=== PATIENT | male | born 1950 | race Caucasian/White ===

== ENCOUNTER 2017-07-19 17:28 | Emergency (ER) | payer MEDICARE, OTHER ==
[~2017-07-19] VITALS: Ht 198.1 cm; Wt 90.7 kg
[2017-07-19] MEDS ORDERED: SIMVASTIN (18:43)
[2017-07-19] MEDS ORDERED: NEXIUM (18:43)
[2017-07-19] MEDS ORDERED: QUETIAPINE (18:44)
[2017-07-19] MEDS ORDERED: ZOLPIDEM (18:44)
--- NOTE | 2017-07-19 18:52 | ED GI ---
General Chief Complaint: Abdominal/GI Problems Stated Complaint: WEAKNESS, ACID REFLEX Source of Information: Patient, Family (granddaughter and grandson) Exam Limitations: No Limitations History of Present Illness Date Seen by Provider: Jul 19, 2017 Time Seen by Provider: 18:39 Initial Comments Patient presents to the ER by private conveyance with a chief complaint that for the past 7 days she's not had a bowel movement and he's had lots of nausea vomiting unable to keep any fluids or food down. His family reveals is not a whole agrees to drink about 12 beers a day on average but he is down to about 4- 6 a day since he moved in with his grandson for help. He has not drank in the last 3-4 days. They've tried Pepcid, his regular Nexium as well as his Pepto- Bismol without any relief of his reflux of acid and vomiting. His granddaughter who routinely was taking care of him just got back and stayed from a 2 days ago and they decided that since he was not getting better they better bring him to the doctor's office but apparently he was fired from his doctor at [facility] for not following up so they brought him to the ER instead. He has a history of using Seroquel, Ambien, Nexium for his acid reflux and simvastatin. He has not been taking any of his medications for the last 7 days. He is having some midepigastric and umbilical modest pain. He has not taken anything for the pain because he can't keep anything down. He has a history of falling off a trailer many years ago and shattering his pelvis which resulted in a colostomy and then a colostomy takedown in his right lower quadrant. No other abdominal surgeries. He's had no fevers chills cough or shortness of breath. No known heart disease. He does smoke about a pack per day of cigarettes and does not use recreational drugs. Patient says she's been a little bit shaky on his feet last couple days and had a fall yesterday and another fall this morning at about 2:00 in the morning. He does not think he struck his head or lose consciousness. He also has a history of COPD but does not use any breathing treatments for it. He says he's had colonoscopy and EGD but it was many many years ago and he doesn 't remember when and what was done and [facility] system but he does not think they found anything. He says he had a right inguinal hernia repair when he was a child according to his mother. Allergies and Home Medications Allergies Coded Allergies: No Known Drug Allergies (Unverified , 07/19/17) Patient Home Medication List Home Medication List Reviewed: Yes Review of Systems Constitutional: No chills, No diaphoresis, No fever; malaise, weakness EENTM: No Blurred Vision, No Double Vision Respiratory: Denies Cough, Denies Shortness of Air Cardiovascular: Denies Chest Pain, Denies Edema Gastrointestinal: Denies Abdomen Distended; Abdominal Pain, Constipated; Denies Diarrhea; Nausea, Poor Appetite, Poor Fluid Intake, Vomiting Genitourinary: Denies Burning, Denies Discharge, Denies Drainage Musculoskeletal: No back pain, No joint pain Skin: No pruritus, No rash Psychiatric/Neurological: Denies Headache, Denies Numbness Past Ibdohap-Uqmrqj-Eaebzl Hx Patient Social History Alcohol Use: Regular Use Alcohol Beverage of Choice: Beer (6 pack/day) Recreational Drug Use: No Smoking Status: Current Everyday Smoker Type Used: Cigarettes (one pack per day) Recent Foreign Travel: No Contact w/Someone Who Travel: No Physical Exam Vital Signs Vital Signs - First Documented 07/19/17 18:25 Temp 98.1 Pulse 71 Resp 18 B/P (MAP) 132/82 (99) Pulse Ox 95 O2 Delivery Room Air Capillary Refill : General Appearance: mild distress, other (disheveled) HEENT: PERRL/EOMI, normal ENT inspection, TMs normal; No pharynx normal ( oropharynx is dry) Neck: non-tender, supple, normal inspection Respiratory: chest non-tender, lungs clear, normal breath sounds, no respiratory distress, no accessory muscle use Cardiovascular: normal peripheral pulses, regular rate, rhythm, no edema Peripheral Pulses: 2+ Dorsalis Pedis (R), 2+ Left Dors-Pedis (L), 2+ Radial Pulses (R), 2+ Radial Pulses (L) Gastrointestinal: normal bowel sounds (active especially around the umbilicus) , soft, tenderness (and periumbilical); No hernia, No mass Progress/Results/Core Measures Results/Orders Lab Results Laboratory Tests Test 07/19/17 19:15 07/19/17 21:15 Range/Units White Blood Count 9.7 4.3-11.0 10^3/uL Red Blood Count 4.99 4.35-5.85 10^6/uL Hemoglobin 15.4 13.3-17.7 G/DL Hematocrit 44 40-54 % Mean Corpuscular Volume 87 80-99 FL Mean Corpuscular Hemoglobin 31 25-34 PG Mean Corpuscular Hemoglobin Concent 35 32-36 G/DL Red Cell Distribution Width 13.7 10.0-14.5 % Platelet Count 353 130-400 10^3/uL Mean Platelet Volume 9.1 7.4-10.4 FL Neutrophils (%) (Auto) 74 42-75 % Lymphocytes (%) (Auto) 13 12-44 % Monocytes (%) (Auto) 12 0-12 % Eosinophils (%) (Auto) 1 0-10 % Basophils (%) (Auto) 0 0-10 % Neutrophils # (Auto) 7.2 1.8-7.8 X 10^3 Lymphocytes # (Auto) 1.3 1.0-4.0 X 10^3 Monocytes # (Auto) 1.1 H 0.0-1.0 X 10^3 Eosinophils # (Auto) 0.1 0.0-0.3 10^3/uL Basophils # (Auto) 0.0 0.0-0.1 10^3/uL Prothrombin Time 13.6 12.2-14.7 SEC INR Comment 1.0 0.8-1.4 Activated Partial Thromboplast Time 24 24-35 SEC Sodium Level 135 135-145 MMOL/L Potassium Level 3.7 3.6-5.0 MMOL/L Chloride Level 98 98-107 MMOL/L Carbon Dioxide Level 25 21-32 MMOL/L Anion Gap 12 5-14 MMOL/L Blood Urea Nitrogen 43 H 7-18 MG/DL Creatinine 1.44 H 0.60-1.30 MG/DL Estimat Glomerular Filtration Rate 49 BUN/Creatinine Ratio 30 Glucose Level 108 H 70-105 MG/DL Calcium Level 9.3 8.5-10.1 MG/DL Magnesium Level 2.1 1.8-2.4 MG/DL Total Bilirubin 0.7 0.1-1.0 MG/DL Aspartate Amino Transf (AST/SGOT) 20 5-34 U/L Alanine Aminotransferase (ALT/SGPT) 20 0-55 U/L Alkaline Phosphatase 72 40-136 U/L Total Protein 7.0 6.4-8.2 GM/DL Albumin 3.8 3.2-4.5 GM/DL Lipase 47 8-78 U/L Serum Alcohol < 10 <10 MG/DL Urine Color NATHEN H Urine Clarity CLEAR Urine pH 6.5 5-9 Urine Specific [place] 1.015 L 1.016-1.022 Urine Protein 2+ H NEGATIVE Urine Glucose (UA) 3+ H NEGATIVE Urine Ketones 1+ H NEGATIVE Urine Nitrite NEGATIVE NEGATIVE Urine Bilirubin 1+ H NEGATIVE Urine Urobilinogen 4 H NORMAL MG/DL Urine Leukocyte Esterase 1+ H NEGATIVE Urine RBC (Auto) NEGATIVE NEGATIVE Urine RBC NONE /HPF Urine WBC 2-5 /HPF Urine Squamous Epithelial Cells 0-2 /HPF Urine Crystals NONE /LPF Urine Bacteria NEGATIVE /HPF Urine Casts PRESENT /LPF Urine Hyaline Casts 5-10 H /LPF Urine Mucus SMALL H /LPF Urine Culture Indicated NO My Orders Orders - TAMMIE LEWIS Ct Abdomen/Pelvis W (07/19/17 18:53) Alcohol (07/19/17 18:53) Cbc With Automated Diff (07/19/17 18:53) Comprehensive Metabolic Panel (07/19/17 18:53) Lipase (07/19/17 18:53) Magnesium (07/19/17 18:53) Ua Culture If Indicated (07/19/17 18:53) Saline Lock/Iv-Start (07/19/17 18:53) Ns Iv 1000 Ml (Sodium Chloride 0.9%) (07/19/17 18:53) Diatrizoate Meglum/Sodium 37% (Gastrogra (07/19/17 19:00) Ondansetron Injection (Zofran Injectio (07/19/17 19:00) Fentanyl Injection (Sublimaze Injection (07/19/17 19:00) Thiamine Injection (Vitamin B-1 Injectio (07/19/17 19:00) Protime With Inr (07/19/17 19:05) Partial Thromboplastin Time (07/19/17 19:05) Iohexol Injection (Omnipaque 350 Mg/Ml 1 (07/19/17 21:00) Ns (Ivpb) (Sodium Chloride 0.9% Ivpb Bag (07/19/17 21:00) Medications Given in ED Current Medications Medications Dose Ordered Sig/Perla Route Start Time Stop Time Status Last Admin Dose Admin Diatrizoate Meglum/ Diatrizoate Sod 120 ml ONCE ONCE PO 07/19/17 19:00 07/19/17 19:01 DC 07/19/17 20:59 120 ML Fentanyl Citrate 50 mcg ONCE ONCE IVP 07/19/17 19:00 07/19/17 19:01 DC 07/19/17 19:18 50 MCG Iohexol 100 ml ONCE ONCE IV 07/19/17 21:00 07/19/17 21:16 DC 07/19/17 21:00 100 ML Ondansetron HCl 4 mg ONCE ONCE IVP 07/19/17 19:00 07/19/17 19:01 DC 07/19/17 19:18 4 MG Sodium Chloride 100 ml ONCE ONCE IV 07/19/17 21:00 07/19/17 21:16 DC 07/19/17 21:00 100 ML Vital Signs/I&O 07/19/17 18:25 Temp 98.1 Pulse 71 Resp 18 B/P (MAP) 132/82 (99) Pulse Ox 95 O2 Delivery Room Air Progress Progress Note #1: Time: 19:01 Progress Note The patient had a fall with no obvious evidence of external head trauma, hemotympanum, shaikh sign or raccoon eyes on examination. It's been over 12 hours since the fall and so we discussed and offered him the option of a CT scan of his head but he has declined at this time after discussing the risks, benefits and alternatives. He is past the 12 hour observation window. Concern for obstruction secondary to possible malignancy, adhesions, etc. We'll get a CT scan of his abdomen and pelvis with IV and oral contrast. Fentanyl and Zofran for nausea and pain. We'll check labs and give him a 20 mL/kg bolus with one of those liters being a banana bag. He is not demonstrating any evidence of delirium tremens at this time but we'll put him on alcohol withdrawal precautions. Progress Note #2: Time: 21:59 Progress Note No evidence of obstruction on IV and oral contrast CT study of the abdomen pelvis. This could just be ileus. We are awaiting significant air-fluid levels. However he is definitely with nausea vomiting and obstipation. His probably not had a bowel movement because not really putting anything in by oral for the past week. After discussing the case the patient's feeling much better got up walked around even ate a putting pack and drink some water that he had on his person. He tolerated a so far and we has not needed any further nausea medicine since the initial nausea medicine. We talked about going home and following up for scope outpatient with Dr. Alvarez and he says he would be all for that. Diagnostic Imaging Diagonstic Imaging: Xray Plain Films/CT/US/NM/MRI: abdomen, pelvis Comments VIA [facility]. [place], [place] NAME: HARJINDER LAWLER [facility] REC#: [id number] PT STATUS: REG ER : 1950 PHYSICIAN: TAMMIE LEWIS MD ADMIT DATE: 07/19/17/ER Draft Date of Exam:07/19/17 CT ABDOMEN/PELVIS W PROCEDURE: CT abdomen and pelvis with contrast. TECHNIQUE: Multiple contiguous axial images were obtained through the abdomen and pelvis after administration of intravenous contrast. INDICATION: Nausea and vomiting for 4 days. FINDINGS: The lung bases are clear. The liver appears normal. The gallbladder and bile ducts are normal. Pancreas is atrophic. Spleen is normal. The adrenal glands are normal. Kidneys show no evidence of obstruction or calculi. There are benign cortical cysts present bilaterally. The largest is off the left kidney measuring 4 cm. There is good opacification of the aorta and abdominal vessels following IV contrast. Aorta is atherosclerotic without evidence of aneurysm. Abdominal vessels show normal enhancement. There is oral contrast present in the stomach and small bowel without evidence of obstruction. No evidence of bowel wall thickening. Colon shows normal stool and gas pattern. The appendix appears to be absent. No evidence of edema around the cecum. There is a moderate amount of stool in the rectum. There is no free air or free fluid. No intraabdominal adenopathy of pathologic size. Marked degenerative changes noted of the lumbar spine. IMPRESSION: 1. No acute intraabdominal findings demonstrated. 2. Atherosclerotic changes of the aorta. 3. Bilateral benign renal cystic changes. Dictated on workstation # [id number] Dict: 07/19/[id number] Trans: 07/19/172146 [facility] [id number] Interpreted by: MENG CARBAJAL MD Electronically signed by: Reviewed: Reviewed by Me Consults : Consulting Physician: EMILIANO ALVAREZ DO Consults Notes Discussed case and he would be willing to see the patient in the clinic. Departure Impression Primary Impression: Nausea and vomiting Qualified Codes: R11.2 - Nausea with vomiting, unspecified Additional Impressions: Dehydration EtOH dependence Qualified Codes: F10.20 - Alcohol dependence, uncomplicated Tobacco dependency Disposition: 01 HOME, SELF-CARE Condition: Improved Departure-Patient Inst. Decision time for Depature: 22:20 Referrals: EMILIANO ALVAREZ DO Patient Instructions: Intestinal Pseudo-obstruction (DC) Add. Discharge Instructions: Call Dr. Alvarez, General Surgeon's office in the morning and request an appointment. Drink plenty of fluids especially half-strength sports drinks. Eat a liquid diet and as your symptoms are improving you're not needing the nausea medicines you can increase that to more regular diet. If you have nausea you can take one tablet of the Zofran place under your tongue allowed to dissolve absorbed your mouth every 6 hours as needed. Continue to take your Nexium. converter supervisor the Carafate and take one tablet 30 minutes prior to all meals as well as before going to bed for the next 2 weeks to help coat the lining of your stomach. All discharge instructions reviewed with patient and/or family. Voiced understanding. Scripts Hydrocodone/Acetaminophen (Hydrocodone-Acetamin 5-325 mg) 1 Each Tablet 1 EACH PO Q6H PRN for BREAKTHROUGH PAIN for 7 Days, #8 TAB 0 Refills Prov: TAMMIE LEWIS 07/19/17 Sucralfate (Carafate) 1 Gm Tablet 1 GM PO QIDACHS for 14 Days, #56 TAB 0 Refills Prov: TAMMIE LEWIS 07/19/17 Esomeprazole Magnesium (Nexium) 20 Mg Capsule.dr 20 MG PO BID for 30 Days, #60 CAP 0 Refills Prov: TAMMIE LEWIS 07/19/17 Ondansetron (Ondansetron Odt) 4 Mg Tab.rapdis 4 MG PO Q6H PRN for NAUSEA/VOMITING, #8 TAB 0 Refills Prov: TAMMIE LEWIS 07/19/17 Copy Copies To 1: EMILIANO ALVAREZ TITUS J Jul 19, 2017 18:52
[2017-07-19] MEDS ORDERED: NS IV 1000 ML 1,000 ML IV SCH (18:53)
[2017-07-19] MEDS ORDERED: DIATRIZOATE MEGLUM/SODIUM 37% 120 ML (GASTROGRAFIN) PO ONE (19:00)
[2017-07-19] MEDS ORDERED: ONDANSETRON 4 MG/2 ML (SDV) Z0FRAN IVP ONE (19:00)
[2017-07-19] MEDS ORDERED: fentaNYL INJECTION 100 MCG/2 ML AMP IVP ONE (19:00)
[2017-07-19] MEDS ORDERED: THIAMINE INJECTION 100 MG, FOLIC ACID INJECTION 1 MG, VITAMIN MULTI INJECTION 10 ML, MA... IV SCH ×5 (19:00)
[2017-07-19 19:30] LABS: BASOPHILS % (AUTO) 0 % (0-10); EOSINOPHILS # (AUTO) 0.1 10^3/uL (0.0-0.3); EOSINOPHILS % (AUTO) 1 % (0-10); HEMATOCRIT 44 % (40-54); HEMOGLOBIN 15.4 G/DL (13.3-17.7); LYMPHOCYTES # (AUTO) 1.3 X 10^3 (1.0-4.0); LYMPHOCYTES % (AUTO) 13 % (12-44); MEAN CORPUSCULAR HEMOGLOBIN 31 PG (25-34); MEAN CORPUSCULAR HGB CONC 35 G/DL (32-36); MEAN CORPUSCULAR VOLUME 87 FL (80-99); MEAN PLATELET VOLUME 9.1 FL (7.4-10.4); MONOCYTES # (AUTO) 1.1 X 10^3 (0.0-1.0); MONOCYTES % (AUTO) 12 % (0-12); NEUTROPHILS # (AUTO) 7.2 X 10^3 (1.8-7.8); NEUTROPHILS % (AUTO) 74 % (42-75); PLATELET COUNT 353 10^3/uL (130-400); RED BLOOD COUNT 4.99 10^6/uL (4.35-5.85); RED CELL DISTRIBUTION WIDTH 13.7 % (10.0-14.5); WHITE BLOOD COUNT 9.7 10^3/uL (4.3-11.0)
[2017-07-19 19:49] LABS: PROTHROMBIN TIME PATIENT 13.6 SEC (12.2-14.7)
[2017-07-19 19:56] LABS: ALANINE AMINOTRANSFERASE 20 U/L (0-55); ALBUMIN 3.8 GM/DL (3.2-4.5); ALKALINE PHOSPHATASE 72 U/L (40-136); BILIRUBIN,TOTAL 0.7 MG/DL (0.1-1.0); BUN/CREATININE RATIO 30; CALCIUM 9.3 MG/DL (8.5-10.1); CARBON DIOXIDE 25 MMOL/L (21-32); CHLORIDE 98 MMOL/L (98-107); CREATININE SERUM 1.44 MG/DL (0.60-1.30); GFR ESTIMATED 49; GLUCOSE 108 MG/DL (70-105); LIPASE 47 U/L (8-78); MAGNESIUM 2.1 MG/DL (1.8-2.4); POTASSIUM 3.7 MMOL/L (3.6-5.0); SODIUM 135 MMOL/L (135-145)
[2017-07-19] MEDS ORDERED: NS 100 ML (IVPB) BAG IV ONE (21:00)
[2017-07-19] MEDS ORDERED: IOHEXOL 350 MG/ML 100 ML (OMNIPAQUE 350) VIAL IV ONE (21:00)
[2017-07-19 21:28] LABS: CLARITY,URINE CLEAR; COLOR,URINE AMBER; GLUCOSE, URINE (UA) 3+ (NEGATIVE); KETONES,URINE 1+ (NEGATIVE); LEUKOCYTE ESTERASE ,URINE 1+ (NEGATIVE); NITRITE,URINE NEGATIVE (NEGATIVE); PH,URINE 6.5 (5-9); PROTEIN,URINE 2+ (NEGATIVE); UROBILINOGEN,URINE 4 MG/DL (NORMAL)
[2017-07-19 21:36] LABS: BILIRUBIN,URINE 1+ (NEGATIVE)
[2017-07-19 21:38] LABS: BACTERIA,URINE NEGATIVE /HPF; SQUAMOUS EPITHELIAL CELL,UR 0-2 /HPF
--- NOTE | 2017-07-19 21:48 | Diagnostic Imaging Report ---
PROCEDURE: CT abdomen and pelvis with contrast. TECHNIQUE: Multiple contiguous axial images were obtained through the abdomen and pelvis after administration of intravenous contrast. INDICATION: Nausea and vomiting for 4 days. FINDINGS: The lung bases are clear. The liver appears normal. The gallbladder and bile ducts are normal. Pancreas is atrophic. Spleen is normal. The adrenal glands are normal. Kidneys show no evidence of obstruction or calculi. There are benign cortical cysts present bilaterally. The largest is off the left kidney measuring 4 cm. There is good opacification of the aorta and abdominal vessels following IV contrast. Aorta is atherosclerotic without evidence of aneurysm. Abdominal vessels show normal enhancement. There is oral contrast present in the stomach and small bowel without evidence of obstruction. No evidence of bowel wall thickening. Colon shows normal stool and gas pattern. The appendix appears to be absent. No evidence of edema around the cecum. There is a moderate amount of stool in the rectum. There is no free air or free fluid. No intraabdominal adenopathy of pathologic size. Marked degenerative changes noted of the lumbar spine. IMPRESSION: 1. No acute intraabdominal findings demonstrated. 2. Atherosclerotic changes of the aorta. 3. Bilateral benign renal cystic changes. Dictated by: Dictated on workstation # [id number]
[2017-07-19] MEDS ORDERED: ONDA4TAB11 PO (22:24)
[2017-07-19] MEDS ORDERED: SUCR1TAB36 PO (22:24)
[2017-07-19] MEDS ORDERED: HYDR-3812 PO (22:24)
[2017-07-19] MEDS ORDERED: ESOM20CA PO (22:24)
[2017-07-19] MEDS ORDERED: FAMOTIDINE 20 MG (PEPCID) TABLET PO ONE (22:30)
[2017-07-19] MEDS ORDERED: RX-FAMOTIDINE 20 MG (PEPCID) TAB PPK#2 ONE (22:47)
[2017-07-19 22:59] VITALS: BP 141/77
== END 2017-07-19 22:59 | disposition home or self-care (01) ==
LOC: ER 17:32
DX: R11.2 Nausea with vomiting, unspecified (principal); E86.0 Dehydration; J44.9 Chronic obstructive pulmonary disease, unspecified; K21.9 Gastro-esophageal reflux disease without esophagitis; F10.20 Alcohol dependence, uncomplicated; F17.210 Nicotine dependence, cigarettes, uncomplicated
CPT/HCPCS: 36415; 74177; 80053; 80320; 81000; 83690; 83735; 85025; 85610; 85730; 96361; 96365; 96366; 96375

== ENCOUNTER 2017-08-15 10:15 | Outpatient (CLI) | payer MEDICARE ==
[~2017-08-15] VITALS: Ht 198.1 cm; Wt 90.7 kg
[~2017-08-15 10:15] MED LIST: ESOM20CA PO; HYDR-3812 PO; NEXIUM; ONDA4TAB11 PO; QUETIAPINE; SIMVASTIN; SUCR1TAB36 PO; ZOLPIDEM
[2017-08-15] MEDS ORDERED: NF-ESOM40C PO (10:17)
== END 2017-08-15 10:25 ==
LOC: PREOP 10:15
PROVIDERS: ATTEND Surgery
DX: Z01.818 Encounter for other preprocedural examination (principal)

== ENCOUNTER 2017-08-16 09:15 | Day surgery (SDC) | payer MEDICARE ==
[~2017-08-16] VITALS: Ht 198.1 cm; Wt 90.7 kg
[~2017-08-16 09:15] MED LIST changes: +NF-ESOM40C PO
[2017-08-16] MEDS ORDERED: LACTATED RINGERS 1,000 ML IV STA (09:26)
[2017-08-16] MEDS ORDERED: LACTATED RINGERS 1,000 ML IV ONE (09:27)
[2017-08-16] MEDS ORDERED: HURRICAINE EXT TUBE (BENZOCAINE) XX PRN (09:30)
[2017-08-16 09:40] VITALS: BP 153/80
[2017-08-16] MEDS ORDERED: PROPOFOL INJECTION 50 ML IV ONE (10:43)
[2017-08-16] MEDS ORDERED: MIDAZOLAM 2 MG/2 ML (VERSED) VIAL ONE (10:43)
[2017-08-16] MEDS ORDERED: proPOfol 200 MG/20 ML (DIPRIVAN) VIAL IV ONE (11:28)
[2017-08-16] MEDS ORDERED: LABETALOL HCL 20 MG/4 ML VIAL ONE (11:38)
[2017-08-16] MEDS ORDERED: HURRICAINE EXT TUBE (BENZOCAINE) ONE (12:28)
[2017-08-16 12:30] VITALS: BP 166/90
--- NOTE | 2017-08-16 12:35 | Progress Note-Pre Operative ---
Pre-Operative Progress Note H&P Reviewed The H&P was reviewed, patient examined and no changes noted. Date Seen by Provider: Aug 16, 2017 Time Seen by Provider: 10:50 Date H&P Reviewed: Aug 16, 2017 Time H&P Reviewed: 10:50 Pre-Operative Diagnosis: gerd, nausea vomiting, constipation EMILIANO ALVAREZ DO Aug 16, 2017 12:35
--- NOTE | 2017-08-16 12:37 | Discharge Inst-Simple/Standard ---
Discharge Inst-Standard Patient Instructions/Follow Up Plan of Care/Instructions/FU: 2 weeks Florencia Activity as Tolerated: Yes Discharge Diet: Regular Diet EMILIANO ALVAREZ DO Aug 16, 2017 12:37
--- NOTE | 2017-08-16 12:38 | Progress Note-Post Operative ---
Post-Operative Progess Note Surgeon (s)/Rn Burn (s) Surgeon EMILIANO ALVAREZ DO Rn Burn: na Pre-Operative Diagnosis gerd, nausea vomiting, constipation Post-Operative Diagnosis hiatal hernia, colon polyps Procedure & Operative Findings Date of Procedure 08/16/17 Procedure Performed/Findings egd c biopsies, colonoscopy with hot bx polypectomy x 5 Anesthesia Type per produce wrapper Estimated Blood Loss Estimated blood loss (mL): none Specimens/Packing Specimens Removed antrum, colon polyps EMILIANO ALVAREZ DO Aug 16, 2017 12:38
[2017-08-16 12:55] VITALS: BP 165/89
[2017-08-16 13:00] VITALS: BP 165/89
--- NOTE | 2017-08-16 17:08 | OPERATIVE REPORT ---
DATE OF SERVICE: 08/16/2017 PREOPERATIVE DIAGNOSES: GERD, nausea, vomiting, constipation. POSTOPERATIVE DIAGNOSES: Hiatal hernia, colon polyps and minimal diverticulosis. PROCEDURES: EGD with biopsy and colonoscopy with hot biopsy polypectomy x5. SURGEON: Lloyd Don DO ANESTHESIA: Per REMOTE SENSING PROGRAM MANAGER. ESTIMATED BLOOD LOSS: None. COMPLICATIONS: None. INDICATIONS: The patient is a 67-year-old male, who has been having some nausea, vomiting, gastroesophageal reflux disease and constipation. Discussed risks and benefits of EGD and colonoscopy. He understands risks and benefits and wishes to proceed. Consent was signed and on the chart. DESCRIPTION OF PROCEDURE: The patient was taken to the endoscopy suite, placed in left lateral recumbent position. Timeout was performed. Scope was inserted in the mouth, down the esophagus, stomach and into the duodenum without difficulty. There are some slight erythematous changes in the first portion of the duodenum. No polyps, masses or ulcerations. Scope was retracted back into the stomach where it was further insufflated. Some slight erythematous changes present. Biopsy of the antrum was obtained. Scope was retroflexed noting a small to moderate hiatal hernia, no other pathology noted. Scope was returned to its normal position. A biopsy of the antrum had been obtained and the scope was then slowly retracted back into the distal esophagus, which had no polyps, masses, ulcerations or erythematous changes. Scope was retracted until completely removed, noting no other pathology. Digital rectal exam was performed. There were no palpable polyps, masses or ulcerations. The scope was inserted into the rectum and advanced all the way to the cecum with minimal difficulty. Prep was okay with irrigation and suction, still some particulate stool present, but fairly good visualization of all the mucosa was observed. Scope was then slowly retracted back. There were no polyps, masses or ulcerations within the cecum, ascending and transverse colon. No polyps, masses or ulceration within the descending colon. In the proximal sigmoid colon, a small polyp was present, of which hot biopsy polypectomy was performed. Scope was continuously retracted back into the distal sigmoid colon where there were three polyps present, of which hot biopsy polypectomies were performed. There was a minimal amount of diverticulosis present at the sigmoid colon. Once in the rectum, another polyp was present, of which hot biopsy polypectomy was performed. Scope was attempted to be retroflexed, but due to being narrow rectum, unable to retroflex, so multiple insertions and retractions were made noting no other pathology. RECOMMENDATIONS: The patient will follow up in the office in two to three weeks to discuss pathology results. Due to the number of polyps, would recommend repeat endoscopy in 3 years. Job ID: [id number] DocumentID: [id number] Dictated Date: 08/16/2017 12:42:29 Ciaio Counter Molder Date: 08/16/2017 17:08:04 Dictated By: DO MERCY QUIROGA
== END 2017-08-16 13:00 | disposition home or self-care (01) ==
LOC: ENDO 09:15
PROVIDERS: ATTEND Surgery
DX: D12.5 Benign neoplasm of sigmoid colon (principal); K63.5 Polyp of colon; K62.1 Rectal polyp; K57.30 Diverticulosis of large intestine without perforation or abscess without bleeding; K59.00 Constipation, unspecified; K21.9 Gastro-esophageal reflux disease without esophagitis; K44.9 Diaphragmatic hernia without obstruction or gangrene; J43.9 Emphysema, unspecified; F17.210 Nicotine dependence, cigarettes, uncomplicated
CPT/HCPCS: 88305

== ENCOUNTER → 2018-02-10 | Outpatient (CLI) | payer MEDICARE, OTHER ==
--- NOTE | 2018-02-10 20:52 | Diagnostic Imaging Report ---
INDICATION: 70-sqky-yxes smoking history for low-dose screening CT. COMPARISON: No previous. Comparison limited to overlapped cuts obtained during an abdominal CT from July 2017. FINDINGS: Curvilinear areas of partly calcified biapical pleural-parenchymal scarring are noted. There is heterogeneous air trapping with features of centrilobular emphysema with scattered peripheral subpleural air cysts. No suspicious lung mass. No evidence for adenopathy. Nonaneurysmal aortic atherosclerotic vascular calcifications as well as coronary atherosclerotic calcifications noted. Atherosclerotic ectasia of the upper abdomenal aorta unchanged where visualized on today's and prior exam. IMPRESSION: Changes of centrilobular emphysema with biapical partly calcified pleural-parenchymal scarring. No suspicious chest lesion. A 12-month annual low-dose CT follow-up recommended. Lung rads category 2 - Benign appearance or behavior. Solid nodule(s): <6mm OR new <4mm. Continue annual screening with LDCT in 12 months. Dictated by: Dictated on workstation # [id number]
== END ==
LOC: RAD 14:58
PROVIDERS: ATTEND Family Medicine
DX: Z12.2 Encounter for screening for malignant neoplasm of respiratory organs (principal); F17.210 Nicotine dependence, cigarettes, uncomplicated; J43.2 Centrilobular emphysema

== ENCOUNTER 2018-04-26 23:01 | Emergency (ER) | payer MEDICARE, OTHER ==
[~2018-04-26] VITALS: Ht 198.1 cm; Wt 90.7 kg
--- NOTE | 2018-04-26 23:50 | ED Syncope ---
General Chief Complaint: General Problems/Pain Stated Complaint: FALL,NO ENERGY Nursing Triage Note: PT AMB TO ROOM #3 UTILIZING PERSONAL WALKER. PT REPORTS OVER PAST X2 MONTHS, HE HAS FALLEN APPROX X5. PT REPORTS ONCE HE FALLS, HE IS UNABLE TO GET BACK UNTIL HE GETS HELP FROM HIS GRANDCHILDREN, WHOM HE LIVES WITH. PT DENIES SEEKING MEDICAL CARE AFTER ANY OF THE REPORTED FALLS. PT REPORTS HIS MOST RECENT FALL OCCURED YESTERDAY. PT REPORTS HE HIT HIS HEAD AND LOST CONCIOUSNESS. PT DENIES PAIN, DISCOMFORT, NAUSEA, VOMITING, OR DIARRHEA. PT STATES, "IM TIRED OF HAVING NO ENERGY AND I WANT TO KNOW WHY." Source of Information: Patient Exam Limitations: No Limitations History of Present Illness Date Seen by Provider: Apr 26, 2018 Time Seen by Provider: 23:37 Initial Comments The patient presents to ER by private conveyance walking and using his walker and a chief complaint of falls and syncopal episodes. He says this has been going on for 2 months going more frequently last 2 weeks. His last fall was about 2 days ago on Tuesday he felt twice and hit his head. He says is getting weaker at target back up. He smokes about a pack cigarettes per day and drinks about a 12 pack of beer a day. He has not brought this up to his primary care doctor. There wasn't any specific reason he decided to come in tonight other than he wanted to know what was causing his falls. He's not having any head or neck pain. He does have some nausea. He's been having a runny nose for the past couple months and using 2-4 Benadryl a day. He says he vomits every few days dry heaves mostly. He has a lot of coughing sometimes productive of phlegm. He denies any fevers chills dysuria diarrhea or constipation. No abdominal pain. No significant medical history, but he does have acid reflux and takes esomeprazole. He has an albuterol inhaler and uses it occasionally but doesn't feel that makes much difference. Allergies and Home Medications Allergies Coded Allergies: No Known Drug Allergies (Verified , 08/16/17) Home Medications Cephalexin 500 Mg Tablet, 500 MG PO BID Prescribed by: TAMMIE LEWIS on 04/27/18 0205 Esomeprazole Magnesium 40 Mg Cap, 40 MG PO DAILY, (Reported) Patient Home Medication List Home Medication List Reviewed: Yes Review of Systems Constitutional: No chills, No fever, No malaise EENTM: No ear discharge, No ear pain Respiratory: cough, phlegm; No short of breath, No wheezing Cardiovascular: No chest pain, No Hx of Intervention, No palpitations Gastrointestinal: No abdominal pain, No constipation, No diarrhea; nausea; No vomiting Genitourinary: No discharge, No dysuria Musculoskeletal: No back pain, No joint pain Skin: No pruritus, No rash Psychiatric/Neurological: Denies Headache, Denies Numbness, Denies Paresthesia Past Hfvczsj-Uhbrww-Wawlmd Hx Patient Social History Alcohol Use: Regular Use Number of Drinks Today: 12 Alcohol Beverage of Choice: Beer Recreational Drug Use: No Smoking Status: Current Everyday Smoker Type Used: Cigarettes 2nd Hand Smoke Exposure: Yes Recent Foreign Travel: No Contact w/Someone Who Travel: No Recent Infectious Disease Expo: No Recent Hopitalizations: No Seasonal Allergies Seasonal Allergies: Yes Past Medical History Surgeries: Yes (L THR) Abdominal, Coronary Stent, Orthopedic Respiratory: Yes COPD Cardiac: No High Cholesterol Neurological: No Reproductive Disorders: No Sexually Transmitted Disease: Yes HIV/AIDS: No Genitourinary: No Gastrointestinal: Yes Gastroesophageal Reflux Musculoskeletal: No Endocrine: No Loss of Vision: Denies Hearing Impairment: Hard of Hearing Cancer: No Psychosocial: Yes Sleep Difficulties Integumentary: No Blood Disorders: No Adverse Reaction/Blood Tranf: No (N/A) Physical Exam Vital Signs Vital Signs - First Documented 04/26/18 23:19 Temp 97.8 Pulse 72 Resp 20 B/P (MAP) 128/76 (93) Pulse Ox 95 O2 Delivery Room Air Capillary Refill : Less Than 3 Seconds Height, Weight, BMI Height: 6'6.00" Weight: 200lbs. 0.0oz. 90.723340ky; 23.1 BMI Method:Stated General Appearance: No Apparent Distress, WD/WN HEENT: PERRL/EOMI, Pharynx Normal, Moist Mucous Membranes Neck: Full Range of Motion, Normal Inspection, Non Tender, Supple Cardiovascular: Regular Rate, Rhythm, No Edema, Normal Peripheral Pulses Respiratory: Lungs Clear, Normal Breath Sounds, No Accessory Muscle Use, No Respiratory Distress, Decreased Breath Sounds (mildly) Gastrointestinal: Normal Bowel Sounds, Non Tender, Soft Back: Normal Inspection, No Vertebral Tenderness Extremities: Normal Capillary Refill, Normal Inspection, No Pedal Edema Neurologic/Psychiatric: Alert, Oriented x3, No Motor/Sensory Deficits, Normal 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, 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 Norm as Tested Cranial Nerves: Normal Hearing, Normal Speech, PERRL Coordination/Gait: Normal Finger to Nose, Normal Gait (uses a walker assistive device) Skin: Other (dried skin on his bilateral ankles) Progress/Results/Core Measures Results/Orders Lab Results Laboratory Tests Test 04/27/18 00:20 04/27/18 01:32 Range/Units White Blood Count 4.8 4.3-11.0 10^3/uL Red Blood Count 4.24 L 4.35-5.85 10^6/uL Hemoglobin 13.0 L 13.3-17.7 G/DL Hematocrit 37 L 40-54 % Mean Corpuscular Volume 87 80-99 FL Mean Corpuscular Hemoglobin 31 25-34 PG Mean Corpuscular Hemoglobin Concent 35 32-36 G/DL Red Cell Distribution Width 14.2 10.0-14.5 % Platelet Count 301 130-400 10^3/uL Mean Platelet Volume 8.7 7.4-10.4 FL Neutrophils (%) (Auto) 67 42-75 % Lymphocytes (%) (Auto) 17 12-44 % Monocytes (%) (Auto) 13 H 0-12 % Eosinophils (%) (Auto) 3 0-10 % Basophils (%) (Auto) 1 0-10 % Neutrophils # (Auto) 3.2 1.8-7.8 X 10^3 Lymphocytes # (Auto) 0.8 L 1.0-4.0 X 10^3 Monocytes # (Auto) 0.6 0.0-1.0 X 10^3 Eosinophils # (Auto) 0.1 0.0-0.3 10^3/uL Basophils # (Auto) 0.0 0.0-0.1 10^3/uL Sodium Level 131 L 135-145 MMOL/L Potassium Level 3.6 3.6-5.0 MMOL/L Chloride Level 96 L 98-107 MMOL/L Carbon Dioxide Level 24 21-32 MMOL/L Anion Gap 11 5-14 MMOL/L Blood Urea Nitrogen 10 7-18 MG/DL Creatinine 1.06 0.60-1.30 MG/DL Estimat Glomerular Filtration Rate > 60 BUN/Creatinine Ratio 9 Glucose Level 97 70-105 MG/DL Calcium Level 8.8 8.5-10.1 MG/DL Corrected Calcium 9.3 8.5-10.1 MG/DL Magnesium Level 1.3 L 1.8-2.4 MG/DL Total Bilirubin 0.7 0.1-1.0 MG/DL Aspartate Amino Transf (AST/SGOT) 38 H 5-34 U/L Alanine Aminotransferase (ALT/SGPT) 19 0-55 U/L Alkaline Phosphatase 72 40-136 U/L Ammonia 19 11-32 UMOL/L Troponin I < 0.028 <0.028 NG/ML Total Protein 6.8 6.4-8.2 GM/DL Albumin 3.4 3.2-4.5 GM/DL Thyroid Stimulating Hormone (TSH) 2.41 0.35-4.94 UIU/ML Serum Alcohol < 10 <10 MG/DL Urine Color YELLOW Urine Clarity SL CLOUDY Urine pH 6.5 5-9 Urine Specific [place] 1.005 L 1.016-1.022 Urine Protein 1+ H NEGATIVE Urine Glucose (UA) NEGATIVE NEGATIVE Urine Ketones NEGATIVE NEGATIVE Urine Nitrite NEGATIVE NEGATIVE Urine Bilirubin NEGATIVE NEGATIVE Urine Urobilinogen 1 NORMAL MG/DL Urine Leukocyte Esterase 3+ H NEGATIVE Urine RBC (Auto) 1+ H NEGATIVE Urine RBC NONE /HPF Urine WBC >100 H /HPF Urine Crystals NONE /LPF Urine Bacteria TRACE /HPF Urine Casts NONE /LPF Urine Mucus NEGATIVE /LPF Urine Culture Indicated YES My Orders Orders - TAMMIE LEWIS Alcohol (04/26/18 23:43) Ammonia (04/26/18 23:43) Cbc With Automated Diff (04/26/18 23:43) Comprehensive Metabolic Panel (04/26/18 23:43) Magnesium (04/26/18 23:43) Thyroid Stimulating Hormone (04/26/18 23:43) Troponin I (04/26/18 23:43) Ua Culture If Indicated (04/26/18 23:43) Chest Pa/Lat (2 View) (04/26/18 23:43) Ekg Tracing (04/26/18 23:43) Continuous Ekg Monitoring (04/26/18 23:43) Orthostatic Vital Signs (Adult (04/26/18 23:43) Ondansetron Oral Dissolve Tab (Zofran (04/27/18 00:00) Saline Lock/Iv-Start (04/27/18 00:31) Ns Iv 1000 Ml (Sodium Chloride 0.9%) (04/27/18 00:31) Ns Iv 1000 Ml (Sodium Chloride 0.9%) (04/27/18 00:30) Magnesium Oxide Tablet (Mag Ox Tablet) (04/27/18 01:45) Saline Lock/Iv-Start (04/27/18 01:36) Ns Iv 1000 Ml (Sodium Chloride 0.9%) (04/27/18 01:36) Urine Culture (04/27/18 01:32) Ceftriaxone For Iv Use (Rocephin For I (04/27/18 02:15) Medications Given in ED Current Medications Medications Dose Ordered Sig/Perla Route Start Time Stop Time Status Last Admin Dose Admin Ceftriaxone Sodium 1000 mg/ Sterile Water 10 ml @ 200 mls/hr ONCE ONCE IV 04/27/18 02:15 04/27/18 02:17 DC 04/27/18 02:20 200 MLS/HR Magnesium Oxide 400 mg ONCE ONCE PO 04/27/18 01:45 04/27/18 01:46 DC 04/27/18 01:45 400 MG Ondansetron HCl 4 mg ONCE ONCE PO 04/27/18 00:00 04/27/18 00:01 DC 04/27/18 00:10 4 MG Vital Signs/I&O 04/26/18 04/27/18 23:19 01:25 Temp 97.8 Pulse 72 73 76 79 Resp 20 B/P (MAP) 128/76 (93) 161/96 (117) 143/89 (107) 109/59 (76) Pulse Ox 95 O2 Delivery Room Air Blood Pressure Mean: 93 Progress Progress Note #1: Time: 23:55 Progress Note Plan to start a syncopal workup. EKG, chest x-ray, labs looking for anemia, kidney dysfunction, urinalysis, orthostatic vital signs etc. Certainly have encouraged him not to use Benadryl as this will contribute to falls. Progress Note #2: Time: 02:01 Progress Note We've given a liter of normal saline and repeated his orthostatics and they're still positive but less so. Repeat another liter of saline. We'll give him a gram or Rocephin. Given him 400 mg magnesium. We'll recommend outpatient follow- up with a chest CT of the abnormal finding on left chest. He has some mild hyponatremia which can be worked up outpatient. Vital signs are otherwise aseptic. He is not truly hypotensive. Blood pressure would drop from 160 systolic lying to 110 standing. Initial ECG Impression Date: Apr 26, 2018 Initial ECG Impression Time: 00:24 Initial ECG Rate: 69 Initial ECG Rhythm: Normal Sinus Initial ECG Intervals: QT (497) Initial ECG Impression: Normal, Nonspecific Changes Initial ECG Comparisson: Unchanged Comment No significant ST elevation or depression. Diagnostic Imaging Diagonstic Imaging: Xray Plain Films/CT/US/NM/MRI: chest (2v) Comments COPD. Round nodule left lower lobe that would be advisable for follow-up outpatient. CT reviewed from 2018 demonstrates bleb disease, COPD, no mass. Reviewed: Reviewed by Me Departure Impression Primary Impression: Syncope Qualified Codes: R55 - Syncope and collapse Additional Impressions: Falls frequently UTI (urinary tract infection) Qualified Codes: N30.00 - Acute cystitis without hematuria Chest x-ray abnormality Disposition: HOME, SELF-CARE Condition: Stable Departure-Patient Inst. Decision time for Depature: 02:30 Referrals: JENNIFER BECK DO (PCP/Family) Primary Care Physician Patient Instructions: Preventing Falls in the Older Adult, Standing Balance Exercises, Beginner, Urinary Tract Infection, Adult (DC) Add. Discharge Instructions: Follow-up with your primary care doctor in the next week to reassess her symptoms after antibiotics for your urinary tract infection. Drink plenty of fluids. Discuss with your primary doctor further workup of the finding on chest x-ray. Use your walker or other assistive devices to help prevent falls. When you stand up after being in a seated or lying position for a long time you should wait 10 seconds before you start walking to reduce your risk of passing out. Discontinue use of the Benadryl as this will also contribute to falls. All discharge instructions reviewed with patient and/or family. Voiced understanding. Scripts Cephalexin (Cephalexin) 500 Mg Tablet 500 MG PO BID for 7 Days, #14 TAB 0 Refills Prov: TAMMIE LEWIS 04/27/18 Copy Copies To 1: JENNIFER BECK TITUS J Apr 26, 2018 23:50
[2018-04-27] MEDS ORDERED: ONDANSETRON 4 MG (ZOFRAN) ORAL DISSOLVE TAB PO ONE
--- OUTSIDE RECORDS SUMMARY | 2018-04-27 00:10 | XMS REPORT ---
Author Author ZANE MATTHEWS Organization [facility] Address [address] [place] [address] Care Team Providers Care Surgical Orderly Name Role Phone ZANE MATTHEWS Unavailable PROBLEMS Type Condition ICD9-CM Code QNF41-CL Code Onset Dates Condition Status SNOMED Code Problem Primary insomnia F51.01 Active 7313350 Problem Vertigo R42 Active 690522755 Problem Bilateral hearing loss, unspecified hearing loss type H91.93 Active 56462731 Problem Gastroesophageal reflux disease, esophagitis presence not specified K21.9 Active 630098984 Problem Cigarette nicotine dependence without complication F17.210 Active 98566857 ALLERGIES No Known Allergies ENCOUNTERS Encounter Location Date Diagnosis [facility] [id number] [place] [phone] Aug, [facility] [id number] [place] [phone] Aug, Bilateral hearing loss, unspecified hearing loss type H91.93 ; Perforation of left tympanic membrane H72.92 ; Gastroesophageal reflux disease, esophagitis presence not specified K21.9 ; Primary insomnia F51.01 ; Vertigo R42 and Cigarette nicotine dependence without complication F17.210 IMMUNIZATIONS No Known Immunizations SOCIAL HISTORY Never Assessed REASON FOR VISIT Establish care- Hearing screen -[place] PLAN OF CARE Activity Details Follow Up 3 Months Reason: VITAL SIGNS Height 78 in 2017-08-15 Weight 193 lbs 2017-08-15 Temperature 97.4 degrees Fahrenheit 2017-08-15 Heart Rate 76 bpm 2017-08-15 Respiratory Rate 18 2017-08-15 Oximetry on room air:91 % 2017-08-15 BMI 22.30 kg/m2 2017-08-15 Blood pressure systolic 140 mmHg 2017-08-15 Blood pressure diastolic 68 mmHg 2017-08-15 MEDICATIONS Medication Instructions Dosage Frequency Start Date End Date Duration Status Nexium 40 MG Orally Once a day 1 capsule 24h Active Ambien 10 mg Orally Once a day 1 tablet at bedtime as needed 24h Aug, Active RESULTS No Results PROCEDURES Procedure Date Ordered Result Body Site [facility] VISIT NEW PATIENT August 15, 2017 INSTRUCTIONS MEDICATIONS ADMINISTERED No Known Medications MEDICAL (GENERAL) HISTORY Type Description Date Surgical History Left hip replacement 1989 Hospitalization History surgeries
--- OUTSIDE RECORDS SUMMARY | 2018-04-27 00:10 | XMS REPORT ---
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 Inspector Name Role Phone ZANE MATTHEWS Unavailable PROBLEMS Type Condition ICD9-CM Code OFC49-MA Code Onset Dates Condition Status SNOMED Code Problem Primary insomnia F51.01 Active 5589388 Problem Vertigo R42 Active 786655642 Problem Bilateral hearing loss, unspecified hearing loss type H91.93 Active 87513607 Problem Gastroesophageal reflux disease, esophagitis presence not specified K21.9 Active 418743929 Problem Cigarette nicotine dependence without complication F17.210 Active 24769808 ALLERGIES No Information ENCOUNTERS Encounter Location Date Diagnosis [facility] [address] [address] Aug, [facility] [id number] [place] [phone] Aug, Bilateral hearing loss, unspecified hearing loss type H91.93 ; Perforation of left tympanic membrane H72.92 ; Gastroesophageal reflux disease, esophagitis presence not specified K21.9 ; Primary insomnia F51.01 ; Vertigo R42 and Cigarette nicotine dependence without complication F17.210 IMMUNIZATIONS No Known Immunizations SOCIAL HISTORY Never Assessed REASON FOR VISIT Medication refill request PLAN OF CARE VITAL SIGNS MEDICATIONS Medication Instructions Dosage Frequency Start Date End Date Duration Status Nexium 40 mg Orally Once a day 1 capsule 24h Active RESULTS No Results PROCEDURES No Known procedures INSTRUCTIONS MEDICATIONS ADMINISTERED No Known Medications MEDICAL (GENERAL) HISTORY Type Description Date Surgical History Left hip replacement 1989 Hospitalization History surgeries
[2018-04-27 00:29] LABS: BASOPHILS % (AUTO) 1 % (0-10); EOSINOPHILS # (AUTO) 0.1 10^3/uL (0.0-0.3); EOSINOPHILS % (AUTO) 3 % (0-10); HEMATOCRIT 37 % (40-54); LYMPHOCYTES # (AUTO) 0.8 X 10^3 (1.0-4.0); LYMPHOCYTES % (AUTO) 17 % (12-44); MEAN CORPUSCULAR HEMOGLOBIN 31 PG (25-34); MEAN CORPUSCULAR HGB CONC 35 G/DL (32-36); MEAN CORPUSCULAR VOLUME 87 FL (80-99); MEAN PLATELET VOLUME 8.7 FL (7.4-10.4); MONOCYTES # (AUTO) 0.6 X 10^3 (0.0-1.0); MONOCYTES % (AUTO) 13 % (0-12); NEUTROPHILS # (AUTO) 3.2 X 10^3 (1.8-7.8); NEUTROPHILS % (AUTO) 67 % (42-75); PLATELET COUNT 301 10^3/uL (130-400); RED CELL DISTRIBUTION WIDTH 14.2 % (10.0-14.5); WHITE BLOOD COUNT 4.8 10^3/uL (4.3-11.0)
[2018-04-27] MEDS ORDERED: NS IV 1000 ML 1,000 ML ONE (00:30)
[2018-04-27] MEDS ORDERED: NS IV 1000 ML 1,000 ML IV SCH ×2 (00:31→01:36)
[2018-04-27 00:48] LABS: ALANINE AMINOTRANSFERASE 19 U/L (0-55); ALBUMIN 3.4 GM/DL (3.2-4.5); ALKALINE PHOSPHATASE 72 U/L (40-136); AMMONIA 19 UMOL/L (11-32); BILIRUBIN,TOTAL 0.7 MG/DL (0.1-1.0); BUN/CREATININE RATIO 9; CALCIUM 8.8 MG/DL (8.5-10.1); CARBON DIOXIDE 24 MMOL/L (21-32); CHLORIDE 96 MMOL/L (98-107); CREATININE SERUM 1.06 MG/DL (0.60-1.30); GFR ESTIMATED > 60; GLUCOSE 97 MG/DL (70-105); MAGNESIUM 1.3 MG/DL (1.8-2.4); POTASSIUM 3.6 MMOL/L (3.6-5.0); SODIUM 131 MMOL/L (135-145); TOTAL PROTEIN 6.8 GM/DL (6.4-8.2)
[2018-04-27 01:25] VITALS: BP_SYST 109; BP_SYST 143; BP_SYST 161; BP_DIAS 59; BP_DIAS 89; BP_DIAS 96
[2018-04-27 01:42] LABS: BILIRUBIN,URINE NEGATIVE (NEGATIVE); COLOR,URINE YELLOW; GLUCOSE, URINE (UA) NEGATIVE (NEGATIVE); KETONES,URINE NEGATIVE (NEGATIVE); LEUKOCYTE ESTERASE ,URINE 3+ (NEGATIVE); NITRITE,URINE NEGATIVE (NEGATIVE); PH,URINE 6.5 (5-9); PROTEIN,URINE 1+ (NEGATIVE); UROBILINOGEN,URINE 1 MG/DL (NORMAL)
[2018-04-27] MEDS ORDERED: MAGNESIUM OXIDE (MAG-OX)400 MG TAB PO ONE (01:45)
[2018-04-27 01:48] LABS: BACTERIA,URINE TRACE /HPF; CLARITY,URINE SL CLOUDY; WBC,URINE >100 /HPF
[2018-04-27] MEDS ORDERED: CEPH500T PO (02:05)
[2018-04-27] MEDS ORDERED: cefTRIAXone FOR IV USE 1,000 MG in WATER (STERILE) FOR INJECTION 10 ML IV ONE (02:15)
[2018-04-27 02:45] VITALS: BP 121/95
--- NOTE | 2018-04-27 08:20 | Diagnostic Imaging Report ---
INDICATION: Shortness of air. Time of exam: 11:58 PM No prior studies are available for comparison. The heart size is normal. Lungs are hyperinflated consistent with COPD. There is some biapical pleural thickening. There is some density in the left base suggestive of some infiltrate. Linear scarring or atelectasis at the left costophrenic angle is noted. There is no effusion or pneumothorax. IMPRESSION: COPD. There does appear to be some patchy infiltrate in the left base. Dictated by: Dictated on workstation # [id number]
== END 2018-04-27 02:45 | disposition home or self-care (01) ==
LOC: EDUNIT# 23:01 → ER 23:02
DX: R55 Syncope and collapse (principal); N39.0 Urinary tract infection, site not specified; R91.8 Other nonspecific abnormal finding of lung field; R29.6 Repeated falls; J44.9 Chronic obstructive pulmonary disease, unspecified; E78.00 Pure hypercholesterolemia, unspecified; K21.9 Gastro-esophageal reflux disease without esophagitis; F17.210 Nicotine dependence, cigarettes, uncomplicated; Z95.5 Presence of coronary angioplasty implant and graft; Z98.890 Other specified postprocedural states
CPT/HCPCS: 36415; 71046; 80053; 80320; 81000; 82140; 83735; 84443; 84484; 85025; 87088; 93005

== ENCOUNTER → 2018-05-08 | Outpatient (CLI) | payer MEDICARE, OTHER ==
[~2018-05-08] MED LIST changes: +CEPH500T PO
[2018-05-08 15:59] LABS: BUN/CREATININE RATIO 7; CALCIUM 8.8 MG/DL (8.5-10.1); CARBON DIOXIDE 22 MMOL/L (21-32); CHLORIDE 96 MMOL/L (98-107); CREATININE SERUM 1.12 MG/DL (0.60-1.30); GFR ESTIMATED > 60; GLUCOSE 76 MG/DL (70-105); MAGNESIUM 1.1 MG/DL (1.8-2.4); POTASSIUM 4.6 MMOL/L (3.6-5.0); SODIUM 128 MMOL/L (135-145)
== END ==
LOC: LAB 15:27
PROVIDERS: ATTEND Family Medicine
DX: E87.1 Hypo-osmolality and hyponatremia (principal); E83.42 Hypomagnesemia; R29.6 Repeated falls
CPT/HCPCS: 36415; 80048; 83735

== ENCOUNTER 2018-06-02 22:33 | Inpatient (IN) | payer MEDICARE, OTHER ==
[~2018-06-02] VITALS: Ht 198.1 cm; Wt 78.2 kg
[2018-06-02] MEDS ORDERED: THIAMINE INJECTION 100 MG, FOLIC ACID INJECTION 1 MG, VITAMIN MULTI INJECTION 10 ML, MA... IV STA ×5 (22:58)
[2018-06-02] MEDS ORDERED: 1/2 NS W/KCL 20 MEQ/L 0 ML IV ONE (23:06)
[2018-06-02 23:07] LABS: BASOPHILS % (AUTO) 1 % (0-10); EOSINOPHILS # (AUTO) 0.2 10^3/uL (0.0-0.3); EOSINOPHILS % (AUTO) 2 % (0-10); HEMATOCRIT 36 % (40-54); HEMOGLOBIN 13.1 G/DL (13.3-17.7); LYMPHOCYTES # (AUTO) 1.8 X 10^3 (1.0-4.0); LYMPHOCYTES % (AUTO) 24 % (12-44); MEAN CORPUSCULAR HEMOGLOBIN 30 PG (25-34); MEAN CORPUSCULAR HGB CONC 36 G/DL (32-36); MEAN CORPUSCULAR VOLUME 84 FL (80-99); MONOCYTES # (AUTO) 0.7 X 10^3 (0.0-1.0); MONOCYTES % (AUTO) 9 % (0-12); NEUTROPHILS # (AUTO) 4.8 X 10^3 (1.8-7.8); NEUTROPHILS % (AUTO) 64 % (42-75); PLATELET COUNT 226 10^3/uL (130-400); RED CELL DISTRIBUTION WIDTH 14.9 % (10.0-14.5); WHITE BLOOD COUNT 7.5 10^3/uL (4.3-11.0)
[2018-06-02 23:21] LABS: ALANINE AMINOTRANSFERASE 24 U/L (0-55); ALBUMIN 3.6 GM/DL (3.2-4.5); ALKALINE PHOSPHATASE 64 U/L (40-136); BILIRUBIN,TOTAL 0.8 MG/DL (0.1-1.0); BUN/CREATININE RATIO 9; CARBON DIOXIDE 20 MMOL/L (21-32); CHLORIDE 90 MMOL/L (98-107); CREATININE SERUM 0.96 MG/DL (0.60-1.30); GFR ESTIMATED > 60; GLUCOSE 86 MG/DL (70-105); POTASSIUM 3.9 MMOL/L (3.6-5.0); TOTAL PROTEIN 6.7 GM/DL (6.4-8.2)
[2018-06-02 23:24] LABS: SODIUM 122 MMOL/L (135-145)
[2018-06-02] MEDS ORDERED: LACTATED RINGERS 1,000 ML IV ONE (23:33)
--- NOTE | 2018-06-02 23:33 | ED GU-Male ---
General Chief Complaint: General Problems/Pain Stated Complaint: LEG NUMBNESS/ETOH Nursing Triage Note: PT TO ROOM #7 [facility]IA [facility] CART FROM HOME WITH C/O BILAT LEG NUMBNESS/TINGLING AND TREMORS. PT REPORTS HE HAS BEEN EXPERIENCING SYMPTOMS FOR 1-2 MONTHS AND FEELS NO NEW SYMPTOMS ON THIS DAY. PT REPORTS HE HAS NOT BEEN ABLE TO URINATE FOR 1.5 DAYS. EMS [facility] FAMILY BECAME CONCERNED OF POSSIBLE STROKE D/T LEG NUMBNESS. 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 EMS [facility] PT HAS CONSUMED APPROX X15 "TALL BOYS" THROUGHOUT THIS EVENING. PT NOTED TO BE A&OX4. INITIAL NIH 0 Source: patient Exam Limitations: no limitations History of Present Illness Date Seen by Provider: Jun 02, 2018 Time Seen by Provider: 22:44 Initial Comments Patient presents to ER by EMS from home with chief complaint per EMS that family called because he was complaining that his feet were numb. They thought maybe this medicine was having a stroke. Denied any facial droop, slurring of speech or other symptoms. EMS remarks that he was negative for any neurologic gums. The patient says that his numbness in his feet is chronic. He does not have diabetes but he does drink alcohol consistently. Family reports he takes about 18 to all boys of beer a day. Patient says that he's been having problems with falls lately he's not had any today but is not sure when his last fall was. He denies losing consciousness. He says he had an appointment to go see his doctor about his falls but he hasn't made that appointment yet. He's not having any fevers chills cough he does smoke cigarettes. He also is complaining that he's not been able to urinate in the last 36 hours. Denies any burning or discharge. Patient is a particularly difficult historian. Allergies and Home Medications Allergies Coded Allergies: No Known Drug Allergies (Verified , 08/16/17) Home Medications Cephalexin 500 Mg Tablet, 500 MG PO BID Prescribed by: TAMMIE LEWIS on 04/27/18 0205 Esomeprazole Magnesium 40 Mg Cap, 40 MG PO DAILY, (Reported) Patient Home Medication List Home Medication List Reviewed: Yes Review of Systems Review of Systems Constitutional: No chills, No diaphoresis EENTM: No ear discharge, No ear pain Respiratory: No cough, No short of breath Cardiovascular: No chest pain, No edema Gastrointestinal: No abdominal pain, No constipation, No diarrhea, No nausea Genitourinary: denies burning, denies dysuria Musculoskeletal: No back pain, No joint pain Past Gdbtntb-Uiyvls-Jtlcad Hx Patient Social History Alcohol Use: Rarely Uses Number of Drinks Today: 15 Alcohol Beverage of Choice: Beer Recreational Drug Use: No Smoking Status: Current Everyday Smoker Type Used: Cigarettes 2nd Hand Smoke Exposure: Yes Recent Foreign Travel: No Contact w/Someone Who Travel: No Recent Infectious Disease Expo: No Recent Hopitalizations: No Seasonal Allergies Seasonal Allergies: Yes Past Medical History Surgeries: Yes (L THR) Abdominal, Coronary Stent, Orthopedic Respiratory: Yes COPD Cardiac: No High Cholesterol Neurological: No Reproductive Disorders: No Sexually Transmitted Disease: Yes HIV/AIDS: No Genitourinary: No Gastrointestinal: Yes Gastroesophageal Reflux Musculoskeletal: No Endocrine: No Loss of Vision: Denies Hearing Impairment: Hard of Hearing Cancer: No Psychosocial: Yes Sleep Difficulties Integumentary: No Blood Disorders: No Adverse Reaction/Blood Tranf: No (N/A) Physical Exam Vital Signs Vital Signs - First Documented 06/02/18 22:34 Temp 98.1 Pulse 66 Resp 16 B/P (MAP) 134/88 (103) Pulse Ox 98 O2 Delivery Room Air Capillary Refill : Less Than 3 Seconds Height, Weight, BMI Height: 6'6.00" Weight: 200lbs. 0.0oz. 90.178169gj; 23.1 BMI Method:Stated General Appearance: no apparent distress, other (Disheveled) HEENT: PERRL/EOMI, normal ENT inspection; No pharynx normal (mildly dry oropharynx.) Neck: non-tender, full range of motion, normal inspection Cardiovascular: normal peripheral pulses, regular rate, rhythm Respiratory: normal breath sounds, no respiratory distress, no accessory muscle use Gastrointestinal: normal bowel sounds, non tender, soft Neurologic/Psychiatric: alert, normal mood/affect, oriented x 3 Skin: normal color, warm/dry Progress/Results/Core Measures Suspected Sepsis Recent Fever Within 48 Hours: No Infection Criteria Present: None New/Unexplained Altered Menta: No Sepsis Screen: No Definite Risk SIRS Temperature:98.1 Pulse: 66 Respiratory Rate: 16 Laboratory Tests 06/02/18 22:34: White Blood Count 7.5 Blood Pressure 134 /88 Mean: 103 Laboratory Tests 06/02/18 22:34: Creatinine 0.96, Platelet Count 226, Total Bilirubin 0.8 Results/Orders Lab Results Laboratory Tests Test 06/02/18 22:34 06/03/18 00:15 Range/Units White Blood Count 7.5 4.3-11.0 10^3/uL Red Blood Count 4.31 L 4.35-5.85 10^6/uL Hemoglobin 13.1 L 13.3-17.7 G/DL Hematocrit 36 L 40-54 % Mean Corpuscular Volume 84 80-99 FL Mean Corpuscular Hemoglobin 30 25-34 PG Mean Corpuscular Hemoglobin Concent 36 32-36 G/DL Red Cell Distribution Width 14.9 H 10.0-14.5 % Platelet Count 226 130-400 10^3/uL Mean Platelet Volume 9.0 7.4-10.4 FL Neutrophils (%) (Auto) 64 42-75 % Lymphocytes (%) (Auto) 24 12-44 % Monocytes (%) (Auto) 9 0-12 % Eosinophils (%) (Auto) 2 0-10 % Basophils (%) (Auto) 1 0-10 % Neutrophils # (Auto) 4.8 1.8-7.8 X 10^3 Lymphocytes # (Auto) 1.8 1.0-4.0 X 10^3 Monocytes # (Auto) 0.7 0.0-1.0 X 10^3 Eosinophils # (Auto) 0.2 0.0-0.3 10^3/uL Basophils # (Auto) 0.0 0.0-0.1 10^3/uL Sodium Level 122 *L 135-145 MMOL/L Potassium Level 3.9 3.6-5.0 MMOL/L Chloride Level 90 L 98-107 MMOL/L Carbon Dioxide Level 20 L 21-32 MMOL/L Anion Gap 12 5-14 MMOL/L Blood Urea Nitrogen 9 7-18 MG/DL Creatinine 0.96 0.60-1.30 MG/DL Estimat Glomerular Filtration Rate > 60 BUN/Creatinine Ratio 9 Glucose Level 86 70-105 MG/DL Calcium Level 9.0 8.5-10.1 MG/DL Corrected Calcium 9.3 8.5-10.1 MG/DL Total Bilirubin 0.8 0.1-1.0 MG/DL Aspartate Amino Transf (AST/SGOT) 46 H 5-34 U/L Alanine Aminotransferase (ALT/SGPT) 24 0-55 U/L Alkaline Phosphatase 64 40-136 U/L Total Protein 6.7 6.4-8.2 GM/DL Albumin 3.6 3.2-4.5 GM/DL Serum Alcohol 176 H <10 MG/DL Urine Color YELLOW Urine Clarity CLEAR Urine pH 6 5-9 Urine Specific [place] 1.005 L 1.016-1.022 Urine Protein NEGATIVE NEGATIVE Urine Glucose (UA) NEGATIVE NEGATIVE Urine Ketones NEGATIVE NEGATIVE Urine Nitrite NEGATIVE NEGATIVE Urine Bilirubin NEGATIVE NEGATIVE Urine Urobilinogen NORMAL NORMAL MG/DL Urine Leukocyte Esterase NEGATIVE NEGATIVE Urine RBC (Auto) NEGATIVE NEGATIVE Urine RBC NONE /HPF Urine WBC NONE /HPF Urine Squamous Epithelial Cells RARE /HPF Urine Crystals NONE /LPF Urine Bacteria NEGATIVE /HPF Urine Casts NONE /LPF Urine Mucus NEGATIVE /LPF Urine Culture Indicated NO My Orders Orders - TAMMIE LEWIS Alcohol (06/02/18 22:58) Cbc With Automated Diff (06/02/18 22:58) Comprehensive Metabolic Panel (06/02/18 22:58) Bladder Scan (06/02/18 22:58) Ct Head/Cervical Spine Wo (06/02/18 22:58) Thiamine Injection (Vitamin B-1 Injectio (06/02/18 22:58) 1/2 Ns W/Kcl 20 Meq/L (0.45% Sodium Chlo (06/02/18 23:06) Ekg Tracing (06/02/18 23:33) Continuous Ekg Monitoring (06/02/18 23:33) Ed Iv/Invasive Line Start (06/02/18 23:33) Lactated Ringers (Lr 1000 Ml Iv Solution (06/02/18 23:33) Folic Acid Injection (Folic Acid Injecti (06/02/18 23:45) Thiamine Injection (Vitamin B-1 Injectio (06/02/18 23:45) Ua Culture If Indicated (06/02/18 23:40) Lorazepam Injection (Ativan Injection) (06/03/18 01:00) Folic Acid Tablet (Folic Acid Tablet) (06/03/18 09:00) Folic Acid Tablet (Folic Acid Tablet) (06/03/18 01:01) Medications Given in ED Current Medications Medications Dose Ordered Sig/Perla Route Start Time Stop Time Status Last Admin Dose Admin Folic Acid 1 mg STK-MED ONCE .ROUTE 06/03/18 01:01 06/03/18 01:05 DC 06/03/18 01:06 1 MG Lactated Ringer's 1,000 ml @ 0 mls/hr Q0M ONCE IV 06/02/18 23:33 06/02/18 23:35 DC 06/03/18 00:09 0 MLS/HR Lorazepam 1 mg ONCE ONCE IVP 06/03/18 01:00 06/03/18 01:01 DC 06/03/18 01:06 1 MG Thiamine HCl 100 mg ONCE ONCE IV 06/02/18 23:45 06/02/18 23:46 DC 06/03/18 00:09 100 MG Vital Signs/I&O 06/02/18 22:34 Temp 98.1 Pulse 66 Resp 16 B/P (MAP) 134/88 (103) Pulse Ox 98 O2 Delivery Room Air Capillary Refill : Less Than 3 Seconds Blood Pressure Mean: 103 Progress Note #1: Time: 00:25 Progress Note His alcohol level is only 170. NIH is 0. Sensation in all 4 extremities. Moves them all and dependently. He has not had a fall recently that we're going to obtain a CT of his head and neck to rule out occult injury. He has no acute trauma on his head or neck. He has a history of low sodium although this is the low since been for a while. Probably related to his alcohol use. We'll give him a banana bag. He was unable to produce any urine so a bladder scan was obtained which showed an average of 700 cc. We put a Jara catheter in and have already gotten over half a liter out. Progress Note #2: Time: 01:35 Progress Note Patient has moderate hyponatremia which she was progressed from his baseline and is moderately symptomatic with his forgetfulness and gait instability. His probably brought on by his urinary retention secondary to his BPH. Plan to put him on Flomax. Alcohol withdrawal protocol. Urology is out of town right now but he can follow up outpatient. Jaar catheter drain over 1500 cc. ECG Initial ECG Impression Date: Jun 02, 2018 Initial ECG Impression Time: 23:41 Initial ECG Rate: 68 Initial ECG Rhythm: Normal Sinus Initial ECG Intervals: Normal Initial ECG Impression: Normal, Nonspecific Changes Comment No ST elevation or depression. Diagnostic Imaging Diagonstic Imaging: CT (noncontrast) Plain Films/CT/US/NM/MRI: c-spine, head Comments No acute intracranial hemorrhage, mass effect, tumor, calvarial fracture or C- spine fracture or some rotation. Patt cervical spondylosis significant at C4 through C6. Chronic. Reviewed: Reviewed by Me Departure Communication (Admissions) Time/Spoke to Admitting Phy: 01:10 Discussed the case with Dr. Schofield and she agrees to admit the patient. She was alcohol withdrawal protocol. She wants a fluid restriction of 800 cc per day and normal saline at 60 cc per hour. Impression Primary Impression: Urinary retention due to benign prostatic hyperplasia Additional Impressions: Acute hyponatremia Chronic hyponatremia History of falling, presenting hazards to health AA (alcohol abuse) Disposition: ADMITTED INPATIENT Condition: Stable Admissions Decision to Admit Reason: Admit from ER (General) Decision to Admit/Date: Jun 03, 2018 Time/Decision to Admit Time: 01:21 Departure-Patient Inst. Referrals: JENNIFER BECK DO (PCP/Family) Primary Care Physician Copy Copies To 1: JENNIFER BECK TITUS J Jun 02, 2018 23:33
[2018-06-02] MEDS ORDERED: THIAMINE 100 MG/ML 2 ML (VITAMIN B-1) VIAL IV ONE (23:45)
[2018-06-02] MEDS ORDERED: FOLIC ACID 5MG/ML 10 ML IV ONE (23:45)
[2018-06-03] VITALS (32 sets, daily range): BP systolic 145–217; BP diastolic 76–119
[2018-06-03 00:40] LABS: BILIRUBIN,URINE NEGATIVE (NEGATIVE); CLARITY,URINE CLEAR; COLOR,URINE YELLOW; GLUCOSE, URINE (UA) NEGATIVE (NEGATIVE); KETONES,URINE NEGATIVE (NEGATIVE); LEUKOCYTE ESTERASE ,URINE NEGATIVE (NEGATIVE); NITRITE,URINE NEGATIVE (NEGATIVE); PH,URINE 6 (5-9); PROTEIN,URINE NEGATIVE (NEGATIVE); UROBILINOGEN,URINE NORMAL (NORMAL)
[2018-06-03 00:46] LABS: BACTERIA,URINE NEGATIVE /HPF; SQUAMOUS EPITHELIAL CELL,UR RARE /HPF
[2018-06-03] MEDS ORDERED: LORazepam INJ 2 MG/ML (ATIVAN) VIAL IVP ONE ×2 (01:00→05:30)
[2018-06-03] MEDS ORDERED: FOLIC ACID 1 MG TAB ONE (01:01)
--- NOTE | 2018-06-03 02:21 | NUR ---
@ TIME OF D/C FROM ED, 2000ML DARK YELLOW URINE OUTPUT.
--- NOTE | 2018-06-03 02:25 | NUR ---
HARJINDER LAWLER admitted to room 414, with an admitting diagnosis of BPH urine retention and hyponatremia, on 06/03/18 from ED via WC, accompanied by ED Staff Member.HARJINDER LAWLER introduced to surroundings, call light, bed controls, phone, TV, temperature control, lights, meal times, smoking policy, visitor policy, side rail policy, bathrooms and showers. Patient Rights given to patient in the handbook. HARJINDER LAWLER verbalizes understanding that [facility] is not responsible for the loss or damage to any personal effects or valuables that are kept in the patients posession during their hospitalization. Patient and/or family were informed about the Rapid Response Team and its purpose. Pt informed of plan of care with no concerns at this time.
[2018-06-03] MEDS ORDERED: TAMSULOSIN 0.4 MG (FLOMAX) CAP PO ONE (02:35)
[2018-06-03] MEDS ORDERED: NS IV 1000 ML 1,000 ML ONE (02:35)
[2018-06-03] MEDS ORDERED: LORazepam INJ 2 MG/ML (ATIVAN) VIAL ONE (03:06)
[2018-06-03] MEDS ORDERED: 1/2 NS IV SOLUTION 1,000 ML IV PRN (03:11)
[2018-06-03] MEDS ORDERED: IBUPROFEN 800 MG (MOTRIN) TAB PO PRN (03:15)
[2018-06-03] MEDS ORDERED: LORazepam INJ 2 MG/ML (ATIVAN) VIAL IM/IV PRN (03:15)
[2018-06-03] MEDS ORDERED: ONDANSETRON 4 MG (ZOFRAN) ORAL DISSOLVE TAB SL PRN (03:15)
[2018-06-03] MEDS ORDERED: SENNA W/DOCUSATE (SENOKOT S) TABLET PO PRN (03:15)
[2018-06-03] MEDS ORDERED: D5 1/2 NS 1000 ML IV SOLUTION 1,000 ML IV PRN (03:15)
[2018-06-03] MEDS ORDERED: LORazepam INJ 2 MG/ML (ATIVAN) VIAL IV PRN (03:15)
[2018-06-03] MEDS ORDERED: ACETAMINOPHEN 500 MG TAB (TYLENOL) PO PRN (03:15)
[2018-06-03] MEDS ORDERED: LORazepam 1 MG (ATIVAN) TAB PO PRN (03:15)
[2018-06-03] MEDS ORDERED: ANTACID SUSP 30 ML UDC (MYLANTA) PO PRN (03:15)
[2018-06-03] MEDS ORDERED: ONDANSETRON 4 MG/2 ML (SDV) Z0FRAN IV PRN ×2 (03:15)
[2018-06-03] MEDS: NS IV 1000 ML 1,000 ML IV SCH (03:16)
[2018-06-03] MEDS: LORazepam INJ 2 MG/ML (ATIVAN) VIAL IV PRN ×3 (04:19→09:37)
--- NOTE | 2018-06-03 05:00 | NUR ---
Dr. Schofield informed by this RN of pt condition. Pt scoring 18-20 on CIWA scale x2 times and received ativan IV 2mg for each score. Dr. Schofield informed that patient will likely score a 20 again, if not higher, on CIWA scale. This RN given telephone order to transfer pt to ICU and consult Dr. Mejias. home management supervisor informed so a bed may be obtained.
--- NOTE | 2018-06-03 05:10 | NUR ---
Patient transported upstairs to ICU bed 10 by this RN and Mee Burks RN. Report given by this nurse to VERÓNICA Souza.
[2018-06-03] MEDS ORDERED: diphenhydrAMINE 50 MG/ML INJ (BENADRYL) ONE (05:16)
[2018-06-03] MEDS ORDERED: LACTATED RINGERS 1,000 ML IV ONE ×2 (05:16→05:30)
[2018-06-03] MEDS ORDERED: methylPREDNISolone 125 MG (Solu-MEDROL) VIAL ONE (05:16)
[2018-06-03] MEDS ORDERED: FAMOTIDINE 20MG/2ML IV (PEPCID) ONE (05:17)
[2018-06-03] MEDS ORDERED: NS (IVPB) 50 ML ONE ×2 (05:18→07:51)
[2018-06-03] MEDS ORDERED: EPINEPHrine INJECTION 1 MG/ML AMP ONE (05:20)
[2018-06-03] MEDS ORDERED: DEXMEDETOMIDINE INJECTION 200 MCG in NS (IVPB) 50 ML IV SCH (05:30)
[2018-06-03] MEDS ORDERED: EPINEPHrine INJECTION 1 MG/ML AMP IM ONE (05:30)
[2018-06-03] MEDS ORDERED: FAMOTIDINE 20MG/2ML IV (PEPCID) IVP ONE (05:30)
[2018-06-03] MEDS ORDERED: methylPREDNISolone 125 MG (Solu-MEDROL) VIAL IV ONE (05:30)
[2018-06-03] MEDS ORDERED: diphenhydrAMINE 50 MG/ML INJ (BENADRYL) IVP ONE (05:30)
--- NOTE | 2018-06-03 05:33 | Pulmonary Consultation ---
History of Present Illness History of Present Illness Date of Consultation 06/03/18 05:28 Time Seen by Provider: 05:28 Date of Admission History of Present Illness 68yo with hx of alcohol and tobacco use presented to ED via EMS secondary to dysuria x 2 days and bilateral leg numbness, tingling, and tremors. Symptoms started 1-2months ago. Denied any facial droop, slurring of speech. All information obtained from chart. I am not currently able to obtain ROS. Pt was admitted to 4th floor then transferred to ICU secondary to increased MS changes , confusion, and aggression. I am consulted for ICU management. Allergies and Home Medications Allergies Coded Allergies: No Known Drug Allergies (Verified , 08/16/17) Home Medications Albuterol Sulfate 18 Gm Hfa.aer.ad, 2 PUFF INH TID PRN for SHORTNESS OF BREATH, (Reported) Esomeprazole Magnesium 40 Mg Capsule.dr, 40 MG PO DAILY, (Reported) Trazodone HCl 100 Mg Tablet, 100 MG PO HS, (Reported) Past Wthdque-Lhrbse-Ypccsl Hx Patient Social History Alcohol Use: Rarely Uses Number of Drinks Today: 15 Alcohol Beverage of Choice: Beer Recreational Drug Use: No Smoking Status: Current Everyday Smoker Type Used: Cigarettes 2nd Hand Smoke Exposure: Yes Recent Foreign Travel: No Contact w/Someone Who Travel: No Recent Infectious Disease Expo: No Recent Hopitalizations: No Seasonal Allergies Seasonal Allergies: Yes Past Medical History Surgeries: Yes (L THR) Abdominal, Coronary Stent, Orthopedic Respiratory: Yes COPD Cardiac: No High Cholesterol Neurological: No Reproductive Disorders: No Sexually Transmitted Disease: Yes HIV/AIDS: No Genitourinary: No Gastrointestinal: Yes Gastroesophageal Reflux Musculoskeletal: No Endocrine: No Loss of Vision: Denies Hearing Impairment: Hard of Hearing Cancer: No Psychosocial: Yes Sleep Difficulties Integumentary: No Blood Disorders: No Adverse Reaction/Blood Tranf: No (N/A) Review of Systems Time Seen by Provider: 05:56 Sepsis Event Evaluation Height, Weight, BMI Height: 6'6.00" Weight: 176lbs. 12.8oz. 80.003088mr; 20.4 BMI Method:Stated Exam Exam Vital Signs Date Time Temp Pulse Resp B/P (MAP) Pulse Ox O2 Delivery O2 Flow Rate FiO2 06/03/18 04:46 98.8 76 24 165/93 (117) 92 Room Air 06/03/18 03:30 93 Room Air 06/03/18 02:41 97.0 77 24 164/95 98 Room Air 06/03/18 02:37 97.0 77 24 164/95 (118) 98 Room Air 06/03/18 02:25 Room Air 06/03/18 02:21 98.1 82 19 119/103 (108) 98 Room Air 06/02/18 22:34 98.1 66 16 134/88 (103) 98 Room Air I & O 06/03/18 07:00 Intake Total 1000 ml Output Total 1300 ml Balance -300 ml Height & Weight Height: 6'6.00" Weight: 176lbs. 12.8oz. 80.410400yl; 20.4 BMI Method:Stated General Appearance: Anxious, Chronically ill, Severe Distress, Thin HEENT: PERRL/EOMI, Normal ENT Inspection, Pharynx Normal Neck: Full Range of Motion, Normal Inspection, Non Tender, Supple Respiratory: Chest Non Tender, Accessory Muscle Use, Decreased Breath Sounds Cardiovascular: No Edema, No Gallop, Tachycardia Capillary Refill: Less Than 3 Seconds Gastrointestinal: normal bowel sounds, non tender, soft Extremity: Normal Capillary Refill, Normal Inspection Neurologic/Psychiatric: Disoriented, Other (agitated ) Skin: Normal Color, Warm/Dry Lymphatic: No Adenopathy Results Lab Laboratory Tests 06/02/18 22:34 Assessment/Plan Assessment/Plan Acute MS changes/confusion/psychosis probably secondary to Alcohol -JASS protocol -Check ABG -Fall risk precautions -Start Precedex -Check UDS - from urine obtained at admission Acute hypoglycemia -1 amp of D50 -Accu check is 63 -Change IVF to D5NS at 100 -Will do Q2 and PRN accu checks until BS stable Acute on chronic hyponatremia -Repeat labs -Monitor -Continue NS for now Hypoxia -Oxygen -Monitor erythematous rash - ? Hives -Will give epi, solumedrol, and Benadryl -It appears pt was on Cephalexin at home -Monitor - for now Metabolic acidosis -Monitor -IVF Anemia -Monitor -Add protonix HTN -Monitor BPH -flomax Tobacco use -Education PAVITHRA CARLIN DO Jun 03, 2018 05:33
[2018-06-03] MEDS ORDERED: DEXTROSE 50% 50 ML (IMS) SYR ONE (05:57)
[2018-06-03] MEDS ORDERED: D5 NS 1000 ML IV SOLUTION 1,000 ML IV ONE (05:57)
[2018-06-03 05:59] LABS: AMPHETAMINE SCREEN, URINE NEGATIVE (NEGATIVE); BARBITURATE SCREEN URINE NEGATIVE (NEGATIVE); BENZODIAZEPINES SCREEN URINE NEGATIVE (NEGATIVE); CANNABINOID SCREEN, URINE NEGATIVE (NEGATIVE); COCAINE SCREEN URINE NEGATIVE (NEGATIVE); METHADONE STAT NEGATIVE (NEGATIVE); METHAMPHETAMINE SCREEN URINE S NEGATIVE (NEGATIVE); OPIATE SCREEN URINE NEGATIVE (NEGATIVE); OXYCODONE STAT NEGATIVE (NEGATIVE); PROPOXYPHENE STAT NEGATIVE (NEGATIVE); TRICYCLIC ANTIDEPRESSANTS SCRE NEGATIVE (NEGATIVE)
[2018-06-03] MEDS ORDERED: DEXTROSE 50% 50 ML (IMS) SYR IV ONE (06:00)
[2018-06-03] MEDS ORDERED: morphine INJ 4 MG/ML 1 ML (VIAL/SYRINGE) IVP PRN (06:00)
[2018-06-03] MEDS: D5 NS 1000 ML IV SOLUTION 1,000 ML IV SCH ×2 (06:14→18:19)
[2018-06-03 06:15] LABS: BASOPHILS % (AUTO) 1 % (0-10); EOSINOPHILS # (AUTO) 0.2 10^3/uL (0.0-0.3); EOSINOPHILS % (AUTO) 2 % (0-10); HEMATOCRIT 35 % (40-54); HEMOGLOBIN 12.6 G/DL (13.3-17.7); LYMPHOCYTES % (AUTO) 28 % (12-44); MEAN CORPUSCULAR HEMOGLOBIN 30 PG (25-34); MEAN CORPUSCULAR HGB CONC 36 G/DL (32-36); MEAN CORPUSCULAR VOLUME 84 FL (80-99); MEAN PLATELET VOLUME 8.7 FL (7.4-10.4); MONOCYTES # (AUTO) 0.9 X 10^3 (0.0-1.0); MONOCYTES % (AUTO) 12 % (0-12); NEUTROPHILS # (AUTO) 4.1 X 10^3 (1.8-7.8); NEUTROPHILS % (AUTO) 57 % (42-75); PLATELET COUNT 194 10^3/uL (130-400); WHITE BLOOD COUNT 7.2 10^3/uL (4.3-11.0)
[2018-06-03] MEDS: morphine INJ 4 MG/ML 1 ML (VIAL/SYRINGE) IVP PRN (06:16)
[2018-06-03] MEDS ORDERED: PROPOFOL DRIP (ICU) 100 ML IV ONE ×2 (06:25→08:58)
[2018-06-03 06:33] LABS: INR 1.1 (0.8-1.4); PROTHROMBIN TIME PATIENT 14.2 SEC (12.2-14.7)
[2018-06-03 06:44] LABS: ALANINE AMINOTRANSFERASE 24 U/L (0-55); ALBUMIN 3.1 GM/DL (3.2-4.5); ALKALINE PHOSPHATASE 57 U/L (40-136); BILIRUBIN,TOTAL 0.8 MG/DL (0.1-1.0); BUN/CREATININE RATIO 10; CALCIUM 8.5 MG/DL (8.5-10.1); CARBON DIOXIDE 18 MMOL/L (21-32); CHLORIDE 97 MMOL/L (98-107); CREATININE SERUM 0.84 MG/DL (0.60-1.30); GFR ESTIMATED > 60; GLUCOSE 69 MG/DL (70-105); MAGNESIUM 1.1 MG/DL (1.8-2.4); PHOSPHORUS 2.8 MG/DL (2.3-4.7); POTASSIUM 3.7 MMOL/L (3.6-5.0); SODIUM 128 MMOL/L (135-145); TOTAL PROTEIN 5.7 GM/DL (6.4-8.2)
--- NOTE | 2018-06-03 06:48 | Pulmonary Progress Note ---
Subjective Time Seen by a Provider: 06:45 Subjective/Events-last exam Called back into room secondary to pt having paradoxical respirations and requiring increased oxygen. Pt is obstructing airway however still very agitated attempting to crawl out of bed. Sepsis Event Evaluation Height, Weight, BMI Height: 6'6.00" Weight: 176lbs. 12.8oz. 80.854224sh; 20.4 BMI Method:Stated Exam Exam Vital Signs Date Time Temp Pulse Resp B/P (MAP) Pulse Ox O2 Delivery O2 Flow Rate FiO2 06/03/18 06:00 113 34 181/78 (112) 100 Nasal Cannula 5.00 06/03/18 05:45 114 39 201/109 (139) 97 Nasal Cannula 5.00 06/03/18 05:30 84 39 168/98 (121) 100 Nasal Cannula 5.00 06/03/18 05:24 84 06/03/18 04:46 98.8 76 24 165/93 (117) 92 Room Air 06/03/18 03:30 93 Room Air 06/03/18 02:41 97.0 77 24 164/95 98 Room Air 06/03/18 02:37 97.0 77 24 164/95 (118) 98 Room Air 06/03/18 02:25 Room Air 06/03/18 02:21 98.1 82 19 119/103 (108) 98 Room Air 06/02/18 22:34 98.1 66 16 134/88 (103) 98 Room Air I & O 06/03/18 07:00 Intake Total 1000 ml Output Total 1300 ml Balance -300 ml Height & Weight Height: 6'6.00" Weight: 176lbs. 12.8oz. 80.252160sa; 20.4 BMI Method:Stated General Appearance: Anxious, Chronically ill, Severe Distress, Thin HEENT: PERRL/EOMI, Normal ENT Inspection, Pharynx Normal Neck: Full Range of Motion, Normal Inspection, Non Tender, Supple Respiratory: Chest Non Tender, Accessory Muscle Use, Decreased Breath Sounds Cardiovascular: No Edema, No Gallop, Tachycardia Capillary Refill: Less Than 3 Seconds Gastrointestinal: normal bowel sounds, non tender, soft Neurologic/Psychiatric: Disoriented, Other (agitated ) Skin: Normal Color, Warm/Dry Lymphatic: No Adenopathy Results Lab Laboratory Tests 06/02/18 22:34 06/03/18 06:00 Assessment/Plan Assessment/Plan Acute respiratory distress - unable to maintain airway -Will proceed with intubation -Consent obtained -Will also place central line. -Consent obtained Acute MS changes/confusion/psychosis probably secondary to Alcohol -JASS protocol -Check ABG -Fall risk precautions -Start Precedex -Check UDS - from urine obtained at admission Acute hypoglycemia -1 amp of D50 -Accu check is 63 -Change IVF to D5NS at 100 -Will do Q2 and PRN accu checks until BS stable Acute on chronic hyponatremia -Repeat labs -Monitor -Continue NS for now Hypoxia -Oxygen -Monitor erythematous rash - ? Hives -Will give epi, solumedrol, and Benadryl -It appears pt was on Cephalexin at home -Monitor - for now Metabolic acidosis -Monitor -IVF Anemia -Monitor -Add protonix HTN -Monitor BPH -flomax Tobacco use -Education Time spent with pt not including initial consult or procedures is 30min. Critical Care: Critically Ill Patient Time spent with patient (mins): 30 PAVITHRA CARLIN DO Jun 03, 2018 06:48
--- NOTE | 2018-06-03 06:48 | Diagnostic Imaging Report ---
PROCEDURE: CT head and CT cervical spine without contrast. TECHNIQUE: Multiple contiguous axial images were obtained through the brain and cervical spine without the use of intravenous contrast. Sagittal and coronal reformations through the cervical spine were then performed. Auto Exposure Controls were utilized during the CT exam to meet ALARA standards for radiation dose reduction. INDICATION: Bilateral leg numbness and tingling and tremors. Symptoms for 1 to 2 months. COMPARISON: None FINDINGS: CT head: There is significant motion artifact in the exam. The ventricles and cortical sulci are mildly prominent, consistent with generalized parenchymal volume loss. No acute intracranial hemorrhage is identified. There is no significant mass effect or midline shift seen. No CT evidence of acute territorial ischemia seen. The calvarium appears intact. Fixation plates are noted at the anterior maxillary sinus velazco. No fluid level is seen. CT cervical spine: Again, there is significant motion artifact throughout the exam. No acute fracture is identified. There is reversal of the cervical lordosis centered at C4. There is severe degenerative change at C3-4, C4-5, C5-6 and C6-7. There is spinal canal stenosis and foraminal stenosis at multiple levels, most pronounced at C4-5 and C5-6. No bony fragments or hyperdense fluid collections are seen in the spinal canal. The soft tissues about the cervical spine appear normal. There is biapical pleural scarring. IMPRESSION: 1. Marked motion artifact throughout the examination. 2. No acute intracranial hemorrhage or CT evidence of acute territorial ischemia is identified. 3. Severe degenerative changes in the cervical spine with no acute fracture identified. Dictated by: Dictated on workstation # [id number]
--- NOTE | 2018-06-03 06:49 | Pulmonary Procedures ---
Pulmonary Procedures Date of Procedure Date of Service: Jun 03, 2018 Time of Intubation: 06:48 Intubation Method: orotracheal Tube Size: 8 Medications: Propofol, Succinylcholine, Versed Positive End Tide CO2: Yes Breath Sounds after Intubation: bilateral-equal Intubation Complications: no complications Post Intubation Xray: Yes PAVITHRA CARLIN DO Jun 03, 2018 06:49
--- NOTE | 2018-06-03 07:48 | NUR ---
Received pt from 4th floor at 0515, report from Pema SANCHES. Dr. Mejias decided to intubate pt this morning. this RN called the pt emergency contact on file at 0628 with no answer. I left a voice message with her to call back and gave the ICU number. Pt prepped for intubation at that time 0635- 4 mg of versed administered 0639- 5 ml of prop and 80 mg of succs administered 0643- 5 ml of prop administered, pt intubated by dr mejias at this time size 8 et 24 at lip- settings see RT note 0646- prop drip started at 25 and og tube placed all medications administered per verbal orders from dr paresh Robles RT, Natalia RT, Maria Guadalupe RN, Arlette RN, and Alexa RN all present during intubation
[2018-06-03] MEDS: MAGNESIUM OXIDE (MAG-OX)400 MG TAB PO SCH ×2 (08:14→21:51)
[2018-06-03] MEDS: PANTOPRAZOLE 40 MG (PROTONIX) VIAL IV SCH (08:14)
[2018-06-03] MEDS: THIAMINE 100 MG (VITAMIN B-1) TAB PO SCH (08:14)
[2018-06-03] MEDS: FOLIC ACID 1 MG TAB PO SCH (08:14)
[2018-06-03] MEDS: MULTIVIT W/MINERALS TAB (THERAGRAN M) PO SCH (08:14)
[2018-06-03] MEDS ORDERED: FOLIC ACID 1 MG TAB PO SCH (09:00)
[2018-06-03 09:15] LABS: ABG BASE EXCESS -3.9 MMOL/L (-2.5-2.5); ABG OXYGEN SATURATION 100 % (94-100); ABG PCO2 40 MMHG (35-45); ABG PO2 288 MMHG (79-93); ABG TCO2 22.3 MMOL/L (21.0-31.0)
[2018-06-03 09:18] LABS: ABG PH 7.34 (7.37-7.43); ALLENS TEST YES-POS; INSPIRED O2 100%; PATIENT TEMP 97.6; VENTILATOR YES
--- NOTE | 2018-06-03 09:30 | Diagnostic Imaging Report ---
INDICATION: Status post intubation. COMPARISON: 04/26/2018 FINDINGS: Single frontal radiographic view of the chest was obtained and demonstrates indwelling endotracheal tube with tip at the clavicular heads. Indwelling gastric tube is also seen with tip in the stomach. Side port is not well visualized. Lungs are clear. There is no focal consolidation, large effusion, nor pneumothorax. Cardiac silhouette and pulmonary vasculature within normal limits. Note is made of calcified aortic atherosclerosis. Bony structures are unremarkable. IMPRESSION: 1. Lines and tubes as above. Otherwise, no acute cardiopulmonary process. Dictated by: Dictated on workstation # [id number]
[2018-06-03] MEDS ORDERED: fentaNYL INJECTION 100 MCG/2 ML AMP ONE (09:42)
[2018-06-03] MEDS: fentaNYL INJECTION 1,250 MCG in NS (IVPB) 250 ML IV SCH (10:19)
[2018-06-03] MEDS: DEXMEDETOMIDINE INJECTION 1,000 MCG in NS (IVPB) 250 ML IV SCH (10:32)
[2018-06-03] MEDS ORDERED: SUCCINYLCHOLINE INJ 100 MG/5 ML SYR INJ ONE (10:53)
[2018-06-03] MEDS ORDERED: MIDAZOLAM 5 MG/5 ML (VERSED) VIAL IJ ONE (10:53)
--- NOTE | 2018-06-03 11:37 | History & Physical-Hospitalist ---
History of Present Illness HPI/Chief Complaint CC: VDRF HPI: This is a 68yoWM clinic patient of Dr Phipps and as a h/o alcoholism who presented to the ER with inability to urinate. Romo cath was placed and removed 1500cc or urine. Patient was found to have sodium level of 122. Alcohol withdrawal protocol was followed but a few hours after admit he was found to have become combative and so aggressive with presumed alcohol withdrawal he was intubated under Dr Mejias's direction. Patient has a very poor prognosis overall given his past h/o of severe alcoholism. Source: RN/MD Exam Limitations: clinical condition Date Seen 06/03/18 Time Seen by a Provider: 12:00 Attending Physician Lamar Erickson DO PCP Bradford Phipps DO Referring Physician Date of Admission Jun 03, 2018 at 05:13 Home Medications & Allergies Home Medications Reviewed patient Home Medication Reconciliation performed by pharmacy medication reconciliations electronic lab technician and/or nursing. Patients Allergies have been reviewed. Allergies Allergies Coded Allergies No Known Drug Allergies (Verified08/16/17) Past Gijuyds-Jgtsxp-Fpcvdw Hx Past Med/Social Hx: Reviewed Nursing Past Med/Soc Hx, Reviewed and Corrections made Patient Social History Alcohol Use: Regular Use Number of Drinks Today: 15 Alcohol Beverage of Choice: Beer Recreational Drug Use: No Smoking Status: Current Everyday Smoker Type Used: Cigarettes 2nd Hand Smoke Exposure: Yes Recent Foreign Travel: No Contact w/other who traveled: No Recent Hopitalizations: No Recent Infectious Disease Expo: No Seasonal Allergies Seasonal Allergies: Yes Past Medical History Surgeries: Abdominal, Coronary Stent, Orthopedic Cardiac: High Cholesterol Reproductive: No Sexually Transmitted Disease: Yes HIV/AIDS: No Gastrointestinal: Gastroesophageal Reflux Loss of Vision: Denies Hearing Impairment: Hard of Hearing Psychosocial: Sleep Difficulties History of Blood Disorders: No Adverse Reaction to Blood Barnes: No (N/A) Review of Systems ROS-Unable to Obtain: unable to ascertain Constitutional: see HPI Physical Exam Physical Exam Vital Signs Vital Signs - First Documented 06/02/18 06/03/18 22:34 06:43 Temp 98.1 Pulse 66 Resp 16 B/P (MAP) 134/88 (103) Pulse Ox 98 O2 Delivery Room Air FiO2 100 Capillary Refill : Less Than 3 Seconds Height, Weight, BMI Height: 6'6.00" Weight: 176lbs. 12.8oz. 80.442351xv; 20.4 BMI Method:Stated General Appearance: No Apparent Distress, Chronically ill, Cachetic, Other ( intubated) Respiratory: Chest Non Tender, Lungs Clear, Normal Breath Sounds, No Accessory Muscle Use, No Respiratory Distress Cardiovascular: Regular Rate, Rhythm, No Edema, No Gallop, No JVD, No Murmur, Normal Peripheral Pulses Neurologic/Psychiatric: Other (sedated) Results Results/Procedures Labs Laboratory Tests 06/02/18 22:34 06/03/18 06:00 Patient resulted labs reviewed. Assessment/Plan Admission Diagnosis Assessment: VDRF Day # 1 Alcohol withdrawal Severe alcoholism HLP CAD previous stents per old records Smoker Hyponatremia Acute urinary retention requiring romo cath placement Plan: Monitor closely Vent management is appreciated Romo cath BP management ETOH withdrawal tx with benzos Admission Status: Inpatient Order (span 2 midnights) Reason for Inpatient Admission: Critically ill Diagnosis/Problems Diagnosis/Problems (1) Ventilator dependence Status: Acute (2) Respiratory failure Status: Acute Qualifiers: Chronicity: acute Respiratory failure complication: unspecified whether with hypoxia or hypercapnia Qualified Codes: J96.00 - Acute respiratory failure, unspecified whether with hypoxia or hypercapnia (3) CAD (coronary artery disease) Status: Chronic Qualifiers: Coronary Disease-Associated Artery/Lesion type: [place] artery [place] vs. transplanted heart: [place] heart Associated angina: without angina Qualified Codes: I25.10 - Atherosclerotic heart disease of [place] coronary artery without angina pectoris (4) Hypertension Status: Chronic Qualifiers: Hypertension type: essential hypertension Qualified Codes: I10 - Essential (primary) hypertension (5) Hyperlipidemia Status: Chronic Qualifiers: Hyperlipidemia type: mixed hyperlipidemia Qualified Codes: E78.2 - Mixed hyperlipidemia (6) Urinary retention due to benign prostatic hyperplasia Status: Acute (7) Acute hyponatremia Status: Acute (8) AA (alcohol abuse) Status: Chronic (9) Chronic hyponatremia Status: Chronic (10) Tobacco dependency Status: Chronic Clinical Quality Measures DVT/VTE Risk/Contraindication: Risk Factor Score Per Nursin RFS Level Per Nursing on Admit: 3=High LAMAR ERICKSON DO Jun 03, 2018 11:37
[2018-06-03] MEDS: hydrALAZINE (APESOLINE) 20 MG/ML VIAL IV PRN (11:50)
[2018-06-03] MEDS: inSUlin ASPART (NovoLOG) 1 UNIT/0.01 ML (CHARGE PER UNIT) SC SCH ×3 (12:35→23:35)
--- NOTE | 2018-06-03 15:10 | NUR ---
09 DR CARLIN NOTIFIED OF ABG RESULTS, NO NEW ORDERS RECEIVED. 919 DR CARLIN NOTIFIED OF PT'S SYSTOLIC BP RUNNING IN THE 200'S WITH HEART RATE IN THE UPPER 50'S NEW ORDERS RECEIVED TO START PT ON FENTANYL DRIP. 1130 DR CARLIN NOTIFIED THAT PT'S SYSTOLIC BP IS STILL ELEVATED NOTED AT 180/200'S NEW ORDERS RECEIVED VIA TELEPHONE FOR HYDRALAZINE 10 MG IV EVERY 6 HRS PRN SYSTOLIC BP> 160.
--- NOTE | 2018-06-03 15:13 | NUR ---
1132 ALL SEDATION MEDICATIONS STOPPED AT THIS TIME.
--- NOTE | 2018-06-03 15:39 | NUR ---
1530 DR CARLIN NOTIFIED OF PT'S BLOOD PRESSURE AT 199/96 WITH HEART RATE OF 54 NEW ORDERS RECEIVED TO TURN ON PROPOFOL AT 20MCQ/KG/MIN AND FENTANYL DRIP AT 75ML HR. MEDICATIONS RESTARTED WITH SETTING CHANGED.
[2018-06-03] MEDS: TAMSULOSIN 0.4 MG (FLOMAX) CAP PO SCH (18:25)
--- NOTE | 2018-06-03 20:15 | NUR ---
Pt's temperature tympanically is 92.5 F at this time, rectal thermometer and magi hugger placed at this time.
[2018-06-03] MEDS: PROPOFOL DRIP (ICU) 100 ML IV SCH (21:54)
[2018-06-04] VITALS (33 sets, daily range): BP systolic 25–182; BP diastolic 62–94
--- NOTE | 2018-06-04 00:48 | NUR ---
With pt's upward trending temperature, pulse has increased slightly and blood pressure has decreased. E-ICU notified, orders received.
[2018-06-04 01:12] LABS: ABG BASE EXCESS -2.5 MMOL/L (-2.5-2.5); ABG OXYGEN SATURATION 97 % (94-100); ABG PCO2 36 MMHG (35-45); ABG PH 7.39 (7.37-7.43); ABG PO2 79 MMHG (79-93); ABG TCO2 22.9 MMOL/L (21.0-31.0)
[2018-06-04 01:13] LABS: ALLENS TEST YES-POS; INSPIRED O2 30%; PATIENT TEMP 97.6; VENTILATOR YES
[2018-06-04 01:22] LABS: BASOPHILS % (AUTO) 0 % (0-10); EOSINOPHILS % (AUTO) 0 % (0-10); HEMATOCRIT 35 % (40-54); HEMOGLOBIN 12.4 G/DL (13.3-17.7); LYMPHOCYTES # (AUTO) 0.6 X 10^3 (1.0-4.0); LYMPHOCYTES % (AUTO) 7 % (12-44); MEAN CORPUSCULAR HEMOGLOBIN 31 PG (25-34); MEAN CORPUSCULAR HGB CONC 36 G/DL (32-36); MEAN CORPUSCULAR VOLUME 85 FL (80-99); MEAN PLATELET VOLUME 9.5 FL (7.4-10.4); MONOCYTES # (AUTO) 0.4 X 10^3 (0.0-1.0); MONOCYTES % (AUTO) 5 % (0-12); NEUTROPHILS # (AUTO) 7.3 X 10^3 (1.8-7.8); NEUTROPHILS % (AUTO) 88 % (42-75); PLATELET COUNT 179 10^3/uL (130-400); RED CELL DISTRIBUTION WIDTH 14.9 % (10.0-14.5); WHITE BLOOD COUNT 8.2 10^3/uL (4.3-11.0)
[2018-06-04 01:40] LABS: BUN/CREATININE RATIO 12; CALCIUM 7.7 MG/DL (8.5-10.1); CARBON DIOXIDE 19 MMOL/L (21-32); CHLORIDE 105 MMOL/L (98-107); CREATININE SERUM 0.82 MG/DL (0.60-1.30); GFR ESTIMATED > 60; GLUCOSE 119 MG/DL (70-105); MAGNESIUM 1.3 MG/DL (1.8-2.4); PHOSPHORUS 3.5 MG/DL (2.3-4.7); POTASSIUM 3.7 MMOL/L (3.6-5.0); SODIUM 133 MMOL/L (135-145)
[2018-06-04 01:42] LABS: CREATINE KINASE 50 U/L (30-200)
[2018-06-04] MEDS ORDERED: ALBUMIN 5% 12.5 GM/250 ML 500 ML IV ONE (01:43)
[2018-06-04] MEDS: ALBUMIN 5% 12.5 GM/250 ML 250 ML IV SCH ×2 (01:45→03:12)
[2018-06-04] MEDS: D5 NS 1000 ML IV SOLUTION 1,000 ML IV SCH ×3 (02:52→15:45)
[2018-06-04] MEDS: MAGNESIUM 1 GM/100 ML IVPB 100 ML IV SCH ×5 (03:59→08:40)
[2018-06-04] MEDS: POTASSIUM CL 10MEQ/50ML IVPB 50 ML IV SCH (04:00)
[2018-06-04] MEDS: KCL 20 MEQ TAB (K-DUR) PO SCH (04:00)
--- NOTE | 2018-06-04 04:10 | NUR ---
Pt awake and fighting ventilator at this time, moving all extremities equally, not following commands, sedation medication titrated, see IV Spreadsheet.
[2018-06-04] MEDS ORDERED: LORazepam INJ 2 MG/ML (ATIVAN) VIAL IV PRN (05:00)
[2018-06-04] MEDS ORDERED: LACTATED RINGERS 1,000 ML IV SCH (05:00)
--- NOTE | 2018-06-04 05:03 | Pulmonary Progress Note ---
Subjective Time Seen by a Provider: 06:30 Subjective/Events-last exam Pt sedated on vent. Sepsis Event Evaluation Height, Weight, BMI Height: 6'6.00" Weight: 176lbs. 12.8oz. 80.657605gb; 20.4 BMI Method:Stated Focused Exam Lactate Level 06/03/18 07:00: Lactic Acid Level 2.97*H 06/03/18 08:55: Lactic Acid Level 0.80 06/04/18 01:15: Lactic Acid Level 0.93 Lactic Acid Level Laboratory Tests Test 06/04/18 01:15 Lactic Acid Level 0.93 MMOL/L (0.50-2.00) Exam Exam Vital Signs Date Time Temp Pulse Resp B/P (MAP) Pulse Ox O2 Delivery O2 Flow Rate FiO2 06/04/18 04:12 75 25 92 30 06/04/18 04:00 99.0 70 14 161/79 (106) 92 Mechanical Ventilator 30.00 06/04/18 03:00 98.8 65 24 142/74 (96) 93 Mechanical Ventilator 30.00 06/04/18 02:00 98.2 60 22 130/76 (94) 96 Mechanical Ventilator 30.00 06/04/18 01:58 59 18 96 30 06/04/18 01:00 97.8 50 17 118/67 (84) 95 Mechanical Ventilator 30.00 06/04/18 01:00 51 06/04/18 00:21 48 18 97 30 06/04/18 00:00 97.6 53 17 150/81 (104) 95 Mechanical Ventilator 30.00 06/04/18 00:00 Mechanical Ventilator 30 06/03/18 23:30 96.2 06/03/18 23:00 95.6 53 17 150/81 (104) 95 Mechanical Ventilator 40.00 06/03/18 22:30 94.8 06/03/18 22:19 52 18 95 40 06/03/18 22:00 93.6 49 23 174/88 (116) 95 Mechanical Ventilator 40.00 06/03/18 21:54 Mechanical Ventilator 06/03/18 21:30 92.8 06/03/18 21:15 92.7 06/03/18 21:00 92.5 44 17 161/84 (109) 95 Mechanical Ventilator 40.00 06/03/18 20:45 92.3 06/03/18 20:30 92.1 06/03/18 20:15 92.1 06/03/18 20:10 92.5 06/03/18 20:00 Mechanical Ventilator 40 06/03/18 20:00 41 23 178/87 (117) 96 Mechanical Ventilator 40.00 06/03/18 19:57 41 18 96 40 06/03/18 19:00 42 18 181/86 (117) 95 Mechanical Ventilator 40.00 06/03/18 19:00 45 06/03/18 18:49 42 18 95 40 06/03/18 18:00 43 17 170/85 (113) 94 Mechanical Ventilator 40.00 06/03/18 17:00 46 17 163/82 (109) 93 Mechanical Ventilator 40.00 06/03/18 16:01 53 27 96 40 06/03/18 16:00 Mechanical Ventilator 60 06/03/18 16:00 49 17 169/85 (113) 96 Mechanical Ventilator 40.00 06/03/18 15:00 57 20 190/93 (125) 97 Mechanical Ventilator 40.00 06/03/18 14:00 57 17 187/101 (129) 100 Mechanical Ventilator 40.00 06/03/18 13:51 52 25 99 40 06/03/18 13:00 43 06/03/18 13:00 43 15 160/81 (107) 95 Mechanical Ventilator 40.00 06/03/18 12:11 44 18 94 40 06/03/18 12:00 46 18 187/101 (129) 94 Mechanical Ventilator 40.00 06/03/18 12:00 Mechanical Ventilator 60 06/03/18 11:19 48 18 97 60 06/03/18 11:00 49 18 204/106 (138) 97 Mechanical Ventilator 06/03/18 10:00 54 18 213/110 (144) 97 Mechanical Ventilator 06/03/18 09:00 58 25 217/109 (145) 98 Mechanical Ventilator 06/03/18 08:50 57 20 97 100 06/03/18 08:15 Mechanical Ventilator 100 06/03/18 08:00 59 20 163/84 (110) 97 Mechanical Ventilator 06/03/18 08:00 97.6 06/03/18 07:00 85 36 151/85 (107) 98 Mechanical Ventilator 06/03/18 07:00 70 06/03/18 06:43 81 21 98 100 06/03/18 06:00 113 34 181/78 (112) 100 Nasal Cannula 5.00 06/03/18 05:45 114 39 201/109 (139) 97 Nasal Cannula 5.00 06/03/18 05:30 84 39 168/98 (121) 100 Nasal Cannula 5.00 06/03/18 05:30 Nasal Cannula 5.00 06/03/18 05:30 98.6 06/03/18 05:24 84 I & O 06/04/18 07:00 Intake Total 2852 ml Output Total 3850 ml Balance -998 ml Height & Weight Height: 6'6.00" Weight: 176lbs. 12.8oz. 80.072971nl; 20.4 BMI Method:Stated General Appearance: No Apparent Distress, Chronically ill, Cachetic, Other ( intubated) HEENT: PERRL/EOMI, Normal ENT Inspection, Pharynx Normal Neck: Full Range of Motion, Normal Inspection, Non Tender, Supple Respiratory: Chest Non Tender, Lungs Clear, Normal Breath Sounds, No Accessory Muscle Use, No Respiratory Distress Cardiovascular: Regular Rate, Rhythm, No Edema, No Gallop, No JVD, No Murmur, Normal Peripheral Pulses Capillary Refill: Less Than 3 Seconds Gastrointestinal: normal bowel sounds, non tender, soft Neurologic/Psychiatric: Other (sedated) Skin: Normal Color, Warm/Dry Lymphatic: No Adenopathy Results Lab Laboratory Tests 06/02/18 22:34 06/03/18 06:00 06/04/18 01:15 Assessment/Plan Assessment/Plan Acute respiratory distress - unable to maintain airway -Continue Ventilator care - not ready to wean yet - Versed Gtt -Continue TF PNA - probable aspiration PNA vs pulmonary edema -CXR apppears worse -No leukocytosis or fever -Sputum from when pt was intubated is growing Strep A. -Start Zosyn -Check BNP Acute MS changes/confusion/psychosis probably secondary to Alcohol -JASS protocol, Banana Bag -Ativan pushes, and versed gtt. Acute hypoglycemia -1 amp of D50 -Change IVF to D5NS Acute on chronic hyponatremia -Monitor -Continue NS for now Hypoxia -Oxygen -Monitor Metabolic acidosis -Monitor -IVF Anemia -Monitor -Add protonix HTN -Monitor BPH -flomax Tobacco use -Education PAVITHRA CARLIN DO Jun 04, 2018 05:03
[2018-06-04] MEDS: MULTIVIT W/MINERALS TAB (THERAGRAN M) PO SCH (05:24)
[2018-06-04] MEDS: inSUlin ASPART (NovoLOG) 1 UNIT/0.01 ML (CHARGE PER UNIT) SC SCH ×3 (05:24→17:56)
[2018-06-04] MEDS: THIAMINE 100 MG (VITAMIN B-1) TAB PO SCH (05:24)
[2018-06-04] MEDS: PROPOFOL DRIP (ICU) 100 ML IV SCH ×4 (06:39→22:45)
[2018-06-04] MEDS: LORazepam INJ 2 MG/ML (ATIVAN) VIAL IV PRN (08:40)
[2018-06-04] MEDS: MIDAZOLAM INJECTION FOR DRIPS 50 MG in NS (IVPB) 90 ML IV SCH (08:45)
--- NOTE | 2018-06-04 08:53 | Diagnostic Imaging Report ---
INDICATION: Hyponatremia. Comparison made with prior examination 06/03/2018. FINDINGS: There is cardiomegaly. There is some venous congestion. There are patchy bibasilar infiltrates. There is left pleural effusion. There is no pneumothorax. Lines and tubes are in satisfactory position. IMPRESSION: Patchy bibasilar infiltrates and left pleural effusion. Mild central pulmonary venous congestion. Dictated by: Dictated on workstation # [id number]
[2018-06-04] MEDS: PANTOPRAZOLE 40 MG (PROTONIX) VIAL IV SCH (09:49)
[2018-06-04] MEDS: ARTIFICIAL TEARS OINT (LACRI-LUBE) 3.5 GM TUBE OU SCH ×2 (09:49→21:00)
[2018-06-04] MEDS: THIAMINE INJECTION 100 MG, FOLIC ACID INJECTION 1 MG, MAGNESIUM SULFATE 2 GM, VITAMIN M... IV SCH ×10 (09:49→12:20)
[2018-06-04] MEDS: FOLIC ACID 1 MG TAB PO SCH (09:50)
[2018-06-04] MEDS: MAGNESIUM OXIDE (MAG-OX)400 MG TAB PO SCH (09:50)
[2018-06-04] MEDS: fentaNYL INJECTION 1,250 MCG in NS (IVPB) 250 ML IV SCH (09:50)
--- NOTE | 2018-06-04 11:22 | Progress Note-Hospitalist ---
Subjective HPI/CC On Admission Date Seen by Provider: Jun 04, 2018 Time Seen by Provider: 09:00 CC: [facility] HPI: This is a 68yoWM clinic patient of Dr Phipsp and as a h/o alcoholism who presented to the ER with inability to urinate. Room cath was placed and removed 1500cc or urine. Patient was found to have sodium level of 122. Alcohol withdrawal protocol was followed but a few hours after admit he was found to have become combative and so aggressive with presumed alcohol withdrawal he was intubated under Dr Mejias's direction. Patient has a very poor prognosis overall given his past h/o of severe alcoholism. Subjective/Events-last exam Patient remains intubated Sodium level 133 this morning ABG reviewed Chest x-ray reviewed Maintain on withdrawal protocol Likely will require intubation for the next 48 hours to assure withdrawal it has discontinued Focused Exam Lactate Level 06/03/18 07:00: Lactic Acid Level 2.97*H 06/03/18 08:55: Lactic Acid Level 0.80 06/04/18 01:15: Lactic Acid Level 0.93 Objective Exam Vital Signs Vital Signs Date Time Temp Pulse Resp B/P (MAP) Pulse Ox O2 Delivery O2 Flow Rate FiO2 06/04/18 15:00 97.0 59 18 143/72 (95) 92 Mechanical Ventilator 30.00 06/04/18 14:12 30 Capillary Refill : Less Than 3 Seconds General Appearance: No Apparent Distress, Chronically ill, Cachetic, Other ( intubated) HEENT: PERRL/EOMI, Normal ENT Inspection, Pharynx Normal Neck: Full Range of Motion, Normal Inspection, Non Tender, Supple Respiratory: Chest Non Tender, Lungs Clear, Normal Breath Sounds, No Accessory Muscle Use, No Respiratory Distress Cardiovascular: Regular Rate, Rhythm, No Edema, No Gallop, No JVD, No Murmur, Normal Peripheral Pulses Neurologic/Psychiatric: Other (sedated) Skin: Normal Color, Warm/Dry Lymphatic: No Adenopathy Results/Procedures Lab Laboratory Tests 06/04/18 01:15 Patient resulted labs reviewed. Assessment/Plan Assessment and Plan Assess & Plan/Chief Complaint Assessment: [facility] Day # 2 Alcohol withdrawal Severe alcoholism HLP CAD previous stents per old records Smoker Hyponatremia-improved Acute urinary retention requiring romo cath placement Plan: Monitor closely Vent management is appreciated Romo cath BP management ETOH withdrawal tx with benzos Critical Care Critically Ill Patient Diagnosis/Problems Diagnosis/Problems (1) Ventilator dependence Status: Acute (2) Respiratory failure Status: Acute Qualifiers: Chronicity: acute Respiratory failure complication: unspecified whether with hypoxia or hypercapnia Qualified Codes: J96.00 - Acute respiratory failure, unspecified whether with hypoxia or hypercapnia (3) CAD (coronary artery disease) Status: Chronic Qualifiers: Coronary Disease-Associated Artery/Lesion type: [place] artery [place] vs. transplanted heart: [place] heart Associated angina: without angina Qualified Codes: I25.10 - Atherosclerotic heart disease of [place] coronary artery without angina pectoris (4) Hypertension Status: Chronic Qualifiers: Hypertension type: essential hypertension Qualified Codes: I10 - Essential (primary) hypertension (5) Hyperlipidemia Status: Chronic Qualifiers: Hyperlipidemia type: mixed hyperlipidemia Qualified Codes: E78.2 - Mixed hyperlipidemia (6) Urinary retention due to benign prostatic hyperplasia Status: Acute (7) Acute hyponatremia Status: Acute (8) AA (alcohol abuse) Status: Chronic (9) Chronic hyponatremia Status: Chronic (10) Tobacco dependency Status: Chronic Clinical Quality Measures DVT/VTE Risk/Contraindication: Risk Factor Score Per Nursin RFS Level Per Nursing on Admit: 3=High AI ERICKSON DO Jun 04, 2018 11:22
[2018-06-04] MEDS: NS IV 1000 ML 1,000 ML IV SCH (13:44)
[2018-06-04] MEDS ORDERED: NS IV 1000 ML 1,000 ML IV ONE (15:00)
[2018-06-04] MEDS: TAMSULOSIN 0.4 MG (FLOMAX) CAP PO SCH (17:51)
[2018-06-05] VITALS (27 sets, daily range): BP systolic 99–175; BP diastolic 52–85
[2018-06-05] MEDS ORDERED: NS (IVPB) 100 ML ONE (01:47)
[2018-06-05] MEDS ORDERED: MIDAZOLAM FOR DRIPS 10 MG/2 ML VIAL ONE (01:47)
[2018-06-05] MEDS: D5 NS 1000 ML IV SOLUTION 1,000 ML IV SCH ×2 (01:55→17:36)
[2018-06-05] MEDS: MIDAZOLAM INJECTION FOR DRIPS 50 MG in NS (IVPB) 90 ML IV SCH ×2 (01:56→17:53)
[2018-06-05] MEDS: PROPOFOL DRIP (ICU) 100 ML IV SCH ×5 (02:56→20:25)
[2018-06-05 03:26] LABS: ABG BASE EXCESS -5.3 MMOL/L (-2.5-2.5); ABG OXYGEN SATURATION 95 % (94-100); ABG PCO2 32 MMHG (35-45); ABG PH 7.39 (7.37-7.43); ABG PO2 74 MMHG (79-93); ABG TCO2 19.7 MMOL/L (21.0-31.0); ALLENS TEST YES-POS; INSPIRED O2 40%; VENTILATOR YES
[2018-06-05 03:49] LABS: BASOPHILS % (AUTO) 0 % (0-10); EOSINOPHILS % (AUTO) 1 % (0-10); HEMATOCRIT 33 % (40-54); HEMOGLOBIN 11.4 G/DL (13.3-17.7); LYMPHOCYTES # (AUTO) 0.7 X 10^3 (1.0-4.0); LYMPHOCYTES % (AUTO) 16 % (12-44); MEAN CORPUSCULAR HEMOGLOBIN 30 PG (25-34); MEAN CORPUSCULAR HGB CONC 34 G/DL (32-36); MEAN CORPUSCULAR VOLUME 88 FL (80-99); MEAN PLATELET VOLUME 9.4 FL (7.4-10.4); MONOCYTES # (AUTO) 0.3 X 10^3 (0.0-1.0); MONOCYTES % (AUTO) 6 % (0-12); NEUTROPHILS # (AUTO) 3.5 X 10^3 (1.8-7.8); NEUTROPHILS % (AUTO) 77 % (42-75); PLATELET COUNT 142 10^3/uL (130-400); RED CELL DISTRIBUTION WIDTH 15.9 % (10.0-14.5); WHITE BLOOD COUNT 4.5 10^3/uL (4.3-11.0)
[2018-06-05] MEDS: hydrALAZINE (APESOLINE) 20 MG/ML VIAL IV PRN ×2 (03:59→13:10)
[2018-06-05 04:06] LABS: BUN/CREATININE RATIO 9; CALCIUM 7.4 MG/DL (8.5-10.1); CARBON DIOXIDE 19 MMOL/L (21-32); CHLORIDE 109 MMOL/L (98-107); CREATININE SERUM 0.78 MG/DL (0.60-1.30); GFR ESTIMATED > 60; GLUCOSE 121 MG/DL (70-105); MAGNESIUM 2.2 MG/DL (1.8-2.4); PHOSPHORUS 1.7 MG/DL (2.3-4.7); POTASSIUM 3.2 MMOL/L (3.6-5.0); SODIUM 137 MMOL/L (135-145)
[2018-06-05] MEDS: inSUlin ASPART (NovoLOG) 1 UNIT/0.01 ML (CHARGE PER UNIT) SC SCH ×4 (05:01→17:36)
[2018-06-05] MEDS: KCL 20 MEQ TAB (K-DUR) PO SCH (05:01)
[2018-06-05] MEDS: MAGNESIUM 1 GM/100 ML IVPB 100 ML IV SCH (05:01)
[2018-06-05] MEDS: POTASSIUM CL 10MEQ/50ML IVPB 50 ML IV SCH ×4 (05:01→07:14)
[2018-06-05] MEDS: NS IV 1000 ML 1,000 ML IV SCH ×2 (05:40→22:25)
[2018-06-05] MEDS: THIAMINE 100 MG (VITAMIN B-1) TAB PO SCH (05:41)
[2018-06-05] MEDS ORDERED: POTASSIUM PHOSPHATE INJ 30 MM in NS (IVPB) 250 ML IV ONE (06:45)
--- NOTE | 2018-06-05 06:49 | Diagnostic Imaging Report ---
INDICATION: ET tube positioning COMPARISON: 06/05/2018 at 5:07 AM FINDINGS: Single view of the chest demonstrates ET tube now in the midtrachea. There is no pneumothorax. Aeration is unchanged. IMPRESSION: ET tube midtrachea. Dictated by: Dictated on workstation # [id number]
--- NOTE | 2018-06-05 06:50 | Diagnostic Imaging Report ---
INDICATION: ET tube placement positioning. COMPARISON: 06/05/2018 at 3:30 a.m. FINDINGS: Single view of the chest demonstrates ET tube now in the mid upper trachea. There is no pneumothorax. Aeration is unchanged. IMPRESSION: ET tube mid to upper trachea. Dictated by: Dictated on workstation # [id number]
--- NOTE | 2018-06-05 07:02 | Diagnostic Imaging Report ---
INDICATION: Intubated COMPARISON: 06/04/2018 FINDINGS: Single view of the chest demonstrates cardiac enlargement with stable central vascular congestion. The support lines are in stable position. There is no pneumothorax. There is trace bilateral pleural effusions with dependent atelectasis. IMPRESSION: 1. Stable support lines without pneumothorax 2. Unchanged aeration. Dictated by: Dictated on workstation # [id number]
--- NOTE | 2018-06-05 07:44 | Progress Note (SOAP) ---
Subjective Time Seen by a Provider: 07:41 Subjective/Events-last exam Patient ventilator Patient sleeping. Patient had urinary retention. Patient had acute mental status change. Patient has alcohol abuse. Hyponatremia. She appears stable Focused Exam Lactate Level 06/03/18 07:00: Lactic Acid Level 2.97*H 06/03/18 08:55: Lactic Acid Level 0.80 06/04/18 01:15: Lactic Acid Level 0.93 Objective Exam Vital Signs Date Time Temp Pulse Resp B/P (MAP) Pulse Ox O2 Delivery O2 Flow Rate FiO2 06/05/18 07:13 90 06/05/18 06:32 80 34 92 40 06/05/18 06:00 99.4 87 34 153/67 (95) 92 Mechanical Ventilator 40.00 06/05/18 05:00 99.0 81 28 142/76 (98) 91 Mechanical Ventilator 40.00 06/05/18 04:00 Mechanical Ventilator 40 06/05/18 04:00 99.0 71 26 166/75 (105) 94 Mechanical Ventilator 40.00 06/05/18 03:00 99.0 66 17 175/85 (115) 96 Mechanical Ventilator 40.00 06/05/18 02:56 70 06/05/18 02:00 99.4 66 16 156/79 (104) 95 Mechanical Ventilator 40.00 06/05/18 01:56 68 156/78 06/05/18 01:00 99.6 71 40 163/80 (107) 94 Mechanical Ventilator 40.00 06/05/18 01:00 71 06/05/18 00:42 74 36 94 40 06/05/18 00:00 100.0 72 21 155/76 (102) 94 Mechanical Ventilator 40.00 06/05/18 00:00 Mechanical Ventilator 40 06/04/18 23:00 100.4 69 20 163/78 (106) 93 Mechanical Ventilator 40.00 06/04/18 22:45 167/75 06/04/18 22:00 100.8 75 22 162/81 (108) 94 Mechanical Ventilator 40.00 06/04/18 21:35 75 23 94 40 06/04/18 21:00 101.0 75 22 154/72 (99) 93 Mechanical Ventilator 40.00 06/04/18 20:00 100.2 85 24 182/94 (123) 93 Mechanical Ventilator 40.00 06/04/18 20:00 Mechanical Ventilator 40 06/04/18 19:59 85 06/04/18 19:00 99.0 78 24 164/82 (109) 95 Mechanical Ventilator 40.00 06/04/18 18:43 161/83 06/04/18 18:05 71 26 93 30 06/04/18 18:00 98.6 80 30 155/82 (106) 94 Mechanical Ventilator 30.00 06/04/18 17:00 97.7 80 30 158/87 (110) 88 Mechanical Ventilator 30.00 06/04/18 16:00 97.2 70 25 161/83 (109) 92 Mechanical Ventilator 30.00 06/04/18 16:00 Mechanical Ventilator 30 06/04/18 16:00 68 27 92 30 06/04/18 15:00 97.0 59 18 143/72 (95) 92 Mechanical Ventilator 30.00 06/04/18 14:12 64 25 92 30 06/04/18 14:00 96.6 60 15 150/74 (99) 92 Mechanical Ventilator 30.00 06/04/18 13:00 96.0 60 16 158/77 (104) 91 Mechanical Ventilator 30.00 06/04/18 13:00 52 06/04/18 12:28 59 19 93 30 06/04/18 12:21 154/81 06/04/18 12:00 96.0 52 21 147/72 (97) 96 Mechanical Ventilator 40.00 06/04/18 12:00 Mechanical Ventilator 40 06/04/18 11:00 96.4 56 29 125/64 (84) 95 Mechanical Ventilator 40.00 06/04/18 10:00 96.8 57 16 117/67 (84) 93 Mechanical Ventilator 40.00 06/04/18 09:57 57 19 93 40 06/04/18 09:00 96.4 78 26 162/83 (109) 91 Mechanical Ventilator 40.00 06/04/18 08:45 96.0 56 18 154/72 93 Mechanical Ventilator 30.00 06/04/18 08:00 96.0 56 18 154/72 (99) 93 Mechanical Ventilator 30.00 06/04/18 08:00 Mechanical Ventilator 30 I & O 06/05/18 07:00 Intake Total 5016.2 ml Output Total 780 ml Balance 4236.2 ml Capillary Refill : Less Than 3 Seconds General Appearance: No Apparent Distress, WD/WN Neck: Normal Inspection Respiratory: No Accessory Muscle Use, No Respiratory Distress, Other ( Ventilator) Cardiovascular: Regular Rate, Rhythm, No Murmur Gastrointestinal: non tender, soft Results Lab Laboratory Tests 06/05/18 03:10 Laboratory Tests 06/04/18 12:29: Glucometer 171H 06/04/18 17:53: Glucometer 118H 06/04/18 23:36: Glucometer 123H 06/05/18 03:10: White Blood Count 4.5, Red Blood Count 3.81L, Hemoglobin 11.4L, Hematocrit 33L, Mean Corpuscular Volume 88, Mean Corpuscular Hemoglobin 30, Mean Corpuscular Hemoglobin Concent 34, Red Cell Distribution Width 15.9H, Platelet Count 142, Mean Platelet Volume 9.4, Neutrophils (%) (Auto) 77H, Lymphocytes (%) (Auto) 16 , Monocytes (%) (Auto) 6, Eosinophils (%) (Auto) 1, Basophils (%) (Auto) 0, Neutrophils # (Auto) 3.5, Lymphocytes # (Auto) 0.7L, Monocytes # (Auto) 0.3, Eosinophils # (Auto) 0.0, Basophils # (Auto) 0.0, Sodium Level 137, Potassium Level 3.2L, Chloride Level 109H, Carbon Dioxide Level 19L, Anion Gap 9, Blood Urea Nitrogen 7, Creatinine 0.78, Estimat Glomerular Filtration Rate > 60, BUN/ Creatinine Ratio 9, Glucose Level 121H, Calcium Level 7.4L, Phosphorus Level 1.7L, Magnesium Level 2.2 06/05/18 03:15: Blood Gas Puncture Site RIGHT RADIAL, Blood Gas Patient Temperature 99.0, Arterial Blood pH 7.39, Arterial Blood Partial Pressure CO2 32L, Arterial Blood Partial Pressure O2 74L, Arterial Blood HCO3 19L, Arterial Blood Total CO2 19.7L , Arterial Blood Oxygen Saturation 95, Arterial Blood Base Excess -5.3L, [place] Test YES-POS, Blood Gas Ventilator Setting YES, Blood Gas Inspired Oxygen 40% Microbiology 06/03/18 Gram Stain - Final, Resulted 06/03/18 Sputum Culture - Preliminary, Resulted Strep Species, Beta Hemolytic See Comments Assessment/Plan Assessment/Plan Assess & Plan/Chief Complaint Acute mental status change. Hyponatremia. Urinary retention. Benign prostatic hypertrophy. History of falling. Alcoholism. Anemia. Acute respiratory distress. Hypertension history. Patient on vent and sedated Clinical Quality Measures DVT/VTE Risk/Contraindication: Risk Factor Score Per Nursin RFS Level Per Nursing on Admit: 3=High JENNIFER BECK DO Jun 05, 2018 07:44
[2018-06-05] MEDS: ENOXAPARIN 40 MG/0.4 ML (LOVENOX) SYR SC SCH (07:48)
[2018-06-05] MEDS: PANTOPRAZOLE 40 MG (PROTONIX) VIAL IV SCH (07:48)
[2018-06-05] MEDS: THIAMINE INJECTION 100 MG, FOLIC ACID INJECTION 1 MG, MAGNESIUM SULFATE 2 GM, VITAMIN M... IV SCH ×5 (07:51)
[2018-06-05] MEDS: ARTIFICIAL TEARS OINT (LACRI-LUBE) 3.5 GM TUBE OU SCH ×2 (07:51→23:51)
--- NOTE | 2018-06-05 11:20 | NUR ---
Pastoral care visit, pt on vent no family in room.
[2018-06-05] MEDS: morphine INJ 4 MG/ML 1 ML (VIAL/SYRINGE) IVP PRN ×3 (14:10→23:51)
[2018-06-05] MEDS ORDERED: TRAZ-190 PO (16:00)
[2018-06-05] MEDS ORDERED: ALBU18HF2 INH (16:00)
[2018-06-05] MEDS ORDERED: ESOM40CA52 PO (16:00)
--- NOTE | 2018-06-05 16:02 | NUR ---
UNABLE TO SPEAK WITH THE PATIENT AND NO FAMILY PRESENT AT THIS TIME. UPDATED MED REC WITH WHAT HAS BEEN FILLED RECENTLY AT [facility] ACCORDING TO THE EXT MED HX.
[2018-06-05] MEDS: TAMSULOSIN 0.4 MG (FLOMAX) CAP PO SCH (17:36)
[2018-06-06] VITALS (29 sets, daily range): BP systolic 85–127; BP diastolic 44–64
[2018-06-06] MEDS: PROPOFOL DRIP (ICU) 100 ML IV SCH ×5 (00:52→23:44)
[2018-06-06] MEDS: morphine INJ 4 MG/ML 1 ML (VIAL/SYRINGE) IVP PRN (03:31)
[2018-06-06 03:33] LABS: BASOPHILS % (AUTO) 1 % (0-10); EOSINOPHILS # (AUTO) 0.2 10^3/uL (0.0-0.3); EOSINOPHILS % (AUTO) 3 % (0-10); HEMATOCRIT 33 % (40-54); HEMOGLOBIN 10.9 G/DL (13.3-17.7); LYMPHOCYTES # (AUTO) 0.7 X 10^3 (1.0-4.0); LYMPHOCYTES % (AUTO) 15 % (12-44); MEAN CORPUSCULAR HEMOGLOBIN 30 PG (25-34); MEAN CORPUSCULAR HGB CONC 33 G/DL (32-36); MEAN CORPUSCULAR VOLUME 91 FL (80-99); MEAN PLATELET VOLUME 9.5 FL (7.4-10.4); MONOCYTES # (AUTO) 0.3 X 10^3 (0.0-1.0); MONOCYTES % (AUTO) 7 % (0-12); NEUTROPHILS # (AUTO) 3.3 X 10^3 (1.8-7.8); NEUTROPHILS % (AUTO) 74 % (42-75); PLATELET COUNT 102 10^3/uL (130-400); RED CELL DISTRIBUTION WIDTH 16.1 % (10.0-14.5); WHITE BLOOD COUNT 4.4 10^3/uL (4.3-11.0)
[2018-06-06 03:54] LABS: BUN/CREATININE RATIO 12; CALCIUM 7.1 MG/DL (8.5-10.1); CARBON DIOXIDE 18 MMOL/L (21-32); CHLORIDE 112 MMOL/L (98-107); CREATININE SERUM 0.76 MG/DL (0.60-1.30); GFR ESTIMATED > 60; GLUCOSE 124 MG/DL (70-105); MAGNESIUM 1.9 MG/DL (1.8-2.4); PHOSPHORUS 2.5 MG/DL (2.3-4.7); POTASSIUM 3.2 MMOL/L (3.6-5.0); SODIUM 137 MMOL/L (135-145)
[2018-06-06] MEDS: D5 NS 1000 ML IV SOLUTION 1,000 ML IV SCH (04:00)
[2018-06-06 06:07] LABS: ABG BASE EXCESS -6.9 MMOL/L (-2.5-2.5); ABG OXYGEN SATURATION 95 % (94-100); ABG PCO2 33 MMHG (35-45); ABG PH 7.35 (7.37-7.43); ABG PO2 83 MMHG (79-93); ABG TCO2 18.9 MMOL/L (21.0-31.0)
[2018-06-06 06:10] LABS: ALLENS TEST YES-POS; INSPIRED O2 40%; PATIENT TEMP 97.3; VENTILATOR YES
[2018-06-06] MEDS: POTASSIUM CL 10MEQ/50ML IVPB 50 ML IV SCH ×9 (06:20→13:02)
[2018-06-06] MEDS: KCL 20 MEQ TAB (K-DUR) PO SCH (06:21)
[2018-06-06] MEDS: ENOXAPARIN 40 MG/0.4 ML (LOVENOX) SYR SC SCH (06:21)
[2018-06-06] MEDS: MAGNESIUM 1 GM/100 ML IVPB 100 ML IV SCH (06:21)
[2018-06-06] MEDS: inSUlin ASPART (NovoLOG) 1 UNIT/0.01 ML (CHARGE PER UNIT) SC SCH ×5 (06:21→23:38)
[2018-06-06] MEDS ORDERED: MIDAZOLAM FOR DRIPS 10 MG/2 ML VIAL ONE (06:26)
[2018-06-06] MEDS ORDERED: NS (IVPB) 100 ML ONE (06:27)
[2018-06-06] MEDS: MIDAZOLAM INJECTION FOR DRIPS 50 MG in NS (IVPB) 90 ML IV SCH ×2 (06:34→20:20)
[2018-06-06] MEDS ORDERED: PIPERACILLIN/TAZO 4.5 GM/NS 100 ML IV NR ×2 (07:15)
[2018-06-06] MEDS ORDERED: FUROSEMIDE 40 MG/4 ML INJ (LASIX) IVP NR (07:15)
--- NOTE | 2018-06-06 07:16 | Pulmonary Progress Note ---
Subjective Time Seen by a Provider: 07:15 Subjective/Events-last exam PT is sedated on Vent Sepsis Event Evaluation Height, Weight, BMI Height: 6'6.00" Weight: 212lbs. 8.0oz. 96.491223mh; 20.4 BMI Method:Stated Focused Exam Lactate Level 06/03/18 08:55: Lactic Acid Level 0.80 06/04/18 01:15: Lactic Acid Level 0.93 Exam Exam Vital Signs Date Time Temp Pulse Resp B/P (MAP) Pulse Ox O2 Delivery O2 Flow Rate FiO2 06/06/18 06:34 114/58 06/06/18 06:20 116/56 06/06/18 06:00 96.8 64 14 111/55 (73) 99 Mechanical Ventilator 40.00 06/06/18 05:55 65 23 99 40 06/06/18 04:00 96.6 60 14 101/52 (68) 97 Mechanical Ventilator 40.00 06/06/18 04:00 Mechanical Ventilator 40 06/06/18 03:00 96.4 61 16 101/51 (68) 97 Mechanical Ventilator 40.00 06/06/18 02:36 61 24 97 40 06/06/18 02:00 96.2 62 16 101/52 (68) 97 Mechanical Ventilator 40.00 06/06/18 01:00 63 06/06/18 01:00 96.0 63 13 110/54 (72) 97 Mechanical Ventilator 40.00 06/06/18 00:52 108/56 06/06/18 00:00 Mechanical Ventilator 40 06/06/18 00:00 95.9 62 14 104/52 (69) 96 Mechanical Ventilator 40.00 06/05/18 23:00 96.0 62 14 107/56 (73) 97 Mechanical Ventilator 40.00 06/05/18 22:21 64 26 97 40 06/05/18 22:00 96.2 62 14 104/52 (69) 96 Mechanical Ventilator 40.00 06/05/18 21:00 96.8 64 15 106/57 (73) 96 Mechanical Ventilator 40.00 06/05/18 20:25 107/53 06/05/18 20:00 Mechanical Ventilator 40 06/05/18 20:00 97.4 66 14 107/54 (71) 96 Mechanical Ventilator 40.00 06/05/18 19:38 66 23 97 40 06/05/18 19:00 98.2 68 14 112/55 (74) 98 Mechanical Ventilator 40.00 06/05/18 19:00 68 06/05/18 18:00 99.6 70 13 104/55 (71) 98 Mechanical Ventilator 40.00 06/05/18 17:53 96 06/05/18 17:00 101.0 80 14 99/53 (68) 98 Mechanical Ventilator 40.00 06/05/18 16:14 101.0 06/05/18 16:14 101.0 06/05/18 16:08 101.0 06/05/18 16:00 Mechanical Ventilator 40 06/05/18 16:00 99.4 79 33 174/79 (110) 100 Mechanical Ventilator 40.00 06/05/18 14:00 101.4 109 37 152/75 (100) 99 Mechanical Ventilator 40.00 06/05/18 13:59 106 38 99 40 06/05/18 13:03 92 06/05/18 13:00 100.4 92 36 159/79 (105) 99 Mechanical Ventilator 40.00 06/05/18 12:00 99.4 79 33 174/79 (110) 100 Mechanical Ventilator 40.00 06/05/18 12:00 Mechanical Ventilator 40 06/05/18 11:30 98.0 06/05/18 11:11 73 25 100 40 06/05/18 11:00 99.0 75 26 169/78 (108) 99 Mechanical Ventilator 40.00 06/05/18 10:00 99.4 143/69 (93) Mechanical Ventilator 40.00 06/05/18 09:00 99.6 75 23 95 Mechanical Ventilator 40.00 06/05/18 08:00 Mechanical Ventilator 40 06/05/18 08:00 99.6 81 25 159/79 (105) 93 Mechanical Ventilator 40.00 I & O 06/06/18 07:00 Intake Total 1680 ml Output Total 1000 ml Balance 680 ml Height & Weight Height: 6'6.00" Weight: 212lbs. 8.0oz. 96.204021nd; 20.4 BMI Method:Stated General Appearance: No Apparent Distress, Chronically ill, Cachetic, Other ( intubated) HEENT: PERRL/EOMI, Normal ENT Inspection, Pharynx Normal Neck: Full Range of Motion, Normal Inspection, Non Tender, Supple Respiratory: Chest Non Tender, Lungs Clear, Normal Breath Sounds, No Accessory Muscle Use, No Respiratory Distress Cardiovascular: Regular Rate, Rhythm, No Edema, No Gallop, No JVD, No Murmur, Normal Peripheral Pulses Capillary Refill: Less Than 3 Seconds Gastrointestinal: normal bowel sounds, non tender, soft Neurologic/Psychiatric: Other (sedated) Skin: Normal Color, Warm/Dry Lymphatic: No Adenopathy Results Lab Laboratory Tests 06/05/18 03:10 06/06/18 03:20 Assessment/Plan Assessment/Plan Acute respiratory distress - unable to maintain airway -Continue Ventilator care - not ready to wean yet - Versed Gtt -Continue TF PNA - probable aspiration PNA vs pulmonary edema -CXR apppears worse -No leukocytosis or fever -Sputum from when pt was intubated is growing Strep A. -Start Zosyn -Check BNP Acute MS changes/confusion/psychosis probably secondary to Alcohol -JASS protocol, Banana Bag -Ativan pushes, and versed gtt. Acute hypoglycemia -1 amp of D50 -Change IVF to D5NS Acute on chronic hyponatremia -Monitor -Continue NS for now Hypoxia -Oxygen -Monitor Metabolic acidosis -Monitor -IVF Anemia -Monitor -Add protonix HTN -Monitor BPH -flomax Tobacco use -Education PAVITHRA CARLIN DO Jun 06, 2018 07:16
--- NOTE | 2018-06-06 07:25 | Diagnostic Imaging Report ---
EXAM: CHEST 1 VIEW, AP/PA ONLY INDICATION: Respiratory failure. COMPARISON: Chest radiograph 06/05/2018. FINDINGS: Normal heart size and central pulmonary vascularity. Diffuse interstitial and airspace opacities are greatest in the left midlung and have progressed since prior exam. Small bilateral pleural effusions. Calcified aorta. ETT tip approximately 3 cm from the endy. NG tube tip and side port below the [id number]. IMPRESSION: 1. Increasing interstitial and airspace opacities in both lungs, greatest in the left midlung. 2. Small bilateral pleural effusions. 3. Support lines in stable position. Dictated by: Dictated on workstation # [id number]
[2018-06-06] MEDS: D5 NS W/KCL 20 MEQ/L 1,000 ML IV SCH (07:57)
[2018-06-06] MEDS: PANTOPRAZOLE 40 MG (PROTONIX) VIAL IV SCH (07:58)
[2018-06-06] MEDS: ARTIFICIAL TEARS OINT (LACRI-LUBE) 3.5 GM TUBE OU SCH ×2 (07:58→20:19)
[2018-06-06] MEDS: THIAMINE INJECTION 100 MG, FOLIC ACID INJECTION 1 MG, MAGNESIUM SULFATE 2 GM, VITAMIN M... IV SCH ×5 (07:58)
--- NOTE | 2018-06-06 08:02 | Progress Note (SOAP) ---
Subjective Time Seen by a Provider: 07:59 Subjective/Events-last exam Patient on vent sedated. Chest x-ray today looks worse. BNP 785 elevated. Focused Exam Lactate Level 06/03/18 08:55: Lactic Acid Level 0.80 06/04/18 01:15: Lactic Acid Level 0.93 Objective Exam Vital Signs Date Time Temp Pulse Resp B/P (MAP) Pulse Ox O2 Delivery O2 Flow Rate FiO2 06/06/18 06:34 114/58 06/06/18 06:20 116/56 06/06/18 06:00 96.8 64 14 111/55 (73) 99 Mechanical Ventilator 40.00 06/06/18 05:55 65 23 99 40 06/06/18 04:00 96.6 60 14 101/52 (68) 97 Mechanical Ventilator 40.00 06/06/18 04:00 Mechanical Ventilator 40 06/06/18 03:00 96.4 61 16 101/51 (68) 97 Mechanical Ventilator 40.00 06/06/18 02:36 61 24 97 40 06/06/18 02:00 96.2 62 16 101/52 (68) 97 Mechanical Ventilator 40.00 06/06/18 01:00 63 06/06/18 01:00 96.0 63 13 110/54 (72) 97 Mechanical Ventilator 40.00 06/06/18 00:52 108/56 06/06/18 00:00 Mechanical Ventilator 40 06/06/18 00:00 95.9 62 14 104/52 (69) 96 Mechanical Ventilator 40.00 06/05/18 23:00 96.0 62 14 107/56 (73) 97 Mechanical Ventilator 40.00 06/05/18 22:21 64 26 97 40 06/05/18 22:00 96.2 62 14 104/52 (69) 96 Mechanical Ventilator 40.00 06/05/18 21:00 96.8 64 15 106/57 (73) 96 Mechanical Ventilator 40.00 06/05/18 20:25 107/53 06/05/18 20:00 Mechanical Ventilator 40 06/05/18 20:00 97.4 66 14 107/54 (71) 96 Mechanical Ventilator 40.00 06/05/18 19:38 66 23 97 40 06/05/18 19:00 98.2 68 14 112/55 (74) 98 Mechanical Ventilator 40.00 06/05/18 19:00 68 06/05/18 18:00 99.6 70 13 104/55 (71) 98 Mechanical Ventilator 40.00 06/05/18 17:53 96 06/05/18 17:00 101.0 80 14 99/53 (68) 98 Mechanical Ventilator 40.00 06/05/18 16:14 101.0 06/05/18 16:14 101.0 06/05/18 16:08 101.0 06/05/18 16:00 Mechanical Ventilator 40 06/05/18 16:00 99.4 79 33 174/79 (110) 100 Mechanical Ventilator 40.00 06/05/18 14:00 101.4 109 37 152/75 (100) 99 Mechanical Ventilator 40.00 06/05/18 13:59 106 38 99 40 06/05/18 13:03 92 06/05/18 13:00 100.4 92 36 159/79 (105) 99 Mechanical Ventilator 40.00 06/05/18 12:00 99.4 79 33 174/79 (110) 100 Mechanical Ventilator 40.00 06/05/18 12:00 Mechanical Ventilator 40 06/05/18 11:30 98.0 06/05/18 11:11 73 25 100 40 06/05/18 11:00 99.0 75 26 169/78 (108) 99 Mechanical Ventilator 40.00 06/05/18 10:00 99.4 143/69 (93) Mechanical Ventilator 40.00 06/05/18 09:00 99.6 75 23 95 Mechanical Ventilator 40.00 06/05/18 08:00 Mechanical Ventilator 40 06/05/18 08:00 99.6 81 25 159/79 (105) 93 Mechanical Ventilator 40.00 I & O 06/06/18 07:00 Intake Total 1680 ml Output Total 1000 ml Balance 680 ml Capillary Refill : Less Than 3 Seconds General Appearance: No Apparent Distress, WD/WN, Other (Patient sedated on ventilator) HEENT: Normal ENT Inspection Neck: Normal Inspection Respiratory: No Accessory Muscle Use, No Respiratory Distress, Decreased Breath Sounds Cardiovascular: Regular Rate, Rhythm, No Murmur Gastrointestinal: non tender, soft Results Lab Laboratory Tests 06/06/18 03:20 Laboratory Tests 06/05/18 09:25: Triglycerides Level 52 06/05/18 11:46: Glucometer 114H 06/05/18 17:30: Glucometer 129H 06/06/18 02:13: Glucometer 153H 06/06/18 03:20: White Blood Count 4.4, Red Blood Count 3.61L, Hemoglobin 10.9L, Hematocrit 33L, Mean Corpuscular Volume 91, Mean Corpuscular Hemoglobin 30, Mean Corpuscular Hemoglobin Concent 33, Red Cell Distribution Width 16.1H, Platelet Count 102L, Mean Platelet Volume 9.5, Neutrophils (%) (Auto) 74, Lymphocytes (%) (Auto) 15, Monocytes (%) (Auto) 7, Eosinophils (%) (Auto) 3, Basophils (%) (Auto) 1, Neutrophils # (Auto) 3.3, Lymphocytes # (Auto) 0.7L, Monocytes # (Auto) 0.3, Eosinophils # (Auto) 0.2, Basophils # (Auto) 0.0, Sodium Level 137, Potassium Level 3.2L, Chloride Level 112H, Carbon Dioxide Level 18L, Anion Gap 7, Blood Urea Nitrogen 9, Creatinine 0.76, Estimat Glomerular Filtration Rate > 60, BUN/ Creatinine Ratio 12, Glucose Level 124H, Calcium Level 7.1L, Phosphorus Level 2.5, Magnesium Level 1.9, B-Type Natriuretic Peptide 780.2H 06/06/18 06:00: Blood Gas Puncture Site RIGHT RADIAL, Blood Gas Patient Temperature 97.3, Arterial Blood pH 7.35L, Arterial Blood Partial Pressure CO2 33L, Arterial Blood Partial Pressure O2 83, Arterial Blood HCO3 18L, Arterial Blood Total CO2 18.9L, Arterial Blood Oxygen Saturation 95, Arterial Blood Base Excess -6.9L, Lamont Test YES-POS, Blood Gas Ventilator Setting YES, Blood Gas Inspired Oxygen 40% Microbiology 06/03/18 Gram Stain - Final, Resulted 06/03/18 Sputum Culture - Preliminary, Resulted Usual upper respiratory juana Strep agalactiae Group B See Comments Radiology Laboratory Tests 06/06/18 03:20 Assessment/Plan Assessment/Plan Assess & Plan/Chief Complaint Acute mental status change. Hyponatremia. Urinary retention. Benign prostatic hypertrophy. History of falling. Alcoholism. Anemia. Acute respiratory distress. Hypertension history. Patient on vent and sedated. . . Pneumonia. CHF. Acute mental status change. Hyponatremia. Benign prostatic hypertrophy. Urinary retention. Alcoholism. Anemia. Acute respiratory distress. Hypertension history hypoxia Clinical Quality Measures DVT/VTE Risk/Contraindication: Risk Factor Score Per Nursin RFS Level Per Nursing on Admit: 3=High JENNIFER BECK DO Jun 06, 2018 08:02
--- NOTE | 2018-06-06 10:30 | Pulmonary Progress Note ---
Subjective Date Seen by a Provider: Jun 05, 2018 (Late note for 06/05. Today is 06/06 ) Time Seen by a Provider: 10:29 Subjective/Events-last exam PT sedated on vent Sepsis Event Evaluation Height, Weight, BMI Height: 6'6.00" Weight: 212lbs. 8.0oz. 96.430829ns; 20.4 BMI Method:Stated Focused Exam Lactate Level 06/04/18 01:15: Lactic Acid Level 0.93 Exam Exam Vital Signs Date Time Temp Pulse Resp B/P (MAP) Pulse Ox O2 Delivery O2 Flow Rate FiO2 06/06/18 09:00 97.2 67 14 108/53 (71) 97 Mechanical Ventilator 40.00 06/06/18 08:00 97.2 67 16 111/52 (71) 97 Mechanical Ventilator 40.00 06/06/18 07:05 69 06/06/18 07:00 97.0 69 20 114/56 (75) 97 Mechanical Ventilator 40.00 06/06/18 06:34 114/58 06/06/18 06:20 116/56 06/06/18 06:00 96.8 64 14 111/55 (73) 99 Mechanical Ventilator 40.00 06/06/18 05:55 65 23 99 40 06/06/18 04:00 96.6 60 14 101/52 (68) 97 Mechanical Ventilator 40.00 06/06/18 04:00 Mechanical Ventilator 40 06/06/18 03:00 96.4 61 16 101/51 (68) 97 Mechanical Ventilator 40.00 06/06/18 02:36 61 24 97 40 06/06/18 02:00 96.2 62 16 101/52 (68) 97 Mechanical Ventilator 40.00 06/06/18 01:00 63 06/06/18 01:00 96.0 63 13 110/54 (72) 97 Mechanical Ventilator 40.00 06/06/18 00:52 108/56 06/06/18 00:00 Mechanical Ventilator 40 06/06/18 00:00 95.9 62 14 104/52 (69) 96 Mechanical Ventilator 40.00 06/05/18 23:00 96.0 62 14 107/56 (73) 97 Mechanical Ventilator 40.00 06/05/18 22:21 64 26 97 40 06/05/18 22:00 96.2 62 14 104/52 (69) 96 Mechanical Ventilator 40.00 06/05/18 21:00 96.8 64 15 106/57 (73) 96 Mechanical Ventilator 40.00 06/05/18 20:25 107/53 06/05/18 20:00 Mechanical Ventilator 40 06/05/18 20:00 97.4 66 14 107/54 (71) 96 Mechanical Ventilator 40.00 06/05/18 19:38 66 23 97 40 06/05/18 19:00 98.2 68 14 112/55 (74) 98 Mechanical Ventilator 40.00 06/05/18 19:00 68 06/05/18 18:00 99.6 70 13 104/55 (71) 98 Mechanical Ventilator 40.00 06/05/18 17:53 96 06/05/18 17:00 101.0 80 14 99/53 (68) 98 Mechanical Ventilator 40.00 06/05/18 16:14 101.0 06/05/18 16:14 101.0 06/05/18 16:08 101.0 06/05/18 16:00 Mechanical Ventilator 40 06/05/18 16:00 99.4 79 33 174/79 (110) 100 Mechanical Ventilator 40.00 06/05/18 14:00 101.4 109 37 152/75 (100) 99 Mechanical Ventilator 40.00 06/05/18 13:59 106 38 99 40 06/05/18 13:03 92 06/05/18 13:00 100.4 92 36 159/79 (105) 99 Mechanical Ventilator 40.00 06/05/18 12:00 99.4 79 33 174/79 (110) 100 Mechanical Ventilator 40.00 06/05/18 12:00 Mechanical Ventilator 40 06/05/18 11:30 98.0 06/05/18 11:11 73 25 100 40 06/05/18 11:00 99.0 75 26 169/78 (108) 99 Mechanical Ventilator 40.00 I & O 06/06/18 07:00 Intake Total 1680 ml Output Total 1000 ml Balance 680 ml Height & Weight Height: 6'6.00" Weight: 212lbs. 8.0oz. 96.119043uq; 20.4 BMI Method:Stated General Appearance: No Apparent Distress, WD/WN, Other (Patient sedated on ventilator) HEENT: Normal ENT Inspection Neck: Normal Inspection Respiratory: No Accessory Muscle Use, No Respiratory Distress, Decreased Breath Sounds Cardiovascular: Regular Rate, Rhythm, No Murmur Capillary Refill: Less Than 3 Seconds Gastrointestinal: non tender, soft Extremity: Normal Capillary Refill, Normal Inspection Neurologic/Psychiatric: Disoriented, Other Skin: Normal Color, Warm/Dry Lymphatic: No Adenopathy Results Lab Laboratory Tests 06/05/18 03:10 06/06/18 03:20 Assessment/Plan Assessment/Plan Acute respiratory distress - unable to maintain airway -Continue Ventilator care - not ready to wean yet - Versed Gtt -Continue TF PNA - probable aspiration PNA vs pulmonary edema -CXR apppears worse -No leukocytosis or fever -Sputum from when pt was intubated is growing Strep A. -Start Zosyn -Check BNP Acute MS changes/confusion/psychosis probably secondary to Alcohol -JASS protocol, Banana Bag -Ativan pushes, and versed gtt. Acute hypoglycemia -1 amp of D50 -Bicarb gtt Acute on chronic hyponatremia -Monitor -Continue NS for now Hypoxia -Oxygen -Monitor Metabolic acidosis -Monitor -IVF Anemia -Monitor -Add protonix HTN -Monitor BPH -flomax Tobacco use -Education PAVITHRA CARLIN DO Jun 06, 2018 10:30
[2018-06-06] MEDS: PIPERACILLIN/TAZOBACTAM (BULK) 4.5 GM in NS (IVPB) 100 ML IV SCH ×2 (13:03→20:19)
[2018-06-06] MEDS: NS IV 1000 ML 1,000 ML IV SCH (16:50)
[2018-06-06] MEDS: TAMSULOSIN 0.4 MG (FLOMAX) CAP PO SCH (17:41)
--- NOTE | 2018-06-06 19:44 | Diagnostic Imaging Report ---
INDICATION: ET tube advancement. TIME OF EXAM: 7:16 PM COMPARISON: Correlation made with prior study earlier same day. FINDINGS: ET tube has tip in good position above the endy. NG tube passes below the diaphragm. Bilateral infiltrates persist. No pneumothorax is seen. IMPRESSION: Satisfactory endotracheal tube positioning. Bilateral infiltrates persist. Dictated by: Dictated on workstation # [id number]
[2018-06-07] VITALS (34 sets, daily range): BP systolic 81–147; BP diastolic 43–74
--- NOTE | 2018-06-07 01:15 | NUR ---
Call to E ICU at this time. Patient BP 86/44, decreased UOP 45cc x 2 hrs.
[2018-06-07] MEDS ORDERED: NS IV 1000 ML 500 ML IV SCH (01:45)
[2018-06-07] MEDS: D5 NS W/KCL 20 MEQ/L 1,000 ML IV SCH ×2 (02:12→20:32)
[2018-06-07 03:46] LABS: ABG BASE EXCESS -7.9 MMOL/L (-2.5-2.5); ABG OXYGEN SATURATION 87 % (94-100); ABG PCO2 37 MMHG (35-45); ABG PO2 65 MMHG (79-93); ABG TCO2 18.6 MMOL/L (21.0-31.0)
[2018-06-07 03:50] LABS: ABG PH 7.29 (7.37-7.43)
[2018-06-07 03:51] LABS: ALLENS TEST YES-POS; INSPIRED O2 45%; PATIENT TEMP 98.2; VENTILATOR YES
[2018-06-07 04:14] LABS: BASOPHILS % (AUTO) 0 % (0-10); EOSINOPHILS % (AUTO) 1 % (0-10); HEMATOCRIT 32 % (40-54); HEMOGLOBIN 10.6 G/DL (13.3-17.7); LYMPHOCYTES # (AUTO) 0.3 X 10^3 (1.0-4.0); LYMPHOCYTES % (AUTO) 8 % (12-44); MEAN CORPUSCULAR HEMOGLOBIN 30 PG (25-34); MEAN CORPUSCULAR HGB CONC 33 G/DL (32-36); MEAN CORPUSCULAR VOLUME 89 FL (80-99); MEAN PLATELET VOLUME 9.9 FL (7.4-10.4); MONOCYTES # (AUTO) 0.3 X 10^3 (0.0-1.0); MONOCYTES % (AUTO) 10 % (0-12); NEUTROPHILS # (AUTO) 2.7 X 10^3 (1.8-7.8); NEUTROPHILS % (AUTO) 81 % (42-75); PLATELET COUNT 117 10^3/uL (130-400); RED CELL DISTRIBUTION WIDTH 16.3 % (10.0-14.5); WHITE BLOOD COUNT 3.4 10^3/uL (4.3-11.0)
[2018-06-07 04:31] LABS: BUN/CREATININE RATIO 14; CALCIUM 7.2 MG/DL (8.5-10.1); CARBON DIOXIDE 16 MMOL/L (21-32); CHLORIDE 112 MMOL/L (98-107); CREATININE SERUM 1.01 MG/DL (0.60-1.30); GFR ESTIMATED > 60; GLUCOSE 111 MG/DL (70-105); MAGNESIUM 1.5 MG/DL (1.8-2.4); POTASSIUM 3.8 MMOL/L (3.6-5.0); SODIUM 136 MMOL/L (135-145); TRIGLYCERIDES 51 MG/DL (<150)
[2018-06-07] MEDS ORDERED: SODIUM BICARB 8.4% 50 MEQ/50 ML (ABBOTT) SYR ONE (04:41)
[2018-06-07] MEDS ORDERED: SODIUM BICARB 8.4% 50 MEQ/50 ML (ABBOTT) SYR IV ONE (04:45)
[2018-06-07] MEDS: PIPERACILLIN/TAZOBACTAM (BULK) 4.5 GM in NS (IVPB) 100 ML IV SCH ×3 (04:55→20:22)
--- NOTE | 2018-06-07 05:44 | Pulmonary Progress Note ---
Subjective Time Seen by a Provider: 08:10 Subjective/Events-last exam Sedated on ventilator. Sepsis Event Evaluation Height, Weight, BMI Height: 6'6.00" Weight: 212lbs. 8.0oz. 96.767320oj; 20.4 BMI Method:Stated Exam Exam Vital Signs Date Time Temp Pulse Resp B/P (MAP) Pulse Ox O2 Delivery O2 Flow Rate FiO2 06/07/18 05:00 90 28 118/59 (78) 93 Mechanical Ventilator 50.00 06/07/18 04:47 93 28 111/59 (76) 95 Mechanical Ventilator 50.00 06/07/18 04:42 50 06/07/18 04:00 91 30 111/55 (73) 92 Mechanical Ventilator 45.00 06/07/18 03:05 91 Mechanical Ventilator 45 06/07/18 03:05 98.9 Mechanical Ventilator 45.00 06/07/18 03:00 83 29 90/47 (61) 91 Mechanical Ventilator 45.00 06/07/18 02:00 88 30 97/49 (65) 92 Mechanical Ventilator 45.00 06/07/18 01:52 89 35 92 45 06/07/18 01:41 Mechanical Ventilator 45.00 06/07/18 01:40 Mechanical Ventilator 40.00 06/07/18 01:00 85 28 81/43 (56) 90 Mechanical Ventilator 35.00 06/07/18 01:00 85 06/07/18 00:00 87 26 96/53 (67) 90 Mechanical Ventilator 35.00 06/06/18 23:44 87 24 104/56 90 Mechanical Ventilator 35.00 06/06/18 23:20 98.0 Mechanical Ventilator 35.00 06/06/18 23:00 90 Mechanical Ventilator 35 06/06/18 23:00 87 24 97/49 (65) 90 Mechanical Ventilator 35.00 06/06/18 22:05 92 34 90 35 06/06/18 22:00 92 27 104/62 (76) 91 Mechanical Ventilator 35.00 06/06/18 21:00 88 30 120/60 (80) 92 Mechanical Ventilator 35.00 06/06/18 20:28 35 06/06/18 20:28 90 Mechanical Ventilator 35.00 06/06/18 20:20 Mechanical Ventilator 30.00 06/06/18 20:00 90 Mechanical Ventilator 30 06/06/18 20:00 87 28 117/64 (81) 92 Mechanical Ventilator 30.00 06/06/18 19:00 98.9 85 30 117/62 (80) 92 Mechanical Ventilator 30.00 06/06/18 19:00 81 06/06/18 18:33 78 29 94 30 06/06/18 18:00 80 30 127/58 (81) 94 Mechanical Ventilator 35.00 06/06/18 17:41 97.2 73 30 107/50 95 Mechanical Ventilator 35.00 06/06/18 17:00 73 30 107/50 (69) 95 Mechanical Ventilator 35.00 06/06/18 16:00 72 30 99/48 (65) 94 Mechanical Ventilator 35.00 06/06/18 16:00 Mechanical Ventilator 35 06/06/18 15:00 75 28 103/56 (72) 93 Mechanical Ventilator 35.00 06/06/18 14:09 78 23 93 40 06/06/18 14:00 79 30 118/58 (78) 93 Mechanical Ventilator 35.00 06/06/18 13:00 97.2 74 30 120/60 (80) 95 Mechanical Ventilator 40.00 06/06/18 12:23 75 06/06/18 12:00 Mechanical Ventilator 35 06/06/18 12:00 97.0 75 20 122/59 (80) 94 Mechanical Ventilator 40.00 06/06/18 11:55 74 17 125/57 95 06/06/18 11:00 97.2 71 18 85/44 (58) 94 Mechanical Ventilator 40.00 06/06/18 10:23 65 23 97 40 06/06/18 10:00 97.0 66 18 106/54 (71) 97 Mechanical Ventilator 40.00 06/06/18 09:00 97.2 67 14 108/53 (71) 97 Mechanical Ventilator 40.00 06/06/18 08:00 97.2 67 16 111/52 (71) 97 Mechanical Ventilator 40.00 06/06/18 08:00 Mechanical Ventilator 35 06/06/18 07:05 69 06/06/18 07:00 97.0 69 20 114/56 (75) 97 Mechanical Ventilator 40.00 06/06/18 06:34 114/58 06/06/18 06:20 116/56 06/06/18 06:00 96.8 64 14 111/55 (73) 99 Mechanical Ventilator 40.00 06/06/18 05:55 65 23 99 40 I & O 06/07/18 07:00 Intake Total 3490 ml Output Total 1020 ml Balance 2470 ml Height & Weight Height: 6'6.00" Weight: 212lbs. 8.0oz. 96.585064an; 20.4 BMI Method:Stated General Appearance: No Apparent Distress, WD/WN, Other (Patient sedated on ventilator) HEENT: Normal ENT Inspection Neck: Normal Inspection Respiratory: No Accessory Muscle Use, No Respiratory Distress, Decreased Breath Sounds Cardiovascular: Regular Rate, Rhythm, No Murmur Capillary Refill: Less Than 3 Seconds Gastrointestinal: non tender, soft Extremity: Normal Capillary Refill, Normal Inspection Neurologic/Psychiatric: Disoriented, Other Skin: Normal Color, Warm/Dry Lymphatic: No Adenopathy Results Lab Laboratory Tests 06/06/18 03:20 06/07/18 03:40 Assessment/Plan Assessment/Plan Acute respiratory distress - -Continue Ventilator care -Will give lasix 80mg IV X 1 -Over sedation. Hold sedation until pt starts to follow commands. -Continue TF PNA - probable aspiration PNA vs pulmonary edema -CXR apppears worse -No leukocytosis or fever -Sputum from when pt was intubated is growing Strep A. -CXR appears worse today. -Continue Zosyn Acute MS changes/confusion/psychosis probably secondary to Alcohol -JASS protocol, Banana Bag -Ativan pushes, and versed gtt. Acute on chronic hyponatremia -Continue D5NS -Monitor -NS for now Metabolic acidosis -Pt is on a bicarb gtt -Repeat LA -Monitor -IVF Anemia -Monitor - protonix HTN -Monitor BPH -flomax Tobacco use -Education PAVITHRA CARLIN DO Jun 07, 2018 05:44
[2018-06-07] MEDS ORDERED: POTASSIUM PHOSPHATE INJ 30 MM in NS (IVPB) 250 ML IV ONE (05:45)
[2018-06-07] MEDS ORDERED: FUROSEMIDE 40 MG/4 ML INJ (LASIX) IVP ONE (05:45)
[2018-06-07] MEDS: MAGNESIUM 1 GM/100 ML IVPB 100 ML IV SCH ×3 (06:00→07:00)
[2018-06-07] MEDS: NS IV 1000 ML 1,000 ML IV SCH ×2 (06:02→20:31)
[2018-06-07] MEDS: inSUlin ASPART (NovoLOG) 1 UNIT/0.01 ML (CHARGE PER UNIT) SC SCH ×3 (06:02→16:42)
[2018-06-07] MEDS: KCL 20 MEQ TAB (K-DUR) PO SCH (06:02)
[2018-06-07] MEDS: POTASSIUM CL 10MEQ/50ML IVPB 50 ML IV SCH (06:02)
[2018-06-07] MEDS: ENOXAPARIN 40 MG/0.4 ML (LOVENOX) SYR SC SCH (06:05)
--- NOTE | 2018-06-07 07:45 | Progress Note (SOAP) ---
Subjective Time Seen by a Provider: 07:42 Subjective/Events-last exam On ventilator. Patient's ventilator medicine.. Patient appears sedated. Patient starting to move may be extubated today Objective Exam Vital Signs Date Time Temp Pulse Resp B/P (MAP) Pulse Ox O2 Delivery O2 Flow Rate FiO2 06/07/18 06:17 91 30 94 50 06/07/18 06:00 91 29 126/64 (84) 94 Mechanical Ventilator 50.00 06/07/18 05:00 90 28 118/59 (78) 93 Mechanical Ventilator 50.00 06/07/18 04:47 93 28 111/59 (76) 95 Mechanical Ventilator 50.00 06/07/18 04:42 50 06/07/18 04:00 91 30 111/55 (73) 92 Mechanical Ventilator 45.00 06/07/18 03:05 91 Mechanical Ventilator 45 06/07/18 03:05 98.9 Mechanical Ventilator 45.00 06/07/18 03:00 83 29 90/47 (61) 91 Mechanical Ventilator 45.00 06/07/18 02:00 88 30 97/49 (65) 92 Mechanical Ventilator 45.00 06/07/18 01:52 89 35 92 45 06/07/18 01:41 Mechanical Ventilator 45.00 06/07/18 01:40 Mechanical Ventilator 40.00 06/07/18 01:00 85 28 81/43 (56) 90 Mechanical Ventilator 35.00 06/07/18 01:00 85 06/07/18 00:00 87 26 96/53 (67) 90 Mechanical Ventilator 35.00 06/06/18 23:44 87 24 104/56 90 Mechanical Ventilator 35.00 06/06/18 23:20 98.0 Mechanical Ventilator 35.00 06/06/18 23:00 90 Mechanical Ventilator 35 06/06/18 23:00 87 24 97/49 (65) 90 Mechanical Ventilator 35.00 06/06/18 22:05 92 34 90 35 06/06/18 22:00 92 27 104/62 (76) 91 Mechanical Ventilator 35.00 06/06/18 21:00 88 30 120/60 (80) 92 Mechanical Ventilator 35.00 06/06/18 20:28 35 06/06/18 20:28 90 Mechanical Ventilator 35.00 06/06/18 20:20 Mechanical Ventilator 30.00 06/06/18 20:00 90 Mechanical Ventilator 30 4/23/19 20:00 87 28 117/64 (81) 92 Mechanical Ventilator 30.00 06/06/18 19:00 98.9 85 30 117/62 (80) 92 Mechanical Ventilator 30.00 06/06/18 19:00 81 06/06/18 18:33 78 29 94 30 06/06/18 18:00 80 30 127/58 (81) 94 Mechanical Ventilator 35.00 06/06/18 17:41 97.2 73 30 107/50 95 Mechanical Ventilator 35.00 06/06/18 17:00 73 30 107/50 (69) 95 Mechanical Ventilator 35.00 06/06/18 16:00 72 30 99/48 (65) 94 Mechanical Ventilator 35.00 06/06/18 16:00 Mechanical Ventilator 35 06/06/18 15:00 75 28 103/56 (72) 93 Mechanical Ventilator 35.00 06/06/18 14:09 78 23 93 40 06/06/18 14:00 79 30 118/58 (78) 93 Mechanical Ventilator 35.00 06/06/18 13:00 97.2 74 30 120/60 (80) 95 Mechanical Ventilator 40.00 06/06/18 12:23 75 06/06/18 12:00 Mechanical Ventilator 35 06/06/18 12:00 97.0 75 20 122/59 (80) 94 Mechanical Ventilator 40.00 06/06/18 11:55 74 17 125/57 95 06/06/18 11:00 97.2 71 18 85/44 (58) 94 Mechanical Ventilator 40.00 06/06/18 10:23 65 23 97 40 06/06/18 10:00 97.0 66 18 106/54 (71) 97 Mechanical Ventilator 40.00 06/06/18 09:00 97.2 67 14 108/53 (71) 97 Mechanical Ventilator 40.00 06/06/18 08:00 97.2 67 16 111/52 (71) 97 Mechanical Ventilator 40.00 06/06/18 08:00 Mechanical Ventilator 35 I & O 06/07/18 07:00 Intake Total 3710 ml Output Total 1120 ml Balance 2590 ml Capillary Refill : Less Than 3 Seconds General Appearance: No Apparent Distress, WD/WN HEENT: Normal ENT Inspection Neck: Normal Inspection Respiratory: No Accessory Muscle Use, No Respiratory Distress Cardiovascular: Regular Rate, Rhythm, No Murmur Gastrointestinal: non tender, soft Results Lab Laboratory Tests 06/07/18 03:40 Laboratory Tests 06/06/18 11:29: Glucometer 120H 06/06/18 17:35: Glucometer 110 06/06/18 23:20: Glucometer 93 06/07/18 03:35: Blood Gas Puncture Site LEFT RADIAL, Blood Gas Patient Temperature 98.2, Arterial Blood pH 7.29*L, Arterial Blood Partial Pressure CO2 37, Arterial Blood Partial Pressure O2 65L, Arterial Blood HCO3 17*L, Arterial Blood Total CO2 18.6L, Arterial Blood Oxygen Saturation 87L, Arterial Blood Base Excess - 7.9L, Lamont Test YES-POS, Blood Gas Ventilator Setting YES, Blood Gas Inspired Oxygen 45% 06/07/18 03:40: White Blood Count 3.4L, Red Blood Count 3.56L, Hemoglobin 10.6L, Hematocrit 32L , Mean Corpuscular Volume 89, Mean Corpuscular Hemoglobin 30, Mean Corpuscular Hemoglobin Concent 33, Red Cell Distribution Width 16.3H, Platelet Count 117L, Mean Platelet Volume 9.9, Neutrophils (%) (Auto) 81H, Lymphocytes (%) (Auto) 8L , Monocytes (%) (Auto) 10, Eosinophils (%) (Auto) 1, Basophils (%) (Auto) 0, Neutrophils # (Auto) 2.7, Lymphocytes # (Auto) 0.3L, Monocytes # (Auto) 0.3, Eosinophils # (Auto) 0.0, Basophils # (Auto) 0.0, Sodium Level 136, Potassium Level 3.8, Chloride Level 112H, Carbon Dioxide Level 16L, Anion Gap 8, Blood Urea Nitrogen 14, Creatinine 1.01, Estimat Glomerular Filtration Rate > 60, BUN/ Creatinine Ratio 14, Glucose Level 111H, Calcium Level 7.2L, Phosphorus Level 2.0L, Magnesium Level 1.5L, Triglycerides Level 51 Microbiology 06/03/18 Gram Stain - Final, Complete 06/03/18 Sputum Culture - Final, Complete Usual upper respiratory juana Strep agalactiae Group B See Comments Assessment/Plan Assessment/Plan Assess & Plan/Chief Complaint Acute mental status change. Hyponatremia. Urinary retention. Benign prostatic hypertrophy. History of falling. Alcoholism. Anemia. Acute respiratory distress. Hypertension history. Patient on vent and sedated. . . Pneumonia. CHF. Acute mental status change. Hyponatremia. Benign prostatic hypertrophy. Urinary retention. Alcoholism. Anemia. Acute respiratory distress. Hypertension history hypoxia. . 06/07/18. Acute respiratory distress. Pneumonia. Acute mental status change. Alcoholism. Hyponatremia. Hypoxia. Benign prostatic hypertrophy. Urinary obstruction. Pancytopenia. Leukopenia. Anemia. Thrombocytopenia Clinical Quality Measures DVT/VTE Risk/Contraindication: Risk Factor Score Per Nursin RFS Level Per Nursing on Admit: 3=High JENNIFER BECK DO Jun 07, 2018 07:45
[2018-06-07] MEDS ORDERED: SODIUM BICARB 8.4% 50 MEQ/50 ML (ABBOTT) SYR IV NR (08:15)
[2018-06-07] MEDS ORDERED: VANCOMYCIN INJECTION 0.1 MG in NS (IVPB) 250 ML IV SCH (08:30)
--- NOTE | 2018-06-07 08:40 | NUR ---
VANCOMYCIN DOSING SCR 1.01; CRCL ~ 87; BOLUS VANC 20 MG/KG X 99 KG ~ 2 GM THEN VANC 15 MG/KG ~ 1500 MG Q12H CHECK TROUGH LEVEL 06/09 1999 HOLD DOSE AND CONTACT PHARMACY IF LEVEL IS GREATER THAN 20
[2018-06-07] MEDS ORDERED: VANCOMYCIN 2000 MG/NS 500 ML IVPB IV NR ×2 (08:45)
--- NOTE | 2018-06-07 08:50 | Diagnostic Imaging Report ---
INDICATION: Respiratory distress. EXAMINATION: Portable chest at 3 AM. FINDINGS: There is an ET tube projecting over the trachea. The NG tube enters the stomach. There is alveolar consolidating infiltrate in both lung bases, worse on the left than on the right. There is no appreciable effusion. IMPRESSION: Bilateral basilar infiltrates with some interval improvement on the right and some unfavorable change on the left compared to the previous day. Dictated by: Dictated on workstation # [id number]
[2018-06-07] MEDS: ARTIFICIAL TEARS OINT (LACRI-LUBE) 3.5 GM TUBE OU SCH ×2 (08:55→20:22)
[2018-06-07] MEDS: PANTOPRAZOLE 40 MG (PROTONIX) VIAL IV SCH (08:55)
[2018-06-07] MEDS: VANCOMYCIN 1500 MG/NS 500 ML IVPB IV SCH ×4 (09:26→21:04)
[2018-06-07] MEDS: TAMSULOSIN 0.4 MG (FLOMAX) CAP PO SCH (16:39)
[2018-06-08] VITALS (30 sets, daily range): BP systolic 134–173; BP diastolic 64–82
[2018-06-08] MEDS: inSUlin ASPART (NovoLOG) 1 UNIT/0.01 ML (CHARGE PER UNIT) SC SCH ×5 (00:13→23:57)
[2018-06-08 03:53] LABS: BASOPHILS % (AUTO) 0 % (0-10); EOSINOPHILS # (AUTO) 0.1 10^3/uL (0.0-0.3); EOSINOPHILS % (AUTO) 1 % (0-10); HEMATOCRIT 30 % (40-54); HEMOGLOBIN 10.4 G/DL (13.3-17.7); LYMPHOCYTES # (AUTO) 0.7 X 10^3 (1.0-4.0); LYMPHOCYTES % (AUTO) 9 % (12-44); MEAN CORPUSCULAR HEMOGLOBIN 30 PG (25-34); MEAN CORPUSCULAR HGB CONC 34 G/DL (32-36); MEAN CORPUSCULAR VOLUME 88 FL (80-99); MEAN PLATELET VOLUME 9.9 FL (7.4-10.4); MONOCYTES % (AUTO) 13 % (0-12); NEUTROPHILS # (AUTO) 5.9 X 10^3 (1.8-7.8); NEUTROPHILS % (AUTO) 77 % (42-75); PLATELET COUNT 131 10^3/uL (130-400); RED CELL DISTRIBUTION WIDTH 16.4 % (10.0-14.5); WHITE BLOOD COUNT 7.6 10^3/uL (4.3-11.0)
[2018-06-08 04:18] LABS: BUN/CREATININE RATIO 18; CALCIUM 7.6 MG/DL (8.5-10.1); CARBON DIOXIDE 19 MMOL/L (21-32); CHLORIDE 111 MMOL/L (98-107); CREATININE SERUM 1.12 MG/DL (0.60-1.30); GFR ESTIMATED > 60; GLUCOSE 119 MG/DL (70-105); MAGNESIUM 1.6 MG/DL (1.8-2.4); PHOSPHORUS 3.3 MG/DL (2.3-4.7); POTASSIUM 4.2 MMOL/L (3.6-5.0); SODIUM 138 MMOL/L (135-145)
[2018-06-08 04:26] LABS: ABG BASE EXCESS -1.7 MMOL/L (-2.5-2.5); ABG OXYGEN SATURATION 93 % (94-100); ABG PCO2 33 MMHG (35-45); ABG PH 7.44 (7.37-7.43); ABG PO2 70 MMHG (79-93); ABG TCO2 22.8 MMOL/L (21.0-31.0)
[2018-06-08 04:28] LABS: ALLENS TEST POSITIVE
[2018-06-08 04:29] LABS: INSPIRED O2 30%; PATIENT TEMP 98.9; VENTILATOR YES
[2018-06-08] MEDS: MAGNESIUM 1 GM/100 ML IVPB 100 ML IV SCH ×3 (04:38→05:31)
[2018-06-08] MEDS: PIPERACILLIN/TAZOBACTAM (BULK) 4.5 GM in NS (IVPB) 100 ML IV SCH ×3 (04:38→20:18)
[2018-06-08] MEDS: KCL 20 MEQ TAB (K-DUR) PO SCH (04:41)
[2018-06-08] MEDS: POTASSIUM CL 10MEQ/50ML IVPB 50 ML IV SCH ×5 (04:41→12:51)
[2018-06-08] MEDS: ENOXAPARIN 40 MG/0.4 ML (LOVENOX) SYR SC SCH (04:44)
--- NOTE | 2018-06-08 06:10 | Pulmonary Progress Note ---
Subjective Time Seen by a Provider: 07:25 Subjective/Events-last exam Sedated on vent Sepsis Event Evaluation Height, Weight, BMI Height: 6'6.00" Weight: 216lbs. 0.0oz. 97.115051hi; 20.4 BMI Method:Stated Focused Exam Lactate Level 06/07/18 08:30: Lactic Acid Level 1.80 Exam Exam Vital Signs Date Time Temp Pulse Resp B/P (MAP) Pulse Ox O2 Delivery O2 Flow Rate FiO2 06/08/18 06:00 86 36 163/73 (103) 96 Mechanical Ventilator 30.00 06/08/18 05:00 85 34 153/73 (99) 97 Mechanical Ventilator 30.00 06/08/18 04:00 88 38 160/73 (102) 97 Mechanical Ventilator 30.00 06/08/18 03:45 95 Mechanical Ventilator 30 06/08/18 03:45 98.9 Mechanical Ventilator 30.00 06/08/18 03:00 85 34 151/72 (98) 97 Mechanical Ventilator 30.00 06/08/18 02:20 Mechanical Ventilator 30.00 06/08/18 02:00 83 34 139/65 (89) 98 Mechanical Ventilator 40.00 06/08/18 02:00 84 35 98 30 06/08/18 01:49 83 06/08/18 01:00 84 34 145/65 (91) 98 Mechanical Ventilator 40.00 06/08/18 00:40 85 33 98 35 06/08/18 00:00 88 35 140/64 (89) 98 Mechanical Ventilator 40.00 06/08/18 00:00 98 Mechanical Ventilator 40 06/08/18 00:00 98.9 Mechanical Ventilator 40.00 06/07/18 23:00 88 34 141/63 (89) 98 Mechanical Ventilator 40.00 06/07/18 22:20 89 33 97 40 06/07/18 22:00 90 33 133/63 (86) 98 Mechanical Ventilator 40.00 06/07/18 21:00 88 32 127/61 (83) 98 Mechanical Ventilator 40.00 06/07/18 20:15 87 34 96 40 06/07/18 20:00 97 Mechanical Ventilator 40 06/07/18 20:00 90 35 125/62 (83) 96 Mechanical Ventilator 40.00 06/07/18 19:35 99.5 92 33 97 Mechanical Ventilator 40.00 06/07/18 19:00 89 06/07/18 19:00 Mechanical Ventilator 40.00 06/07/18 19:00 89 34 142/67 (92) 97 Mechanical Ventilator 40.00 06/07/18 18:30 83 30 98 50 06/07/18 18:00 84 31 124/61 (82) 98 Mechanical Ventilator 50.00 06/07/18 17:11 98.2 06/07/18 17:00 87 37 131/63 (85) 98 Mechanical Ventilator 50.00 06/07/18 16:15 86 33 99 50 06/07/18 16:00 Mechanical Ventilator 50 06/07/18 16:00 86 118/65 (82) 98 Mechanical Ventilator 50.00 06/07/18 15:00 89 137/58 (84) 97 Mechanical Ventilator 50.00 06/07/18 14:00 87 136/61 (86) 98 Mechanical Ventilator 50.00 06/07/18 13:45 90 34 98 50 06/07/18 13:13 90 06/07/18 13:00 87 136/70 (92) 98 Mechanical Ventilator 50.00 06/07/18 12:00 Mechanical Ventilator 50 06/07/18 12:00 85 114/68 (83) 96 Mechanical Ventilator 50.00 06/07/18 11:40 99.1 06/07/18 11:39 86 32 97 50 06/07/18 11:00 89 127/74 (91) 98 Mechanical Ventilator 50.00 06/07/18 10:00 88 122/61 (81) 97 Mechanical Ventilator 50.00 06/07/18 09:42 88 30 97 50 06/07/18 09:00 90 115/55 (75) 96 Mechanical Ventilator 50.00 06/07/18 08:00 98.8 06/07/18 08:00 Mechanical Ventilator 50 06/07/18 08:00 90 102/58 (73) 94 Mechanical Ventilator 50.00 06/07/18 07:15 90 06/07/18 07:00 91 31 114/63 (80) 94 Mechanical Ventilator 50.00 06/07/18 06:17 91 30 94 50 I & O 06/08/18 07:00 Intake Total 3803 ml Output Total 2725 ml Balance 1078 ml Height & Weight Height: 6'6.00" Weight: 216lbs. 0.0oz. 97.922129sx; 20.4 BMI Method:Stated General Appearance: No Apparent Distress, WD/WN, Other (Patient sedated on ventilator) HEENT: Normal ENT Inspection Neck: Normal Inspection Respiratory: No Accessory Muscle Use, No Respiratory Distress, Decreased Breath Sounds Cardiovascular: Regular Rate, Rhythm, No Murmur Capillary Refill: Less Than 3 Seconds Gastrointestinal: non tender, soft Extremity: Normal Capillary Refill, Normal Inspection Neurologic/Psychiatric: Disoriented, Other Skin: Normal Color, Warm/Dry Lymphatic: No Adenopathy Results Lab Laboratory Tests 06/07/18 03:40 06/08/18 03:20 Assessment/Plan Assessment/Plan Acute respiratory distress - -Continue Ventilator care -Sedation has been off sedation x 24 hours and is still not waking up -Will check CT of head with and without. -Check Ammonia level -continue lasix -Over sedation. Hold sedation until pt starts to follow commands. -Continue TF PNA - probable aspiration PNA vs pulmonary edema -CXR apppears worse -No leukocytosis or fever -Sputum from when pt was intubated is growing Strep A. -CXR appears worse today. -Continue Zosyn Acute MS changes/confusion/psychosis probably secondary to Alcohol -JASS protocol, Banana Bag -Ativan pushes, and versed gtt. Acute on chronic hyponatremia -Continue D5NS -Monitor -NS for now Metabolic acidosis -Pt is on a bicarb gtt -Repeat LA -Monitor -IVF Anemia -Monitor - protonix HTN -Monitor BPH -flomax Tobacco use -Education PAVITHRA CARLIN DO Jun 08, 2018 06:10
[2018-06-08] MEDS: hydrALAZINE (APESOLINE) 20 MG/ML VIAL IV PRN ×2 (06:41→20:18)
[2018-06-08 07:01] LABS: ALANINE AMINOTRANSFERASE 21 U/L (0-55); ALKALINE PHOSPHATASE 64 U/L (40-136); AMMONIA 48 UMOL/L (11-32); BUN/CREATININE RATIO 19; CALCIUM 7.5 MG/DL (8.5-10.1); CARBON DIOXIDE 20 MMOL/L (21-32); CHLORIDE 109 MMOL/L (98-107); GFR ESTIMATED > 60; GLUCOSE 138 MG/DL (70-105); SODIUM 137 MMOL/L (135-145); TOTAL PROTEIN 4.4 GM/DL (6.4-8.2)
--- NOTE | 2018-06-08 07:43 | Progress Note (SOAP) ---
Subjective Time Seen by a Provider: 07:39 Subjective/Events-last exam Patient off sedation since yesterday at 3 p.m. Patient not waking up yet. Patient using accessory muscles to breathe. Patient had CAT scan of the head. Patient hypertensive Focused Exam Lactate Level 06/07/18 08:30: Lactic Acid Level 1.80 Objective Exam Vital Signs Date Time Temp Pulse Resp B/P (MAP) Pulse Ox O2 Delivery O2 Flow Rate FiO2 06/08/18 07:00 82 06/08/18 06:24 86 35 97 30 06/08/18 06:00 86 36 163/73 (103) 96 Mechanical Ventilator 30.00 06/08/18 05:00 85 34 153/73 (99) 97 Mechanical Ventilator 30.00 06/08/18 04:00 88 38 160/73 (102) 97 Mechanical Ventilator 30.00 06/08/18 03:45 95 Mechanical Ventilator 30 06/08/18 03:45 98.9 Mechanical Ventilator 30.00 06/08/18 03:00 85 34 151/72 (98) 97 Mechanical Ventilator 30.00 06/08/18 02:20 Mechanical Ventilator 30.00 06/08/18 02:00 83 34 139/65 (89) 98 Mechanical Ventilator 40.00 06/08/18 02:00 84 35 98 30 06/08/18 01:49 83 06/08/18 01:00 84 34 145/65 (91) 98 Mechanical Ventilator 40.00 06/08/18 00:40 85 33 98 35 06/08/18 00:00 88 35 140/64 (89) 98 Mechanical Ventilator 40.00 06/08/18 00:00 98 Mechanical Ventilator 40 06/08/18 00:00 98.9 Mechanical Ventilator 40.00 06/07/18 23:00 88 34 141/63 (89) 98 Mechanical Ventilator 40.00 06/07/18 22:20 89 33 97 40 06/07/18 22:00 90 33 133/63 (86) 98 Mechanical Ventilator 40.00 06/07/18 21:00 88 32 127/61 (83) 98 Mechanical Ventilator 40.00 06/07/18 20:15 87 34 96 40 06/07/18 20:00 97 Mechanical Ventilator 40 06/07/18 20:00 90 35 125/62 (83) 96 Mechanical Ventilator 40.00 06/07/18 19:35 99.5 92 33 97 Mechanical Ventilator 40.00 06/07/18 19:00 89 06/07/18 19:00 Mechanical Ventilator 40.00 06/07/18 19:00 89 34 142/67 (92) 97 Mechanical Ventilator 40.00 06/07/18 18:30 83 30 98 50 06/07/18 18:00 84 31 124/61 (82) 98 Mechanical Ventilator 50.00 06/07/18 17:11 98.2 06/07/18 17:00 87 37 131/63 (85) 98 Mechanical Ventilator 50.00 06/07/18 16:15 86 33 99 50 06/07/18 16:00 Mechanical Ventilator 50 06/07/18 16:00 86 118/65 (82) 98 Mechanical Ventilator 50.00 06/07/18 15:00 89 137/58 (84) 97 Mechanical Ventilator 50.00 06/07/18 14:00 87 136/61 (86) 98 Mechanical Ventilator 50.00 06/07/18 13:45 90 34 98 50 06/07/18 13:13 90 06/07/18 13:00 87 136/70 (92) 98 Mechanical Ventilator 50.00 06/07/18 12:00 Mechanical Ventilator 50 06/07/18 12:00 85 114/68 (83) 96 Mechanical Ventilator 50.00 06/07/18 11:40 99.1 06/07/18 11:39 86 32 97 50 06/07/18 11:00 89 127/74 (91) 98 Mechanical Ventilator 50.00 06/07/18 10:00 88 122/61 (81) 97 Mechanical Ventilator 50.00 06/07/18 09:42 88 30 97 50 06/07/18 09:00 90 115/55 (75) 96 Mechanical Ventilator 50.00 06/07/18 08:00 98.8 06/07/18 08:00 Mechanical Ventilator 50 06/07/18 08:00 90 102/58 (73) 94 Mechanical Ventilator 50.00 I & O 06/08/18 07:00 Intake Total 3903 ml Output Total 2725 ml Balance 1178 ml Capillary Refill : Less Than 3 Seconds General Appearance: No Apparent Distress, WD/WN HEENT: Normal ENT Inspection Neck: Normal Inspection Respiratory: No Respiratory Distress (Patient on ventilator using accessory muscles to breathe), Other (Patient on vent using accessory muscles to breathe) Cardiovascular: Regular Rate, Rhythm Gastrointestinal: non tender, soft Results Lab Laboratory Tests 06/08/18 03:20 06/08/18 06:39 Laboratory Tests 06/07/18 08:30: Lactic Acid Level 1.80 06/07/18 11:30: Glucometer 115H 06/07/18 16:38: Glucometer 116H 06/07/18 23:13: Glucometer 131H 06/08/18 03:20: White Blood Count 7.6, Red Blood Count 3.44L, Hemoglobin 10.4L, Hematocrit 30L, Mean Corpuscular Volume 88, Mean Corpuscular Hemoglobin 30, Mean Corpuscular Hemoglobin Concent 34, Red Cell Distribution Width 16.4H, Platelet Count 131, Mean Platelet Volume 9.9, Neutrophils (%) (Auto) 77H, Lymphocytes (%) (Auto) 9L , Monocytes (%) (Auto) 13H, Eosinophils (%) (Auto) 1, Basophils (%) (Auto) 0, Neutrophils # (Auto) 5.9, Lymphocytes # (Auto) 0.7L, Monocytes # (Auto) 1.0, Eosinophils # (Auto) 0.1, Basophils # (Auto) 0.0, Sodium Level 138, Potassium Level 4.2, Chloride Level 111H, Carbon Dioxide Level 19L, Anion Gap 8, Blood Urea Nitrogen 20H, Creatinine 1.12, Estimat Glomerular Filtration Rate > 60, BUN /Creatinine Ratio 18, Glucose Level 119H, Calcium Level 7.6L, Phosphorus Level 3.3, Magnesium Level 1.6L 06/08/18 04:20: Blood Gas Puncture Site RIGHT RADIAL, Blood Gas Patient Temperature 98.9, Arterial Blood pH 7.44H, Arterial Blood Partial Pressure CO2 33L, Arterial Blood Partial Pressure O2 70L, Arterial Blood HCO3 22L, Arterial Blood Total CO2 22.8, Arterial Blood Oxygen Saturation 93L, Arterial Blood Base Excess -1.7 , Lamont Test POSITIVE, Blood Gas Ventilator Setting YES, Blood Gas Inspired Oxygen 30% 06/08/18 06:39: Sodium Level 137, Potassium Level 4.0, Chloride Level 109H, Carbon Dioxide Level 20L, Anion Gap 8, Blood Urea Nitrogen 21H, Creatinine 1.10, Estimat Glomerular Filtration Rate > 60, BUN/Creatinine Ratio 19, Glucose Level 138H, Calcium Level 7.5L, Corrected Calcium 9.1, Total Bilirubin 1.0, Aspartate Amino Transf (AST/SGOT) 25, Alanine Aminotransferase (ALT/SGPT) 21, Alkaline Phosphatase 64, Ammonia 48H, Total Protein 4.4L, Albumin 2.0L Microbiology Assessment/Plan Assessment/Plan Assess & Plan/Chief Complaint Acute mental status change. Hyponatremia. Urinary retention. Benign prostatic hypertrophy. History of falling. Alcoholism. Anemia. Acute respiratory distress. Hypertension history. Patient on vent and sedated. . . Pneumonia. CHF. Acute mental status change. Hyponatremia. Benign prostatic hypertrophy. Urinary retention. Alcoholism. Anemia. Acute respiratory distress. Hypertension history hypoxia. . 06/07/18. Acute respiratory distress. Pneumonia. Acute mental status change. Alcoholism. Hyponatremia. Hypoxia. Benign prostatic hypertrophy. Urinary obstruction. Pancytopenia. Leukopenia. Anemia. Thrombocytopenia. . 06/08/18. Acute respiratory distress. Pneumonia. Acute mental status change. Patient not awake this morning Hyponatremia. Hypoxia. Benign prostatic hypertrophy. Urinary obstruction. Thrombocytopenia improving. Anemia. Chest x-ray shows right leg improving left lung not getting worse Clinical Quality Measures DVT/VTE Risk/Contraindication: Risk Factor Score Per Nursin RFS Level Per Nursing on Admit: 3=High JENNIFER BECK DO Jun 08, 2018 07:43
--- NOTE | 2018-06-08 07:44 | Diagnostic Imaging Report ---
PROCEDURE: CT head with and without contrast. TECHNIQUE: Multiple contiguous axial images were obtained through the brain before and after the administration of intravenous contrast. Auto Exposure Controls were utilized during the CT exam to meet ALARA standards for radiation dose reduction. INDICATION: Neurologic changes. Comparison made with prior examination 06/02/2018. FINDINGS: There is prominence of ventricles and sulci. There is some mild chronic microvascular ischemic disease. There is no hydrocephalus. There is no midline shift. There is no intracranial mass, hemorrhage or extra-axial fluid collection. There are no abnormal areas of contrast enhancement. Calvarium is intact. Sinuses and mastoid air cells are clear. IMPRESSION: Atrophy and some chronic microvascular ischemic disease, however, no acute intracranial abnormality. Specifically, there is no evidence of transcortical infarct. If there is high clinical concern for acute CVA, further evaluation with MRI should be considered. Dictated by: Dictated on workstation # [id number]
--- NOTE | 2018-06-08 07:53 | Diagnostic Imaging Report ---
INDICATION: Shortness of breath. Comparison made with prior examination 06/07/2018. FINDINGS: The heart size is normal. There is some venous congestion. There are bibasilar infiltrates right greater than left. There is no pneumothorax. There are small bilateral pleural effusions. ET and NG tubes are in satisfactory position. IMPRESSION: Bibasilar infiltrates right greater than left with small bilateral pleural effusions. Mild central pulmonary venous congestion. Dictated by: Dictated on workstation # [id number]
[2018-06-08] MEDS: ARTIFICIAL TEARS OINT (LACRI-LUBE) 3.5 GM TUBE OU SCH ×2 (08:32→20:18)
[2018-06-08] MEDS: FUROSEMIDE 40 MG/4 ML INJ (LASIX) IVP SCH ×2 (08:32→16:24)
[2018-06-08] MEDS: PANTOPRAZOLE 40 MG (PROTONIX) VIAL IV SCH (08:32)
[2018-06-08] MEDS: LACTULOSE SYRUP 10GM/15ML (ENULOSE) 30ML UDC PO SCH ×2 (12:52→20:17)
[2018-06-08] MEDS: NS IV 1000 ML 1,000 ML IV SCH (15:56)
[2018-06-08] MEDS: TAMSULOSIN 0.4 MG (FLOMAX) CAP PO SCH (16:23)
[2018-06-08] MEDS: D5 NS W/KCL 20 MEQ/L 1,000 ML IV SCH (16:24)
[2018-06-08] MEDS ORDERED: TROUGH ORDER-PHARMACY XX NR (20:00)
[2018-06-08] MEDS ORDERED: LACTULOSE SYRUP 10GM/15ML (ENULOSE) 30ML UDC PO SCH (21:00)
[2018-06-08] MEDS: VANCOMYCIN 1500 MG/NS 500 ML IVPB IV SCH ×2 (21:02)
[2018-06-09] VITALS (28 sets, daily range): BP systolic 103–174; BP diastolic 50–83
[2018-06-09] MEDS: hydrALAZINE (APESOLINE) 20 MG/ML VIAL IV PRN ×2 (02:27→14:35)
[2018-06-09] MEDS ORDERED: NS (IVPB) 50 ML ONE (02:54)
[2018-06-09] MEDS: DEXMEDETOMIDINE INJECTION 1,000 MCG in NS (IVPB) 250 ML IV SCH (03:07)
[2018-06-09] MEDS ORDERED: DEXMEDETOMIDINE INJECTION 200 MCG in NS (IVPB) 50 ML IV SCH (03:15)
[2018-06-09 03:47] LABS: BASOPHILS % (AUTO) 0 % (0-10); EOSINOPHILS # (AUTO) 0.1 10^3/uL (0.0-0.3); EOSINOPHILS % (AUTO) 1 % (0-10); HEMATOCRIT 31 % (40-54); HEMOGLOBIN 10.5 G/DL (13.3-17.7); LYMPHOCYTES % (AUTO) 12 % (12-44); MEAN CORPUSCULAR HEMOGLOBIN 30 PG (25-34); MEAN CORPUSCULAR HGB CONC 34 G/DL (32-36); MEAN CORPUSCULAR VOLUME 86 FL (80-99); MEAN PLATELET VOLUME 9.9 FL (7.4-10.4); MONOCYTES # (AUTO) 0.9 X 10^3 (0.0-1.0); MONOCYTES % (AUTO) 11 % (0-12); NEUTROPHILS # (AUTO) 6.3 X 10^3 (1.8-7.8); NEUTROPHILS % (AUTO) 77 % (42-75); PLATELET COUNT 140 10^3/uL (130-400); RED CELL DISTRIBUTION WIDTH 15.9 % (10.0-14.5); WHITE BLOOD COUNT 8.3 10^3/uL (4.3-11.0)
[2018-06-09 04:03] LABS: CALCIUM 8.1 MG/DL (8.5-10.1); CREATININE SERUM 1.19 MG/DL (0.60-1.30); MAGNESIUM 1.6 MG/DL (1.8-2.4); PHOSPHORUS 3.4 MG/DL (2.3-4.7); POTASSIUM 3.6 MMOL/L (3.6-5.0)
[2018-06-09 04:08] LABS: ABG BASE EXCESS 1.9 MMOL/L (-2.5-2.5); ABG OXYGEN SATURATION 99 % (94-100); ABG PCO2 35 MMHG (35-45); ABG PH 7.48 (7.37-7.43); ABG PO2 139 MMHG (79-93); ABG TCO2 26.4 MMOL/L (21.0-31.0)
[2018-06-09 04:13] LABS: ALLENS TEST POSITIVE; INSPIRED O2 30%; PATIENT TEMP 98; VENTILATOR YES
[2018-06-09] MEDS: KCL 20 MEQ TAB (K-DUR) PO SCH (04:22)
[2018-06-09] MEDS: POTASSIUM CL 10MEQ/50ML IVPB 50 ML IV SCH ×3 (04:22→05:23)
[2018-06-09] MEDS: inSUlin ASPART (NovoLOG) 1 UNIT/0.01 ML (CHARGE PER UNIT) SC SCH ×2 (04:22→13:09)
[2018-06-09] MEDS: MAGNESIUM 1 GM/100 ML IVPB 100 ML IV SCH ×3 (04:22→05:22)
[2018-06-09] MEDS: PIPERACILLIN/TAZOBACTAM (BULK) 4.5 GM in NS (IVPB) 100 ML IV SCH ×3 (04:32→21:18)
[2018-06-09] MEDS: FUROSEMIDE 40 MG/4 ML INJ (LASIX) IVP SCH ×2 (05:23→18:18)
[2018-06-09] MEDS: ENOXAPARIN 40 MG/0.4 ML (LOVENOX) SYR SC SCH (05:23)
--- NOTE | 2018-06-09 05:38 | Pulmonary Progress Note ---
Subjective Time Seen by a Provider: 07:14 Subjective/Events-last exam Sedated on vent Sepsis Event Evaluation Height, Weight, BMI Height: 6'6.00" Weight: 195lbs. 11.0oz. 88.291193eo; 20.4 BMI Method:Stated Focused Exam Lactate Level 06/07/18 08:30: Lactic Acid Level 1.80 Exam Exam Vital Signs Date Time Temp Pulse Resp B/P (MAP) Pulse Ox O2 Delivery O2 Flow Rate FiO2 06/09/18 05:00 67 33 124/59 (80) 93 Mechanical Ventilator 21.00 06/09/18 04:45 66 32 165/83 (110) 100 Mechanical Ventilator 21.00 06/09/18 04:38 6 32 99 30 06/09/18 04:38 Mechanical Ventilator 21.00 06/09/18 03:40 96 Mechanical Ventilator 30 06/09/18 03:40 98.2 Mechanical Ventilator 30.00 06/09/18 03:00 93 42 149/75 (99) 95 Mechanical Ventilator 30.00 06/09/18 02:00 81 33 174/79 (110) 97 Mechanical Ventilator 30.00 06/09/18 01:00 87 06/09/18 01:00 88 39 158/73 (101) 96 Mechanical Ventilator 30.00 06/09/18 00:49 81 33 98 30 06/09/18 00:00 85 35 166/76 (106) 96 Mechanical Ventilator 30.00 06/08/18 23:20 96 Mechanical Ventilator 30 06/08/18 23:20 98.4 Mechanical Ventilator 30.00 06/08/18 23:00 86 33 158/71 (100) 98 Mechanical Ventilator 30.00 06/08/18 22:00 80 31 134/68 (90) 98 Mechanical Ventilator 30.00 06/08/18 21:00 84 35 145/64 (91) 96 Mechanical Ventilator 30.00 06/08/18 20:00 82 34 166/78 (107) 97 Mechanical Ventilator 30.00 06/08/18 19:20 97 Mechanical Ventilator 30 06/08/18 19:10 81 33 98 30 06/08/18 19:00 99.5 Mechanical Ventilator 30.00 06/08/18 19:00 83 35 158/78 (104) 98 Mechanical Ventilator 30.00 06/08/18 19:00 83 06/08/18 18:00 81 35 166/75 (105) 98 Mechanical Ventilator 30.00 06/08/18 17:00 82 35 163/77 (105) 97 Mechanical Ventilator 30.00 06/08/18 16:03 98.8 06/08/18 16:00 76 37 157/78 (104) 97 Mechanical Ventilator 30.00 06/08/18 15:57 82 37 98 30 06/08/18 15:54 97 Mechanical Ventilator 30 06/08/18 15:00 84 37 146/73 (97) 97 Mechanical Ventilator 30.00 06/08/18 14:41 85 38 97 30 06/08/18 14:00 79 32 140/66 (90) 97 Mechanical Ventilator 30.00 06/08/18 13:00 82 34 146/66 (92) 96 Mechanical Ventilator 30.00 06/08/18 12:46 84 06/08/18 12:00 98 Mechanical Ventilator 30 06/08/18 12:00 80 33 159/75 (103) 98 Mechanical Ventilator 30.00 06/08/18 11:00 86 32 152/71 (98) 97 Mechanical Ventilator 30.00 06/08/18 10:32 86 33 97 30 06/08/18 10:00 84 29 158/76 (103) 98 Mechanical Ventilator 30.00 06/08/18 09:05 95 Vapotherm 20.00 50 06/08/18 09:00 89 33 160/72 (101) 95 Mechanical Ventilator 30.00 06/08/18 08:00 96 38 146/72 (96) 95 Mechanical Ventilator 30.00 06/08/18 08:00 97 Mechanical Ventilator 30 06/08/18 07:00 82 06/08/18 07:00 86 37 173/82 (112) 97 Mechanical Ventilator 30.00 06/08/18 06:24 86 35 97 30 06/08/18 06:00 86 36 163/73 (103) 96 Mechanical Ventilator 30.00 I & O 06/09/18 07:00 Intake Total 1993 ml Output Total 6000 ml Balance -4007 ml Height & Weight Height: 6'6.00" Weight: 195lbs. 11.0oz. 88.331388qg; 20.4 BMI Method:Stated General Appearance: No Apparent Distress, WD/WN, Other (sedated on vent ) HEENT: Normal ENT Inspection Neck: Normal Inspection Respiratory: No Respiratory Distress (Patient on ventilator using accessory muscles to breathe), Other (Patient on vent using accessory muscles to breathe) Cardiovascular: Regular Rate, Rhythm Capillary Refill: Less Than 3 Seconds Gastrointestinal: non tender, soft Extremity: Normal Capillary Refill, Normal Inspection Neurologic/Psychiatric: Disoriented, Other Skin: Normal Color, Warm/Dry Lymphatic: No Adenopathy Results Lab Laboratory Tests 06/08/18 03:20 06/08/18 06:39 06/09/18 03:10 Assessment/Plan Assessment/Plan Acute respiratory distress - -Continue Ventilator care -Sedation has been off sedation -heck CT of head with and without is negative -continue lasix -Over sedation. Hold sedation until pt starts to follow commands. -Continue TF Hepatic encephalopathy -Latulose PNA - probable aspiration PNA vs pulmonary edema -No leukocytosis or fever -Sputum from when pt was intubated is growing Strep A. -Continue Zosyn d/c vanco Acute MS changes/confusion/psychosis probably secondary to Alcohol -JASS protocol Acute on chronic hyponatremia - D5NS -Monitor -NS for now Metabolic acidosis -Repeat LA -Monitor -IVF Anemia -Monitor - protonix HTN -Monitor BPH -flomax Tobacco use -Education PAVITHRA CARLIN DO Jun 09, 2018 05:38
--- NOTE | 2018-06-09 07:31 | Progress Note (SOAP) ---
Subjective Time Seen by a Provider: 07:26 Subjective/Events-last exam Patient on vent. No sedation for 48 hours. Patient opening his eyes a little. Patient starting to wake up. CAT scan of the head negative yesterday Focused Exam Lactate Level 06/07/18 08:30: Lactic Acid Level 1.80 Objective Exam Vital Signs Date Time Temp Pulse Resp B/P (MAP) Pulse Ox O2 Delivery O2 Flow Rate FiO2 06/09/18 07:10 68 32 98 30 06/09/18 07:00 67 06/09/18 06:15 Mechanical Ventilator 30.00 06/09/18 06:00 70 33 108/50 (69) 90 Mechanical Ventilator 21.00 06/09/18 05:00 67 33 124/59 (80) 93 Mechanical Ventilator 21.00 06/09/18 04:45 66 32 165/83 (110) 100 Mechanical Ventilator 21.00 06/09/18 04:39 66 06/09/18 04:38 6 32 99 30 06/09/18 04:38 Mechanical Ventilator 21.00 06/09/18 03:40 96 Mechanical Ventilator 30 06/09/18 03:40 98.2 Mechanical Ventilator 30.00 06/09/18 03:00 93 42 149/75 (99) 95 Mechanical Ventilator 30.00 06/09/18 02:00 81 33 174/79 (110) 97 Mechanical Ventilator 30.00 06/09/18 01:00 87 06/09/18 01:00 88 39 158/73 (101) 96 Mechanical Ventilator 30.00 06/09/18 00:49 81 33 98 30 06/09/18 00:00 85 35 166/76 (106) 96 Mechanical Ventilator 30.00 06/08/18 23:20 96 Mechanical Ventilator 30 06/08/18 23:20 98.4 Mechanical Ventilator 30.00 06/08/18 23:00 86 33 158/71 (100) 98 Mechanical Ventilator 30.00 06/08/18 22:00 80 31 134/68 (90) 98 Mechanical Ventilator 30.00 06/08/18 21:00 84 35 145/64 (91) 96 Mechanical Ventilator 30.00 06/08/18 20:00 82 34 166/78 (107) 97 Mechanical Ventilator 30.00 06/08/18 19:20 97 Mechanical Ventilator 30 06/08/18 19:10 81 33 98 30 06/08/18 19:00 99.5 Mechanical Ventilator 30.00 06/08/18 19:00 83 35 158/78 (104) 98 Mechanical Ventilator 30.00 06/08/18 19:00 83 06/08/18 18:00 81 35 166/75 (105) 98 Mechanical Ventilator 30.00 06/08/18 17:00 82 35 163/77 (105) 97 Mechanical Ventilator 30.00 06/08/18 16:03 98.8 06/08/18 16:00 76 37 157/78 (104) 97 Mechanical Ventilator 30.00 06/08/18 15:57 82 37 98 30 06/08/18 15:54 97 Mechanical Ventilator 30 06/08/18 15:00 84 37 146/73 (97) 97 Mechanical Ventilator 30.00 06/08/18 14:41 85 38 97 30 06/08/18 14:00 79 32 140/66 (90) 97 Mechanical Ventilator 30.00 06/08/18 13:00 82 34 146/66 (92) 96 Mechanical Ventilator 30.00 06/08/18 12:46 84 06/08/18 12:00 98 Mechanical Ventilator 30 06/08/18 12:00 80 33 159/75 (103) 98 Mechanical Ventilator 30.00 06/08/18 11:00 86 32 152/71 (98) 97 Mechanical Ventilator 30.00 06/08/18 10:32 86 33 97 30 06/08/18 10:00 84 29 158/76 (103) 98 Mechanical Ventilator 30.00 06/08/18 09:05 95 Vapotherm 20.00 50 06/08/18 09:00 89 33 160/72 (101) 95 Mechanical Ventilator 30.00 06/08/18 08:00 96 38 146/72 (96) 95 Mechanical Ventilator 30.00 06/08/18 08:00 97 Mechanical Ventilator 30 I & O 06/09/18 07:00 Intake Total 2143 ml Output Total 6000 ml Balance -3857 ml Capillary Refill : Less Than 3 Seconds General Appearance: No Apparent Distress, WD/WN Neck: Normal Inspection Respiratory: Lungs Clear, No Accessory Muscle Use, No Respiratory Distress Cardiovascular: Regular Rate, Rhythm, No Murmur Gastrointestinal: non tender, soft Results Lab Laboratory Tests 06/09/18 03:10 Laboratory Tests 06/08/18 12:44: Glucometer 143H 06/08/18 15:30: Glucometer 131H 06/08/18 20:09: Vancomycin Level Trough 18.4 06/08/18 23:52: Glucometer 148H 06/09/18 03:10: White Blood Count 8.3, Red Blood Count 3.53L, Hemoglobin 10.5L, Hematocrit 31L, Mean Corpuscular Volume 86, Mean Corpuscular Hemoglobin 30, Mean Corpuscular Hemoglobin Concent 34, Red Cell Distribution Width 15.9H, Platelet Count 140, Mean Platelet Volume 9.9, Neutrophils (%) (Auto) 77H, Lymphocytes (%) (Auto) 12 , Monocytes (%) (Auto) 11, Eosinophils (%) (Auto) 1, Basophils (%) (Auto) 0, Neutrophils # (Auto) 6.3, Lymphocytes # (Auto) 1.0, Monocytes # (Auto) 0.9, Eosinophils # (Auto) 0.1, Basophils # (Auto) 0.0, Sodium Level 140, Potassium Level 3.6, Chloride Level 108H, Carbon Dioxide Level 22, Anion Gap 10, Blood Urea Nitrogen 22H, Creatinine 1.19, Estimat Glomerular Filtration Rate 60, BUN/ Creatinine Ratio 18, Glucose Level 119H, Calcium Level 8.1L, Phosphorus Level 3.4, Magnesium Level 1.6L 06/09/18 04:00: Blood Gas Puncture Site RIGHT RADIAL, Blood Gas Patient Temperature 98, Arterial Blood pH 7.48H, Arterial Blood Partial Pressure CO2 35, Arterial Blood Partial Pressure O2 139H, Arterial Blood HCO3 25, Arterial Blood Total CO2 26.4 , Arterial Blood Oxygen Saturation 99, Arterial Blood Base Excess 1.9, Lamont Test POSITIVE, Blood Gas Ventilator Setting YES, Blood Gas Inspired Oxygen 30% Microbiology 06/03/18 Gram Stain - Final, Complete 06/03/18 Sputum Culture - Final, Complete Usual upper respiratory juana Strep agalactiae Group B See Comments Assessment/Plan Assessment/Plan Assess & Plan/Chief Complaint Acute mental status change. Hyponatremia. Urinary retention. Benign prostatic hypertrophy. History of falling. Alcoholism. Anemia. Acute respiratory distress. Hypertension history. Patient on vent and sedated. . Pneumonia. CHF. Acute mental status change. Hyponatremia. Benign prostatic hypertrophy. Urinary retention. Alcoholism. Anemia. Acute respiratory distress. Hypertension history hypoxia. . 06/07/18. Acute respiratory distress. Pneumonia. Acute mental status change. Alcoholism. Hyponatremia. Hypoxia. Benign prostatic hypertrophy. Urinary obstruction. Pancytopenia. Leukopenia. Anemia. Thrombocytopenia.. . . 06/08/18. Acute respiratory distress. Pneumonia. Acute mental status change. Patient not awake this morning Hyponatremia. Hypoxia. Benign prostatic hypertrophy. Urinary obstruction. Thrombocytopenia improving. Anemia. Chest x-ray shows right leg improving left lung not getting worse. . 06/09/18. Acute respiratory distress. Pneumonia. Acute mental status change. Hyponatremia. Hypoxia. Benign prostatic hypertrophy. Urinary obstruction. Anemia Clinical Quality Measures DVT/VTE Risk/Contraindication: Risk Factor Score Per Nursin RFS Level Per Nursing on Admit: 3=High JENNIFER BECK DO Jun 09, 2018 07:31
[2018-06-09] MEDS: LACTULOSE SYRUP 10GM/15ML (ENULOSE) 30ML UDC PO SCH (08:01)
[2018-06-09] MEDS: ARTIFICIAL TEARS OINT (LACRI-LUBE) 3.5 GM TUBE OU SCH ×2 (08:01→21:18)
[2018-06-09] MEDS: PANTOPRAZOLE 40 MG (PROTONIX) VIAL IV SCH (08:01)
--- NOTE | 2018-06-09 08:06 | Diagnostic Imaging Report ---
INDICATION: Hyponatremia. Mechanical ventilation. TECHNIQUE: Single view chest 3:24 AM. CORRELATION STUDY: 06/08/2018 FINDINGS: Endotracheal tube superimposes over the trachea, above the endy, below the clavicles. Gastric tube is present passing below left hemidiaphragm. Heart size stable. The severity of pulmonary vascular congestion perhaps slightly diminished but does persist. Prominent interstitial markings do remain. Some improvement of overall aeration through the lung goodwin. Decrease in size of pleural effusions. IMPRESSION: 1. Stable support lines and tubes. 2. Findings of pulmonary vasculature congestion do persist but overall improved. There has been improvement throughout both lung goodwin. Decrease in size of bilateral pleural effusions. Dictated by: Dictated on workstation # [id number]
[2018-06-09 13:08] LABS: ABG BASE EXCESS 2.4 MMOL/L (-2.5-2.5); ABG OXYGEN SATURATION 91 % (94-100); ABG PCO2 31 MMHG (35-45); ABG PH 7.52 (7.37-7.43); ABG PO2 49 MMHG (79-93); ABG TCO2 26.5 MMOL/L (21.0-31.0)
[2018-06-09 13:09] LABS: ALLENS TEST YES-POS; INSPIRED O2 30%; PATIENT TEMP 96.9; VENTILATOR YES
--- NOTE | 2018-06-09 14:15 | NUR ---
pt extubated to vapotherm 20lpm and 75%
--- NOTE | 2018-06-09 14:33 | NUR ---
PT EXTUBATED AT 1412 PLACED ON VAPOTHERM 20LPM AND 75% FIO2
[2018-06-09] MEDS: TAMSULOSIN 0.4 MG (FLOMAX) CAP PO SCH (18:18)
[2018-06-09] MEDS: D5 NS W/KCL 20 MEQ/L 1,000 ML IV SCH (21:18)
[2018-06-10] VITALS (23 sets, daily range): BP systolic 104–172; BP diastolic 58–83
[2018-06-10] MEDS: D5 NS W/KCL 20 MEQ/L 1,000 ML IV SCH (02:01)
[2018-06-10 03:47] LABS: BASOPHILS % (AUTO) 0 % (0-10); EOSINOPHILS # (AUTO) 0.1 10^3/uL (0.0-0.3); EOSINOPHILS % (AUTO) 1 % (0-10); HEMATOCRIT 30 % (40-54); HEMOGLOBIN 10.2 G/DL (13.3-17.7); LYMPHOCYTES # (AUTO) 0.9 X 10^3 (1.0-4.0); LYMPHOCYTES % (AUTO) 14 % (12-44); MEAN CORPUSCULAR HEMOGLOBIN 30 PG (25-34); MEAN CORPUSCULAR HGB CONC 35 G/DL (32-36); MEAN CORPUSCULAR VOLUME 86 FL (80-99); MEAN PLATELET VOLUME 9.7 FL (7.4-10.4); MONOCYTES # (AUTO) 0.8 X 10^3 (0.0-1.0); MONOCYTES % (AUTO) 12 % (0-12); NEUTROPHILS # (AUTO) 5.1 X 10^3 (1.8-7.8); NEUTROPHILS % (AUTO) 73 % (42-75); PLATELET COUNT 150 10^3/uL (130-400); RED CELL DISTRIBUTION WIDTH 15.9 % (10.0-14.5); WHITE BLOOD COUNT 6.9 10^3/uL (4.3-11.0)
[2018-06-10 04:12] LABS: BUN/CREATININE RATIO 22; CALCIUM 8.2 MG/DL (8.5-10.1); CARBON DIOXIDE 23 MMOL/L (21-32); CHLORIDE 104 MMOL/L (98-107); CREATININE SERUM 1.17 MG/DL (0.60-1.30); GFR ESTIMATED > 60; GLUCOSE 102 MG/DL (70-105); MAGNESIUM 1.7 MG/DL (1.8-2.4); POTASSIUM 3.2 MMOL/L (3.6-5.0); SODIUM 139 MMOL/L (135-145)
[2018-06-10] MEDS: KCL 20 MEQ TAB (K-DUR) PO SCH (05:24)
[2018-06-10] MEDS: POTASSIUM CL 10MEQ/50ML IVPB 50 ML IV SCH ×5 (05:24→09:12)
[2018-06-10] MEDS: MAGNESIUM 1 GM/100 ML IVPB 100 ML IV SCH ×3 (05:24→06:25)
[2018-06-10] MEDS: PIPERACILLIN/TAZOBACTAM (BULK) 4.5 GM in NS (IVPB) 100 ML IV SCH ×3 (05:37→20:25)
[2018-06-10] MEDS: FUROSEMIDE 40 MG/4 ML INJ (LASIX) IVP SCH ×2 (06:15→16:36)
[2018-06-10] MEDS: ENOXAPARIN 40 MG/0.4 ML (LOVENOX) SYR SC SCH (06:15)
--- NOTE | 2018-06-10 06:21 | Pulmonary Progress Note ---
Subjective Time Seen by a Provider: 06:21 Subjective/Events-last exam Pt is very confused and is requiring 60% Vapotherm Sepsis Event Evaluation Height, Weight, BMI Height: 6'6.00" Weight: 195lbs. 11.0oz. 88.028292fa; 20.4 BMI Method:Stated Focused Exam Lactate Level 06/07/18 08:30: Lactic Acid Level 1.80 Exam Exam Vital Signs Date Time Temp Pulse Resp B/P (MAP) Pulse Ox O2 Delivery O2 Flow Rate FiO2 06/10/18 06:00 80 22 172/83 (112) 91 Vapotherm 45.00 15.00 06/10/18 05:00 75 27 153/69 (97) 91 Vapotherm 45.00 15.00 06/10/18 04:00 90 Vapotherm 10.00 45 06/10/18 04:00 80 19 169/78 (108) 91 Vapotherm 45.00 15.00 06/10/18 04:00 99.0 06/10/18 03:00 82 23 166/79 (108) 91 Vapotherm 45.00 15.00 06/10/18 02:41 94 Vapotherm 10.00 40 06/10/18 02:00 79 27 160/75 (103) 90 Vapotherm 45.00 15.00 06/10/18 01:00 80 06/10/18 01:00 80 26 142/73 (96) 91 Vapotherm 45.00 15.00 06/10/18 00:00 99.8 06/10/18 00:00 79 26 155/73 (100) 93 Vapotherm 45.00 15.00 06/10/18 00:00 90 Vapotherm 10.00 45 06/09/18 23:09 92 Vapotherm 10.00 45 06/09/18 23:00 78 23 142/69 (93) 92 Vapotherm 45.00 15.00 06/09/18 22:00 77 26 148/65 (92) 93 Vapotherm 45.00 15.00 06/09/18 21:17 Vapotherm 45.00 10.00 06/09/18 21:00 81 31 157/77 (103) 90 Vapotherm 40.00 15.00 06/09/18 20:00 90 Vapotherm 10.00 45 06/09/18 20:00 78 26 150/75 (100) 94 Vapotherm 40.00 15.00 06/09/18 20:00 98.5 06/09/18 19:00 79 27 151/77 (101) 92 Vapotherm 40.00 15.00 06/09/18 19:00 79 06/09/18 18:40 90 Vapotherm 10.00 45 06/09/18 18:00 78 27 152/73 (99) 92 Vapotherm 40.00 15.00 06/09/18 17:00 76 30 138/67 (90) 93 Vapotherm 50.00 20.00 06/09/18 16:00 77 29 138/71 (93) 98 Vapotherm 50.00 20.00 06/09/18 16:00 95 Vapotherm 15.00 40 06/09/18 16:00 98.2 06/09/18 15:00 82 32 138/65 (89) 95 Vapotherm 50.00 20.00 06/09/18 14:33 97 Vapotherm 20.00 75 06/09/18 14:00 75 29 174/80 (111) 95 Mechanical Ventilator 30.00 06/09/18 13:00 74 06/09/18 13:00 74 34 165/83 (110) 95 Mechanical Ventilator 30.00 06/09/18 13:00 96.9 06/09/18 12:00 95 Mechanical Ventilator 30 06/09/18 12:00 73 31 160/77 (104) 97 Mechanical Ventilator 30.00 06/09/18 11:25 72 30 96 30 06/09/18 11:00 96 14 103/58 (73) 96 Mechanical Ventilator 30.00 06/09/18 10:00 74 34 144/80 (101) 98 Mechanical Ventilator 30.00 06/09/18 09:00 78 39 130/72 (91) 96 Mechanical Ventilator 30.00 06/09/18 08:00 95 Mechanical Ventilator 30 06/09/18 08:00 77 38 120/58 (78) 95 Mechanical Ventilator 30.00 06/09/18 07:10 68 32 98 30 06/09/18 07:00 67 06/09/18 07:00 66 32 122/55 (77) 97 Mechanical Ventilator 30.00 06/09/18 07:00 99.1 I & O 06/10/18 07:00 Intake Total 120 ml Output Total 4200 ml Balance -4080 ml Height & Weight Height: 6'6.00" Weight: 195lbs. 11.0oz. 88.439394pr; 20.4 BMI Method:Stated General Appearance: WD/WN, Anxious, Chronically ill, Mild Distress HEENT: Normal ENT Inspection Neck: Normal Inspection Respiratory: Lungs Clear, No Accessory Muscle Use, No Respiratory Distress Cardiovascular: Regular Rate, Rhythm, No Murmur Capillary Refill: Less Than 3 Seconds Gastrointestinal: non tender, soft Extremity: Normal Capillary Refill, Normal Inspection Neurologic/Psychiatric: Disoriented, Other Skin: Normal Color, Warm/Dry Lymphatic: No Adenopathy Results Lab Laboratory Tests 06/08/18 06:39 06/09/18 03:10 06/10/18 03:20 Assessment/Plan Assessment/Plan Acute respiratory distress - -Pt is off vent and requiring Vapotherm 60% -Pt failed swallow eval. Consult speech therapy -SVNS with EasyPap - lasix Hepatic encephalopathy -Lactulose -PT is very confused -repeat ammonia level PNA - probable aspiration PNA vs pulmonary edema -No leukocytosis or fever -Continue Zosyn Acute MS changes/confusion/psychosis probably secondary to Alcohol -JASS protocol d/c'd Acute on chronic hyponatremia - D5NS -Monitor -NS for now Metabolic acidosis -Repeat LA -Monitor -IVF Anemia -Monitor - protonix HTN -Monitor BPH -flomax Tobacco use -Education PAVITHRA CARLIN DO Jun 10, 2018 06:21
[2018-06-10] MEDS ORDERED: LORazepam INJ 2 MG/ML (ATIVAN) VIAL IV PRN (06:30)
[2018-06-10] MEDS ORDERED: morphine INJ 4 MG/ML 1 ML (VIAL/SYRINGE) IVP PRN (06:30)
[2018-06-10] MEDS ORDERED: DEXMEDETOMIDINE INJECTION 200 MCG in NS (IVPB) 50 ML IV SCH (06:30)
[2018-06-10] MEDS: RT-ALBUTEROL/IPRATROPIUM 3 ML (DUONEB) VIAL INH SCH ×4 (07:20→19:14)
--- NOTE | 2018-06-10 08:32 | Progress Note-Hospitalist ---
Subjective HPI/CC On Admission Date Seen by Provider: Jun 10, 2018 Time Seen by Provider: 08:00 CC: VDRF HPI: This is a 68yoWM clinic patient of Dr Phipps and as a h/o alcoholism who presented to the ER with inability to urinate. Romo cath was placed and removed 1500cc or urine. Patient was found to have sodium level of 122. Alcohol withdrawal protocol was followed but a few hours after admit he was found to have become combative and so aggressive with presumed alcohol withdrawal he was intubated under Dr Mejias's direction. Patient has a very poor prognosis overall given his past h/o of severe alcoholism. Subjective/Events-last exam Patient was extubated yesterday afternoon and doing well Patient confused Unsure of the recoverability that he will have considering the severe alcoholism Maintained on catheter Doing fairly well Objective Exam Vital Signs Vital Signs Date Time Temp Pulse Resp B/P (MAP) Pulse Ox O2 Delivery O2 Flow Rate FiO2 06/10/18 16:00 75 26 153/73 (99) 91 Vapotherm 50.00 06/10/18 15:40 99.0 06/10/18 14:29 60 Capillary Refill : Less Than 3 Seconds General Appearance: No Apparent Distress, WD/WN, Anxious, Chronically ill HEENT: Normal ENT Inspection Neck: Normal Inspection Respiratory: Lungs Clear, No Accessory Muscle Use, No Respiratory Distress Cardiovascular: Regular Rate, Rhythm, No Murmur Extremity: Normal Capillary Refill, Normal Inspection Neurologic/Psychiatric: Disoriented, Other Skin: Normal Color, Warm/Dry Lymphatic: No Adenopathy Results/Procedures Lab Laboratory Tests 06/10/18 03:20 Patient resulted labs reviewed. Assessment/Plan Assessment and Plan Assess & Plan/Chief Complaint Assessment: VDRF now extubated since yesterday afternoon Alcohol withdrawal resolved Severe alcoholism HLP CAD previous stents per old records Smoker Hyponatremia-improved Acute urinary retention requiring ormo cath placement Plan: Monitor closely Romo cath BP management Critical Care Critically Ill Patient Diagnosis/Problems Diagnosis/Problems (1) Ventilator dependence Status: Acute (2) Respiratory failure Status: Acute Qualifiers: Chronicity: acute Respiratory failure complication: unspecified whether with hypoxia or hypercapnia Qualified Codes: J96.00 - Acute respiratory failure, unspecified whether with hypoxia or hypercapnia (3) CAD (coronary artery disease) Status: Chronic Qualifiers: Coronary Disease-Associated Artery/Lesion type: [place] artery [place] vs. transplanted heart: [place] heart Associated angina: without angina Qualified Codes: I25.10 - Atherosclerotic heart disease of [place] coronary artery without angina pectoris (4) Hypertension Status: Chronic Qualifiers: Hypertension type: essential hypertension Qualified Codes: I10 - Essential (primary) hypertension (5) Hyperlipidemia Status: Chronic Qualifiers: Hyperlipidemia type: mixed hyperlipidemia Qualified Codes: E78.2 - Mixed hyperlipidemia (6) Urinary retention due to benign prostatic hyperplasia Status: Acute (7) Acute hyponatremia Status: Acute (8) AA (alcohol abuse) Status: Chronic (9) Chronic hyponatremia Status: Chronic (10) Tobacco dependency Status: Chronic Clinical Quality Measures DVT/VTE Risk/Contraindication: Risk Factor Score Per Nursin RFS Level Per Nursing on Admit: 3=High AI ERICKSON DO Jun 10, 2018 08:32
--- NOTE | 2018-06-10 08:35 | Diagnostic Imaging Report ---
Indication: Dyspnea, hyponatremia. Comparison: 06/09/2018. Discussion: Single portable upright view of the chest was obtained. Interval extubation. Stable normal heart size. Bilateral mixed interstitial and alveolar infiltrates are increased from the prior exam, likely worsening pneumonia or failure. More dense consolidation is now present within the left lung base. No definite pleural fluid. No pneumothorax or osseous abnormality. Impression: 1. Worsening bilateral infiltrates. 2. Interval extubation. Dictated by: Dictated on workstation # [id number]
[2018-06-10] MEDS: PANTOPRAZOLE 40 MG (PROTONIX) VIAL IV SCH (09:10)
[2018-06-10] MEDS: LACTULOSE SYRUP 10GM/15ML (ENULOSE) 30ML UDC PO SCH (09:13)
[2018-06-10] MEDS: ARTIFICIAL TEARS OINT (LACRI-LUBE) 3.5 GM TUBE OU SCH ×2 (09:13→20:25)
--- NOTE | 2018-06-10 12:16 | Physical Therapy Evaluation ---
PT Evaluation-General Medical Diagnosis Admission Date Jun 03, 2018 at 05:13 Medical Diagnosis: urinary retention Onset Date: Jun 02, 2018 Therapy Diagnosis Therapy Diagnosis: weakness; immobility Height/Weight Height (Feet): 6 Height (Inches): 6.00 Weight (Pounds): 189 Weight (Ounces): 11.0 Precautions Precautions/Isolations: Seizure, Fall Prevention, Standard Precautions, Pressure Ulcer Weight Bear Status Right Lower Extremity: Right Full Weight Bearing Left Lower Extremity: Left Full Weight Bearing Referral Physician: Lamar Schofield Reason for Referral: Evaluation/Treatment Medical History Pertinent Medical History: Alcoholism, CAD, HTN, Renal Insufficiency, Smoking Additional Medical History left SUZANNA; drinks 14 tall beers per day Reviewed History: Yes Prior/Core FIM Prior Level of Function Therapy Code Descriptions/Definitions Functional [place] Measure: 0=Not Assessed/NA 4=Minimal Assistance 1=Total Assistance 5=Supervision or Setup 2=Maximal Assistance 6=Modified [place] 3=Moderate Assistance 7=Complete [place] Therapy Quality Codes: 6 Independent with activity with or without an assistive device 5 Patient requires set up or clean up by helper. Patient completes activity by themselves 4 Supervision or touching assist (CGA). [place] provide cues , steadying assist 3 The helper provides less than half the effort to complete the activity 2 The helper provides more than half the effort to complete the activity 1 Dependent. The helper does all the effort to complete an activity 7 Patient refused to complete or attempt activity 9 The patient did not perform the activity before the current illness or injury 88 Not attempted due to Medical conditions or safety concerns Functional Abilities and Goals: Independent: Patient completed the activities by him/herself, with or without an assistive device, with no assistance from a helper. Needed Some Help: Patient needed partial assistance from another person to complete activities. Dependent: A helper completed the activities for the patient. Unknown: Not Applicable: PT Evaluation-Current Subjective Pt admitted through the ER 06/02 due to numbness in both legs and having frequent falls at home. Pt had not urinated for 36 hours prior to admission. Pt has a long standing history of alcoholism. As patient detoxed in the hospital he became combative and was placed into a medically induced coma. Pt is now off the vent and extremely weak with poor mobility. Objective Patient Orientation: Person, Confused, Mumbles Problem Solving: Poor Attachments: Central Line, SCD's, Oxygen, Jara Catheter, IV ROM/Strength ROM Upper Extremities limited active elevation to 30 degrees (B) ROM Lower Extremities gross WFL Strength Upper Extremities gross 2/5 throughout Strength Lower Extremities gross 2+/5 throughout Sensory Hearing: Impaired Sensation Right Lower Extremit: Impaired Sensation Left Lower Extremity: Impaired Transfers Therapy Code Descriptions/Definitions Functional [place] Measure: 0=Not Assessed/NA 4=Minimal Assistance 1=Total Assistance 5=Supervision or Setup 2=Maximal Assistance 6=Modified [place] 3=Moderate Assistance 7=Complete [place] Transfers (B, C, W/C) (FIM): 1 Scootin Rollin Supine to/from Sit: 1 Sit to/from Stand: 1 patient willing and motivated to sit edge of bed and attempt standing. Required assist of 2 people to come to edge of bed and stand x 3 trials. Needed Max A of 2 to reposition in bed. Balance Sitting Static: Poor Sitting Dynamic: Poor Standing Static: Poor Standing Dynamic: Poor Special Test Comments Max A of 1 for sitting at edge of bed, Max of 2 for standing balance. Assessment/Needs Pt has poor mobility and strength following intubation and induced coma. He has a complex medical history and has a history of not taking good care of himself. He will benefit from skilled therapy to address weakness and impaired mobility in order to facilitate a dc to home. Rehab Potential: Guarded PT Short Term Goals Short Term Goals Time Frame: June 16, 2018 Transfers (B,C,W/C) (FIM): 2 Gait (FIM): 1 Distance (FIM): 1=up to 49 ft Gait Distance Comment: 10 Gait Level of Assist: 2 Gait Assistive Device: FWW PT Snf Goals Snf Goals PT Bronzer Goals Time Frame: July 01, 2018 Transfers (B,C,W/C) (FIM): 4 Gait (FIM): 3 Gait distance (FIM): 5=092-95 ft Distance: 100 Gait Level of Assist: 4 Gait Assistive Device: FWW PT Plan Problem List Problem List: Activity Tolerance, Functional Strength, Safety, Gait, Transfer, Bed Mobility Treatment/Plan Treatment Plan: Continue Plan of Care Treatment Plan: Bed Mobility, Education, Functional Activity Chriss, Functional Strength, Gait, Safety, Therapeutic Exercise, Transfers Treatment Duration: June 30, 2018 Frequency: 6 times per week Estimated Hrs Per Day: .25 hour per day Patient and/or Family Agrees t: Yes Discharge Recommendations Target Placement home with family assist Time/GCodes Time In: 1130 Time Out: 1200 Total Billed Treatment Time: 30 Total Billed Treatment visit, evaluation high complexity 30 minutes BETHANY DOMINGO PT Jun 10, 2018 12:16
[2018-06-10] MEDS: TAMSULOSIN 0.4 MG (FLOMAX) CAP PO SCH (16:31)
[2018-06-11] VITALS (22 sets, daily range): BP systolic 147–178; BP diastolic 65–97
[2018-06-11 03:48] LABS: BASOPHILS % (AUTO) 0 % (0-10); EOSINOPHILS % (AUTO) 0 % (0-10); HEMATOCRIT 30 % (40-54); HEMOGLOBIN 10.3 G/DL (13.3-17.7); LYMPHOCYTES # (AUTO) 0.9 X 10^3 (1.0-4.0); LYMPHOCYTES % (AUTO) 13 % (12-44); MEAN CORPUSCULAR HEMOGLOBIN 30 PG (25-34); MEAN CORPUSCULAR HGB CONC 35 G/DL (32-36); MEAN CORPUSCULAR VOLUME 86 FL (80-99); MEAN PLATELET VOLUME 10.1 FL (7.4-10.4); MONOCYTES # (AUTO) 0.6 X 10^3 (0.0-1.0); MONOCYTES % (AUTO) 9 % (0-12); NEUTROPHILS # (AUTO) 5.5 X 10^3 (1.8-7.8); NEUTROPHILS % (AUTO) 77 % (42-75); PLATELET COUNT 151 10^3/uL (130-400); RED CELL DISTRIBUTION WIDTH 15.7 % (10.0-14.5); WHITE BLOOD COUNT 7.1 10^3/uL (4.3-11.0)
[2018-06-11 04:15] LABS: BUN/CREATININE RATIO 24; CALCIUM 8.2 MG/DL (8.5-10.1); CARBON DIOXIDE 25 MMOL/L (21-32); CHLORIDE 104 MMOL/L (98-107); CREATININE SERUM 1.12 MG/DL (0.60-1.30); GFR ESTIMATED > 60; GLUCOSE 104 MG/DL (70-105); POTASSIUM 2.7 MMOL/L (3.6-5.0); SODIUM 143 MMOL/L (135-145)
[2018-06-11] MEDS: KCL 20 MEQ TAB (K-DUR) PO SCH (04:40)
[2018-06-11] MEDS: MAGNESIUM 1 GM/100 ML IVPB 100 ML IV SCH (04:40)
[2018-06-11] MEDS: POTASSIUM CL 10MEQ/50ML IVPB 50 ML IV SCH ×9 (04:40→15:42)
[2018-06-11] MEDS ORDERED: POTASSIUM CL 10MEQ/50ML IVPB 50 ML IV ONE (05:30)
[2018-06-11] MEDS: PIPERACILLIN/TAZOBACTAM (BULK) 4.5 GM in NS (IVPB) 100 ML IV SCH ×3 (05:35→21:30)
--- NOTE | 2018-06-11 06:08 | Pulmonary Progress Note ---
Subjective Time Seen by a Provider: 07:02 Subjective/Events-last exam Pt is hallucinating. He is on Vapotherm . Sepsis Event Evaluation Height, Weight, BMI Height: 6'6.00" Weight: 189lbs. 11.0oz. 86.176470fw; 20.4 BMI Method:Stated Exam Exam Vital Signs Date Time Temp Pulse Resp B/P (MAP) Pulse Ox O2 Delivery O2 Flow Rate FiO2 06/11/18 04:00 Vapotherm 10.00 50 06/11/18 04:00 72 17 163/82 (109) 93 Vapotherm 50.00 10.00 06/11/18 03:00 68 21 161/82 (108) 90 Vapotherm 50.00 10.00 06/11/18 02:00 70 24 169/97 (121) 92 Vapotherm 50.00 10.00 06/11/18 01:00 70 25 153/68 (96) 91 Vapotherm 50.00 10.00 06/11/18 01:00 71 06/11/18 00:00 73 16 149/76 (100) 94 Vapotherm 50.00 10.00 06/11/18 00:00 Vapotherm 10.00 50 06/11/18 00:00 97.7 06/10/18 23:00 73 18 149/76 (100) 91 Vapotherm 50.00 10.00 06/10/18 22:00 75 17 148/65 (92) 90 Vapotherm 50.00 10.00 06/10/18 21:00 74 23 147/67 (93) 91 Vapotherm 50.00 10.00 06/10/18 20:00 Vapotherm 10.00 50 06/10/18 20:00 76 20 132/61 (84) 91 Vapotherm 50.00 10.00 06/10/18 19:40 98.0 06/10/18 19:14 88 Vapotherm 10.00 50 06/10/18 19:00 73 26 129/59 (82) 91 Vapotherm 50.00 10.00 06/10/18 19:00 75 06/10/18 18:00 74 20 151/62 (91) 92 Vapotherm 50.00 06/10/18 17:00 73 21 138/66 (90) 91 Vapotherm 50.00 06/10/18 16:00 75 26 153/73 (99) 91 Vapotherm 50.00 06/10/18 16:00 Vapotherm 10.00 50 06/10/18 15:40 99.0 06/10/18 15:00 75 33 160/69 (99) 90 Vapotherm 50.00 06/10/18 14:29 92 Vapotherm 10.00 60 06/10/18 14:01 76 27 93 Vapotherm 50.00 06/10/18 13:00 77 06/10/18 13:00 78 26 160/67 (98) 83 Vapotherm 50.00 06/10/18 12:00 Vapotherm 10.00 50 06/10/18 12:00 79 32 104/58 (73) 92 Vapotherm 60.00 06/10/18 11:30 97.9 06/10/18 11:00 76 14 144/73 (96) 96 Vapotherm 60.00 06/10/18 10:57 94 Vapotherm 10.00 60 06/10/18 10:00 75 24 153/71 (98) 95 Vapotherm 60.00 06/10/18 09:00 73 11 88 Vapotherm 60.00 06/10/18 09:00 73 11 147/62 (90) 88 Vapotherm 60.00 06/10/18 08:00 Vapotherm 10.00 50 06/10/18 08:00 99.5 06/10/18 08:00 74 21 154/67 (96) 92 Vapotherm 45.00 15.00 06/10/18 07:20 94 Vapotherm 10.00 60 06/10/18 07:00 75 30 154/70 (98) 91 Vapotherm 60.00 15.00 06/10/18 07:00 74 I & O 06/11/18 07:00 Intake Total 400 ml Output Total 4075 ml Balance -3675 ml Height & Weight Height: 6'6.00" Weight: 189lbs. 11.0oz. 86.053942vc; 20.4 BMI Method:Stated General Appearance: No Apparent Distress, WD/WN, Anxious, Chronically ill HEENT: Normal ENT Inspection Neck: Normal Inspection Respiratory: Lungs Clear, No Accessory Muscle Use, No Respiratory Distress, Decreased Breath Sounds Cardiovascular: Regular Rate, Rhythm, No Murmur Capillary Refill: Less Than 3 Seconds Gastrointestinal: non tender, soft Extremity: Normal Capillary Refill, Normal Inspection Neurologic/Psychiatric: Disoriented, Other Skin: Normal Color, Warm/Dry Lymphatic: No Adenopathy Results Lab Laboratory Tests 06/10/18 03:20 06/11/18 03:10 Assessment/Plan Assessment/Plan Acute respiratory distress - -Pt is off vent and requiring Vapotherm 60% -Pt failed swallow eval. Consult speech therapy -SVNS with EasyPap - lasix Hepatic encephalopathy -Lactulose -PT is very confused -repeat ammonia level PNA - probable aspiration PNA vs pulmonary edema -No leukocytosis or fever -Continue Zosyn Acute MS changes/confusion/psychosis probably secondary to Alcohol -JASS protocol d/c'd Acute on chronic hyponatremia - D5NS -Monitor -NS for now Metabolic acidosis -Repeat LA -Monitor -IVF Anemia -Monitor - protonix HTN -Monitor BPH -flomax Tobacco use -Education PAVITHRA CARLIN DO Jun 11, 2018 06:08
[2018-06-11] MEDS: ENOXAPARIN 40 MG/0.4 ML (LOVENOX) SYR SC SCH (06:25)
[2018-06-11] MEDS: RT-ALBUTEROL/IPRATROPIUM 3 ML (DUONEB) VIAL INH SCH ×4 (06:58→19:00)
[2018-06-11] MEDS: FUROSEMIDE 40 MG/4 ML INJ (LASIX) IVP SCH ×2 (07:04→16:04)
--- NOTE | 2018-06-11 07:23 | Progress Note-Hospitalist ---
Subjective HPI/CC On Admission Date Seen by Provider: Jun 11, 2018 Time Seen by Provider: 06:50 CC: VDRF HPI: This is a 68yoWM clinic patient of Dr Phipps and as a h/o alcoholism who presented to the ER with inability to urinate. Romo cath was placed and removed 1500cc or urine. Patient was found to have sodium level of 122. Alcohol withdrawal protocol was followed but a few hours after admit he was found to have become combative and so aggressive with presumed alcohol withdrawal he was intubated under Dr Mejias's direction. Patient has a very poor prognosis overall given his past h/o of severe alcoholism. 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 Objective Exam Vital Signs Vital Signs Date Time Temp Pulse Resp B/P (MAP) Pulse Ox O2 Delivery O2 Flow Rate FiO2 06/11/18 16:00 78 37 159/79 (105) 88 Vapotherm 50.00 10.00 06/11/18 16:00 50 06/11/18 15:45 98.2 Capillary Refill : Less Than 3 Seconds General Appearance: No Apparent Distress, WD/WN, Anxious, Chronically ill HEENT: Normal ENT Inspection Neck: Normal Inspection Respiratory: Lungs Clear, No Accessory Muscle Use, No Respiratory Distress, Decreased Breath Sounds Cardiovascular: Regular Rate, Rhythm, No Murmur Extremity: Normal Capillary Refill, Normal Inspection Neurologic/Psychiatric: Alert, Disoriented, Other Skin: Normal Color, Warm/Dry Lymphatic: No Adenopathy Results/Procedures Lab Laboratory Tests 06/11/18 03:10 Patient resulted labs reviewed. Assessment/Plan Assessment and Plan Assess & Plan/Chief Complaint Assessment: VDRF now extubated since Tuesday Alcohol withdrawal resolved Severe alcoholism HLP CAD previous stents per old records Smoker Hyponatremia-improved Acute urinary retention requiring romo cath placement Plan: Monitor closely Romo cath BP management Critical Care Critically Ill Patient Diagnosis/Problems Diagnosis/Problems (1) Ventilator dependence Status: Acute (2) Respiratory failure Status: Acute Qualifiers: Chronicity: acute Respiratory failure complication: unspecified whether with hypoxia or hypercapnia Qualified Codes: J96.00 - Acute respiratory failure, unspecified whether with hypoxia or hypercapnia (3) CAD (coronary artery disease) Status: Chronic Qualifiers: Coronary Disease-Associated Artery/Lesion type: andreafski artery [place] vs. transplanted heart: andreafski heart Associated angina: without angina Qualified Codes: I25.10 - Atherosclerotic heart disease of andreafski coronary artery without angina pectoris (4) Hypertension Status: Chronic Qualifiers: Hypertension type: essential hypertension Qualified Codes: I10 - Essential (primary) hypertension (5) Hyperlipidemia Status: Chronic Qualifiers: Hyperlipidemia type: mixed hyperlipidemia Qualified Codes: E78.2 - Mixed hyperlipidemia (6) Urinary retention due to benign prostatic hyperplasia Status: Acute (7) Acute hyponatremia Status: Acute (8) AA (alcohol abuse) Status: Chronic (9) Chronic hyponatremia Status: Chronic (10) Tobacco dependency Status: Chronic Clinical Quality Measures DVT/VTE Risk/Contraindication: Risk Factor Score Per Nursin RFS Level Per Nursing on Admit: 3=High AI ERICKSON DO Jun 11, 2018 07:22
[2018-06-11] MEDS: LACTULOSE SYRUP 10GM/15ML (ENULOSE) 30ML UDC PO SCH (08:29)
[2018-06-11] MEDS: PANTOPRAZOLE 40 MG (PROTONIX) VIAL IV SCH (08:29)
[2018-06-11] MEDS: ARTIFICIAL TEARS OINT (LACRI-LUBE) 3.5 GM TUBE OU SCH ×2 (08:29→21:31)
[2018-06-11] MEDS: HALOPERIDOL 5 MG/ML (HALDOL) AMP IV PRN (08:30)
--- NOTE | 2018-06-11 09:44 | Diagnostic Imaging Report ---
INDICATION: Cough, congestion, hyponatremia. TECHNIQUE: Single view chest 3:37 AM. CORRELATION STUDY: 06/10/2018 FINDINGS: Heart size enlarged. Mixed alveolar interstitial infiltrates persisting overall increased. Appears to be worsening component of vascular congestion. IMPRESSION: 1. Adverse change with what appears to be worsening congestive change of chest along with increasing mixed alveolar interstitial infiltrates could be combination of edema and infiltrate. Followup imaging recommended. Dictated by: Dictated on workstation # [id number]
[2018-06-11] MEDS: TAMSULOSIN 0.4 MG (FLOMAX) CAP PO SCH (16:04)
[2018-06-11] MEDS: D5 NS W/KCL 20 MEQ/L 1,000 ML IV SCH (21:31)
[2018-06-12] VITALS (15 sets, daily range): BP systolic 150–182; BP diastolic 66–116
[2018-06-12 03:46] LABS: BASOPHILS % (AUTO) 0 % (0-10); EOSINOPHILS # (AUTO) 0.1 10^3/uL (0.0-0.3); EOSINOPHILS % (AUTO) 1 % (0-10); HEMATOCRIT 30 % (40-54); HEMOGLOBIN 10.2 G/DL (13.3-17.7); LYMPHOCYTES # (AUTO) 0.9 X 10^3 (1.0-4.0); LYMPHOCYTES % (AUTO) 16 % (12-44); MEAN CORPUSCULAR HEMOGLOBIN 30 PG (25-34); MEAN CORPUSCULAR HGB CONC 34 G/DL (32-36); MEAN CORPUSCULAR VOLUME 88 FL (80-99); MEAN PLATELET VOLUME 10.2 FL (7.4-10.4); MONOCYTES # (AUTO) 0.4 X 10^3 (0.0-1.0); MONOCYTES % (AUTO) 8 % (0-12); NEUTROPHILS # (AUTO) 4.3 X 10^3 (1.8-7.8); NEUTROPHILS % (AUTO) 75 % (42-75); PLATELET COUNT 172 10^3/uL (130-400); RED CELL DISTRIBUTION WIDTH 16.1 % (10.0-14.5); WHITE BLOOD COUNT 5.7 10^3/uL (4.3-11.0)
[2018-06-12 04:06] LABS: BUN/CREATININE RATIO 27; CALCIUM 8.3 MG/DL (8.5-10.1); CARBON DIOXIDE 23 MMOL/L (21-32); CHLORIDE 108 MMOL/L (98-107); CREATININE SERUM 0.95 MG/DL (0.60-1.30); GFR ESTIMATED > 60; GLUCOSE 119 MG/DL (70-105); MAGNESIUM 1.9 MG/DL (1.8-2.4); PHOSPHORUS 3.3 MG/DL (2.3-4.7); SODIUM 143 MMOL/L (135-145)
[2018-06-12] MEDS ORDERED: POTASSIUM CL 10MEQ/50ML IVPB 50 ML IV SCH (04:30)
[2018-06-12] MEDS ORDERED: POTASSIUM CL 10MEQ/50ML IVPB 50 ML IV ONE (04:30)
[2018-06-12] MEDS: POTASSIUM CL 10MEQ/50ML IVPB 50 ML IV SCH ×5 (06:00→10:59)
[2018-06-12] MEDS: RT-ALBUTEROL/IPRATROPIUM 3 ML (DUONEB) VIAL INH SCH ×4 (06:07→19:15)
[2018-06-12] MEDS: PIPERACILLIN/TAZOBACTAM (BULK) 4.5 GM in NS (IVPB) 100 ML IV SCH ×3 (06:15→20:42)
--- NOTE | 2018-06-12 06:42 | Pulmonary Progress Note ---
Subjective Time Seen by a Provider: 08:04 Subjective/Events-last exam PT is very confused. On Vapotherm. Sepsis Event Evaluation Height, Weight, BMI Height: 6'6.00" Weight: 190lbs. 5.0oz. 86.113437lt; 20.4 BMI Method:Stated Exam Exam Vital Signs Date Time Temp Pulse Resp B/P (MAP) Pulse Ox O2 Delivery O2 Flow Rate FiO2 06/12/18 06:07 92 Vapotherm 10.00 50 06/12/18 06:00 70 31 182/87 (118) 85 Vapotherm 50.00 10.00 06/12/18 05:00 72 23 171/92 (118) 94 Vapotherm 50.00 10.00 06/12/18 04:00 69 166/84 (111) 92 Vapotherm 50.00 10.00 06/12/18 03:00 70 10 173/85 (114) 92 Vapotherm 50.00 10.00 06/12/18 02:00 74 26 153/66 (95) 88 Vapotherm 50.00 10.00 06/12/18 01:00 73 25 175/78 (110) 92 Vapotherm 50.00 10.00 06/12/18 01:00 73 06/12/18 00:00 97.6 06/12/18 00:00 75 26 150/80 (103) 89 Vapotherm 50.00 10.00 06/12/18 00:00 Vapotherm 10.00 06/11/18 23:00 78 16 155/79 (104) 87 Vapotherm 50.00 10.00 06/11/18 22:00 74 28 170/76 (107) 96 Vapotherm 50.00 10.00 06/11/18 21:00 77 14 165/65 (98) 91 Vapotherm 50.00 10.00 06/11/18 20:00 74 25 165/76 (105) 91 Vapotherm 50.00 10.00 06/11/18 20:00 Vapotherm 10.00 06/11/18 19:45 97.2 06/11/18 19:00 73 06/11/18 19:00 73 24 169/81 (110) 93 Vapotherm 50.00 10.00 06/11/18 19:00 92 Vapotherm 10.00 50 06/11/18 18:00 75 28 161/76 (104) 93 Vapotherm 50.00 10.00 06/11/18 17:00 75 12 148/79 (102) 88 Vapotherm 50.00 10.00 06/11/18 16:00 78 37 159/79 (105) 88 Vapotherm 50.00 10.00 06/11/18 16:00 Vapotherm 10.00 50 06/11/18 15:45 98.2 06/11/18 15:00 78 20 166/78 (107) 91 Vapotherm 50.00 10.00 06/11/18 14:23 92 Vapotherm 10.00 50 06/11/18 14:00 78 15 170/79 (109) 92 Vapotherm 50.00 10.00 06/11/18 13:00 74 25 166/75 (105) 94 Vapotherm 50.00 10.00 06/11/18 13:00 78 06/11/18 12:00 72 19 154/91 (112) 91 Vapotherm 50.00 10.00 06/11/18 12:00 Vapotherm 10.00 50 06/11/18 12:00 99.1 06/11/18 11:30 99.1 06/11/18 11:00 75 37 155/77 (103) 91 Vapotherm 50.00 10.00 06/11/18 10:20 92 Vapotherm 10.00 50 06/11/18 10:00 71 21 147/95 (112) 92 Vapotherm 50.00 10.00 06/11/18 09:00 74 25 178/81 (113) 94 Vapotherm 50.00 10.00 06/11/18 08:00 99.0 06/11/18 08:00 76 31 161/75 (103) 85 Vapotherm 50.00 10.00 06/11/18 08:00 Vapotherm 10.00 50 06/11/18 07:00 75 24 170/80 (110) 94 Vapotherm 50.00 10.00 06/11/18 07:00 75 06/11/18 06:59 94 Vapotherm 10.00 50 I & O 06/12/18 07:00 Intake Total 1520 ml Output Total 3175 ml Balance -1655 ml Height & Weight Height: 6'6.00" Weight: 190lbs. 5.0oz. 86.784470bo; 20.4 BMI Method:Stated General Appearance: No Apparent Distress, WD/WN, Anxious, Chronically ill HEENT: Normal ENT Inspection Neck: Normal Inspection Respiratory: Lungs Clear, No Accessory Muscle Use, No Respiratory Distress, Decreased Breath Sounds Cardiovascular: Regular Rate, Rhythm, No Murmur Capillary Refill: Less Than 3 Seconds Gastrointestinal: non tender, soft Extremity: Normal Capillary Refill, Normal Inspection Neurologic/Psychiatric: Alert, Disoriented, Other Skin: Normal Color, Warm/Dry Lymphatic: No Adenopathy Results Lab Laboratory Tests 06/11/18 03:10 06/12/18 03:35 Assessment/Plan Assessment/Plan Acute respiratory distress - -Pt is off vent and requiring Vapotherm 50% -Pt failed swallow eval. Consult speech therapy -SVNS with EasyPap - Continue lasix Hepatic encephalopathy -Lactulose -PT is very confused PNA - probable aspiration PNA vs pulmonary edema -No leukocytosis or fever -Continue Zosyn Acute MS changes/confusion/psychosis probably secondary to Alcohol -JASS protocol d/c'd Acute on chronic hyponatremia - D5NS -Monitor -NS for now Metabolic acidosis -Repeat LA -Monitor -IVF Anemia -Monitor - protonix HTN -Monitor BPH -flomax Tobacco use -Education PAVITHRA CARLIN DO Jun 12, 2018 06:42
[2018-06-12] MEDS: ENOXAPARIN 40 MG/0.4 ML (LOVENOX) SYR SC SCH (07:17)
[2018-06-12] MEDS: FUROSEMIDE 40 MG/4 ML INJ (LASIX) IVP SCH ×2 (07:17→18:13)
--- NOTE | 2018-06-12 07:52 | Diagnostic Imaging Report ---
INDICATION: Dyspnea. COMPARISON: 06/11/2018. FINDINGS: Bilateral perihilar and basilar heterogeneous pulmonary opacities are unchanged. No pleural effusion or pneumothorax. Stable cardiomediastinal silhouette and pulmonary vasculature. IMPRESSION: 1. Stable bibasilar pulmonary opacities. 2. No adverse development. Dictated by: Dictated on workstation # [id number]
--- NOTE | 2018-06-12 07:54 | Progress Note (SOAP) ---
Subjective Time Seen by a Provider: 07:52 Subjective/Events-last exam Patient not on ventilator. Patient on Vapotherm. Doesn't keep her on at times. Patient confused Objective Exam Vital Signs Date Time Temp Pulse Resp B/P (MAP) Pulse Ox O2 Delivery O2 Flow Rate FiO2 06/12/18 07:00 75 06/12/18 07:00 77 27 151/116 (128) 85 Vapotherm 50.00 10.00 06/12/18 06:07 92 Vapotherm 10.00 50 06/12/18 06:00 70 31 182/87 (118) 85 Vapotherm 50.00 10.00 06/12/18 05:00 72 23 171/92 (118) 94 Vapotherm 50.00 10.00 06/12/18 04:00 69 166/84 (111) 92 Vapotherm 50.00 10.00 06/12/18 04:00 96.8 06/12/18 04:00 Vapotherm 10.00 06/12/18 03:00 70 10 173/85 (114) 92 Vapotherm 50.00 10.00 06/12/18 02:00 74 26 153/66 (95) 88 Vapotherm 50.00 10.00 06/12/18 01:00 73 25 175/78 (110) 92 Vapotherm 50.00 10.00 06/12/18 01:00 73 06/12/18 00:00 97.6 06/12/18 00:00 75 26 150/80 (103) 89 Vapotherm 50.00 10.00 06/12/18 00:00 Vapotherm 10.00 06/11/18 23:00 78 16 155/79 (104) 87 Vapotherm 50.00 10.00 06/11/18 22:00 74 28 170/76 (107) 96 Vapotherm 50.00 10.00 06/11/18 21:00 77 14 165/65 (98) 91 Vapotherm 50.00 10.00 06/11/18 20:00 74 25 165/76 (105) 91 Vapotherm 50.00 10.00 06/11/18 20:00 Vapotherm 10.00 06/11/18 19:45 97.2 06/11/18 19:00 73 06/11/18 19:00 73 24 169/81 (110) 93 Vapotherm 50.00 10.00 06/11/18 19:00 92 Vapotherm 10.00 50 06/11/18 18:00 75 28 161/76 (104) 93 Vapotherm 50.00 10.00 06/11/18 17:00 75 12 148/79 (102) 88 Vapotherm 50.00 10.00 06/11/18 16:00 78 37 159/79 (105) 88 Vapotherm 50.00 10.00 06/11/18 16:00 Vapotherm 10.00 50 06/11/18 15:45 98.2 06/11/18 15:00 78 20 166/78 (107) 91 Vapotherm 50.00 10.00 06/11/18 14:23 92 Vapotherm 10.00 50 06/11/18 14:00 78 15 170/79 (109) 92 Vapotherm 50.00 10.00 06/11/18 13:00 74 25 166/75 (105) 94 Vapotherm 50.00 10.00 06/11/18 13:00 78 06/11/18 12:00 72 19 154/91 (112) 91 Vapotherm 50.00 10.00 06/11/18 12:00 Vapotherm 10.00 50 06/11/18 12:00 99.1 06/11/18 11:30 99.1 06/11/18 11:00 75 37 155/77 (103) 91 Vapotherm 50.00 10.00 06/11/18 10:20 92 Vapotherm 10.00 50 06/11/18 10:00 71 21 147/95 (112) 92 Vapotherm 50.00 10.00 06/11/18 09:00 74 25 178/81 (113) 94 Vapotherm 50.00 10.00 06/11/18 08:00 99.0 06/11/18 08:00 76 31 161/75 (103) 85 Vapotherm 50.00 10.00 06/11/18 08:00 Vapotherm 10.00 50 I & O 06/12/18 07:00 Intake Total 1520 ml Output Total 3400 ml Balance -1880 ml Capillary Refill : Less Than 3 Seconds General Appearance: No Apparent Distress, WD/WN HEENT: Normal ENT Inspection Neck: Full Range of Motion Respiratory: No Accessory Muscle Use, No Respiratory Distress, Decreased Breath Sounds Cardiovascular: Regular Rate, Rhythm, No Murmur Gastrointestinal: non tender, soft Results Lab Laboratory Tests 06/12/18 03:35 Laboratory Tests 06/12/18 03:35: White Blood Count 5.7, Red Blood Count 3.43L, Hemoglobin 10.2L, Hematocrit 30L, Mean Corpuscular Volume 88, Mean Corpuscular Hemoglobin 30, Mean Corpuscular Hemoglobin Concent 34, Red Cell Distribution Width 16.1H, Platelet Count 172, Mean Platelet Volume 10.2, Neutrophils (%) (Auto) 75, Lymphocytes (%) (Auto) 16 , Monocytes (%) (Auto) 8, Eosinophils (%) (Auto) 1, Basophils (%) (Auto) 0, Neutrophils # (Auto) 4.3, Lymphocytes # (Auto) 0.9L, Monocytes # (Auto) 0.4, Eosinophils # (Auto) 0.1, Basophils # (Auto) 0.0, Sodium Level 143, Potassium Level 3.0L, Chloride Level 108H, Carbon Dioxide Level 23, Anion Gap 12, Blood Urea Nitrogen 26H, Creatinine 0.95, Estimat Glomerular Filtration Rate > 60, BUN /Creatinine Ratio 27, Glucose Level 119H, Calcium Level 8.3L, Phosphorus Level 3.3, Magnesium Level 1.9 Microbiology 06/03/18 Gram Stain - Final, Complete 06/03/18 Sputum Culture - Final, Complete Usual upper respiratory juana Strep agalactiae Group B See Comments Assessment/Plan Assessment/Plan Assess & Plan/Chief Complaint Acute mental status change. Hyponatremia. Urinary retention. Benign prostatic hypertrophy. History of falling. Alcoholism. Anemia. Acute respiratory distress. Hypertension history. Patient on vent and sedated. . . Pneumonia. CHF. Acute mental status change. Hyponatremia. Benign prostatic hypertrophy. Urinary retention. Alcoholism. Anemia. Acute respiratory distress. Hypertension history hypoxia. . 06/07/18. Acute respiratory distress. Pneumonia. Acute mental status change. Alcoholism. Hyponatremia. Hypoxia. Benign prostatic hypertrophy. Urinary obstruction. Pancytopenia. Leukopenia. Anemia. Thrombocytopenia.. . . 06/08/18. Acute respiratory distress. Pneumonia. Acute mental status change. Patient not awake this morning Hyponatremia. Hypoxia. Benign prostatic hypertrophy. Urinary obstruction. Thrombocytopenia improving. Anemia. Chest x-ray shows right leg improving left lung not getting worse. . 06/09/18. Acute respiratory distress. Pneumonia. Acute mental status change. Hyponatremia. Hypoxia. Benign prostatic hypertrophy. Urinary obstruction. Anemia. . 06/12/18. Acute respiratory distress. Pneumonia. Hepatic encephalopathy. Acute mental status change. Anemia. Hypertension. Alcoholism. Tobacco use. Hypokalemia. Hyponatremia Clinical Quality Measures DVT/VTE Risk/Contraindication: Risk Factor Score Per Nursin RFS Level Per Nursing on Admit: 3=High JENNIFER BECK DO Jun 12, 2018 07:54
--- NOTE | 2018-06-12 08:58 | ST Dysphagia Evaluation ---
Speech Evaluation-General Medical Diagnosis urinary retention Onset Date: Jun 02, 2018 Therapy Diagnosis Therapy Diagnosis: Oropharyngeal Dysphagia Precautions Precautions: Aspiration Precautions/Isolations: Seizure, Fall Prevention, Standard Precautions, Pressure Ulcer Referral Referring Physician: Dr. Schofield Medical History Pertinent Medical History: Alcoholism, CAD, HTN, Renal Insufficiency, Smoking Reviewed History: Yes Speech PLF/Current-Dysphagia Prior Level of Function The patient lived home alone and was independent for most of his daily needs. It is anticipated that he was able to eat what he wanted. Subjective The patient is very confused but cooperative with the Bedside Dysphagia Evaluation. Cognitive Status Patient Orientation: Confused Patient is very confused and appears to be disoriented to all areas. Oral Motor Skills Dentition: Edentalous Patient was NPO pending the Bedside Dysphagia Evaluation Voice Voice Phonatory-Based Quality: Harsh Voice Loudness: Normal Face Facial Symmetry: Symmetrical Oral-Facial Assessment Oral-Facial Dentition: Normal Lingual Protrusion: Normal Lingual ROM: Abnormal Lingual Strength: Abnormal Pharynx Velopharyngeal Move.: Normal Volitional Dry Swallow: Yes Voluntary Cough: Yes Dysphagia Evaluation Consistencies Presented: Thin Liquid, Mechanical Soft, Moncure Thick Liquid, Honey Thick Liquid, Pureed Decreased A to P transfer for liquids with cough noted post thin and nectar consistencies. Funct. Velo/Pharyngeal Symptom: Cough After Swallow Cough and clear post thin and nectar consistencies. Dietary Recommendations: Pureed Liquid Recommendations: Honey Consistancy Swallowing Precautions: Alternate Liquids/Solids, Double Swallow, Decreased Rate of Oral Intake, Liquids from Wide Cup, No Straw, Small Bites and Sips, Sitting Upright 90 Degrees, Sitting 90 Degrees 30 Post Intake Dysphagia Evaluation Summary The patient is a confused 68 year old man who was given a Bedside Dysphagia Evaluation post extubation. The patient is noted to be very confused, however he was cooperative with the evaluation. Consistnecies of thin, nectar and honey liquids were presented with cough/clear noted after thin and nectar. Honey consistency was presented by 1/2 tsp. (x3) and small sip via cup without coughing noted post intake. The patient was presented puree and mechanical soft diet trials at 1/2 tsp. The patient was noted to have oral residue with mech soft with clearing on the puree. The least restrictive diet level at this time is Dysphagia I with honey consistency liquids. This information was provided to the patient's nurse. Barriers to Learning The patient is very confused and only somewhat oriented to self. Speech Short Term Goals Short Term Goals Short Term Goals 1) The patient will tolerate least restrictive diet level without s/s of aspiration at 90% or greater intake. 2) The patient will follow verbal directions for compensatory strategies at 80% or greater given minimal cues. Speech Soc Analyst Goals Long-Term Goals The patient will maintain adequate nutrition/hydration via safe, effective swallow function. Speech-Plan Patient/Family Goals Patient/Family Goals: The patient will most likely go to SNF upon hospital discharge. Treatment Plan Speech Therapy Treatment Plan: Continue Plan of Care The patient will receive skilled ST for dysphagia. Treatment Duration: June 16, 2018 Frequency: 4 times per week Estimated Hrs Per Day: .25 hour per day Rehab Potential: Guarded Barriers to Learning: The patient is very confused. Pt/Family Agrees to Plan: Yes Safety Risks/Education Teaching Recipient: Patient Teaching Methods: Demonstration, Discussion Response to Teaching: Verbalize Understanding, Return Demonstration Education Topics Provided: Safety of oral intake, compensatory strategies Time Speech Therapy Time In: 08:15 Speech Therapy Time Out: 08:30 Total Billed Time: 15 Billed Treatment Time 1T[address] ST Jun 12, 2018 08:58
[2018-06-12] MEDS: ARTIFICIAL TEARS OINT (LACRI-LUBE) 3.5 GM TUBE OU SCH ×2 (09:09→20:43)
[2018-06-12] MEDS: HALOPERIDOL 5 MG/ML (HALDOL) AMP IM SCH ×2 (09:20→20:42)
[2018-06-12] MEDS: LACTULOSE SYRUP 10GM/15ML (ENULOSE) 30ML UDC PO SCH (09:39)
[2018-06-12] MEDS: PANTOPRAZOLE 40 MG (PROTONIX) VIAL IV SCH (10:00)
[2018-06-12] MEDS: RT-BUDESONIDE NEBS 0.5 MG/2ML (PULMICORT) AMP INH SCH ×2 (10:29→19:17)
--- NOTE | 2018-06-12 11:15 | NUR ---
Pastoral care visit.
--- NOTE | 2018-06-12 11:47 | Occupational Therapy Eval ---
OT Evaluation-General/PLF Medical Diagnosis Admission Date Jun 03, 2018 at 05:13 Medical Diagnosis: urinary retention Onset Date: Jun 02, 2018 Therapy Diagnosis Therapy Diagnosis: impaired ADLs and mobiliy, weakness Height/Weight Height (Feet): 6 Height (Inches): 6.00 Weight (Pounds): 192 Weight (Ounces): 5.0 Precautions Precautions/Isolations: Seizure, Fall Prevention, Standard Precautions, Pressure Ulcer Safety Interventions: None Weight Bear Status Weight Bearing Restriction: Weight Bearing/Tolerated Referral Physician: Lamar Schofield Referral Reason: Activity Tolerance, Self Care, Evaluation/Treatment, Strengthening/ROM Medical History Pertinent Medical History: Alcoholism, CAD, HTN, Renal Insufficiency, Smoking Current History Pt admitted through the ER 06/02 due to numbness in both legs and having frequent falls at home. Pt had not urinated for 36 hours prior to admission. Pt has a long standing history of alcoholism. As patient detoxed in the hospital he became combative and was placed into a medically induced coma. Pt is now off the vent and extremely weak with poor mobility. Reviewed History: Yes Social History pt unable to provide PLOF status. pt would just repose "yeah" when asked question ADL-Prior Level of Function Therapy Code Descriptions/Definitions Functional [place] Measure: 0=Not Assessed/NA 4=Minimal Assistance 1=Total Assistance 5=Supervision or Setup 2=Maximal Assistance 6=Modified [place] 3=Moderate Assistance 7=Complete [place] Therapy Quality Codes: 6 Independent with activity with or without an assistive device 5 Patient requires set up or clean up by helper. Patient completes activity by themselves 4 Supervision or touching assist (CGA). [place] provide cues , steadying assist 3 The helper provides less than half the effort to complete the activity 2 The helper provides more than half the effort to complete the activity 1 Dependent. The helper does all the effort to complete an activity 7 Patient refused to complete or attempt activity 9 The patient did not perform the activity before the current illness or injury 88 Not attempted due to Medical conditions or safety concerns Functional Abilities and Goals: Independent: Patient completed the activities by him/herself, with or without an assistive device, with no assistance from a helper. Needed Some Help: Patient needed partial assistance from another person to complete activities. Dependent: A helper completed the activities for the patient. Unknown: Not Applicable: pt unable to provide PLOF status. pt would just repose "yeah" when asked question OT Current Status Subjective pt laying in bed upon OT Arrival. pt agreed to OT evaluation session. pt only oriented to self. Mental Status/Objective Patient Orientation: Confused Attachments: Jara Catheter, IV, Oxygen, Telemetry Current Glasses/Contacts: No Hearing Aids: No Dentures/Partials: No Upper Extremity ROM right shoulder flexion approx 80 degrees Left shoulder flexion approx 70 degrees Dayday elbow flexion WFL pt demo inability to follow simple commands. PROM WFL dayday UE Upper Extremity Coordination noted decrease Day[place] UE coordination with finger to nose task. Upper Extremity Sensation NT secondary to decrease cognition/ inability to follow simple commands Upper Extremity Strength NT secondary to decrease cognition/ inability to follow simple commands ADL-Treatment Therapy Code Descriptions/Definitions Functional [place] Measure: 0=Not Assessed/NA 4=Minimal Assistance 1=Total Assistance 5=Supervision or Setup 2=Maximal Assistance 6=Modified [place] 3=Moderate Assistance 7=Complete [place] Therapy Quality Codes: 6 Independent with activity with or without an assistive device 5 Patient requires set up or clean up by helper. Patient completes activity by themselves 4 Supervision or touching assist (CGA). [place] provide cues , steadying assist 3 The helper provides less than half the effort to complete the activity 2 The helper provides more than half the effort to complete the activity 1 Dependent. The helper does all the effort to complete an activity 7 Patient refused to complete or attempt activity 9 The patient did not perform the activity before the current illness or injury 88 Not attempted due to Medical conditions or safety concerns Eating (FIM): 2 (pt demo decrease ability to use spoon secodnary to decrease FMC in hand. pt demo decrease hand to mouth coordination and demo MOD spillage. ) Transfers (B, C, W/C) (FIM): 1 Education OT Patient Education: Progress toward Goal/Update tx plan, Purpose of tx/ functional activities Teaching Recipient: Patient Teaching Methods: Discussion Response to Teaching: Verbalize Understanding OT Short Term Goals Short Term Goals Eating(FIM): 5 Grooming(FIM): 5 Bathing(FIM): 3 Lower Body Dressing(FIM): 2 Transfers (B,C,W/C) (FIM): 2 Toilet/Commode Transfer(FIM): 3 Additional Short Term Goals: 1-Demonstrate ADL Tasks, 2-Verbalize Understanding , 3-ImproveStrength/Chriss 1=Demonstrate adherence to instructed precautions during ADL tasks. 2=Patient will verbalize/demonstrate understanding of assistive devices/ modifications for ADL. 3=Patient will improve strength/tolerance for activity to enable patient to perform ADL's. OT Staffing Associate Goals Halfway Goals Eating (FIM): 6 Grooming(FIM): 5 Bathing(FIM): 5 Transfers (B,C,W/C) (FIM): 5 Toilet/Commode Transfer(FIM): 5 Additional Goals: 1-Demonstrate ADL Tasks, 2-Verbalize Understanding, 3- ImproveStrength/Chriss 1=Demonstrate adherence to instructed precautions during ADL tasks. 2=Patient will verbalize/demonstrate understanding of assistive devices/ modifications for ADL. 3=Patient will improve strength/tolerance for activity to enable patient to perform ADL's. OT Education/Plan Problem List/Assessment Assessment: Decreased Activ Tolerance, Decreased Safety Aware, Decreased UE Strength, Dependent Transfers, Impaired Bed Mobility, Impaired Cognition, Impaired Coordination, Impaired Funct Balance, Impaired I ADL's, Impaired Self- Care Skills, Restricted Funct UE ROM pt presents with functional limitations affecting areas of ADLs and functional transfers. pt is unable to state PLOF and decrease decrease ability to follow one step commands. currently if is requiring total assist for all ADLs and functional transfers. pt would benefit from OT Services to increase independence with ADLs/ functional transfers. Discharge Recommendations Plan/Recommendations: Continue POC Therapy D/C Recommendations: 24 hr Supervision Treatment Plan/Plan of Care Treatment,Training & Education: Yes Patient would benefit from OT for education, treatment and training to promote independence in ADL's, mobility, safety and/or upper extremity function for ADL' s. Plan of Care: ADL Retraining, Cognitive Retraining, Functional Mobility, Group Exercise/Act as Ind, UE Funct Exercise/Act, Visual/Perceptual Retrain Treatment Duration: July 03, 2018 Frequency: 5 times per week Estimated Hrs Per Day: .25 hour per day Agreement: Yes Rehab Potential: Guarded Time/GCodes Start Time: 11:30 Stop Time: 11:45 Billed Treatment Time EVM 15 minutes JACI HAWKINS OT Jun 12, 2018 11:47
[2018-06-12] MEDS: methylPREDNISolone 40 MG/ML (Solu-MEDROL) VIAL IV SCH ×3 (12:44→23:12)
--- NOTE | 2018-06-12 13:12 | NUR ---
REPORT CALLED TO ONEAL SANCHES, TO RESUME CARE OF PATIENT ON MEDICAL SURGICAL UNIT. PATIENT TRANSFERRED TO 4 TH FLOOR AT THIS TIME VIA BED. PATIENT PERSONAL BELONGINGS SENT WITH PATIENT.
--- NOTE | 2018-06-12 13:15 | NUR ---
TRANSFERRED FROM ICU PER BED. ALERT SKIN W/D. RESP. REGULAR WITH VAPOTHERM ON AT 15 L AND 50 %. IV INFUSING WELL AT 25 CC/HR PER RIGHT F/A. SWING ARMS TO HIT THE NURSES WHILE TRYING TO PUT O2 BACK ON. ALMANZAR CATH IN PLACE WITH CLEAR YELLOW URINE.
[2018-06-12 14:55] LABS: ALANINE AMINOTRANSFERASE 19 U/L (0-55); ALBUMIN 2.6 GM/DL (3.2-4.5); ALKALINE PHOSPHATASE 63 U/L (40-136); BILIRUBIN,TOTAL 1.6 MG/DL (0.1-1.0); BUN/CREATININE RATIO 25; CALCIUM 8.4 MG/DL (8.5-10.1); CARBON DIOXIDE 22 MMOL/L (21-32); CHLORIDE 110 MMOL/L (98-107); CREATININE SERUM 1.01 MG/DL (0.60-1.30); GFR ESTIMATED > 60; GLUCOSE 128 MG/DL (70-105); MAGNESIUM 1.8 MG/DL (1.8-2.4); PHOSPHORUS 3.2 MG/DL (2.3-4.7); POTASSIUM 3.6 MMOL/L (3.6-5.0); SODIUM 144 MMOL/L (135-145); TOTAL PROTEIN 5.8 GM/DL (6.4-8.2)
--- NOTE | 2018-06-12 15:24 | Physical Therapy Daily Note ---
PT Daily Note-Current Subjective Patient in bed pre tx, agrees to get into recliner, has no complaints of pain. Appearance Patient in recliner post tx with nurse call, phone, tray, chair alarm on. Mental Status Patient Orientation: Person, Confused Attachments: Oxygen, Jara Catheter, IV Transfers Therapy Code Descriptions/Definitions Functional [place] Measure: 0=Not Assessed/NA 4=Minimal Assistance 1=Total Assistance 5=Supervision or Setup 2=Maximal Assistance 6=Modified [place] 3=Moderate Assistance 7=Complete [place] Therapy Quality Codes: 6 Independent with activity with or without an assistive device 5 Patient requires set up or clean up by helper. Patient completes activity by themselves 4 Supervision or touching assist (CGA). [place] provide cues , steadying assist 3 The helper provides less than half the effort to complete the activity 2 The helper provides more than half the effort to complete the activity 1 Dependent. The helper does all the effort to complete an activity 7 Patient refused to complete or attempt activity 9 The patient did not perform the activity before the current illness or injury 88 Not attempted due to Medical conditions or safety concerns Transfers (B, C, W/C) (FIM): 1 Scootin Rollin Supine to/from Sit: 1 Sit to/from Stand: 2 Bed to/from Chair: 2 Patient was able to bear some weight through his legs during standing and transfer but was still max assist. Weight Bearing Right Lower Extremity: Right Full Weight Bearing Left Lower Extremity: Left Full Weight Bearing Exercises attempted AROM of BLE but patient would not follow directions Treatments bed mobility and transfers Assessment Current Status: Poor Progress little to no change in mobility PT Short Term Goals Short Term Goals Time Frame: June 16, 2018 Transfers (B,C,W/C) (FIM): 2 Gait (FIM): 1 Distance (FIM): 1=up to 49 ft Gait Distance Comment: 10 Gait Level of Assist: 2 Gait Assistive Device: FWW PT Mcc Goals Mcc Goals PT Mononitrotoluene Operator Goals Time Frame: July 01, 2018 Transfers (B,C,W/C) (FIM): 4 Gait (FIM): 3 Gait distance (FIM): 4=963-71 ft Distance: 100 Gait Level of Assist: 4 Gait Assistive Device: FWW PT Plan Problem List Problem List: Activity Tolerance, Functional Strength, Safety, Balance, Gait, Transfer, Bed Mobility, ROM Treatment/Plan Treatment Plan: Continue Plan of Care Treatment Plan: Bed Mobility, Education, Functional Activity Chriss, Functional Strength, Gait, Safety, Therapeutic Exercise, Transfers Treatment Duration: June 30, 2018 Frequency: 6 times per week Estimated Hrs Per Day: .25 hour per day Patient and/or Family Agrees t: Yes Safety Risks/Education Patient Education: Transfer Techniques, Correct Positioning, Safety Issues Teaching Recipient: Patient Teaching Methods: Demonstration, Discussion Response to Teaching: Reinforcement Needed Time/GCodes Time In: 1500 Time Out: 1516 Total Billed Treatment Time: 16 Total Billed Treatment 1 visit FA Eliana' CATHRYN DUMONT PT Jun 12, 2018 15:24
[2018-06-12] MEDS: TAMSULOSIN 0.4 MG (FLOMAX) CAP PO SCH (18:13)
[2018-06-12] MEDS: D5 NS W/KCL 20 MEQ/L 1,000 ML IV SCH (20:43)
[2018-06-13] VITALS (12 sets, daily range): BP systolic 119–184; BP diastolic 58–95
[2018-06-13 05:12] LABS: BASOPHILS % (AUTO) 0 % (0-10); EOSINOPHILS % (AUTO) 0 % (0-10); HEMATOCRIT 31 % (40-54); HEMOGLOBIN 10.4 G/DL (13.3-17.7); LYMPHOCYTES # (AUTO) 0.6 X 10^3 (1.0-4.0); LYMPHOCYTES % (AUTO) 9 % (12-44); MEAN CORPUSCULAR HEMOGLOBIN 29 PG (25-34); MEAN CORPUSCULAR HGB CONC 33 G/DL (32-36); MEAN CORPUSCULAR VOLUME 89 FL (80-99); MEAN PLATELET VOLUME 10.7 FL (7.4-10.4); MONOCYTES # (AUTO) 0.2 X 10^3 (0.0-1.0); MONOCYTES % (AUTO) 3 % (0-12); NEUTROPHILS # (AUTO) 5.5 X 10^3 (1.8-7.8); NEUTROPHILS % (AUTO) 88 % (42-75); PLATELET COUNT 250 10^3/uL (130-400); RED CELL DISTRIBUTION WIDTH 16.7 % (10.0-14.5); WHITE BLOOD COUNT 6.3 10^3/uL (4.3-11.0)
[2018-06-13 05:33] LABS: BUN/CREATININE RATIO 33; CALCIUM 8.7 MG/DL (8.5-10.1); CARBON DIOXIDE 22 MMOL/L (21-32); CHLORIDE 107 MMOL/L (98-107); CREATININE SERUM 0.97 MG/DL (0.60-1.30); GFR ESTIMATED > 60; GLUCOSE 142 MG/DL (70-105); MAGNESIUM 1.9 MG/DL (1.8-2.4); PHOSPHORUS 3.4 MG/DL (2.3-4.7); POTASSIUM 3.2 MMOL/L (3.6-5.0); SODIUM 144 MMOL/L (135-145)
[2018-06-13 05:34] LABS: BAND NEUTROPHILS 0 %; BASOPHILS % (MANUAL) 0 %; EOSINOPHILS % (MANUAL) 0 %; LYMPHOCYTES % (MANUAL) 7 %; MONOCYTES % (MANUAL) 3 %; NEUTROPHILS % (MANUAL) 90 %
[2018-06-13 05:35] LABS: ANISOCYTOSIS SLIGHT; HYPOCHROMASIA SLIGHT; POIKILOCYTOSIS SLIGHT
[2018-06-13] MEDS: methylPREDNISolone 40 MG/ML (Solu-MEDROL) VIAL IV SCH ×3 (06:05→17:29)
[2018-06-13] MEDS: ENOXAPARIN 40 MG/0.4 ML (LOVENOX) SYR SC SCH (06:05)
[2018-06-13] MEDS: FUROSEMIDE 40 MG/4 ML INJ (LASIX) IVP SCH ×2 (06:05→17:29)
[2018-06-13] MEDS: RT-BUDESONIDE NEBS 0.5 MG/2ML (PULMICORT) AMP INH SCH ×2 (06:44→19:02)
[2018-06-13] MEDS: RT-ALBUTEROL/IPRATROPIUM 3 ML (DUONEB) VIAL INH SCH ×4 (06:44→19:01)
--- NOTE | 2018-06-13 06:55 | Pulmonary Progress Note ---
Subjective Date Seen by a Provider: Jun 13, 2018 Time Seen by a Provider: 07:59 Subjective/Events-last exam PT is requiring more oxygen today. Currently on Vapotherm. Sepsis Event Evaluation Height, Weight, BMI Height: 6'6.00" Weight: 171lbs. 12.8oz. [id number]; 20.4 BMI Method:Stated Exam Exam Vital Signs Date Time Temp Pulse Resp B/P (MAP) Pulse Ox O2 Delivery O2 Flow Rate FiO2 06/13/18 06:46 92 Vapotherm 15.00 60 06/13/18 06:45 92 Vapotherm 15.00 60 06/13/18 04:55 98.7 57 24 158/71 (100) 91 Vapotherm 50.00 15.00 06/12/18 23:52 97.1 68 24 160/72 (101) 91 Vapotherm 50.00 15.00 06/12/18 21:00 Vapotherm 15.00 60 06/12/18 20:00 97.8 66 24 169/90 (116) 91 Vapotherm 50.00 15.00 06/12/18 19:22 92 Vapotherm 15.00 60 06/12/18 19:15 86 Vapotherm 15.00 50 06/12/18 16:59 96.9 63 24 163/74 (103) 93 Vapotherm 50.00 15.00 06/12/18 15:38 91 Vapotherm 15.00 50 06/12/18 13:00 84 06/12/18 12:59 98.9 79 22 174/75 (108) 95 Vapotherm 50.00 15.00 06/12/18 12:00 87 13 160/69 (99) 90 Vapotherm 50.00 15.00 06/12/18 10:29 92 Vapotherm 15.00 50 06/12/18 09:00 78 36 165/73 (103) 86 Vapotherm 50.00 15.00 06/12/18 08:00 Vapotherm 10.00 06/12/18 08:00 73 17 159/72 (101) 87 Vapotherm 50.00 10.00 06/12/18 08:00 97.2 74 26 91 Vapotherm 50.00 15.00 06/12/18 07:00 75 06/12/18 07:00 77 27 151/116 (128) 85 Vapotherm 50.00 10.00 I & O 06/13/18 07:00 Intake Total 1700 ml Output Total 2700 ml Balance -1000 ml Height & Weight Height: 6'6.00" Weight: 171lbs. 12.8oz. [id number]; 20.4 BMI Method:Stated General Appearance: WD/WN, Anxious, Chronically ill, Mild Distress HEENT: Normal ENT Inspection Neck: Normal Inspection Respiratory: Lungs Clear, No Accessory Muscle Use, No Respiratory Distress, Decreased Breath Sounds Cardiovascular: Regular Rate, Rhythm, No Murmur Capillary Refill: Less Than 3 Seconds Gastrointestinal: non tender, soft Extremity: Normal Capillary Refill, Normal Inspection Neurologic/Psychiatric: Alert, Disoriented, Other Skin: Normal Color, Warm/Dry Lymphatic: No Adenopathy Results Lab Laboratory Tests 06/12/18 03:35 06/12/18 13:05 06/13/18 04:50 Assessment/Plan Assessment/Plan Acute respiratory distress - -Pt is requiring Vapotherm 60% -Pt failed swallow eval. Consult speech therapy -SVNS with EasyPap - Continue lasix 40mg BID -CTA of chest today -Check echo Hepatic encephalopathy -Lactulose PNA - probable aspiration PNA vs pulmonary edema -No leukocytosis or fever -s/p Zosyn x 7days Acute MS changes/confusion/psychosis probably secondary to Alcohol -JASS protocol d/c'd Metabolic acidosis -Monitor -IVF Anemia -Monitor - protonix HTN -Monitor BPH -flomax Tobacco use -Education - Will transfer pt to ICU for close monitoring PAVITHRA CARLIN DO Jun 13, 2018 06:55
--- NOTE | 2018-06-13 07:53 | Progress Note (SOAP) ---
Subjective Time Seen by a Provider: 07:51 Subjective/Events-last exam BNP elevated yesterday. when patient's oxygen for pulse ox goes down. Patient on Vimpat. Patient communicating okay Objective Exam Vital Signs Date Time Temp Pulse Resp B/P (MAP) Pulse Ox O2 Delivery O2 Flow Rate FiO2 06/13/18 06:46 92 Vapotherm 15.00 60 06/13/18 06:45 92 Vapotherm 15.00 60 06/13/18 04:55 98.7 57 24 158/71 (100) 91 Vapotherm 50.00 15.00 06/12/18 23:52 97.1 68 24 160/72 (101) 91 Vapotherm 50.00 15.00 06/12/18 21:00 Vapotherm 15.00 60 06/12/18 20:00 97.8 66 24 169/90 (116) 91 Vapotherm 50.00 15.00 06/12/18 19:22 92 Vapotherm 15.00 60 06/12/18 19:15 86 Vapotherm 15.00 50 06/12/18 16:59 96.9 63 24 163/74 (103) 93 Vapotherm 50.00 15.00 06/12/18 15:38 91 Vapotherm 15.00 50 06/12/18 13:00 84 06/12/18 12:59 98.9 79 22 174/75 (108) 95 Vapotherm 50.00 15.00 06/12/18 12:00 87 13 160/69 (99) 90 Vapotherm 50.00 15.00 06/12/18 10:29 92 Vapotherm 15.00 50 06/12/18 09:00 78 36 165/73 (103) 86 Vapotherm 50.00 15.00 06/12/18 08:00 Vapotherm 10.00 06/12/18 08:00 73 17 159/72 (101) 87 Vapotherm 50.00 10.00 06/12/18 08:00 97.2 74 26 91 Vapotherm 50.00 15.00 I & O 06/13/18 07:00 Intake Total 1700 ml Output Total 2700 ml Balance -1000 ml Capillary Refill : Less Than 3 Seconds General Appearance: No Apparent Distress, WD/WN Neck: Normal Inspection, Non Tender Respiratory: No Accessory Muscle Use, No Respiratory Distress, Decreased Breath Sounds Cardiovascular: Regular Rate, Rhythm, No Murmur Gastrointestinal: non tender, soft Results Lab Laboratory Tests 06/12/18 13:05 06/13/18 04:50 Laboratory Tests 06/12/18 13:05: Sodium Level 144, Potassium Level 3.6, Chloride Level 110H, Carbon Dioxide Level 22, Anion Gap 12, Blood Urea Nitrogen 25H, Creatinine 1.01, Estimat Glomerular Filtration Rate > 60, BUN/Creatinine Ratio 25, Glucose Level 128H, Calcium Level 8.4L, Corrected Calcium 9.5, Phosphorus Level 3.2, Magnesium Level 1.8, Total Bilirubin 1.6H, Aspartate Amino Transf (AST/SGOT) 30, Alanine Aminotransferase (ALT/SGPT) 19, Alkaline Phosphatase 63, Total Protein 5.8L, Albumin 2.6L 06/13/18 04:50: Sodium Level 144, Potassium Level 3.2L, Chloride Level 107, Carbon Dioxide Level 22, Anion Gap 15H, Blood Urea Nitrogen 32H, Creatinine 0.97, Estimat Glomerular Filtration Rate > 60, BUN/Creatinine Ratio 33, Glucose Level 142H, Calcium Level 8.7, Phosphorus Level 3.4, Magnesium Level 1.9, White Blood Count 6.3, Red Blood Count 3.55L, Hemoglobin 10.4L, Hematocrit 31L, Mean Corpuscular Volume 89, Mean Corpuscular Hemoglobin 29, Mean Corpuscular Hemoglobin Concent 33, Red Cell Distribution Width 16.7H, Platelet Count 250, Mean Platelet Volume 10.7H, Neutrophils (%) (Auto) 88H, Lymphocytes (%) (Auto) 9L, Monocytes (%) ( Auto) 3, Eosinophils (%) (Auto) 0, Basophils (%) (Auto) 0, Neutrophils # (Auto) 5.5, Lymphocytes # (Auto) 0.6L, Monocytes # (Auto) 0.2, Eosinophils # (Auto) 0.0 , Basophils # (Auto) 0.0, Neutrophils % (Manual) 90, Lymphocytes % (Manual) 7, Monocytes % (Manual) 3, Eosinophils % (Manual) 0, Basophils % (Manual) 0, Band Neutrophils 0, Hypochromasia SLIGHT, Poikilocytosis SLIGHT, Anisocytosis SLIGHT Microbiology 06/03/18 Gram Stain - Final, Complete 06/03/18 Sputum Culture - Final, Complete Usual upper respiratory juana Strep agalactiae Group B See Comments Assessment/Plan Assessment/Plan Assess & Plan/Chief Complaint Acute mental status change. Hyponatremia. Urinary retention. Benign prostatic hypertrophy. History of falling. Alcoholism. Anemia. Acute respiratory distress. Hypertension history. Patient on vent and sedated. . . Pneumonia. CHF. Acute mental status change. Hyponatremia. Benign prostatic hypertrophy. Urinary retention. Alcoholism. Anemia. Acute respiratory distress. Hypertension history hypoxia. . 06/07/18. Acute respiratory distress. Pneumonia. Acute mental status change. Alcoholism. Hyponatremia. Hypoxia. Benign prostatic hypertrophy. Urinary obstruction. Pancytopenia. Leukopenia. Anemia. Thrombocytopenia.. . . 06/08/18. Acute respiratory distress. Pneumonia. Acute mental status change. Patient not awake this morning Hyponatremia. Hypoxia. Benign prostatic hypertrophy. Urinary obstruction. Thrombocytopenia improving. Anemia. Chest x-ray shows right leg improving left lung not getting worse. . 06/09/18. Acute respiratory distress. Pneumonia. Acute mental status change. Hyponatremia. Hypoxia. Benign prostatic hypertrophy. Urinary obstruction. Anemia. . 06/12/18. Acute respiratory distress. Pneumonia. Hepatic encephalopathy. Acute mental status change. Anemia. Hypertension. Alcoholism. Tobacco use. Hypokalemia. Hyponatremia. . 06/13/18. Acute respiratory distress resolved. Pneumonia. Hepatic encephalopathy. Acute mental status change resolved. Anemia. Hypertension. Alcoholism. Tobacco use. CHF. Hypokalemia. Hyponatremia Clinical Quality Measures DVT/VTE Risk/Contraindication: Risk Factor Score Per Nursin RFS Level Per Nursing on Admit: 3=High JENNIFER BECK DO Jun 13, 2018 07:53
[2018-06-13] MEDS ORDERED: KCL 10 MEQ TAB (MICRO K) PO NR (08:00)
[2018-06-13 08:11] LABS: ABG BASE EXCESS 3.1 MMOL/L (-2.5-2.5); ABG OXYGEN SATURATION 90 % (94-100); ABG PCO2 31 MMHG (35-45); ABG PH 7.53 (7.37-7.43); ABG PO2 57 MMHG (79-93); ABG TCO2 26.9 MMOL/L (21.0-31.0)
[2018-06-13 08:13] LABS: ALLENS TEST YES-POS
[2018-06-13 08:14] LABS: INSPIRED O2 25; PATIENT TEMP 97.4; VENTILATOR YES
[2018-06-13] MEDS: PANTOPRAZOLE 40 MG (PROTONIX) VIAL IV SCH (08:19)
[2018-06-13] MEDS: LACTULOSE SYRUP 10GM/15ML (ENULOSE) 30ML UDC PO SCH (08:20)
[2018-06-13] MEDS: POTASSIUM CL 10MEQ/50ML IVPB 50 ML IV SCH ×6 (08:31→15:52)
[2018-06-13] MEDS: HALOPERIDOL 5 MG/ML (HALDOL) AMP IM SCH ×2 (08:41→20:40)
[2018-06-13] MEDS ORDERED: HOLD METFORMIN - RECEIVED CONTRAST 20 ML VIAL IV SCH (09:00)
[2018-06-13] MEDS ORDERED: IOHEXOL 350 MG/ML 150 ML (OMNIPAQUE 350) VIAL IV ONE (09:00)
[2018-06-13] MEDS ORDERED: D5 NS W/KCL 20 MEQ/L 1,000 ML IV SCH (09:30)
[2018-06-13] MEDS ORDERED: PIPERACILLIN/TAZO 4.5 GM/NS 100 ML IV NR ×2 (09:45)
[2018-06-13 10:25] LABS: ALANINE AMINOTRANSFERASE 19 U/L (0-55); ALBUMIN 2.8 GM/DL (3.2-4.5); ALKALINE PHOSPHATASE 55 U/L (40-136); BILIRUBIN,TOTAL 1.1 MG/DL (0.1-1.0); BUN/CREATININE RATIO 31; CALCIUM 8.8 MG/DL (8.5-10.1); CARBON DIOXIDE 23 MMOL/L (21-32); CHLORIDE 106 MMOL/L (98-107); CREATININE SERUM 1.05 MG/DL (0.60-1.30); GFR ESTIMATED > 60; GLUCOSE 165 MG/DL (70-105); PHOSPHORUS 3.4 MG/DL (2.3-4.7); POTASSIUM 3.5 MMOL/L (3.6-5.0); SODIUM 143 MMOL/L (135-145); TOTAL PROTEIN 6.4 GM/DL (6.4-8.2)
[2018-06-13] MEDS: ARTIFICIAL TEARS OINT (LACRI-LUBE) 3.5 GM TUBE OU SCH ×2 (12:13→20:41)
--- NOTE | 2018-06-13 12:41 | NUR ---
PATIENT OFF FLOOR AT THIS TIME WITH RADIOLOGY. IV STOPPED AT THIS TIME.
--- NOTE | 2018-06-13 13:07 | NUR ---
PATIENT BACK FROM RADIOLOGY AT THIS TIME.
--- NOTE | 2018-06-13 13:27 | Occupational Ther Daily Note ---
OT Current Status-Daily Note Subjective Pt. does not report pain. Appearance Pt. in bed asleep. Eyes half open. Does not awake at first with OT. OT notified nursing who was able to get him to open his eyes. With prompting, pt. does state that he is a "little hungry." Food tray is in room. Mental Status/Objective Patient Orientation: Unable to Assess Therapy Code Descriptions/Definitions Functional [place] Measure: 0=Not Assessed/NA 4=Minimal Assistance 1=Total Assistance 5=Supervision or Setup 2=Maximal Assistance 6=Modified [place] 3=Moderate Assistance 7=Complete [place] ADL-Treatment Eating (FIM): 4 Other Treatment OT set up pt's food tray for him, and assisted him in bed to reach comfort level to feed self. Observed pt. attempt to feed self with spoon. Pt. able to do this, but would spill food on self and seemed to have weak grasp. Pt. also very talkative, but has difficulty talking clearly to be understood. Easily distracted. OT brought in red built up handle for food utensils. Set everything up on tray for easy access. However, pt. requires cues to sequence and keep eating. Noted weak grasp with holding cup, and pt. is rather shaky. Does not drop it and thickened liquid in cup make drinking easier. Pt. is given time to process but does report that he "takes his time." Increased time overall needed. Pt. lets OT brush hair while in bed. OT gives pt. warm washcloth, but pt. seems distracted and states that he will wash face later. OT asks if she can do this for him, as well as wash his hands for him. Pt. states, "I will do it later, leave it there." Pt. is in bed with food tray still in front at end of session, and is slowly finishing his meal. Warm cloth is left for him, and nursing is notified. Pt. requires prompting and initial set up/encouragement to eat before he will initiate this himself. Education OT Patient Education: Correct positioning, Modified ADL techniques, Progress toward Goal/Update tx plan, Purpose of tx/functional activities, Reviewed precautions, Rehab process, Use of adapted equipment Teaching Recipient: Patient Teaching Methods: Demonstration, Discussion Response to Teaching: Verbalize Understanding, Return Demonstration OT Short Term Goals Short Term Goals Eating(FIM): 5 Grooming(FIM): 5 Bathing(FIM): 3 Lower Body Dressing(FIM): 2 Transfers (B,C,W/C) (FIM): 2 Toilet/Commode Transfer(FIM): 3 Additional Short Term Goals: 1-Demonstrate ADL Tasks, 2-Verbalize Understanding , 3-ImproveStrength/Chriss 1=Demonstrate adherence to instructed precautions during ADL tasks. 2=Patient will verbalize/demonstrate understanding of assistive devices/ modifications for ADL. 3=Patient will improve strength/tolerance for activity to enable patient to perform ADL's. OT Assisted Goals Blast Furnace Supervisor Goals Eating (FIM): 6 Grooming(FIM): 5 Bathing(FIM): 5 Transfers (B,C,W/C) (FIM): 5 Toilet/Commode Transfer(FIM): 5 Additional Goals: 1-Demonstrate ADL Tasks, 2-Verbalize Understanding, 3- ImproveStrength/Chriss 1=Demonstrate adherence to instructed precautions during ADL tasks. 2=Patient will verbalize/demonstrate understanding of assistive devices/ modifications for ADL. 3=Patient will improve strength/tolerance for activity to enable patient to perform ADL's. OT Education/Plan Problem List/Assessment Assessment: Decreased Activ Tolerance, Decreased Safety Aware, Decreased UE Strength, Dependent Transfers, Impaired Cognition, Impaired Coordination, Impaired I ADL's, Impaired Self-Care Skills pt presents with functional limitations affecting areas of ADLs and functional transfers. pt is unable to state PLOF and decrease decrease ability to follow one step commands. currently if is requiring total assist for all ADLs and functional transfers. pt would benefit from OT Services to increase independence with ADLs/ functional transfers. Discharge Recommendations Plan/Recommendations: Continue POC Therapy D/C Recommendations: 24 hr Supervision Comment To be determined. Treatment Plan/Plan of Care Treatment,Training & Education: Yes Patient would benefit from OT for education, treatment and training to promote independence in ADL's, mobility, safety and/or upper extremity function for ADL' s. Plan of Care: ADL Retraining, Cognitive Retraining, Functional Mobility, Group Exercise/Act as Ind, UE Funct Exercise/Act, Visual/Perceptual Retrain Treatment Duration: July 03, 2018 Frequency: 5 times per week Estimated Hrs Per Day: .25 hour per day Agreement: Yes Rehab Potential: Guarded Time/GCodes Start Time: 11:45 Stop Time: 12:10 Total Time Billed (hr/min): 25 Billed Treatment Time 1, ADL x 2 CLINTON VELAZQUEZ OT Jun 13, 2018 13:27
--- NOTE | 2018-06-13 13:30 | Diagnostic Imaging Report ---
PROCEDURE: CT angiography of the chest with contrast. TECHNIQUE: Multiple contiguous axial images were obtained through the chest after uneventful bolus administration of intravenous contrast. 2D reconstructed CTA MIP acquisitions were also performed. Auto Exposure Controls were utilized during the CT exam to meet ALARA standards for radiation dose reduction. INDICATION: COPD and hypoxia. FINDINGS: There are bilateral pleural effusions and bibasilar consolidations. There are diffuse interstitial infiltrates and/or scarring in the lungs bilaterally. There is some emphysematous disease in the apices. There is no pneumothorax. The thoracic aorta is normal in caliber without evidence of dissection. The esophagus is air-filled. There are no filling defects within the pulmonary arteries to suggest pulmonary embolism. There is no pathologically enlarged adenopathy in the chest. There is fatty infiltration of the liver. There is aneurysmal dilatation of the lower thoracic aorta up to 4.4 cm. There is a benign cyst in the left kidney. There is mild thoracic spondylosis. IMPRESSION: No evidence of pulmonary embolism or aortic dissection. 4.4 cm lower thoracic/abdominal aortic aneurysm. Bibasilar consolidation and bilateral pleural effusions. Diffuse interstitial lung disease throughout both lungs with a background of emphysema. The esophagus is air-filled. This is of uncertain etiology and/or significance. Recommend clinical correlation and, if warranted, followup with an upper GI. Dictated by: Dictated on workstation # [id number]
--- NOTE | 2018-06-13 14:10 | NUR ---
REPORT CALLED TO VJ SANCHES IN ICU.
--- NOTE | 2018-06-13 14:24 | Physical Therapy Daily Note ---
PT Daily Note-Current Subjective Patient in bed pre tx, agrees to PT, has no complaints of pain. Appearance Patient in wheelchair post tx to help nursing, apparently he is going to ICU. Mental Status Patient Orientation: Person, Confused Attachments: Oxygen, IV Transfers Therapy Code Descriptions/Definitions Functional [place] Measure: 0=Not Assessed/NA 4=Minimal Assistance 1=Total Assistance 5=Supervision or Setup 2=Maximal Assistance 6=Modified [place] 3=Moderate Assistance 7=Complete [place] Therapy Quality Codes: 6 Independent with activity with or without an assistive device 5 Patient requires set up or clean up by helper. Patient completes activity by themselves 4 Supervision or touching assist (CGA). [place] provide cues , steadying assist 3 The helper provides less than half the effort to complete the activity 2 The helper provides more than half the effort to complete the activity 1 Dependent. The helper does all the effort to complete an activity 7 Patient refused to complete or attempt activity 9 The patient did not perform the activity before the current illness or injury 88 Not attempted due to Medical conditions or safety concerns Transfers (B, C, W/C) (FIM): 3 Scootin Rollin Supine to/from Sit: 3 Sit to/from Stand: 4 Bed to/from Chair: 4 Cues for hand placement and safety. Weight Bearing Right Lower Extremity: Right Full Weight Bearing Left Lower Extremity: Left Full Weight Bearing Gait Training Gait (FIM): 1 Distance: 5'x2 Gait Level of Assist: 4 Gait Persons Needed: 1 Gait Assistive Device: FWW Patient ambulates slowly, slumped posture, cues for direction. Treatments bed mobility and transfers, ambulation Assessment Current Status: Fair Progress improving ambulation PT Short Term Goals Short Term Goals Time Frame: June 16, 2018 Transfers (B,C,W/C) (FIM): 2 Gait (FIM): 1 Distance (FIM): 1=up to 49 ft Gait Distance Comment: 10 Gait Level of Assist: 2 Gait Assistive Device: FWW PT Label Stamper Goals Mcc Goals PT Label Stamper Goals Time Frame: July 01, 2018 Transfers (B,C,W/C) (FIM): 4 Gait (FIM): 3 Gait distance (FIM): 2=212-48 ft Distance: 100 Gait Level of Assist: 4 Gait Assistive Device: FWW PT Plan Problem List Problem List: Activity Tolerance, Functional Strength, Safety, Balance, Gait, Transfer, Bed Mobility, ROM Treatment/Plan Treatment Plan: Continue Plan of Care Treatment Plan: Bed Mobility, Education, Functional Activity Chriss, Functional Strength, Gait, Safety, Therapeutic Exercise, Transfers Treatment Duration: June 30, 2018 Frequency: 6 times per week Estimated Hrs Per Day: .25 hour per day Patient and/or Family Agrees t: Yes Safety Risks/Education Patient Education: Gait Training, Transfer Techniques, Correct Positioning, Safety Issues Teaching Recipient: Patient Teaching Methods: Demonstration, Discussion Response to Teaching: Reinforcement Needed Time/GCodes Time In: 1405 Time Out: 1417 Total Billed Treatment Time: 12 Total Billed Treatment 1 visit FA 17' CATHRYN DUMONT PT Jun 13, 2018 14:24
--- NOTE | 2018-06-13 14:58 | NUR ---
1430 PT TO ROOM ICU 10 VIA W/C ACCOMPANIED BY 4TH FLOOR VERÓNICA AMATO AND RT
[2018-06-13] MEDS: PIPERACILLIN/TAZOBACTAM (BULK) 4.5 GM in NS (IVPB) 100 ML IV SCH (15:52)
--- NOTE | 2018-06-13 16:19 | Speech Therapy Daily Note ---
Speech Daily Progress Note Subjective Date Seen by Provider: Jun 13, 2018 Time Seen by Provider: 00:10 The patient was returned to the ICU this afternoon. Objective Patient consumed thickened liquids with maximum verbal cues for small sips at 70 % Assessment Assessment Current Status: Fair Progress Treatment Plan Continue Plan of Care Speech Short Term Goals Short Term Goals Short Term Goals 1) The patient will tolerate least restrictive diet level without s/s of aspiration at 90% or greater intake. 2) The patient will follow verbal directions for compensatory strategies at 80% or greater given minimal cues. Speech Medicinal Chemist Goals Detention Goals The patient will maintain adequate nutrition/hydration via safe, effective swallow function. Speech-Plan Patient/Family Goals Patient/Family Goals: The patient will reside in a SNF most likely upon discharge from the hospital. Treatment Plan Speech Therapy Treatment Plan: Continue Plan of Care The patient will remain on his current diet. Treatment Duration: June 16, 2018 Frequency: 4 times per week Estimated Hrs Per Day: .25 hour per day Rehab Potential: Guarded Barriers to Learning: Dementia Pt/Family Agrees to Plan: Yes Safety Risks/Education Teaching Recipient: Patient Teaching Methods: Demonstration, Discussion Response to Teaching: Verbalize Understanding, Return Demonstration Education Topics Provided: Safety of oral intake Time Speech Therapy Time In: 15:00 Speech Therapy Time Out: 15:10 Total Billed Time: 10 Billed Treatment Time 1, BRITTNEE Kitchen Jun 13, 2018 16:19
[2018-06-13] MEDS: TAMSULOSIN 0.4 MG (FLOMAX) CAP PO SCH (17:29)
[2018-06-14] VITALS (24 sets, daily range): BP systolic 134–179; BP diastolic 70–103
[2018-06-14] MEDS: PIPERACILLIN/TAZOBACTAM (BULK) 4.5 GM in NS (IVPB) 100 ML IV SCH ×2 (01:04→07:56)
[2018-06-14] MEDS: methylPREDNISolone 40 MG/ML (Solu-MEDROL) VIAL IV SCH ×5 (01:04→23:45)
[2018-06-14 04:01] LABS: BASOPHILS % (AUTO) 0 % (0-10); EOSINOPHILS % (AUTO) 0 % (0-10); HEMATOCRIT 31 % (40-54); HEMOGLOBIN 10.3 G/DL (13.3-17.7); LYMPHOCYTES # (AUTO) 0.6 X 10^3 (1.0-4.0); LYMPHOCYTES % (AUTO) 11 % (12-44); MEAN CORPUSCULAR HEMOGLOBIN 30 PG (25-34); MEAN CORPUSCULAR HGB CONC 34 G/DL (32-36); MEAN CORPUSCULAR VOLUME 90 FL (80-99); MONOCYTES # (AUTO) 0.2 X 10^3 (0.0-1.0); MONOCYTES % (AUTO) 5 % (0-12); NEUTROPHILS # (AUTO) 4.3 X 10^3 (1.8-7.8); NEUTROPHILS % (AUTO) 84 % (42-75); PLATELET COUNT 258 10^3/uL (130-400); RED CELL DISTRIBUTION WIDTH 16.4 % (10.0-14.5); WHITE BLOOD COUNT 5.1 10^3/uL (4.3-11.0)
[2018-06-14 04:20] LABS: BUN/CREATININE RATIO 37; CALCIUM 8.5 MG/DL (8.5-10.1); CARBON DIOXIDE 21 MMOL/L (21-32); CHLORIDE 109 MMOL/L (98-107); CREATININE SERUM 1.03 MG/DL (0.60-1.30); GFR ESTIMATED > 60; GLUCOSE 136 MG/DL (70-105); MAGNESIUM 1.8 MG/DL (1.8-2.4); PHOSPHORUS 3.9 MG/DL (2.3-4.7); POTASSIUM 3.6 MMOL/L (3.6-5.0); SODIUM 142 MMOL/L (135-145)
[2018-06-14] MEDS: FUROSEMIDE 40 MG/4 ML INJ (LASIX) IVP SCH (06:15)
[2018-06-14] MEDS: ENOXAPARIN 40 MG/0.4 ML (LOVENOX) SYR SC SCH (06:15)
--- NOTE | 2018-06-14 06:36 | Pulmonary Progress Note ---
Subjective Time Seen by a Provider: 14:53 Subjective/Events-last exam Pt is still requiring highflow NC. Sepsis Event Evaluation Height, Weight, BMI Height: 6'6.00" Weight: 180lbs. 1.0oz. 81.643806pf; 20.4 BMI Method:Stated Exam Exam Vital Signs Date Time Temp Pulse Resp B/P (MAP) Pulse Ox O2 Delivery O2 Flow Rate FiO2 06/14/18 06:00 54 19 179/93 (121) 97 Vapotherm 75.00 20.00 06/14/18 05:00 51 19 178/87 (117) 93 Vapotherm 75.00 20.00 06/14/18 04:00 96.9 06/14/18 04:00 Vapotherm 25.00 70 06/14/18 04:00 71 26 160/89 (112) 91 Vapotherm 75.00 20.00 06/14/18 03:00 68 28 167/98 (121) 91 Vapotherm 75.00 20.00 06/14/18 02:00 61 17 170/85 (113) 95 Vapotherm 75.00 20.00 06/14/18 01:00 64 21 156/76 (102) 97 Vapotherm 75.00 20.00 06/14/18 01:00 64 06/14/18 00:00 Vapotherm 25.00 70 06/14/18 00:00 97.1 06/14/18 00:00 64 20 151/80 (103) 97 Vapotherm 75.00 20.00 06/13/18 23:18 68 20 92 Vapotherm 75.00 20.00 06/13/18 23:00 71 16 123/89 (100) 88 Vapotherm 50.00 20.00 06/13/18 22:20 21 97 Vapotherm 50.00 20.00 06/13/18 22:20 98 Vapotherm 20.00 50 06/13/18 22:00 68 21 119/58 (78) 97 Vapotherm 70.00 25.00 06/13/18 21:00 73 22 152/76 (101) Vapotherm 70.00 25.00 06/13/18 20:00 72 21 172/81 (111) 96 Vapotherm 70.00 25.00 06/13/18 20:00 Vapotherm 25.00 80 06/13/18 19:45 97.6 06/13/18 19:09 95 Vapotherm 70.00 25 06/13/18 19:01 73 23 95 Vapotherm 70.00 25.00 06/13/18 19:01 97 Vapotherm 25.00 80 06/13/18 19:00 70 06/13/18 19:00 70 21 184/90 (121) 97 Vapotherm 80.00 25.00 06/13/18 18:00 71 23 184/90 (121) 97 Vapotherm 80.00 25.00 06/13/18 17:00 70 18 177/88 (117) 89 Vapotherm 80.00 25.00 06/13/18 16:32 Vapotherm 25.00 80 06/13/18 16:00 69 17 179/89 (119) 95 Vapotherm 80.00 25.00 06/13/18 15:55 97.4 06/13/18 15:06 93 Vapotherm 25.00 80 06/13/18 15:00 73 23 161/95 (117) 93 Vapotherm 80.00 25.00 06/13/18 14:45 71 23 144/73 (96) 93 Vapotherm 80.00 25.00 06/13/18 14:36 97.4 06/13/18 12:00 97.9 65 18 142/72 (95) 97 Vapotherm 80.00 25.00 06/13/18 10:53 91 Vapotherm 25.00 80 06/13/18 09:00 Vapotherm 15.00 60 06/13/18 06:46 92 Vapotherm 15.00 60 06/13/18 06:45 92 Vapotherm 15.00 60 I & O 06/14/18 07:00 Intake Total 840 ml Output Total 1750 ml Balance -910 ml Height & Weight Height: 6'6.00" Weight: 180lbs. 1.0oz. 81.353570ng; 20.4 BMI Method:Stated General Appearance: WD/WN, Anxious, Chronically ill, Mild Distress HEENT: Normal ENT Inspection Neck: Normal Inspection Respiratory: Lungs Clear, No Accessory Muscle Use, No Respiratory Distress, Decreased Breath Sounds Cardiovascular: Regular Rate, Rhythm, No Murmur Capillary Refill: Less Than 3 Seconds Gastrointestinal: non tender, soft Extremity: Normal Capillary Refill, Normal Inspection Neurologic/Psychiatric: Alert, Disoriented, Other Skin: Normal Color, Warm/Dry Lymphatic: No Adenopathy Results Lab Laboratory Tests 06/12/18 13:05 06/13/18 04:50 06/13/18 09:50 06/14/18 03:15 Assessment/Plan Assessment/Plan Acute respiratory distress - -Pt is requiring Vapotherm 60% -Today is day # 8 of Zosyn -- No leukocytosis, NO fever - doubt infection -D/C Zosyn -Pt failed swallow eval. Consult speech therapy -SVNS with EasyPap - Continue lasix 40mg BID -CTA of chest reviewed- NO PE does show extensive emphysema and small bilateral pleural effusions/atelectasis - echo - reviewed diastolic chf grade 1 AE with Bilateral pleural effusions -Change lasix to Bumex dysphagia -pt is on dysphagia diet -I question if pt is getting enough debbie -will consult dietary for debbie counts -I also question if pt needs peg tube HTN - Hypokalemia -replace Hepatic encephalopathy -Lactulose PNA - probable aspiration PNA vs pulmonary edema -No leukocytosis or fever -s/p Zosyn x 7days Acute MS changes/confusion/psychosis probably secondary to Alcohol -JASS protocol d/c'd Metabolic acidosis -Monitor -IVF Anemia -Monitor - protonix HTN -Monitor BPH -flomax Tobacco use -Education Consider landmark transfer since pt is requiring high oxygen concentrations via Vapotherm. PAVITHRA CARLIN DO June 14, 2018 06:36
[2018-06-14] MEDS ORDERED: POTASSIUM CL 10MEQ/50ML IVPB 200 ML IV ONE (06:37)
[2018-06-14] MEDS ORDERED: BUMETANIDE 1 MG/4 ML (BUMEX) VIAL ONE (06:40)
[2018-06-14] MEDS: POTASSIUM CL 10MEQ/50ML IVPB 50 ML IV SCH ×4 (06:44→08:00)
[2018-06-14] MEDS ORDERED: BUMETANIDE 1 MG/4 ML (BUMEX) VIAL IV ONE (06:45)
[2018-06-14] MEDS: RT-ALBUTEROL/IPRATROPIUM 3 ML (DUONEB) VIAL INH SCH ×4 (07:10→18:56)
[2018-06-14] MEDS: RT-BUDESONIDE NEBS 0.5 MG/2ML (PULMICORT) AMP INH SCH ×2 (07:10→18:56)
--- NOTE | 2018-06-14 07:47 | Progress Note (SOAP) ---
Subjective Time Seen by a Provider: 07:45 Subjective/Events-last exam Patient transferred to ICU. Patient on Vapotherm. Patient coherent. Patient knows the year and where he is at. Patient knows who I am Objective Exam Vital Signs Date Time Temp Pulse Resp B/P (MAP) Pulse Ox O2 Delivery O2 Flow Rate FiO2 06/14/18 06:00 54 19 179/93 (121) 97 Vapotherm 75.00 20.00 06/14/18 05:00 51 19 178/87 (117) 93 Vapotherm 75.00 20.00 06/14/18 04:00 96.9 06/14/18 04:00 Vapotherm 25.00 70 06/14/18 04:00 71 26 160/89 (112) 91 Vapotherm 75.00 20.00 06/14/18 03:00 68 28 167/98 (121) 91 Vapotherm 75.00 20.00 06/14/18 02:00 61 17 170/85 (113) 95 Vapotherm 75.00 20.00 06/14/18 01:00 64 21 156/76 (102) 97 Vapotherm 75.00 20.00 06/14/18 01:00 64 06/14/18 00:00 Vapotherm 25.00 70 06/14/18 00:00 97.1 06/14/18 00:00 64 20 151/80 (103) 97 Vapotherm 75.00 20.00 06/13/18 23:18 68 20 92 Vapotherm 75.00 20.00 06/13/18 23:00 71 16 123/89 (100) 88 Vapotherm 50.00 20.00 06/13/18 22:20 21 97 Vapotherm 50.00 20.00 06/13/18 22:20 98 Vapotherm 20.00 50 06/13/18 22:00 68 21 119/58 (78) 97 Vapotherm 70.00 25.00 06/13/18 21:00 73 22 152/76 (101) Vapotherm 70.00 25.00 06/13/18 20:00 72 21 172/81 (111) 96 Vapotherm 70.00 25.00 06/13/18 20:00 Vapotherm 25.00 80 06/13/18 19:45 97.6 06/13/18 19:09 95 Vapotherm 70.00 25 06/13/18 19:01 73 23 95 Vapotherm 70.00 25.00 06/13/18 19:01 97 Vapotherm 25.00 80 06/13/18 19:00 70 06/13/18 19:00 70 21 184/90 (121) 97 Vapotherm 80.00 25.00 06/13/18 18:00 71 23 184/90 (121) 97 Vapotherm 80.00 25.00 06/13/18 17:00 70 18 177/88 (117) 89 Vapotherm 80.00 25.00 06/13/18 16:32 Vapotherm 25.00 80 06/13/18 16:00 69 17 179/89 (119) 95 Vapotherm 80.00 25.00 06/13/18 15:55 97.4 06/13/18 15:06 93 Vapotherm 25.00 80 06/13/18 15:00 73 23 161/95 (117) 93 Vapotherm 80.00 25.00 06/13/18 14:45 71 23 144/73 (96) 93 Vapotherm 80.00 25.00 06/13/18 14:36 97.4 06/13/18 12:00 97.9 65 18 142/72 (95) 97 Vapotherm 80.00 25.00 06/13/18 10:53 91 Vapotherm 25.00 80 06/13/18 09:00 Vapotherm 15.00 60 I & O 06/14/18 07:00 Intake Total 840 ml Output Total 1750 ml Balance -910 ml Capillary Refill : Less Than 3 Seconds General Appearance: No Apparent Distress, WD/WN HEENT: Normal ENT Inspection Neck: Full Range of Motion, Normal Inspection Respiratory: No Accessory Muscle Use, No Respiratory Distress, Decreased Breath Sounds, Other (Congestion with coughing) Cardiovascular: Regular Rate, Rhythm, No Murmur Gastrointestinal: non tender, soft Results Lab Laboratory Tests 06/13/18 09:50 06/14/18 03:15 Laboratory Tests 06/13/18 08:02: Blood Gas Puncture Site R RAD, Blood Gas Patient Temperature 97.4, Arterial Blood pH 7.53H, Arterial Blood Partial Pressure CO2 31L, Arterial Blood Partial Pressure O2 57L, Arterial Blood HCO3 26, Arterial Blood Total CO2 26.9, Arterial Blood Oxygen Saturation 90L, Arterial Blood Base Excess 3.1H, [place] Test YES-POS, Blood Gas Ventilator Setting YES, Blood Gas Inspired Oxygen 25 06/13/18 09:50: Sodium Level 143, Potassium Level 3.5L, Chloride Level 106, Carbon Dioxide Level 23, Anion Gap 14, Blood Urea Nitrogen 33H, Creatinine 1.05, Estimat Glomerular Filtration Rate > 60, BUN/Creatinine Ratio 31, Glucose Level 165H, Calcium Level 8.8, Corrected Calcium 9.8, Phosphorus Level 3.4, Magnesium Level 2.0, Total Bilirubin 1.1H, Aspartate Amino Transf (AST/SGOT) 22, Alanine Aminotransferase (ALT/SGPT) 19, Alkaline Phosphatase 55, Total Protein 6.4, Albumin 2.8L 06/14/18 03:15: Sodium Level 142, Potassium Level 3.6, Chloride Level 109H, Carbon Dioxide Level 21, Anion Gap 12, Blood Urea Nitrogen 38H, Creatinine 1.03, Estimat Glomerular Filtration Rate > 60, BUN/Creatinine Ratio 37, Glucose Level 136H, Calcium Level 8.5, Phosphorus Level 3.9, Magnesium Level 1.8, White Blood Count 5.1, Red Blood Count 3.42L, Hemoglobin 10.3L, Hematocrit 31L, Mean Corpuscular Volume 90, Mean Corpuscular Hemoglobin 30, Mean Corpuscular Hemoglobin Concent 34, Red Cell Distribution Width 16.4H, Platelet Count 258, Mean Platelet Volume 11.0H, Neutrophils (%) (Auto) 84H, Lymphocytes (%) (Auto) 11L, Monocytes (%) ( Auto) 5, Eosinophils (%) (Auto) 0, Basophils (%) (Auto) 0, Neutrophils # (Auto) 4.3, Lymphocytes # (Auto) 0.6L, Monocytes # (Auto) 0.2, Eosinophils # (Auto) 0.0 , Basophils # (Auto) 0.0, B-Type Natriuretic Peptide 578.6H Microbiology 06/03/18 Gram Stain - Final, Complete 06/03/18 Sputum Culture - Final, Complete Usual upper respiratory juana Strep agalactiae Group B See Comments Assessment/Plan Assessment/Plan Assess & Plan/Chief Complaint Acute mental status change. Hyponatremia. Urinary retention. Benign prostatic hypertrophy. History of falling. Alcoholism. Anemia. Acute respiratory distress. Hypertension history. Patient on vent and sedated. . . Pneumonia. CHF. Acute mental status change. Hyponatremia. Benign prostatic hypertrophy. Urinary retention. Alcoholism. Anemia. Acute respiratory distress. Hypertension history hypoxia. . 06/07/18. Acute respiratory distress. Pneumonia. Acute mental status change. Alcoholism. Hyponatremia. Hypoxia. Benign prostatic hypertrophy. Urinary obstruction. Pancytopenia. Leukopenia. Anemia. Thrombocytopenia.. . . 06/08/18. Acute respiratory distress. Pneumonia. Acute mental status change. Patient not awake this morning Hyponatremia. Hypoxia. Benign prostatic hypertrophy. Urinary obstruction. Thrombocytopenia improving. Anemia. Chest x-ray shows right leg improving left lung not getting worse. . 06/09/18. Acute respiratory distress. Pneumonia. Acute mental status change. Hyponatremia. Hypoxia. Benign prostatic hypertrophy. Urinary obstruction. Anemia. . 06/12/18. Acute respiratory distress. Pneumonia. Hepatic encephalopathy. Acute mental status change. Anemia. Hypertension. Alcoholism. Tobacco use. Hypokalemia. Hyponatremia. . 06/13/18. Acute respiratory distress resolved. Pneumonia. Hepatic encephalopathy. Acute mental status change resolved. Anemia. Hypertension. Alcoholism. Tobacco use. CHF. Hypokalemia. Hyponatremia. . 06/14/18. Acute respiratory distress. Pneumonia. Acute mental status change resolved Anemia Hypertension. Alcoholism history. Tobacco. Hypokalemia. Hyponatremia. Patient on vimpat Clinical Quality Measures DVT/VTE Risk/Contraindication: Risk Factor Score Per Nursin RFS Level Per Nursing on Admit: 3=High JENNIFER BECK DO June 14, 2018 07:47
[2018-06-14] MEDS: HALOPERIDOL 5 MG/ML (HALDOL) AMP IM SCH ×2 (07:57→20:33)
[2018-06-14] MEDS: LACTULOSE SYRUP 10GM/15ML (ENULOSE) 30ML UDC PO SCH (07:57)
[2018-06-14] MEDS: KCL 20 MEQ POWDER FOR ORAL SOLUTION PO SCH (07:57)
[2018-06-14] MEDS: ARTIFICIAL TEARS OINT (LACRI-LUBE) 3.5 GM TUBE OU SCH ×2 (07:57→20:20)
--- NOTE | 2018-06-14 07:57 | Diagnostic Imaging Report ---
Indication: Cough, congestion and hyponatremia. Comparison made with prior examination from 06/12/2018. Findings: There are bibasal consolidations. There is left pleural effusion. The heart size is stable. There is venous congestion. There is no pneumothorax. The mediastinum is unremarkable. Impression: Bibasal infiltrates left greater than right with left pleural effusion. Moderate central pulmonary venous congestion. Dictated by: Dictated on workstation # [id number]
[2018-06-14] MEDS: PANTOPRAZOLE 40 MG (PROTONIX) VIAL IV SCH (07:58)
--- NOTE | 2018-06-14 11:18 | Physical Therapy Evaluation ---
PT Evaluation-General Medical Diagnosis Admission Date Jun 03, 2018 at 05:13 Medical Diagnosis: urinary retention Onset Date: Jun 02, 2018 Therapy Diagnosis Therapy Diagnosis: weakness; impaired mobility Height/Weight Height (Feet): 6 Height (Inches): 6.00 Weight (Pounds): 180 Weight (Ounces): 1.0 Precautions Precautions/Isolations: Fall Prevention, Standard Precautions, Pressure Ulcer Weight Bear Status Right Lower Extremity: Right Full Weight Bearing Left Lower Extremity: Left Full Weight Bearing Referral Physician: Lamar Schofield Reason for Referral: Evaluation/Treatment Medical History Pertinent Medical History: Alcoholism, CAD, HTN, Renal Insufficiency, Smoking Current History Pt was admitted to ER 06/02 due to failure to urinate for 3 days and progressive weakness and in ability to ambulate. He was intubated and admitted to ICU following ETOH detox with physical agression. Pt stabilized after being extubated and was transferred to 4th floor for several days. He was taken back to ICU due to medical complication. Reviewed History: Yes Prior/Core FIM Prior Level of Function Therapy Code Descriptions/Definitions Functional [place] Measure: 0=Not Assessed/NA 4=Minimal Assistance 1=Total Assistance 5=Supervision or Setup 2=Maximal Assistance 6=Modified [place] 3=Moderate Assistance 7=Complete [place] Therapy Quality Codes: 6 Independent with activity with or without an assistive device 5 Patient requires set up or clean up by helper. Patient completes activity by themselves 4 Supervision or touching assist (CGA). [place] provide cues , steadying assist 3 The helper provides less than half the effort to complete the activity 2 The helper provides more than half the effort to complete the activity 1 Dependent. The helper does all the effort to complete an activity 7 Patient refused to complete or attempt activity 9 The patient did not perform the activity before the current illness or injury 88 Not attempted due to Medical conditions or safety concerns Functional Abilities and Goals: Independent: Patient completed the activities by him/herself, with or without an assistive device, with no assistance from a helper. Needed Some Help: Patient needed partial assistance from another person to complete activities. Dependent: A helper completed the activities for the patient. Unknown: Not Applicable: PT Evaluation-Current Subjective Pt compliant with treatment. No c/o pain. Objective Patient Orientation: Person, Situation Problem Solving: Fair Attachments: Central Line, Oxygen, Jara Catheter, IV ROM/Strength ROM Lower Extremities WFL Strength Lower Extremities Gross 3+/5 throughout Sensory Vision: Wears Glasses Hearing: Impaired Sensation Right Lower Extremit: Intact Sensation Left Lower Extremity: Intact Transfers Therapy Code Descriptions/Definitions Functional [place] Measure: 0=Not Assessed/NA 4=Minimal Assistance 1=Total Assistance 5=Supervision or Setup 2=Maximal Assistance 6=Modified [place] 3=Moderate Assistance 7=Complete [place] Transfers (B, C, W/C) (FIM): 3 Scootin Supine to/from Sit: 3 Sit to/from Stand: 3 Needs moderate physical assist to raise both legs into bed, moderate assist to bring trunk up during supine to sit Gait Mode of Locomotion: Walk Gait (FIM): 2 Distance (FIM): 1=up to 49 ft Distance: 5 Gait Level of Assist: 3 Gait Persons Needed: 2 Gait Assistive Device: FWW Comments/Gait Description Assist of 2 to manage walker and provide physical assist for balance. Balance Sitting Static: Poor Sitting Dynamic: Poor Standing Static: Poor Standing Dynamic: Poor Assessment/Needs Co-eval with occupational therapist to allow observation of patient performing dynamic functional tasks while sitting and standing. Pt has trunk, UE, and LE weakness that are limiting ability to move in bed and perform transfers. Pt has impaired balance and strength that are limiting his ability to walk. Pt is showing improvement since admission and will benefit from therapy to progress strength and functional mobility training. Rehab Potential: Fair PT Short Term Goals Short Term Goals Time Frame: June 16, 2018 Transfers (B,C,W/C) (FIM): 2 Gait (FIM): 1 Distance (FIM): 1=up to 49 ft Gait Distance Comment: 10 Gait Level of Assist: 2 Gait Assistive Device: FWW PT Rag Grader Goals Rag Grader Goals PT Rag Grader Goals Time Frame: July 01, 2018 Transfers (B,C,W/C) (FIM): 4 Gait (FIM): 3 Gait distance (FIM): 2=980-69 ft Distance: 100 Gait Level of Assist: 4 Gait Assistive Device: FWW PT Plan Problem List Problem List: Activity Tolerance, Balance, Gait, Transfer, Bed Mobility Treatment/Plan Treatment Plan: Continue Plan of Care Treatment Plan: Bed Mobility, Education, Functional Activity Chriss, Functional Strength, Gait, Safety, Therapeutic Exercise, Transfers Treatment Duration: June 30, 2018 Frequency: 6 times per week Estimated Hrs Per Day: .25 hour per day Patient and/or Family Agrees t: Yes Safety Risks/Education Patient Education: Gait Training, Transfer Techniques Teaching Recipient: Patient Time/GCodes Time In: 1040 Time Out: 1100 Total Billed Treatment Time: 20 Total Billed Treatment visit, evaluation moderate complexity 20 minutes BETHANY DOMINGO PT June 14, 2018 11:18
--- NOTE | 2018-06-14 11:20 | NUR ---
Dr. Mejias in room. Pt sats 96% Vapotherm decreased to 70%
--- NOTE | 2018-06-14 13:27 | Occupational Therapy Eval ---
OT Evaluation-General/PLF Medical Diagnosis Admission Date Jun 03, 2018 at 05:13 Medical Diagnosis: urinary retention Onset Date: Jun 02, 2018 Therapy Diagnosis Therapy Diagnosis: Weakness Height/Weight Height (Feet): 6 Height (Inches): 6.00 Weight (Pounds): 180 Weight (Ounces): 1.0 Precautions Precautions/Isolations: Fall Prevention, Standard Precautions, Pressure Ulcer Safety Interventions: None Weight Bear Status Weight Bearing Restriction: Weight Bearing/Tolerated Referral Physician: Lamar Schofield Referral Reason: Activity Tolerance, Self Care, Evaluation/Treatment, Strengthening/ROM Medical History Pertinent Medical History: Alcoholism, CAD, HTN, Renal Insufficiency, Smoking Additional Medical History Coronary stents Current History Pt. came to ER with urinary retention. Alcohol protocol started and pt. became agitated. Currently, pt. is poor historian. Reviewed History: Yes Social History Pt. is unable to state at this time where he lives or who he lives with. OT does ask him where he lives, and he states, "I'm not sure." ADL-Prior Level of Function Therapy Code Descriptions/Definitions Functional Grainger Measure: 0=Not Assessed/NA 4=Minimal Assistance 1=Total Assistance 5=Supervision or Setup 2=Maximal Assistance 6=Modified Grainger 3=Moderate Assistance 7=Complete Grainger Therapy Quality Codes: 6 Independent with activity with or without an assistive device 5 Patient requires set up or clean up by helper. Patient completes activity by themselves 4 Supervision or touching assist (CGA). Jerome provide cues , steadying assist 3 The helper provides less than half the effort to complete the activity 2 The helper provides more than half the effort to complete the activity 1 Dependent. The helper does all the effort to complete an activity 7 Patient refused to complete or attempt activity 9 The patient did not perform the activity before the current illness or injury 88 Not attempted due to Medical conditions or safety concerns Functional Abilities and Goals: Independent: Patient completed the activities by him/herself, with or without an assistive device, with no assistance from a helper. Needed Some Help: Patient needed partial assistance from another person to complete activities. Dependent: A helper completed the activities for the patient. Unknown: Not Applicable: ADL PLOF Comments This is unknown at this time. Pt. is unable to verbalize this. Self Care: Unknown Functional Cognition: Unknown Pt. is unable to state what his previous history is or if he has any equipment. OT Current Status Subjective Pt. does not report pain. Does report that he is hungry. Agrees to work with OT. Appearance Pt. in bed. Alert. Agrees to work with therapy. Mental Status/Objective Patient Orientation: Unable to Assess Attachments: Jara Catheter, IV, Oxygen, Telemetry Current Glasses/Contacts: No Hearing Aids: No Dentures/Partials: No Upper Extremity ROM Limited at shoulder level. ADL-Treatment Therapy Code Descriptions/Definitions Functional Grainger Measure: 0=Not Assessed/NA 4=Minimal Assistance 1=Total Assistance 5=Supervision or Setup 2=Maximal Assistance 6=Modified Grainger 3=Moderate Assistance 7=Complete Grainger Therapy Quality Codes: 6 Independent with activity with or without an assistive device 5 Patient requires set up or clean up by helper. Patient completes activity by themselves 4 Supervision or touching assist (CGA). Jerome provide cues , steadying assist 3 The helper provides less than half the effort to complete the activity 2 The helper provides more than half the effort to complete the activity 1 Dependent. The helper does all the effort to complete an activity 7 Patient refused to complete or attempt activity 9 The patient did not perform the activity before the current illness or injury 88 Not attempted due to Medical conditions or safety concerns Eating (FIM): 5 (Set up for food at bed level.) Grooming (FIM): 3 (Pt. attempts to wash face and brush hair, but is unable to do this thoroughly. ) Transfers (B, C, W/C) (FIM): 1 (Please see note.) OT/PT co-treat due to pt's inability to transfer with one assist and need for skilled treatment of two people. Pt. requires max x 2 for supine-sit. Mod assist at times for balance sitting on side of bed. PT focused on sitting balance and OT initiated light ADLs seated. Pt. attempted to brush hair but unable to do so thoroughly. OT did this for him. Pt. attempted to wash face but unable to wash food off, so OT assisted him. OT attempted to wash pt's hands with washcloth and wash under nails. Pt. stood twice with mod x 2 at bed level. Pt. able to take several steps toward HOB each time he stood. Required several rest breaks. Mod x 2 for sit-supine and positioning in bed. Pt. requested for his food to be put back in front of him. Met all needs. Pt. tolerated treatment well. Education OT Patient Education: Correct positioning, Modified ADL techniques, Progress toward Goal/Update tx plan, Purpose of tx/functional activities, Reviewed precautions, Rehab process, Transfer techniques Teaching Recipient: Patient Teaching Methods: Demonstration, Discussion Response to Teaching: Verbalize Understanding, Return Demonstration OT Short Term Goals Short Term Goals Eating(FIM): 5 Grooming(FIM): 5 Bathing(FIM): 3 Lower Body Dressing(FIM): 2 Transfers (B,C,W/C) (FIM): 2 Toilet/Commode Transfer(FIM): 3 Additional Short Term Goals: 1-Demonstrate ADL Tasks, 2-Verbalize Understanding , 3-ImproveStrength/Chriss 1=Demonstrate adherence to instructed precautions during ADL tasks. 2=Patient will verbalize/demonstrate understanding of assistive devices/ modifications for ADL. 3=Patient will improve strength/tolerance for activity to enable patient to perform ADL's. OT Snf Goals Snf Goals Eating (FIM): 6 Grooming(FIM): 5 Bathing(FIM): 5 Upper Body Dressing(FIM): 5 Lower Body Dressing(FIM): 5 Toileting(FIM): 6 Transfers (B,C,W/C) (FIM): 5 Toilet/Commode Transfer(FIM): 5 Additional Goals: 1-Demonstrate ADL Tasks, 2-Verbalize Understanding, 3- ImproveStrength/Chriss 1=Demonstrate adherence to instructed precautions during ADL tasks. 2=Patient will verbalize/demonstrate understanding of assistive devices/ modifications for ADL. 3=Patient will improve strength/tolerance for activity to enable patient to perform ADL's. OT Education/Plan Problem List/Assessment Assessment: Decreased Activ Tolerance, Decreased Safety Aware, Decreased UE Strength, Dependent Transfers, Impaired Bed Mobility, Impaired Cognition, Impaired Coordination, Impaired Funct Balance, Impaired I ADL's, Impaired Self- Care Skills, Restricted Funct UE ROM pt presents with functional limitations affecting areas of ADLs and functional transfers. pt is unable to state PLOF and decrease decrease ability to follow one step commands. currently if is requiring total assist for all ADLs and functional transfers. pt would benefit from OT Services to increase independence with ADLs/ functional transfers. Discharge Recommendations Plan/Recommendations: Continue POC Therapy D/C Recommendations: 24 hr Supervision Comment To be determined based on pt's needs. Barriers to Progress Cognition Target Placement To be determined Treatment Plan/Plan of Care Treatment,Training & Education: Yes Patient would benefit from OT for education, treatment and training to promote independence in ADL's, mobility, safety and/or upper extremity function for ADL' s. Plan of Care: ADL Retraining, Cognitive Retraining, Functional Mobility, Group Exercise/Act as Ind, UE Funct Exercise/Act, Visual/Perceptual Retrain Treatment Duration: July 03, 2018 Frequency: 5 times per week Estimated Hrs Per Day: .25 hour per day Agreement: Yes Rehab Potential: Fair Time/GCodes Start Time: 10:40 Stop Time: 11:00 Total Time Billed (hr/min): 20 Billed Treatment Time 1, [facility] OT June 14, 2018 13:27
--- NOTE | 2018-06-14 14:39 | NUR ---
CM/SS spoke with Harley Pizano (patient's grandson) and he believed his sister (Elle Jennings) was DPOA for the patient, Harley was going to pass along message to call SW and number provided. Attempted to call Elle at [phone], the number is not active at this time. Attempted to talk with the patient and he seemed confused, thinking I was with insurance or going to handle finances and he wanted all those ran by him, even after attempting to provide clarification several times. Then he listed a couple of other grandkid's names that we do not have as contacts.
[2018-06-14] MEDS: TAMSULOSIN 0.4 MG (FLOMAX) CAP PO SCH (17:48)
[2018-06-14] MEDS: HALOPERIDOL 5 MG/ML (HALDOL) AMP IV PRN (18:51)
[2018-06-15] VITALS (16 sets, daily range): BP systolic 90–200; BP diastolic 43–93
[2018-06-15] MEDS: hydrALAZINE (APESOLINE) 20 MG/ML VIAL IV PRN (04:02)
[2018-06-15 05:11] LABS: BASOPHILS % (AUTO) 0 % (0-10); EOSINOPHILS % (AUTO) 0 % (0-10); HEMATOCRIT 32 % (40-54); HEMOGLOBIN 10.5 G/DL (13.3-17.7); LYMPHOCYTES # (AUTO) 0.7 X 10^3 (1.0-4.0); LYMPHOCYTES % (AUTO) 8 % (12-44); MEAN CORPUSCULAR HEMOGLOBIN 30 PG (25-34); MEAN CORPUSCULAR HGB CONC 33 G/DL (32-36); MEAN CORPUSCULAR VOLUME 91 FL (80-99); MEAN PLATELET VOLUME 10.5 FL (7.4-10.4); MONOCYTES # (AUTO) 0.3 X 10^3 (0.0-1.0); MONOCYTES % (AUTO) 3 % (0-12); NEUTROPHILS % (AUTO) 89 % (42-75); PLATELET COUNT 339 10^3/uL (130-400); RED CELL DISTRIBUTION WIDTH 16.8 % (10.0-14.5); WHITE BLOOD COUNT 7.9 10^3/uL (4.3-11.0)
[2018-06-15 05:24] LABS: BUN/CREATININE RATIO 46; CALCIUM 8.6 MG/DL (8.5-10.1); CARBON DIOXIDE 21 MMOL/L (21-32); CHLORIDE 110 MMOL/L (98-107); GFR ESTIMATED > 60; GLUCOSE 126 MG/DL (70-105); MAGNESIUM 1.9 MG/DL (1.8-2.4); PHOSPHORUS 3.4 MG/DL (2.3-4.7); POTASSIUM 3.9 MMOL/L (3.6-5.0); SODIUM 143 MMOL/L (135-145)
[2018-06-15] MEDS: methylPREDNISolone 40 MG/ML (Solu-MEDROL) VIAL IV SCH ×3 (05:25→18:23)
--- NOTE | 2018-06-15 05:36 | Pulmonary Progress Note ---
Subjective Time Seen by a Provider: 05:37 Subjective/Events-last exam Pt is still requiring high flow Vapotherm. Sepsis Event Evaluation Height, Weight, BMI Height: 6'6.00" Weight: 172lbs. 7.0oz. [id number]; 20.4 BMI Method:Stated Exam Exam Vital Signs Date Time Temp Pulse Resp B/P (MAP) Pulse Ox O2 Delivery O2 Flow Rate FiO2 06/15/18 05:00 62 18 142/58 (86) 98 Vapotherm 65.00 20.00 06/15/18 04:05 97.7 06/15/18 04:00 56 25 178/86 (116) 98 Vapotherm 65.00 20.00 06/15/18 03:00 56 19 194/78 (116) 95 Vapotherm 65.00 20.00 06/15/18 02:00 53 26 178/82 (114) 96 Vapotherm 65.00 20.00 06/15/18 01:00 60 06/15/18 01:00 58 19 200/85 (123) 96 Vapotherm 65.00 20.00 06/15/18 00:00 68 12 107/63 (78) 90 Vapotherm 65.00 20.00 06/14/18 23:45 97.5 06/14/18 23:00 65 17 149/78 (101) 92 Vapotherm 65.00 20.00 06/14/18 22:00 65 25 174/82 (112) 94 Vapotherm 65.00 20.00 06/14/18 21:00 66 20 166/88 (114) 98 Vapotherm 65.00 20.00 06/14/18 20:00 97.4 06/14/18 20:00 Vapotherm 15.00 65 06/14/18 20:00 70 13 163/100 (121) 91 Vapotherm 65.00 20.00 06/14/18 19:00 91 Vapotherm 20.00 65 06/14/18 19:00 74 06/14/18 19:00 76 16 151/103 (119) 91 Vapotherm 65.00 20.00 06/14/18 18:56 91 Vapotherm 20.00 65 06/14/18 18:00 77 16 163/84 (110) 93 Vapotherm 65.00 20.00 06/14/18 17:00 75 25 160/88 (112) 93 Vapotherm 65.00 20.00 06/14/18 16:39 Vapotherm 65.00 20.00 06/14/18 16:30 Vapotherm 65.00 15.00 06/14/18 16:24 93 Vapotherm 20.00 70 06/14/18 16:00 77 25 144/81 (102) 86 Vapotherm 70.00 20.00 06/14/18 16:00 98.9 06/14/18 16:00 Vapotherm 15.00 65 06/14/18 15:02 92 Vapotherm 25.00 70 06/14/18 15:00 78 15 145/76 (99) 82 Vapotherm 70.00 20.00 06/14/18 14:00 79 25 152/77 (102) 94 Vapotherm 70.00 20.00 06/14/18 13:00 72 28 167/83 (111) 90 Vapotherm 70.00 20.00 06/14/18 12:56 70 06/14/18 12:00 Vapotherm 25.00 70 06/14/18 12:00 73 22 158/74 (102) 85 Vapotherm 70.00 20.00 06/14/18 12:00 97.4 06/14/18 11:35 94 Vapotherm 20.00 70 06/14/18 11:25 Vapotherm 70.00 20.00 06/14/18 11:00 74 21 134/70 (91) 94 Vapotherm 75.00 20.00 06/14/18 10:18 91 Vapotherm 20.00 75 06/14/18 10:00 67 22 154/76 (102) 96 Vapotherm 75.00 20.00 06/14/18 09:00 73 22 158/81 (106) 97 Vapotherm 75.00 20.00 06/14/18 08:08 98.2 06/14/18 08:00 67 18 147/78 (101) 93 Vapotherm 75.00 20.00 06/14/18 08:00 Vapotherm 25.00 80 06/14/18 07:28 68 06/14/18 07:15 Vapotherm 25.00 80 06/14/18 07:00 73 24 149/84 (105) 87 Vapotherm 75.00 20.00 06/14/18 06:00 54 19 179/93 (121) 97 Vapotherm 75.00 20.00 I & O 06/15/18 07:00 Intake Total 2140 ml Output Total 1350 ml Balance 790 ml Height & Weight Height: 6'6.00" Weight: 172lbs. 7.0oz. 78.436701lu; 20.4 BMI Method:Stated General Appearance: WD/WN, Anxious, Chronically ill, Mild Distress HEENT: Normal ENT Inspection Neck: Normal Inspection Respiratory: Lungs Clear, No Accessory Muscle Use, No Respiratory Distress, Decreased Breath Sounds Cardiovascular: Regular Rate, Rhythm, No Murmur Capillary Refill: Less Than 3 Seconds Gastrointestinal: non tender, soft Extremity: Normal Capillary Refill, Normal Inspection Neurologic/Psychiatric: Alert, Disoriented, Other Skin: Normal Color, Warm/Dry Lymphatic: No Adenopathy Results Lab Laboratory Tests 06/13/18 09:50 06/14/18 03:15 06/15/18 04:55 Assessment/Plan Assessment/Plan Acute respiratory distress - -Pt is requiring Vapotherm 55% -S/P # 8 of Zosyn -- No leukocytosis, NO fever - doubt infection -D/C Zosyn -Pt is on a dysphagia diet -Giorgi Count -- I question if pt needs peg tube. -Solumedrol 40 IV Q 6 -SVNS with EasyPap - Continue lasix 40mg daily -CTA of chest reviewed- NO PE does show extensive emphysema and small bilateral pleural effusions/atelectasis - echo - reviewed diastolic chf grade 1 AE with Bilateral pleural effusions - lasix dysphagia -pt is on dysphagia diet -I question if pt is getting enough giorgi -will consult dietary for giorgi counts -I also question if pt needs peg tube HTN -Start Norvasc, Lisinopril -hydralazine PRN IV Hepatic encephalopathy -Lactulose PNA - probable aspiration PNA vs pulmonary edema -No leukocytosis or fever -s/p Zosyn x 7days Acute MS changes/confusion/psychosis probably secondary to Alcohol - monitored -JASS protocol d/c'd Metabolic acidosis -Monitor -IVF Anemia -Monitor - protonix HTN -Monitor BPH -flomax Tobacco use -Education Consider landmark transfer since pt is requiring high oxygen concentrations via Vapotherm. PAVITHRA CARLIN DO June 15, 2018 05:36
[2018-06-15] MEDS: ENOXAPARIN 40 MG/0.4 ML (LOVENOX) SYR SC SCH (06:07)
[2018-06-15] MEDS: RT-ALBUTEROL/IPRATROPIUM 3 ML (DUONEB) VIAL INH SCH ×3 (06:55→14:16)
[2018-06-15] MEDS: RT-BUDESONIDE NEBS 0.5 MG/2ML (PULMICORT) AMP INH SCH (06:55)
--- NOTE | 2018-06-15 06:55 | Diagnostic Imaging Report ---
Indication: Hyponatremia Portable chest 3:25 AM Heart size is normal. There is mild vascular congestion with interstitial edema. There is no appreciable effusion or pneumothorax. Impression: Pulmonary venous congestion with some interstitial edema. This appears similar to the previous day's comparison exam. Dictated by: Dictated on workstation # [id number]
--- NOTE | 2018-06-15 07:49 | Progress Note (SOAP) ---
Subjective Time Seen by a Provider: 07:47 Subjective/Events-last exam Patient alert today. Patient on high-dose Vapotherm. Patient candidate for [place] Objective Exam Vital Signs Date Time Temp Pulse Resp B/P (MAP) Pulse Ox O2 Delivery O2 Flow Rate FiO2 06/15/18 07:06 59 06/15/18 06:55 93 Vapotherm 20.00 35 06/15/18 06:00 67 17 170/86 (114) 93 Vapotherm 65.00 20.00 06/15/18 05:00 62 18 142/58 (86) 98 Vapotherm 65.00 20.00 06/15/18 04:05 97.7 06/15/18 04:00 56 25 178/86 (116) 98 Vapotherm 65.00 20.00 06/15/18 03:00 56 19 194/78 (116) 95 Vapotherm 65.00 20.00 06/15/18 02:00 53 26 178/82 (114) 96 Vapotherm 65.00 20.00 06/15/18 01:00 60 06/15/18 01:00 58 19 200/85 (123) 96 Vapotherm 65.00 20.00 06/15/18 00:00 68 12 107/63 (78) 90 Vapotherm 65.00 20.00 06/14/18 23:45 97.5 06/14/18 23:00 65 17 149/78 (101) 92 Vapotherm 65.00 20.00 06/14/18 22:00 65 25 174/82 (112) 94 Vapotherm 65.00 20.00 06/14/18 21:00 66 20 166/88 (114) 98 Vapotherm 65.00 20.00 06/14/18 20:00 97.4 06/14/18 20:00 Vapotherm 15.00 65 06/14/18 20:00 70 13 163/100 (121) 91 Vapotherm 65.00 20.00 06/14/18 19:00 91 Vapotherm 20.00 65 06/14/18 19:00 74 06/14/18 19:00 76 16 151/103 (119) 91 Vapotherm 65.00 20.00 06/14/18 18:56 91 Vapotherm 20.00 65 06/14/18 18:00 77 16 163/84 (110) 93 Vapotherm 65.00 20.00 06/14/18 17:00 75 25 160/88 (112) 93 Vapotherm 65.00 20.00 06/14/18 16:39 Vapotherm 65.00 20.00 06/14/18 16:30 Vapotherm 65.00 15.00 06/14/18 16:24 93 Vapotherm 20.00 70 06/14/18 16:00 77 25 144/81 (102) 86 Vapotherm 70.00 20.00 06/14/18 16:00 98.9 06/14/18 16:00 Vapotherm 15.00 65 06/14/18 15:02 92 Vapotherm 25.00 70 06/14/18 15:00 78 15 145/76 (99) 82 Vapotherm 70.00 20.00 06/14/18 14:00 79 25 152/77 (102) 94 Vapotherm 70.00 20.00 06/14/18 13:00 72 28 167/83 (111) 90 Vapotherm 70.00 20.00 06/14/18 12:56 70 06/14/18 12:00 Vapotherm 25.00 70 06/14/18 12:00 73 22 158/74 (102) 85 Vapotherm 70.00 20.00 06/14/18 12:00 97.4 06/14/18 11:35 94 Vapotherm 20.00 70 06/14/18 11:25 Vapotherm 70.00 20.00 06/14/18 11:00 74 21 134/70 (91) 94 Vapotherm 75.00 20.00 06/14/18 10:18 91 Vapotherm 20.00 75 06/14/18 10:00 67 22 154/76 (102) 96 Vapotherm 75.00 20.00 06/14/18 09:00 73 22 158/81 (106) 97 Vapotherm 75.00 20.00 06/14/18 08:08 98.2 06/14/18 08:00 67 18 147/78 (101) 93 Vapotherm 75.00 20.00 06/14/18 08:00 Vapotherm 25.00 80 I & O 06/15/18 07:00 Intake Total 2440 ml Output Total 1975 ml Balance 465 ml Capillary Refill : Less Than 3 Seconds General Appearance: No Apparent Distress, WD/WN HEENT: Normal ENT Inspection Neck: Full Range of Motion, Normal Inspection Respiratory: No Accessory Muscle Use, No Respiratory Distress, Decreased Breath Sounds Cardiovascular: Regular Rate, Rhythm, No Murmur Gastrointestinal: non tender, soft Results Lab Laboratory Tests 06/15/18 04:55 Laboratory Tests 06/15/18 04:55: White Blood Count 7.9, Red Blood Count 3.50L, Hemoglobin 10.5L, Hematocrit 32L, Mean Corpuscular Volume 91, Mean Corpuscular Hemoglobin 30, Mean Corpuscular Hemoglobin Concent 33, Red Cell Distribution Width 16.8H, Platelet Count 339, Mean Platelet Volume 10.5H, Neutrophils (%) (Auto) 89H, Lymphocytes (%) (Auto) 8L, Monocytes (%) (Auto) 3, Eosinophils (%) (Auto) 0, Basophils (%) (Auto) 0, Neutrophils # (Auto) 7.0, Lymphocytes # (Auto) 0.7L, Monocytes # (Auto) 0.3, Eosinophils # (Auto) 0.0, Basophils # (Auto) 0.0, Sodium Level 143, Potassium Level 3.9, Chloride Level 110H, Carbon Dioxide Level 21, Anion Gap 12, Blood Urea Nitrogen 41H, Creatinine 0.90, Estimat Glomerular Filtration Rate > 60, BUN /Creatinine Ratio 46, Glucose Level 126H, Calcium Level 8.6, Phosphorus Level 3.4, Magnesium Level 1.9 Microbiology 06/03/18 Gram Stain - Final, Complete 06/03/18 Sputum Culture - Final, Complete Usual upper respiratory juana Strep agalactiae Group B See Comments Assessment/Plan Assessment/Plan Assess & Plan/Chief Complaint Acute mental status change. Hyponatremia. Urinary retention. Benign prostatic hypertrophy. History of falling. Alcoholism. Anemia. Acute respiratory distress. Hypertension history. Patient on vent and sedated. . . Pneumonia. CHF. Acute mental status change. Hyponatremia. Benign prostatic hypertrophy. Urinary retention. Alcoholism. Anemia. Acute respiratory distress. Hypertension history hypoxia. . 06/07/18. Acute respiratory distress. Pneumonia. Acute mental status change. Alcoholism. Hyponatremia. Hypoxia. Benign prostatic hypertrophy. Urinary obstruction. Pancytopenia. Leukopenia. Anemia. Thrombocytopenia.. . . 06/08/18. Acute respiratory distress. Pneumonia. Acute mental status change. Patient not awake this morning Hyponatremia. Hypoxia. Benign prostatic hypertrophy. Urinary obstruction. Thrombocytopenia improving. Anemia. Chest x-ray shows right leg improving left lung not getting worse. . 06/09/18. Acute respiratory distress. Pneumonia. Acute mental status change. Hyponatremia. Hypoxia. Benign prostatic hypertrophy. Urinary obstruction. Anemia. . 06/12/18. Acute respiratory distress. Pneumonia. Hepatic encephalopathy. Acute mental status change. Anemia. Hypertension. Alcoholism. Tobacco use. Hypokalemia. Hyponatremia. . 06/13/18. Acute respiratory distress resolved. Pneumonia. Hepatic encephalopathy. Acute mental status change resolved. Anemia. Hypertension. Alcoholism. Tobacco use. CHF. Hypokalemia. Hyponatremia. . 06/14/18. Acute respiratory distress. Pneumonia. Acute mental status change resolved Anemia Hypertension. Alcoholism history. Tobacco. Hypokalemia. Hyponatremia. Patient on vapotherm. . 06/15/18. Acute respiratory distress. Dysphagia. Hypertension. Pneumonia. Anemia. Benign prostatic hypertrophy. Alcoholism. Tobacco usage. Patient candidate for [place] Clinical Quality Measures DVT/VTE Risk/Contraindication: Risk Factor Score Per Nursin RFS Level Per Nursing on Admit: 3=High JENNIFER BECK DO June 15, 2018 07:49
[2018-06-15] MEDS: ARTIFICIAL TEARS OINT (LACRI-LUBE) 3.5 GM TUBE OU SCH (07:59)
[2018-06-15] MEDS: HALOPERIDOL 5 MG/ML (HALDOL) AMP IM SCH (07:59)
[2018-06-15] MEDS: PANTOPRAZOLE 40 MG (PROTONIX) VIAL IV SCH (07:59)
[2018-06-15] MEDS: KCL 20 MEQ POWDER FOR ORAL SOLUTION PO SCH (07:59)
[2018-06-15] MEDS: LACTULOSE SYRUP 10GM/15ML (ENULOSE) 30ML UDC PO SCH (07:59)
--- NOTE | 2018-06-15 08:52 | NUR ---
CM/SS sent referral information to [facility]. Harry will be out this day to assess the patient.
[2018-06-15] MEDS ORDERED: FUROSEMIDE 40 MG/4 ML INJ (LASIX) IVP SCH (09:00)
[2018-06-15] MEDS ORDERED: BUMETANIDE 1 MG/4 ML (BUMEX) VIAL IV SCH (09:00)
[2018-06-15] MEDS ORDERED: amLODIPine 5 MG (NORVASC) TAB PO SCH (09:00)
[2018-06-15] MEDS ORDERED: lisINopril 10 MG (PRINIVIL) TABLET PO SCH (09:00)
--- NOTE | 2018-06-15 09:22 | Physical Therapy Daily Note ---
PT Daily Note-Current Subjective Patient in bed pre tx, agrees to PT, no complaints of pain. Appearance Patient in chair at bedside post tx with nurse call, phone, tray, all needs met. Mental Status Patient Orientation: Person, Confused Attachments: Oxygen, Jara Catheter vapotherm Transfers Therapy Code Descriptions/Definitions Functional Sheldon Measure: 0=Not Assessed/NA 4=Minimal Assistance 1=Total Assistance 5=Supervision or Setup 2=Maximal Assistance 6=Modified Sheldon 3=Moderate Assistance 7=Complete Sheldon Therapy Quality Codes: 6 Independent with activity with or without an assistive device 5 Patient requires set up or clean up by helper. Patient completes activity by themselves 4 Supervision or touching assist (CGA). [place] provide cues , steadying assist 3 The helper provides less than half the effort to complete the activity 2 The helper provides more than half the effort to complete the activity 1 Dependent. The helper does all the effort to complete an activity 7 Patient refused to complete or attempt activity 9 The patient did not perform the activity before the current illness or injury 88 Not attempted due to Medical conditions or safety concerns Transfers (B, C, W/C) (FIM): 3 Scootin Rollin Supine to/from Sit: 4 Sit to/from Stand: 3 Bed to/from Chair: 4 Patient needs min to mod assist for sit to stand. He had to perform sit to stand several times because as soon as he stood and transferred to chair he had a BM on the floor. Nurse assisted cleaning the BM and patient had to stand several times for changing sheets, wiping, etc. Weight Bearing Right Lower Extremity: Right Full Weight Bearing Left Lower Extremity: Left Full Weight Bearing Gait Training Gait (FIM): 1 Distance: 3' Gait Level of Assist: 4 Gait Persons Needed: 1 Gait Assistive Device: FWW Patient ambulated a few feet from the bed to a chair with Shaylee mostly to help guide walker. Treatments bed mobility and transfers, ambulation Assessment Current Status: Poor Progress no change in mobility PT Short Term Goals Short Term Goals Time Frame: June 16, 2018 Transfers (B,C,W/C) (FIM): 2 Gait (FIM): 1 Distance (FIM): 1=up to 49 ft Gait Distance Comment: 10 Gait Level of Assist: 2 Gait Assistive Device: FWW PT Half-Way Goals Can Filling And Closing Machine Tender Goals PT Half-Way Goals Time Frame: July 01, 2018 Transfers (B,C,W/C) (FIM): 4 Gait (FIM): 3 Gait distance (FIM): 0=077-14 ft Distance: 100 Gait Level of Assist: 4 Gait Assistive Device: FWW PT Plan Problem List Problem List: Activity Tolerance, Functional Strength, Safety, Balance, Gait, Transfer, Bed Mobility, ROM Treatment/Plan Treatment Plan: Continue Plan of Care Treatment Plan: Bed Mobility, Education, Functional Activity Chriss, Functional Strength, Gait, Safety, Therapeutic Exercise, Transfers Treatment Duration: June 30, 2018 Frequency: 6 times per week Estimated Hrs Per Day: .25 hour per day Patient and/or Family Agrees t: Yes Safety Risks/Education Patient Education: Gait Training, Transfer Techniques, Correct Positioning, Safety Issues Teaching Recipient: Patient Teaching Methods: Demonstration, Discussion Response to Teaching: Reinforcement Needed Time/GCodes Time In: 52 Time Out: 16 Total Billed Treatment Time: 24 Total Billed Treatment 1 visit FA 24' CATHRYN DUMONT PT June 15, 2018 09:22
--- NOTE | 2018-06-15 11:10 | NUR ---
Pastoral care visit.
--- NOTE | 2018-06-15 11:17 | Occupational Ther Daily Note ---
OT Current Status-Daily Note Subjective Pt alert, sitting in room chair. Pt mumbles, understandable 50% of the time. Pt agrees to therapy. Pt asks to speak to accounting to find out who will pay for all of this. Reported to nrs. Mental Status/Objective Patient Orientation: Person, Situation Therapy Code Descriptions/Definitions Functional [place] Measure: 0=Not Assessed/NA 4=Minimal Assistance 1=Total Assistance 5=Supervision or Setup 2=Maximal Assistance 6=Modified [place] 3=Moderate Assistance 7=Complete [place] Attachments: Jara Catheter, IV, Oxygen, Telemetry ADL-Treatment With verbal cues pt is able to use swab to cleanse mouth, ineffectively. Given a wash cloth pt will cleanse areas with verbal cues, ineffectively. Assist to don/doff hospital gown. Pt attempts to brush hair, ineffectively. Assistance is needed for thoroughly cleansing and grooming. Pt is able to reach upper body areas though has decreased UE strength to efficiently cleanse areas. Nrsg cleansed lower body earlier this morning. After therapy, pt sitting in chair with call light/phone in reach. All needs met in room. OT Short Term Goals Short Term Goals Eating(FIM): 5 Grooming(FIM): 5 Bathing(FIM): 3 Lower Body Dressing(FIM): 2 Transfers (B,C,W/C) (FIM): 2 Toilet/Commode Transfer(FIM): 3 Additional Short Term Goals: 1-Demonstrate ADL Tasks, 2-Verbalize Understanding , 3-ImproveStrength/Chriss 1=Demonstrate adherence to instructed precautions during ADL tasks. 2=Patient will verbalize/demonstrate understanding of assistive devices/ modifications for ADL. 3=Patient will improve strength/tolerance for activity to enable patient to perform ADL's. OT Medical Housekeeper Goals Shelter Goals Eating (FIM): 6 Grooming(FIM): 5 Bathing(FIM): 5 Upper Body Dressing(FIM): 5 Lower Body Dressing(FIM): 5 Toileting(FIM): 6 Transfers (B,C,W/C) (FIM): 5 Toilet/Commode Transfer(FIM): 5 Additional Goals: 1-Demonstrate ADL Tasks, 2-Verbalize Understanding, 3- ImproveStrength/Chriss 1=Demonstrate adherence to instructed precautions during ADL tasks. 2=Patient will verbalize/demonstrate understanding of assistive devices/ modifications for ADL. 3=Patient will improve strength/tolerance for activity to enable patient to perform ADL's. OT Education/Plan Problem List/Assessment Assessment: Decreased Activ Tolerance, Decreased Safety Aware, Decreased UE Strength, Impaired Self-Care Skills, Restricted Funct UE ROM pt presents with functional limitations affecting areas of ADLs and functional transfers. pt is unable to state PLOF and decrease decrease ability to follow one step commands. currently if is requiring total assist for all ADLs and functional transfers. pt would benefit from OT Services to increase independence with ADLs/ functional transfers. Discharge Recommendations Plan/Recommendations: Continue POC Treatment Plan/Plan of Care Patient would benefit from OT for education, treatment and training to promote independence in ADL's, mobility, safety and/or upper extremity function for ADL' s. Plan of Care: ADL Retraining, Cognitive Retraining, Functional Mobility, Group Exercise/Act as Ind, UE Funct Exercise/Act, Visual/Perceptual Retrain Treatment Duration: July 03, 2018 Frequency: 5 times per week Estimated Hrs Per Day: .25 hour per day Agreement: Yes Rehab Potential: Fair Time/GCodes Start Time: 10:45 Stop Time: 11:10 Total Time Billed (hr/min): 25 Billed Treatment Time 1 visit-ADL 2 (25 min) RADHA GRANDE June 15, 2018 11:17
--- NOTE | 2018-06-15 15:22 | Speech Therapy Daily Note ---
Speech Daily Progress Note Subjective Date Seen by Provider: June 15, 2018 Time Seen by Provider: 00:15 The patient was confused but responsive to clinician requests. Objective The patient consumed a snack and a few sips of thickened water without coughing. Patient followed verbal cues at 75% with moderate verbal cuing. Assessment Assessment Current Status: Fair Progress Treatment Plan Continue Plan of Care Speech Short Term Goals Short Term Goals Short Term Goals 1) The patient will tolerate least restrictive diet level without s/s of aspiration at 90% or greater intake. 2) The patient will follow verbal directions for compensatory strategies at 80% or greater given minimal cues. Speech Internet Developer Goals Internet Developer Goals The patient will maintain adequate nutrition/hydration via safe, effective swallow function. Speech-Plan Patient/Family Goals Patient/Family Goals: The patient will most likely be discharged to skilled therapy. Treatment Plan Speech Therapy Treatment Plan: Continue Plan of Care The patient is consuming most of his meals/snacks as given. Treatment Duration: June 16, 2018 Frequency: 4 times per week Estimated Hrs Per Day: .25 hour per day Rehab Potential: Fair Barriers to Learning: Patient is confused Pt/Family Agrees to Plan: Yes Safety Risks/Education Teaching Recipient: Patient Teaching Methods: Demonstration, Discussion Response to Teaching: Verbalize Understanding, Return Demonstration Education Topics Provided: Safety of oral intake. Time Speech Therapy Time In: 13:45 Speech Therapy Time Out: 14:00 Total Billed Time: 15 Billed Treatment Time 1M[address] June 15, 2018 15:22
--- NOTE | 2018-06-15 15:32 | NUR ---
CM/SS patient accepted for [facility]. Patient will transfer by EMS this day after 1800.
--- NOTE | 2018-06-15 17:41 | NUR ---
1615 DUE TO CHANGES IN STAFFING CARE OF PT TO THIS RN.
[2018-06-15] MEDS: TAMSULOSIN 0.4 MG (FLOMAX) CAP PO SCH (18:23)
--- NOTE | 2018-06-16 07:44 | Discharge Summary ---
Diagnosis/Chief Complaint Date of Admission Jun 03, 2018 at 05:13 Date of Discharge June 15, 2018 at 18:59 Discharge Time: 07:41 Discharge Diagnosis Acute mental status change. Confusion. Alcoholism. Alcoholic withdrawal. Hypoglycemia acute. Hyponatremia. Hives. Benign prostatic hypertrophy. Urinary retention. Alcoholic intoxication. Congestive heart failure. Patient on ventilator. Sputum cultures strep agalactiae group B. Alcohol dependence. Anemia. Pneumonia. Discharge Summary Procedures Patient on ventilator Consultations Pulmonology Discharge Physical Examination Allergies: Coded Allergies: No Known Drug Allergies (Verified , 08/16/17) Vitals & I&Os Vital Signs Date Time Temp Pulse Resp B/P (MAP) Pulse Ox O2 Delivery O2 Flow Rate FiO2 06/15/18 19:14 68 20 116/52 92 Vapotherm 20.00 06/15/18 16:35 55 06/15/18 16:05 97.7 Hospital Course Patient transferred to [facility]. Patient on high-dose of Vapotherm Labs (last 24 hrs) Laboratory Tests 06/02/18 22:34: White Blood Count 7.5, Red Blood Count 4.31L, Hemoglobin 13.1L, Hematocrit 36L, Mean Corpuscular Volume 84, Mean Corpuscular Hemoglobin 30, Mean Corpuscular Hemoglobin Concent 36, Red Cell Distribution Width 14.9H, Platelet Count 226, Mean Platelet Volume 9.0, Neutrophils (%) (Auto) 64, Lymphocytes (%) (Auto) 24, Monocytes (%) (Auto) 9, Eosinophils (%) (Auto) 2, Basophils (%) (Auto) 1, Neutrophils # (Auto) 4.8, Lymphocytes # (Auto) 1.8, Monocytes # (Auto) 0.7, Eosinophils # (Auto) 0.2, Basophils # (Auto) 0.0, Sodium Level 122*L, Potassium Level 3.9, Chloride Level 90L, Carbon Dioxide Level 20L, Anion Gap 12, Blood Urea Nitrogen 9, Creatinine 0.96, Estimat Glomerular Filtration Rate > 60, BUN/ Creatinine Ratio 9, Glucose Level 86, Calcium Level 9.0, Corrected Calcium 9.3, Total Bilirubin 0.8, Aspartate Amino Transf (AST/SGOT) 46H, Alanine Aminotransferase (ALT/SGPT) 24, Alkaline Phosphatase 64, Total Protein 6.7, Albumin 3.6, Serum Alcohol 176H 06/03/18 00:15: Urine Color YELLOW, Urine Clarity CLEAR, Urine pH 6, Urine Specific [place] 1.005L, Urine Protein NEGATIVE, Urine Glucose (UA) NEGATIVE, Urine Ketones NEGATIVE, Urine Nitrite NEGATIVE, Urine Bilirubin NEGATIVE, Urine Urobilinogen NORMAL, Urine Leukocyte Esterase NEGATIVE, Urine RBC (Auto) NEGATIVE, Urine RBC NONE, Urine WBC NONE, Urine Squamous Epithelial Cells RARE, Urine Crystals NONE , Urine Bacteria NEGATIVE, Urine Casts NONE, Urine Mucus NEGATIVE, Urine Culture Indicated NO, Urine Opiates Screen NEGATIVE, Urine Oxycodone Screen NEGATIVE, Urine Methadone Screen NEGATIVE, Urine Propoxyphene Screen NEGATIVE, Urine Barbiturates Screen NEGATIVE, Ur Tricyclic Antidepressants Screen NEGATIVE , Urine Phencyclidine Screen NEGATIVE, Urine Amphetamines Screen NEGATIVE, Urine Methamphetamines Screen NEGATIVE, Urine Benzodiazepines Screen NEGATIVE, Urine Cocaine Screen NEGATIVE, Urine Cannabinoids Screen NEGATIVE, Streptococcus pneumoniae Antigen Negative 06/03/18 05:13: Lab Scanned Report Referred Lab Report 06/03/18 05:57: Glucometer 63L 06/03/18 06:00: White Blood Count 7.2, Red Blood Count 4.17L, Hemoglobin 12.6L, Hematocrit 35L, Mean Corpuscular Volume 84, Mean Corpuscular Hemoglobin 30, Mean Corpuscular Hemoglobin Concent 36, Red Cell Distribution Width 15.0H, Platelet Count 194, Mean Platelet Volume 8.7, Neutrophils (%) (Auto) 57, Lymphocytes (%) (Auto) 28, Monocytes (%) (Auto) 12, Eosinophils (%) (Auto) 2, Basophils (%) (Auto) 1, Neutrophils # (Auto) 4.1, Lymphocytes # (Auto) 2.0, Monocytes # (Auto) 0.9, Eosinophils # (Auto) 0.2, Basophils # (Auto) 0.0, Prothrombin Time 14.2, INR Comment 1.1, Activated Partial Thromboplast Time 31, Sodium Level 128L, Potassium Level 3.7, Chloride Level 97L, Carbon Dioxide Level 18L, Anion Gap 13 , Blood Urea Nitrogen 8, Creatinine 0.84, Estimat Glomerular Filtration Rate > 60, BUN/Creatinine Ratio 10, Glucose Level 69L, Calcium Level 8.5, Corrected Calcium 9.2, Phosphorus Level 2.8, Magnesium Level 1.1L, Total Bilirubin 0.8, Aspartate Amino Transf (AST/SGOT) 55H, Alanine Aminotransferase (ALT/SGPT) 24, Alkaline Phosphatase 57, Troponin I < 0.028, B-Type Natriuretic Peptide 264.9H, Total Protein 5.7L, Albumin 3.1L, Triglycerides Level 64 06/03/18 07:00: Lactic Acid Level 2.97*H 06/03/18 08:32: Glucometer 151H 06/03/18 08:55: Lactic Acid Level 0.80 06/03/18 09:06: Blood Gas Puncture Site RT RAD, Blood Gas Patient Temperature 97.6, Arterial Blood pH 7.34*L, Arterial Blood Partial Pressure CO2 40, Arterial Blood Partial Pressure O2 288H, Arterial Blood HCO3 21L, Arterial Blood Total CO2 22.3, Arterial Blood Oxygen Saturation 100, Arterial Blood Base Excess -3.9L, Lam[place] Test YES-POS, Blood Gas Ventilator Setting YES, Blood Gas Inspired Oxygen 100% 06/03/18 10:17: Glucometer 172H 06/03/18 12:00: Troponin I < 0.028 06/03/18 14:43: Glucometer 188H 06/03/18 17:50: Troponin I < 0.028 06/03/18 18:20: Glucometer 184H 06/03/18 23:35: Glucometer 128H 06/04/18 01:05: Blood Gas Puncture Site RIGHT RADIAL, Blood Gas Patient Temperature 97.6, Arterial Blood pH 7.39, Arterial Blood Partial Pressure CO2 36, Arterial Blood Partial Pressure O2 79, Arterial Blood HCO3 22L, Arterial Blood Total CO2 22.9, Arterial Blood Oxygen Saturation 97, Arterial Blood Base Excess -2.5, Lamont Test YES-POS, Blood Gas Ventilator Setting YES, Blood Gas Inspired Oxygen 30% 06/04/18 01:15: White Blood Count 8.2, Red Blood Count 4.06L, Hemoglobin 12.4L, Hematocrit 35L, Mean Corpuscular Volume 85, Mean Corpuscular Hemoglobin 31, Mean Corpuscular Hemoglobin Concent 36, Red Cell Distribution Width 14.9H, Platelet Count 179, Mean Platelet Volume 9.5, Neutrophils (%) (Auto) 88H, Lymphocytes (%) (Auto) 7L , Monocytes (%) (Auto) 5, Eosinophils (%) (Auto) 0, Basophils (%) (Auto) 0, Neutrophils # (Auto) 7.3, Lymphocytes # (Auto) 0.6L, Monocytes # (Auto) 0.4, Eosinophils # (Auto) 0.0, Basophils # (Auto) 0.0, Sodium Level 133L, Potassium Level 3.7, Chloride Level 105, Carbon Dioxide Level 19L, Anion Gap 9, Blood Urea Nitrogen 10, Creatinine 0.82, Estimat Glomerular Filtration Rate > 60, BUN/ Creatinine Ratio 12, Glucose Level 119H, Lactic Acid Level 0.93, Calcium Level 7.7L, Phosphorus Level 3.5, Magnesium Level 1.3L, Total Creatine Kinase 50, Troponin I < 0.028 06/04/18 12:29: Glucometer 171H 06/04/18 17:53: Glucometer 118H 06/04/18 23:36: Glucometer 123H 06/05/18 03:10: White Blood Count 4.5, Red Blood Count 3.81L, Hemoglobin 11.4L, Hematocrit 33L, Mean Corpuscular Volume 88, Mean Corpuscular Hemoglobin 30, Mean Corpuscular Hemoglobin Concent 34, Red Cell Distribution Width 15.9H, Platelet Count 142, Mean Platelet Volume 9.4, Neutrophils (%) (Auto) 77H, Lymphocytes (%) (Auto) 16 , Monocytes (%) (Auto) 6, Eosinophils (%) (Auto) 1, Basophils (%) (Auto) 0, Neutrophils # (Auto) 3.5, Lymphocytes # (Auto) 0.7L, Monocytes # (Auto) 0.3, Eosinophils # (Auto) 0.0, Basophils # (Auto) 0.0, Sodium Level 137, Potassium Level 3.2L, Chloride Level 109H, Carbon Dioxide Level 19L, Anion Gap 9, Blood Urea Nitrogen 7, Creatinine 0.78, Estimat Glomerular Filtration Rate > 60, BUN/ Creatinine Ratio 9, Glucose Level 121H, Calcium Level 7.4L, Phosphorus Level 1.7L, Magnesium Level 2.2 06/05/18 03:15: Blood Gas Puncture Site RIGHT RADIAL, Blood Gas Patient Temperature 99.0, Arterial Blood pH 7.39, Arterial Blood Partial Pressure CO2 32L, Arterial Blood Partial Pressure O2 74L, Arterial Blood HCO3 19L, Arterial Blood Total CO2 19.7L , Arterial Blood Oxygen Saturation 95, Arterial Blood Base Excess -5.3L, Lamont Test YES-POS, Blood Gas Ventilator Setting YES, Blood Gas Inspired Oxygen 40% 06/05/18 09:25: Triglycerides Level 52 06/05/18 11:46: Glucometer 114H 06/05/18 17:30: Glucometer 129H 06/06/18 02:13: Glucometer 153H 06/06/18 03:20: White Blood Count 4.4, Red Blood Count 3.61L, Hemoglobin 10.9L, Hematocrit 33L, Mean Corpuscular Volume 91, Mean Corpuscular Hemoglobin 30, Mean Corpuscular Hemoglobin Concent 33, Red Cell Distribution Width 16.1H, Platelet Count 102L, Mean Platelet Volume 9.5, Neutrophils (%) (Auto) 74, Lymphocytes (%) (Auto) 15, Monocytes (%) (Auto) 7, Eosinophils (%) (Auto) 3, Basophils (%) (Auto) 1, Neutrophils # (Auto) 3.3, Lymphocytes # (Auto) 0.7L, Monocytes # (Auto) 0.3, Eosinophils # (Auto) 0.2, Basophils # (Auto) 0.0, Sodium Level 137, Potassium Level 3.2L, Chloride Level 112H, Carbon Dioxide Level 18L, Anion Gap 7, Blood Urea Nitrogen 9, Creatinine 0.76, Estimat Glomerular Filtration Rate > 60, BUN/ Creatinine Ratio 12, Glucose Level 124H, Calcium Level 7.1L, Phosphorus Level 2.5, Magnesium Level 1.9, B-Type Natriuretic Peptide 780.2H 06/06/18 06:00: Blood Gas Puncture Site RIGHT RADIAL, Blood Gas Patient Temperature 97.3, Arterial Blood pH 7.35L, Arterial Blood Partial Pressure CO2 33L, Arterial Blood Partial Pressure O2 83, Arterial Blood HCO3 18L, Arterial Blood Total CO2 18.9L, Arterial Blood Oxygen Saturation 95, Arterial Blood Base Excess -6.9L, Lamont Test YES-POS, Blood Gas Ventilator Setting YES, Blood Gas Inspired Oxygen 40% 06/06/18 11:29: Glucometer 120H 06/06/18 17:35: Glucometer 110 06/06/18 23:20: Glucometer 93 06/07/18 03:35: Blood Gas Puncture Site LEFT RADIAL, Blood Gas Patient Temperature 98.2, Arterial Blood pH 7.29*L, Arterial Blood Partial Pressure CO2 37, Arterial Blood Partial Pressure O2 65L, Arterial Blood HCO3 17*L, Arterial Blood Total CO2 18.6L, Arterial Blood Oxygen Saturation 87L, Arterial Blood Base Excess - 7.9L, Lamont Test YES-POS, Blood Gas Ventilator Setting YES, Blood Gas Inspired Oxygen 45% 06/07/18 03:40: White Blood Count 3.4L, Red Blood Count 3.56L, Hemoglobin 10.6L, Hematocrit 32L , Mean Corpuscular Volume 89, Mean Corpuscular Hemoglobin 30, Mean Corpuscular Hemoglobin Concent 33, Red Cell Distribution Width 16.3H, Platelet Count 117L, Mean Platelet Volume 9.9, Neutrophils (%) (Auto) 81H, Lymphocytes (%) (Auto) 8L , Monocytes (%) (Auto) 10, Eosinophils (%) (Auto) 1, Basophils (%) (Auto) 0, Neutrophils # (Auto) 2.7, Lymphocytes # (Auto) 0.3L, Monocytes # (Auto) 0.3, Eosinophils # (Auto) 0.0, Basophils # (Auto) 0.0, Sodium Level 136, Potassium Level 3.8, Chloride Level 112H, Carbon Dioxide Level 16L, Anion Gap 8, Blood Urea Nitrogen 14, Creatinine 1.01, Estimat Glomerular Filtration Rate > 60, BUN/ Creatinine Ratio 14, Glucose Level 111H, Calcium Level 7.2L, Phosphorus Level 2.0L, Magnesium Level 1.5L, Triglycerides Level 51 06/07/18 08:30: Lactic Acid Level 1.80 06/07/18 11:30: Glucometer 115H 06/07/18 16:38: Glucometer 116H 06/07/18 23:13: Glucometer 131H 06/08/18 03:20: White Blood Count 7.6, Red Blood Count 3.44L, Hemoglobin 10.4L, Hematocrit 30L, Mean Corpuscular Volume 88, Mean Corpuscular Hemoglobin 30, Mean Corpuscular Hemoglobin Concent 34, Red Cell Distribution Width 16.4H, Platelet Count 131, Mean Platelet Volume 9.9, Neutrophils (%) (Auto) 77H, Lymphocytes (%) (Auto) 9L , Monocytes (%) (Auto) 13H, Eosinophils (%) (Auto) 1, Basophils (%) (Auto) 0, Neutrophils # (Auto) 5.9, Lymphocytes # (Auto) 0.7L, Monocytes # (Auto) 1.0, Eosinophils # (Auto) 0.1, Basophils # (Auto) 0.0, Sodium Level 138, Potassium Level 4.2, Chloride Level 111H, Carbon Dioxide Level 19L, Anion Gap 8, Blood Urea Nitrogen 20H, Creatinine 1.12, Estimat Glomerular Filtration Rate > 60, BUN /Creatinine Ratio 18, Glucose Level 119H, Calcium Level 7.6L, Phosphorus Level 3.3, Magnesium Level 1.6L 06/08/18 04:20: Blood Gas Puncture Site RIGHT RADIAL, Blood Gas Patient Temperature 98.9, Arterial Blood pH 7.44H, Arterial Blood Partial Pressure CO2 33L, Arterial Blood Partial Pressure O2 70L, Arterial Blood HCO3 22L, Arterial Blood Total CO2 22.8, Arterial Blood Oxygen Saturation 93L, Arterial Blood Base Excess -1.7 , Lamont Test POSITIVE, Blood Gas Ventilator Setting YES, Blood Gas Inspired Oxygen 30% 06/08/18 06:39: Sodium Level 137, Potassium Level 4.0, Chloride Level 109H, Carbon Dioxide Level 20L, Anion Gap 8, Blood Urea Nitrogen 21H, Creatinine 1.10, Estimat Glomerular Filtration Rate > 60, BUN/Creatinine Ratio 19, Glucose Level 138H, Calcium Level 7.5L, Corrected Calcium 9.1, Total Bilirubin 1.0, Aspartate Amino Transf (AST/SGOT) 25, Alanine Aminotransferase (ALT/SGPT) 21, Alkaline Phosphatase 64, Ammonia 48H, Total Protein 4.4L, Albumin 2.0L 06/08/18 12:44: Glucometer 143H 06/08/18 15:30: Glucometer 131H 06/08/18 20:09: Vancomycin Level Trough 18.4 06/08/18 23:52: Glucometer 148H 06/09/18 03:10: White Blood Count 8.3, Red Blood Count 3.53L, Hemoglobin 10.5L, Hematocrit 31L, Mean Corpuscular Volume 86, Mean Corpuscular Hemoglobin 30, Mean Corpuscular Hemoglobin Concent 34, Red Cell Distribution Width 15.9H, Platelet Count 140, Mean Platelet Volume 9.9, Neutrophils (%) (Auto) 77H, Lymphocytes (%) (Auto) 12 , Monocytes (%) (Auto) 11, Eosinophils (%) (Auto) 1, Basophils (%) (Auto) 0, Neutrophils # (Auto) 6.3, Lymphocytes # (Auto) 1.0, Monocytes # (Auto) 0.9, Eosinophils # (Auto) 0.1, Basophils # (Auto) 0.0, Sodium Level 140, Potassium Level 3.6, Chloride Level 108H, Carbon Dioxide Level 22, Anion Gap 10, Blood Urea Nitrogen 22H, Creatinine 1.19, Estimat Glomerular Filtration Rate 60, BUN/ Creatinine Ratio 18, Glucose Level 119H, Calcium Level 8.1L, Phosphorus Level 3.4, Magnesium Level 1.6L 06/09/18 04:00: Blood Gas Puncture Site RIGHT RADIAL, Blood Gas Patient Temperature 98, Arterial Blood pH 7.48H, Arterial Blood Partial Pressure CO2 35, Arterial Blood Partial Pressure O2 139H, Arterial Blood HCO3 25, Arterial Blood Total CO2 26.4 , Arterial Blood Oxygen Saturation 99, Arterial Blood Base Excess 1.9, Lamont Test POSITIVE, Blood Gas Ventilator Setting YES, Blood Gas Inspired Oxygen 30% 06/09/18 10:16: Glucometer 108 06/09/18 13:00: Blood Gas Puncture Site RR, Blood Gas Patient Temperature 96.9, Arterial Blood pH 7.52H, Arterial Blood Partial Pressure CO2 31L, Arterial Blood Partial Pressure O2 49L, Arterial Blood HCO3 26, Arterial Blood Total CO2 26.5, Arterial Blood Oxygen Saturation 91L, Arterial Blood Base Excess 2.4, Lamont Test YES-POS, Blood Gas Ventilator Setting YES, Blood Gas Inspired Oxygen 30% 06/10/18 03:20: White Blood Count 6.9, Red Blood Count 3.45L, Hemoglobin 10.2L, Hematocrit 30L, Mean Corpuscular Volume 86, Mean Corpuscular Hemoglobin 30, Mean Corpuscular Hemoglobin Concent 35, Red Cell Distribution Width 15.9H, Platelet Count 150, Mean Platelet Volume 9.7, Neutrophils (%) (Auto) 73, Lymphocytes (%) (Auto) 14, Monocytes (%) (Auto) 12, Eosinophils (%) (Auto) 1, Basophils (%) (Auto) 0, Neutrophils # (Auto) 5.1, Lymphocytes # (Auto) 0.9L, Monocytes # (Auto) 0.8, Eosinophils # (Auto) 0.1, Basophils # (Auto) 0.0, Sodium Level 139, Potassium Level 3.2L, Chloride Level 104, Carbon Dioxide Level 23, Anion Gap 12, Blood Urea Nitrogen 26H, Creatinine 1.17, Estimat Glomerular Filtration Rate > 60, BUN /Creatinine Ratio 22, Glucose Level 102, Calcium Level 8.2L, Phosphorus Level 4.0, Magnesium Level 1.7L, B-Type Natriuretic Peptide 779.6H 06/11/18 03:10: White Blood Count 7.1, Red Blood Count 3.45L, Hemoglobin 10.3L, Hematocrit 30L, Mean Corpuscular Volume 86, Mean Corpuscular Hemoglobin 30, Mean Corpuscular Hemoglobin Concent 35, Red Cell Distribution Width 15.7H, Platelet Count 151, Mean Platelet Volume 10.1, Neutrophils (%) (Auto) 77H, Lymphocytes (%) (Auto) 13 , Monocytes (%) (Auto) 9, Eosinophils (%) (Auto) 0, Basophils (%) (Auto) 0, Neutrophils # (Auto) 5.5, Lymphocytes # (Auto) 0.9L, Monocytes # (Auto) 0.6, Eosinophils # (Auto) 0.0, Basophils # (Auto) 0.0, Sodium Level 143, Potassium Level 2.7L, Chloride Level 104, Carbon Dioxide Level 25, Anion Gap 14, Blood Urea Nitrogen 27H, Creatinine 1.12, Estimat Glomerular Filtration Rate > 60, BUN /Creatinine Ratio 24, Glucose Level 104, Calcium Level 8.2L, Phosphorus Level 4.0, Magnesium Level 2.0 06/11/18 07:22: Ammonia 26 06/12/18 03:35: White Blood Count 5.7, Red Blood Count 3.43L, Hemoglobin 10.2L, Hematocrit 30L, Mean Corpuscular Volume 88, Mean Corpuscular Hemoglobin 30, Mean Corpuscular Hemoglobin Concent 34, Red Cell Distribution Width 16.1H, Platelet Count 172, Mean Platelet Volume 10.2, Neutrophils (%) (Auto) 75, Lymphocytes (%) (Auto) 16 , Monocytes (%) (Auto) 8, Eosinophils (%) (Auto) 1, Basophils (%) (Auto) 0, Neutrophils # (Auto) 4.3, Lymphocytes # (Auto) 0.9L, Monocytes # (Auto) 0.4, Eosinophils # (Auto) 0.1, Basophils # (Auto) 0.0, Sodium Level 143, Potassium Level 3.0L, Chloride Level 108H, Carbon Dioxide Level 23, Anion Gap 12, Blood Urea Nitrogen 26H, Creatinine 0.95, Estimat Glomerular Filtration Rate > 60, BUN /Creatinine Ratio 27, Glucose Level 119H, Calcium Level 8.3L, Phosphorus Level 3.3, Magnesium Level 1.9, B-Type Natriuretic Peptide 1253.6H 06/12/18 13:05: Sodium Level 144, Potassium Level 3.6, Chloride Level 110H, Carbon Dioxide Level 22, Anion Gap 12, Blood Urea Nitrogen 25H, Creatinine 1.01, Estimat Glomerular Filtration Rate > 60, BUN/Creatinine Ratio 25, Glucose Level 128H, Calcium Level 8.4L, Corrected Calcium 9.5, Phosphorus Level 3.2, Magnesium Level 1.8, Total Bilirubin 1.6H, Aspartate Amino Transf (AST/SGOT) 30, Alanine Aminotransferase (ALT/SGPT) 19, Alkaline Phosphatase 63, Total Protein 5.8L, Albumin 2.6L 06/13/18 04:50: Sodium Level 144, Potassium Level 3.2L, Chloride Level 107, Carbon Dioxide Level 22, Anion Gap 15H, Blood Urea Nitrogen 32H, Creatinine 0.97, Estimat Glomerular Filtration Rate > 60, BUN/Creatinine Ratio 33, Glucose Level 142H, Calcium Level 8.7, Phosphorus Level 3.4, Magnesium Level 1.9, White Blood Count 6.3, Red Blood Count 3.55L, Hemoglobin 10.4L, Hematocrit 31L, Mean Corpuscular Volume 89, Mean Corpuscular Hemoglobin 29, Mean Corpuscular Hemoglobin Concent 33, Red Cell Distribution Width 16.7H, Platelet Count 250, Mean Platelet Volume 10.7H, Neutrophils (%) (Auto) 88H, Lymphocytes (%) (Auto) 9L, Monocytes (%) ( Auto) 3, Eosinophils (%) (Auto) 0, Basophils (%) (Auto) 0, Neutrophils # (Auto) 5.5, Lymphocytes # (Auto) 0.6L, Monocytes # (Auto) 0.2, Eosinophils # (Auto) 0.0 , Basophils # (Auto) 0.0, Neutrophils % (Manual) 90, Lymphocytes % (Manual) 7, Monocytes % (Manual) 3, Eosinophils % (Manual) 0, Basophils % (Manual) 0, Band Neutrophils 0, Hypochromasia SLIGHT, Poikilocytosis SLIGHT, Anisocytosis SLIGHT , B-Type Natriuretic Peptide 1117.2H 06/13/18 08:02: Blood Gas Puncture Site R RAD, Blood Gas Patient Temperature 97.4, Arterial Blood pH 7.53H, Arterial Blood Partial Pressure CO2 31L, Arterial Blood Partial Pressure O2 57L, Arterial Blood HCO3 26, Arterial Blood Total CO2 26.9, Arterial Blood Oxygen Saturation 90L, Arterial Blood Base Excess 3.1H, Lamont Test YES-POS, Blood Gas Ventilator Setting YES, Blood Gas Inspired Oxygen 25 06/13/18 09:50: Sodium Level 143, Potassium Level 3.5L, Chloride Level 106, Carbon Dioxide Level 23, Anion Gap 14, Blood Urea Nitrogen 33H, Creatinine 1.05, Estimat Glomerular Filtration Rate > 60, BUN/Creatinine Ratio 31, Glucose Level 165H, Calcium Level 8.8, Corrected Calcium 9.8, Phosphorus Level 3.4, Magnesium Level 2.0, Total Bilirubin 1.1H, Aspartate Amino Transf (AST/SGOT) 22, Alanine Aminotransferase (ALT/SGPT) 19, Alkaline Phosphatase 55, Total Protein 6.4, Albumin 2.8L 06/14/18 03:15: White Blood Count 5.1, Red Blood Count 3.42L, Hemoglobin 10.3L, Hematocrit 31L, Mean Corpuscular Volume 90, Mean Corpuscular Hemoglobin 30, Mean Corpuscular Hemoglobin Concent 34, Red Cell Distribution Width 16.4H, Platelet Count 258, Mean Platelet Volume 11.0H, Neutrophils (%) (Auto) 84H, Lymphocytes (%) (Auto) 11L, Monocytes (%) (Auto) 5, Eosinophils (%) (Auto) 0, Basophils (%) (Auto) 0, Neutrophils # (Auto) 4.3, Lymphocytes # (Auto) 0.6L, Monocytes # (Auto) 0.2, Eosinophils # (Auto) 0.0, Basophils # (Auto) 0.0, Sodium Level 142, Potassium Level 3.6, Chloride Level 109H, Carbon Dioxide Level 21, Anion Gap 12, Blood Urea Nitrogen 38H, Creatinine 1.03, Estimat Glomerular Filtration Rate > 60, BUN /Creatinine Ratio 37, Glucose Level 136H, Calcium Level 8.5, Phosphorus Level 3.9, Magnesium Level 1.8, B-Type Natriuretic Peptide 578.6H 06/15/18 04:55: White Blood Count 7.9, Red Blood Count 3.50L, Hemoglobin 10.5L, Hematocrit 32L, Mean Corpuscular Volume 91, Mean Corpuscular Hemoglobin 30, Mean Corpuscular Hemoglobin Concent 33, Red Cell Distribution Width 16.8H, Platelet Count 339, Mean Platelet Volume 10.5H, Neutrophils (%) (Auto) 89H, Lymphocytes (%) (Auto) 8L, Monocytes (%) (Auto) 3, Eosinophils (%) (Auto) 0, Basophils (%) (Auto) 0, Neutrophils # (Auto) 7.0, Lymphocytes # (Auto) 0.7L, Monocytes # (Auto) 0.3, Eosinophils # (Auto) 0.0, Basophils # (Auto) 0.0, Sodium Level 143, Potassium Level 3.9, Chloride Level 110H, Carbon Dioxide Level 21, Anion Gap 12, Blood Urea Nitrogen 41H, Creatinine 0.90, Estimat Glomerular Filtration Rate > 60, BUN /Creatinine Ratio 46, Glucose Level 126H, Calcium Level 8.6, Phosphorus Level 3.4, Magnesium Level 1.9 Microbiology 06/03/18 Gram Stain - Final, Complete 06/03/18 Sputum Culture - Final, Complete Usual upper respiratory juana Strep agalactiae Group B See Comments Laboratory Tests 06/02/18 22:34 06/03/18 06:00 06/04/18 01:15 06/05/18 03:10 06/06/18 03:20 06/07/18 03:40 06/08/18 03:20 06/08/18 06:39 06/09/18 03:10 06/10/18 03:20 06/11/18 03:10 06/12/18 03:35 06/12/18 13:05 06/13/18 04:50 06/13/18 09:50 06/14/18 03:15 06/15/18 04:55 Pending Labs Microbiology Date/Time Source Procedure Growth Status 06/03/18 07:15 Sputum Endotracheal Gram Stain - Final Complete 06/03/18 07:15 Sputum Culture - Final Usual upper respiratory juana Strep agalactiae Group B See Comments Complete Laboratory Tests 06/02/18 22:34: White Blood Count 7.5, Red Blood Count 4.31, Hemoglobin 13.1, Hematocrit 36, Mean Corpuscular Volume 84, Mean Corpuscular Hemoglobin 30, Mean Corpuscular Hemoglobin Concent 36, Red Cell Distribution Width 14.9, Platelet Count 226, Mean Platelet Volume 9.0, Neutrophils (%) (Auto) 64, Lymphocytes (%) (Auto) 24, Monocytes (%) (Auto) 9, Eosinophils (%) (Auto) 2, Basophils (%) (Auto) 1, Neutrophils # (Auto) 4.8, Lymphocytes # (Auto) 1.8, Monocytes # (Auto) 0.7, Eosinophils # (Auto) 0.2, Basophils # (Auto) 0.0, Sodium Level 122, Potassium Level 3.9, Chloride Level 90, Carbon Dioxide Level 20, Anion Gap 12, Blood Urea Nitrogen 9, Creatinine 0.96, Estimat Glomerular Filtration Rate > 60, BUN/ Creatinine Ratio 9, Glucose Level 86, Calcium Level 9.0, Corrected Calcium 9.3, Total Bilirubin 0.8, Aspartate Amino Transf (AST/SGOT) 46, Alanine Aminotransferase (ALT/SGPT) 24, Alkaline Phosphatase 64, Total Protein 6.7, Albumin 3.6, Serum Alcohol 176 06/03/18 00:15: Urine Color YELLOW, Urine Clarity CLEAR, Urine pH 6, Urine Specific [place] 1.005, Urine Protein NEGATIVE, Urine Glucose (UA) NEGATIVE, Urine Ketones NEGATIVE, Urine Nitrite NEGATIVE, Urine Bilirubin NEGATIVE, Urine Urobilinogen NORMAL, Urine Leukocyte Esterase NEGATIVE, Urine RBC (Auto) NEGATIVE, Urine RBC NONE, Urine WBC NONE, Urine Squamous Epithelial Cells RARE, Urine Crystals NONE , Urine Bacteria NEGATIVE, Urine Casts NONE, Urine Mucus NEGATIVE, Urine Culture Indicated NO, Urine Opiates Screen NEGATIVE, Urine Oxycodone Screen NEGATIVE, Urine Methadone Screen NEGATIVE, Urine Propoxyphene Screen NEGATIVE, Urine Barbiturates Screen NEGATIVE, Ur Tricyclic Antidepressants Screen NEGATIVE , Urine Phencyclidine Screen NEGATIVE, Urine Amphetamines Screen NEGATIVE, Urine Methamphetamines Screen NEGATIVE, Urine Benzodiazepines Screen NEGATIVE, Urine Cocaine Screen NEGATIVE, Urine Cannabinoids Screen NEGATIVE, Streptococcus pneumoniae Antigen Negative 06/03/18 05:13: Lab Scanned Report Referred Lab Report 06/03/18 05:57: Glucometer 63 06/03/18 06:00: White Blood Count 7.2, Red Blood Count 4.17, Hemoglobin 12.6, Hematocrit 35, Mean Corpuscular Volume 84, Mean Corpuscular Hemoglobin 30, Mean Corpuscular Hemoglobin Concent 36, Red Cell Distribution Width 15.0, Platelet Count 194, Mean Platelet Volume 8.7, Neutrophils (%) (Auto) 57, Lymphocytes (%) (Auto) 28, Monocytes (%) (Auto) 12, Eosinophils (%) (Auto) 2, Basophils (%) (Auto) 1, Neutrophils # (Auto) 4.1, Lymphocytes # (Auto) 2.0, Monocytes # (Auto) 0.9, Eosinophils # (Auto) 0.2, Basophils # (Auto) 0.0, Prothrombin Time 14.2, INR Comment 1.1, Activated Partial Thromboplast Time 31, Sodium Level 128, Potassium Level 3.7, Chloride Level 97, Carbon Dioxide Level 18, Anion Gap 13, Blood Urea Nitrogen 8, Creatinine 0.84, Estimat Glomerular Filtration Rate > 60 , BUN/Creatinine Ratio 10, Glucose Level 69, Calcium Level 8.5, Corrected Calcium 9.2, Phosphorus Level 2.8, Magnesium Level 1.1, Total Bilirubin 0.8, Aspartate Amino Transf (AST/SGOT) 55, Alanine Aminotransferase (ALT/SGPT) 24, Alkaline Phosphatase 57, Troponin I < 0.028, B-Type Natriuretic Peptide 264.9, Total Protein 5.7, Albumin 3.1, Triglycerides Level 64 06/03/18 07:00: Lactic Acid Level 2.97 06/03/18 08:32: Glucometer 151 06/03/18 08:55: Lactic Acid Level 0.80 06/03/18 09:06: Blood Gas Puncture Site RT RAD, Blood Gas Patient Temperature 97.6, Arterial Blood pH 7.34, Arterial Blood Partial Pressure CO2 40, Arterial Blood Partial Pressure O2 288, Arterial Blood HCO3 21, Arterial Blood Total CO2 22.3, Arterial Blood Oxygen Saturation 100, Arterial Blood Base Excess -3.9, Lamont Test YES-POS, Blood Gas Ventilator Setting YES, Blood Gas Inspired Oxygen 100% 06/03/18 10:17: Glucometer 172 06/03/18 12:00: Troponin I < 0.028 06/03/18 14:43: Glucometer 188 06/03/18 17:50: Troponin I < 0.028 06/03/18 18:20: Glucometer 184 06/03/18 23:35: Glucometer 128 06/04/18 01:05: Blood Gas Puncture Site RIGHT RADIAL, Blood Gas Patient Temperature 97.6, Arterial Blood pH 7.39, Arterial Blood Partial Pressure CO2 36, Arterial Blood Partial Pressure O2 79, Arterial Blood HCO3 22, Arterial Blood Total CO2 22.9, Arterial Blood Oxygen Saturation 97, Arterial Blood Base Excess -2.5, Lamont Test YES-POS, Blood Gas Ventilator Setting YES, Blood Gas Inspired Oxygen 30% 06/04/18 01:15: White Blood Count 8.2, Red Blood Count 4.06, Hemoglobin 12.4, Hematocrit 35, Mean Corpuscular Volume 85, Mean Corpuscular Hemoglobin 31, Mean Corpuscular Hemoglobin Concent 36, Red Cell Distribution Width 14.9, Platelet Count 179, Mean Platelet Volume 9.5, Neutrophils (%) (Auto) 88, Lymphocytes (%) (Auto) 7, Monocytes (%) (Auto) 5, Eosinophils (%) (Auto) 0, Basophils (%) (Auto) 0, Neutrophils # (Auto) 7.3, Lymphocytes # (Auto) 0.6, Monocytes # (Auto) 0.4, Eosinophils # (Auto) 0.0, Basophils # (Auto) 0.0, Sodium Level 133, Potassium Level 3.7, Chloride Level 105, Carbon Dioxide Level 19, Anion Gap 9, Blood Urea Nitrogen 10, Creatinine 0.82, Estimat Glomerular Filtration Rate > 60, BUN/ Creatinine Ratio 12, Glucose Level 119, Lactic Acid Level 0.93, Calcium Level 7.7, Phosphorus Level 3.5, Magnesium Level 1.3, Total Creatine Kinase 50, Troponin I < 0.028 06/04/18 12:29: Glucometer 171 06/04/18 17:53: Glucometer 118 06/04/18 23:36: Glucometer 123 06/05/18 03:10: White Blood Count 4.5, Red Blood Count 3.81, Hemoglobin 11.4, Hematocrit 33, Mean Corpuscular Volume 88, Mean Corpuscular Hemoglobin 30, Mean Corpuscular Hemoglobin Concent 34, Red Cell Distribution Width 15.9, Platelet Count 142, Mean Platelet Volume 9.4, Neutrophils (%) (Auto) 77, Lymphocytes (%) (Auto) 16, Monocytes (%) (Auto) 6, Eosinophils (%) (Auto) 1, Basophils (%) (Auto) 0, Neutrophils # (Auto) 3.5, Lymphocytes # (Auto) 0.7, Monocytes # (Auto) 0.3, Eosinophils # (Auto) 0.0, Basophils # (Auto) 0.0, Sodium Level 137, Potassium Level 3.2, Chloride Level 109, Carbon Dioxide Level 19, Anion Gap 9, Blood Urea Nitrogen 7, Creatinine 0.78, Estimat Glomerular Filtration Rate > 60, BUN/ Creatinine Ratio 9, Glucose Level 121, Calcium Level 7.4, Phosphorus Level 1.7, Magnesium Level 2.2 06/05/18 03:15: Blood Gas Puncture Site RIGHT RADIAL, Blood Gas Patient Temperature 99.0, Arterial Blood pH 7.39, Arterial Blood Partial Pressure CO2 32, Arterial Blood Partial Pressure O2 74, Arterial Blood HCO3 19, Arterial Blood Total CO2 19.7, Arterial Blood Oxygen Saturation 95, Arterial Blood Base Excess -5.3, Lamont Test YES-POS, Blood Gas Ventilator Setting YES, Blood Gas Inspired Oxygen 40% 06/05/18 09:25: Triglycerides Level 52 06/05/18 11:46: Glucometer 114 06/05/18 17:30: Glucometer 129 06/06/18 02:13: Glucometer 153 06/06/18 03:20: White Blood Count 4.4, Red Blood Count 3.61, Hemoglobin 10.9, Hematocrit 33, Mean Corpuscular Volume 91, Mean Corpuscular Hemoglobin 30, Mean Corpuscular Hemoglobin Concent 33, Red Cell Distribution Width 16.1, Platelet Count 102, Mean Platelet Volume 9.5, Neutrophils (%) (Auto) 74, Lymphocytes (%) (Auto) 15, Monocytes (%) (Auto) 7, Eosinophils (%) (Auto) 3, Basophils (%) (Auto) 1, Neutrophils # (Auto) 3.3, Lymphocytes # (Auto) 0.7, Monocytes # (Auto) 0.3, Eosinophils # (Auto) 0.2, Basophils # (Auto) 0.0, Sodium Level 137, Potassium Level 3.2, Chloride Level 112, Carbon Dioxide Level 18, Anion Gap 7, Blood Urea Nitrogen 9, Creatinine 0.76, Estimat Glomerular Filtration Rate > 60, BUN/ Creatinine Ratio 12, Glucose Level 124, Calcium Level 7.1, Phosphorus Level 2.5 , Magnesium Level 1.9, B-Type Natriuretic Peptide 780.2 06/06/18 06:00: Blood Gas Puncture Site RIGHT RADIAL, Blood Gas Patient Temperature 97.3, Arterial Blood pH 7.35, Arterial Blood Partial Pressure CO2 33, Arterial Blood Partial Pressure O2 83, Arterial Blood HCO3 18, Arterial Blood Total CO2 18.9, Arterial Blood Oxygen Saturation 95, Arterial Blood Base Excess -6.9, Lamont Test YES-POS, Blood Gas Ventilator Setting YES, Blood Gas Inspired Oxygen 40% 06/06/18 11:29: Glucometer 120 06/06/18 17:35: Glucometer 110 06/06/18 23:20: Glucometer 93 06/07/18 03:35: Blood Gas Puncture Site LEFT RADIAL, Blood Gas Patient Temperature 98.2, Arterial Blood pH 7.29, Arterial Blood Partial Pressure CO2 37, Arterial Blood Partial Pressure O2 65, Arterial Blood HCO3 17, Arterial Blood Total CO2 18.6, Arterial Blood Oxygen Saturation 87, Arterial Blood Base Excess -7.9, Lamont Test YES-POS, Blood Gas Ventilator Setting YES, Blood Gas Inspired Oxygen 45% 06/07/18 03:40: White Blood Count 3.4, Red Blood Count 3.56, Hemoglobin 10.6, Hematocrit 32, Mean Corpuscular Volume 89, Mean Corpuscular Hemoglobin 30, Mean Corpuscular Hemoglobin Concent 33, Red Cell Distribution Width 16.3, Platelet Count 117, Mean Platelet Volume 9.9, Neutrophils (%) (Auto) 81, Lymphocytes (%) (Auto) 8, Monocytes (%) (Auto) 10, Eosinophils (%) (Auto) 1, Basophils (%) (Auto) 0, Neutrophils # (Auto) 2.7, Lymphocytes # (Auto) 0.3, Monocytes # (Auto) 0.3, Eosinophils # (Auto) 0.0, Basophils # (Auto) 0.0, Sodium Level 136, Potassium Level 3.8, Chloride Level 112, Carbon Dioxide Level 16, Anion Gap 8, Blood Urea Nitrogen 14, Creatinine 1.01, Estimat Glomerular Filtration Rate > 60, BUN/ Creatinine Ratio 14, Glucose Level 111, Calcium Level 7.2, Phosphorus Level 2.0 , Magnesium Level 1.5, Triglycerides Level 51 06/07/18 08:30: Lactic Acid Level 1.80 06/07/18 11:30: Glucometer 115 06/07/18 16:38: Glucometer 116 06/07/18 23:13: Glucometer 131 06/08/18 03:20: White Blood Count 7.6, Red Blood Count 3.44, Hemoglobin 10.4, Hematocrit 30, Mean Corpuscular Volume 88, Mean Corpuscular Hemoglobin 30, Mean Corpuscular Hemoglobin Concent 34, Red Cell Distribution Width 16.4, Platelet Count 131, Mean Platelet Volume 9.9, Neutrophils (%) (Auto) 77, Lymphocytes (%) (Auto) 9, Monocytes (%) (Auto) 13, Eosinophils (%) (Auto) 1, Basophils (%) (Auto) 0, Neutrophils # (Auto) 5.9, Lymphocytes # (Auto) 0.7, Monocytes # (Auto) 1.0, Eosinophils # (Auto) 0.1, Basophils # (Auto) 0.0, Sodium Level 138, Potassium Level 4.2, Chloride Level 111, Carbon Dioxide Level 19, Anion Gap 8, Blood Urea Nitrogen 20, Creatinine 1.12, Estimat Glomerular Filtration Rate > 60, BUN/ Creatinine Ratio 18, Glucose Level 119, Calcium Level 7.6, Phosphorus Level 3.3 , Magnesium Level 1.6 06/08/18 04:20: Blood Gas Puncture Site RIGHT RADIAL, Blood Gas Patient Temperature 98.9, Arterial Blood pH 7.44, Arterial Blood Partial Pressure CO2 33, Arterial Blood Partial Pressure O2 70, Arterial Blood HCO3 22, Arterial Blood Total CO2 22.8, Arterial Blood Oxygen Saturation 93, Arterial Blood Base Excess -1.7, Lamont Test POSITIVE, Blood Gas Ventilator Setting YES, Blood Gas Inspired Oxygen 30% 06/08/18 06:39: Sodium Level 137, Potassium Level 4.0, Chloride Level 109, Carbon Dioxide Level 20, Anion Gap 8, Blood Urea Nitrogen 21, Creatinine 1.10, Estimat Glomerular Filtration Rate > 60, BUN/Creatinine Ratio 19, Glucose Level 138, Calcium Level 7.5, Corrected Calcium 9.1, Total Bilirubin 1.0, Aspartate Amino Transf (AST/ SGOT) 25, Alanine Aminotransferase (ALT/SGPT) 21, Alkaline Phosphatase 64, Ammonia 48, Total Protein 4.4, Albumin 2.0 06/08/18 12:44: Glucometer 143 06/08/18 15:30: Glucometer 131 06/08/18 20:09: Vancomycin Level Trough 18.4 06/08/18 23:52: Glucometer 148 06/09/18 03:10: White Blood Count 8.3, Red Blood Count 3.53, Hemoglobin 10.5, Hematocrit 31, Mean Corpuscular Volume 86, Mean Corpuscular Hemoglobin 30, Mean Corpuscular Hemoglobin Concent 34, Red Cell Distribution Width 15.9, Platelet Count 140, Mean Platelet Volume 9.9, Neutrophils (%) (Auto) 77, Lymphocytes (%) (Auto) 12, Monocytes (%) (Auto) 11, Eosinophils (%) (Auto) 1, Basophils (%) (Auto) 0, Neutrophils # (Auto) 6.3, Lymphocytes # (Auto) 1.0, Monocytes # (Auto) 0.9, Eosinophils # (Auto) 0.1, Basophils # (Auto) 0.0, Sodium Level 140, Potassium Level 3.6, Chloride Level 108, Carbon Dioxide Level 22, Anion Gap 10, Blood Urea Nitrogen 22, Creatinine 1.19, Estimat Glomerular Filtration Rate 60, BUN/ Creatinine Ratio 18, Glucose Level 119, Calcium Level 8.1, Phosphorus Level 3.4 , Magnesium Level 1.6 06/09/18 04:00: Blood Gas Puncture Site RIGHT RADIAL, Blood Gas Patient Temperature 98, Arterial Blood pH 7.48, Arterial Blood Partial Pressure CO2 35, Arterial Blood Partial Pressure O2 139, Arterial Blood HCO3 25, Arterial Blood Total CO2 26.4, Arterial Blood Oxygen Saturation 99, Arterial Blood Base Excess 1.9, Lamont Test POSITIVE, Blood Gas Ventilator Setting YES, Blood Gas Inspired Oxygen 30% 06/09/18 10:16: Glucometer 108 06/09/18 13:00: Blood Gas Puncture Site RR, Blood Gas Patient Temperature 96.9, Arterial Blood pH 7.52, Arterial Blood Partial Pressure CO2 31, Arterial Blood Partial Pressure O2 49, Arterial Blood HCO3 26, Arterial Blood Total CO2 26.5, Arterial Blood Oxygen Saturation 91, Arterial Blood Base Excess 2.4, Lamont Test YES-POS, Blood Gas Ventilator Setting YES, Blood Gas Inspired Oxygen 30% 06/10/18 03:20: White Blood Count 6.9, Red Blood Count 3.45, Hemoglobin 10.2, Hematocrit 30, Mean Corpuscular Volume 86, Mean Corpuscular Hemoglobin 30, Mean Corpuscular Hemoglobin Concent 35, Red Cell Distribution Width 15.9, Platelet Count 150, Mean Platelet Volume 9.7, Neutrophils (%) (Auto) 73, Lymphocytes (%) (Auto) 14, Monocytes (%) (Auto) 12, Eosinophils (%) (Auto) 1, Basophils (%) (Auto) 0, Neutrophils # (Auto) 5.1, Lymphocytes # (Auto) 0.9, Monocytes # (Auto) 0.8, Eosinophils # (Auto) 0.1, Basophils # (Auto) 0.0, Sodium Level 139, Potassium Level 3.2, Chloride Level 104, Carbon Dioxide Level 23, Anion Gap 12, Blood Urea Nitrogen 26, Creatinine 1.17, Estimat Glomerular Filtration Rate > 60, BUN/ Creatinine Ratio 22, Glucose Level 102, Calcium Level 8.2, Phosphorus Level 4.0 , Magnesium Level 1.7, B-Type Natriuretic Peptide 779.6 06/11/18 03:10: White Blood Count 7.1, Red Blood Count 3.45, Hemoglobin 10.3, Hematocrit 30, Mean Corpuscular Volume 86, Mean Corpuscular Hemoglobin 30, Mean Corpuscular Hemoglobin Concent 35, Red Cell Distribution Width 15.7, Platelet Count 151, Mean Platelet Volume 10.1, Neutrophils (%) (Auto) 77, Lymphocytes (%) (Auto) 13 , Monocytes (%) (Auto) 9, Eosinophils (%) (Auto) 0, Basophils (%) (Auto) 0, Neutrophils # (Auto) 5.5, Lymphocytes # (Auto) 0.9, Monocytes # (Auto) 0.6, Eosinophils # (Auto) 0.0, Basophils # (Auto) 0.0, Sodium Level 143, Potassium Level 2.7, Chloride Level 104, Carbon Dioxide Level 25, Anion Gap 14, Blood Urea Nitrogen 27, Creatinine 1.12, Estimat Glomerular Filtration Rate > 60, BUN/ Creatinine Ratio 24, Glucose Level 104, Calcium Level 8.2, Phosphorus Level 4.0 , Magnesium Level 2.0 06/11/18 07:22: Ammonia 26 06/12/18 03:35: White Blood Count 5.7, Red Blood Count 3.43, Hemoglobin 10.2, Hematocrit 30, Mean Corpuscular Volume 88, Mean Corpuscular Hemoglobin 30, Mean Corpuscular Hemoglobin Concent 34, Red Cell Distribution Width 16.1, Platelet Count 172, Mean Platelet Volume 10.2, Neutrophils (%) (Auto) 75, Lymphocytes (%) (Auto) 16 , Monocytes (%) (Auto) 8, Eosinophils (%) (Auto) 1, Basophils (%) (Auto) 0, Neutrophils # (Auto) 4.3, Lymphocytes # (Auto) 0.9, Monocytes # (Auto) 0.4, Eosinophils # (Auto) 0.1, Basophils # (Auto) 0.0, Sodium Level 143, Potassium Level 3.0, Chloride Level 108, Carbon Dioxide Level 23, Anion Gap 12, Blood Urea Nitrogen 26, Creatinine 0.95, Estimat Glomerular Filtration Rate > 60, BUN/ Creatinine Ratio 27, Glucose Level 119, Calcium Level 8.3, Phosphorus Level 3.3 , Magnesium Level 1.9, B-Type Natriuretic Peptide 1253.6 06/12/18 13:05: Sodium Level 144, Potassium Level 3.6, Chloride Level 110, Carbon Dioxide Level 22, Anion Gap 12, Blood Urea Nitrogen 25, Creatinine 1.01, Estimat Glomerular Filtration Rate > 60, BUN/Creatinine Ratio 25, Glucose Level 128, Calcium Level 8.4, Corrected Calcium 9.5, Phosphorus Level 3.2, Magnesium Level 1.8, Total Bilirubin 1.6, Aspartate Amino Transf (AST/SGOT) 30, Alanine Aminotransferase ( ALT/SGPT) 19, Alkaline Phosphatase 63, Total Protein 5.8, Albumin 2.6 06/13/18 04:50: Sodium Level 144, Potassium Level 3.2, Chloride Level 107, Carbon Dioxide Level 22, Anion Gap 15, Blood Urea Nitrogen 32, Creatinine 0.97, Estimat Glomerular Filtration Rate > 60, BUN/Creatinine Ratio 33, Glucose Level 142, Calcium Level 8.7, Phosphorus Level 3.4, Magnesium Level 1.9, White Blood Count 6.3, Red Blood Count 3.55, Hemoglobin 10.4, Hematocrit 31, Mean Corpuscular Volume 89, Mean Corpuscular Hemoglobin 29, Mean Corpuscular Hemoglobin Concent 33, Red Cell Distribution Width 16.7, Platelet Count 250, Mean Platelet Volume 10.7, Neutrophils (%) (Auto) 88, Lymphocytes (%) (Auto) 9, Monocytes (%) (Auto) 3, Eosinophils (%) (Auto) 0, Basophils (%) (Auto) 0, Neutrophils # (Auto) 5.5, Lymphocytes # (Auto) 0.6, Monocytes # (Auto) 0.2, Eosinophils # (Auto) 0.0, Basophils # (Auto) 0.0, Neutrophils % (Manual) 90, Lymphocytes % (Manual) 7, Monocytes % (Manual) 3, Eosinophils % (Manual) 0, Basophils % (Manual) 0, Band Neutrophils 0, Hypochromasia SLIGHT, Poikilocytosis SLIGHT, Anisocytosis SLIGHT , B-Type Natriuretic Peptide 1117.2 06/13/18 08:02: Blood Gas Puncture Site R RAD, Blood Gas Patient Temperature 97.4, Arterial Blood pH 7.53, Arterial Blood Partial Pressure CO2 31, Arterial Blood Partial Pressure O2 57, Arterial Blood HCO3 26, Arterial Blood Total CO2 26.9, Arterial Blood Oxygen Saturation 90, Arterial Blood Base Excess 3.1, Lamont Test YES-POS, Blood Gas Ventilator Setting YES, Blood Gas Inspired Oxygen 25 06/13/18 09:50: Sodium Level 143, Potassium Level 3.5, Chloride Level 106, Carbon Dioxide Level 23, Anion Gap 14, Blood Urea Nitrogen 33, Creatinine 1.05, Estimat Glomerular Filtration Rate > 60, BUN/Creatinine Ratio 31, Glucose Level 165, Calcium Level 8.8, Corrected Calcium 9.8, Phosphorus Level 3.4, Magnesium Level 2.0, Total Bilirubin 1.1, Aspartate Amino Transf (AST/SGOT) 22, Alanine Aminotransferase ( ALT/SGPT) 19, Alkaline Phosphatase 55, Total Protein 6.4, Albumin 2.8 06/14/18 03:15: White Blood Count 5.1, Red Blood Count 3.42, Hemoglobin 10.3, Hematocrit 31, Mean Corpuscular Volume 90, Mean Corpuscular Hemoglobin 30, Mean Corpuscular Hemoglobin Concent 34, Red Cell Distribution Width 16.4, Platelet Count 258, Mean Platelet Volume 11.0, Neutrophils (%) (Auto) 84, Lymphocytes (%) (Auto) 11 , Monocytes (%) (Auto) 5, Eosinophils (%) (Auto) 0, Basophils (%) (Auto) 0, Neutrophils # (Auto) 4.3, Lymphocytes # (Auto) 0.6, Monocytes # (Auto) 0.2, Eosinophils # (Auto) 0.0, Basophils # (Auto) 0.0, Sodium Level 142, Potassium Level 3.6, Chloride Level 109, Carbon Dioxide Level 21, Anion Gap 12, Blood Urea Nitrogen 38, Creatinine 1.03, Estimat Glomerular Filtration Rate > 60, BUN/ Creatinine Ratio 37, Glucose Level 136, Calcium Level 8.5, Phosphorus Level 3.9 , Magnesium Level 1.8, B-Type Natriuretic Peptide 578.6 06/15/18 04:55: White Blood Count 7.9, Red Blood Count 3.50, Hemoglobin 10.5, Hematocrit 32, Mean Corpuscular Volume 91, Mean Corpuscular Hemoglobin 30, Mean Corpuscular Hemoglobin Concent 33, Red Cell Distribution Width 16.8, Platelet Count 339, Mean Platelet Volume 10.5, Neutrophils (%) (Auto) 89, Lymphocytes (%) (Auto) 8, Monocytes (%) (Auto) 3, Eosinophils (%) (Auto) 0, Basophils (%) (Auto) 0, Neutrophils # (Auto) 7.0, Lymphocytes # (Auto) 0.7, Monocytes # (Auto) 0.3, Eosinophils # (Auto) 0.0, Basophils # (Auto) 0.0, Sodium Level 143, Potassium Level 3.9, Chloride Level 110, Carbon Dioxide Level 21, Anion Gap 12, Blood Urea Nitrogen 41, Creatinine 0.90, Estimat Glomerular Filtration Rate > 60, BUN/ Creatinine Ratio 46, Glucose Level 126, Calcium Level 8.6, Phosphorus Level 3.4 , Magnesium Level 1.9 Discussion & Recommendations Patient on Vapotherm high concentration. Patient transferred to [facility] [place] Discharge Home Medications: Active Scripts Active Reported Ventolin Hfa (Albuterol Sulfate) 18 Gm Hfa.aer.ad 2 Puff INH TID PRN Trazodone HCl 100 Mg Tablet 100 Mg PO HS Esomeprazole Magnesium 40 Mg Capsule.dr 40 Mg PO DAILY Instructions to patient/family Please see electronic discharge instructions given to patient. Clinical Quality Measures DVT/VTE Risk/Contraindication: Risk Factor Score Per Nursin RFS Level Per Nursing on Admit: 3=High JENNIFER BECK DO June 16, 2018 07:44
--- NOTE | 2018-06-20 09:15 | Physician Query Clarification ---
PQ-Conflicting Diagnosis Admission/Discharge Admission Date: Jun 03, 2018 at 11:05 Discharge Date: June 15, 2018 at 18:59 The medical record reflects the following clinical scenario: History/Risk Factors: Alcohol withdrawal Acute respiratory distress Unable to maintain airway Clinical Findings: Pulse 113, Resp 34, BP 181/78,paradoxal respirations requiring increased oxygen , accessory muscle use, decreased breath sounds. Treatment: Intubation with mechanical ventilation. Question: Do you agree with the impression of the Acute Respiratory Failure per Dr. Lamar Schofield's H&P? Please document a response below. PHYSICIAN RESPONSE Do you agree w/Consulting Dx?: Yes In responding to this query, please exercise your independent professional judgment. The purpose of this communication is to more accurately reflect the complexity of your patients condition. The fact that a question is asked does not imply that any particular answer is desired or expected. Thank you for your timely response to this clarification. Requestors name: Eliz Schwartz [facility] Phone # [phone] THIS PHYSICIAN QUERY FORM IS A PERMANENT PART OF THE MEDICAL RECORD ELIZ SCHWARTZ June 20, 2018 09:15 JENNIFER BECK DO June 20, 2018 12:56
--- NOTE | 2018-06-20 09:29 | Physician Query Clarification ---
PQ-Present on Admission Admission/Discharge Admission Date: Jun 03, 2018 at 11:05 Discharge Date: June 15, 2018 at 18:59 Question: Pneumonia/probable aspiration was documented in Dr. Mejias's 06/04 progress note . Can you specify if this condition was present on admission? Please document a response below. PHYSICIAN RESPONSE Condition was Present on Admit: Yes In responding to this query, please exercise your independent professional judgment. The purpose of this communication is to more accurately reflect the complexity of your patients condition. The fact that a question is asked does not imply that any particular answer is desired or expected. Thank you for your timely response to this clarification. Requestors name: Ольга Schwartz [facility] Phone # [phone] THIS PHYSICIAN QUERY FORM IS A PERMANENT PART OF THE MEDICAL RECORD ОЛЬГА SCHWARTZ June 20, 2018 09:29 JENNIFER BECK DO June 20, 2018 12:56
== END 2018-06-15 18:59 | DRG 207 ==
LOC: EDUNIT# 22:33 → ER 22:36 → 4TH 22:37 → UNDOADMOB 06-03 01:30 → 4TH 06-03 01:30 → OBSVTOIN 06-03 05:13 → INTOOBSV 06-03 05:13 → 4TH 06-03 05:14 → ICU 06-03 05:14 → OBSVTOIN 06-03 11:05 → ICU 06-12 13:03 → 4TH 06-12 13:03 → ICU 06-13 14:28 → 4TH 06-13 14:28 → ICU 06-15 14:36 → UNDODISIN 06-15 18:59
PROVIDERS: ADMIT Internal Medicine; ATTEND Internal Medicine
PROC: 0BH17EZ Insertion of Endotracheal Airway into Trachea, Via Natural or Artificial Opening (ICD-10-PCS; principal; 2018-06-03)
PROC: 5A1955Z Respiratory Ventilation, Greater than 96 Consecutive Hours (ICD-10-PCS; 2018-06-03)
DX: J96.00 Acute respiratory failure, unspecified whether with hypoxia or hypercapnia (principal); F10.231 Alcohol dependence with withdrawal delirium; F10.259 Alcohol dependence with alcohol-induced psychotic disorder, unspecified; F10.27 Alcohol dependence with alcohol-induced persisting dementia; J69.0 Pneumonitis due to inhalation of food and vomit; J15.3 Pneumonia due to streptococcus, group B; I11.0 Hypertensive heart disease with heart failure; I50.31 Acute diastolic (congestive) heart failure; E87.1 Hypo-osmolality and hyponatremia; E87.2 Acidosis; R64 Cachexia; D61.818 Other pancytopenia; J98.11 Atelectasis; N40.1 Benign prostatic hyperplasia with lower urinary tract symptoms; R33.8 Other retention of urine; K72.90 Hepatic failure, unspecified without coma; R13.12 Dysphagia, oropharyngeal phase; I25.10 Atherosclerotic heart disease of native coronary artery without angina pectoris; J44.9 Chronic obstructive pulmonary disease, unspecified; E16.2 Hypoglycemia, unspecified; R20.0 Anesthesia of skin; R20.2 Paresthesia of skin; F17.210 Nicotine dependence, cigarettes, uncomplicated; K21.9 Gastro-esophageal reflux disease without esophagitis; L50.9 Urticaria, unspecified; E78.2 Mixed hyperlipidemia; G47.9 Sleep disorder, unspecified; E87.6 Hypokalemia; Z91.81 History of falling; Z95.5 Presence of coronary angioplasty implant and graft
CPT/HCPCS: 36415; 36600; 51702; 70450; 70470; 71045; 71275; 72125; 80048; 80053; 80202; 80306; 80320; 81000; 82140; 82550; 82805; 82962; 83605; 83735; 83880; 84100; 84478; 84484; 85007; 85025; 85027; 85610; 85730; 87070; 87077; 87205; 87899; 93005; 93306; 94002; 94003; 94640; 94760; 94799; 96361; 96374; 96375; G0378

== ENCOUNTER 2019-01-09 05:34 | Emergency (ER) | payer OTHER, MEDICARE ==
[~2019-01-09] VITALS: Ht 198 cm; Wt 81.8 kg
[~2019-01-09 05:34] MED LIST changes: +ALBU18HF2 INH; +ESOM40CA52 PO; +TRAZ-190 PO
--- NOTE | 2019-01-09 05:47 | ED GU-Male ---
General Stated Complaint: CAN'T URINATE Source: patient, EMS Exam Limitations: no limitations (TAMMIE LOCK) History of Present Illness Date Seen by Provider: Jan 09, 2019 Time Seen by Provider: 05:29 Initial Comments Patient presents to ER by EMS from home with chief complaint of the past 2 months having difficulty with micturition. He has urinary hesitancy progressively worsening in the past couple days he's been able to only a few dribbles out at a time. He denies any fevers or chills. He's having some suprapubic discomfort and feeling of distention. He is not having constipation. He had a bowel movement yesterday normal formed. He denies any discharge. [facility] [place] He does not follow with urologist. (TAMMIE LOCK) Allergies and Home Medications Allergies Coded Allergies: No Known Drug Allergies (Verified , 08/16/17) Home Medications Albuterol Sulfate 18 Gm Hfa.aer.ad, 2 PUFF INH TID PRN for SHORTNESS OF BREATH, (Reported) Albuterol Sulfate 1 Puff Puff, 2 PUFF IH Q4H PRN for SHORTNESS OF BREATH 1 PUFF = 90 MCG Prescribed by: GLENN SANTOS on 01/09/19 07 Cephalexin 500 Mg Capsule, 500 MG PO TID Prescribed by: GLENN SANTOS on 01/09/19 07 Esomeprazole Magnesium 40 Mg Capsule.dr, 40 MG PO DAILY, (Reported) Tamsulosin HCl 0.4 Mg Cap, 0.4 MG PO DAILY Prescribed by: GLENN SANTOS on 01/09/19 07 Trazodone HCl 100 Mg Tablet, 100 MG PO HS, (Reported) Patient Home Medication List Home Medication List Reviewed: Yes (TAMMIE LOCK) Review of Systems Review of Systems Constitutional: No chills, No fever EENTM: No hearing loss, No ear pain Respiratory: No cough, No short of breath Cardiovascular: No chest pain, No edema Gastrointestinal: see HPI, abdominal pain (Suprapubic tenderness); No nausea Genitourinary: see HPI; denies burning, denies dysuria Musculoskeletal: No back pain, No joint pain Skin: No pruritus, No rash (TAMMIE LOCK) Past Vkmyjyy-Tlkhsl-Stjyou Hx Patient Social History Alcohol Use: Regular Use Alcohol Beverage of Choice: Beer Recreational Drug Use: No Smoking Status: Current Everyday Smoker Type Used: Cigarettes 2nd Hand Smoke Exposure: Yes Recent Foreign Travel: No Contact w/Someone Who Travel: No Recent Hopitalizations: No (TAMMIE LOCK) Seasonal Allergies Seasonal Allergies: Yes (TAMMIE LOCK) Past Medical History Surgeries: Yes (L THR) Abdominal, Coronary Stent, Orthopedic Respiratory: Yes COPD Cardiac: No High Cholesterol Neurological: No Reproductive Disorders: No Sexually Transmitted Disease: Yes HIV/AIDS: No Genitourinary: No Gastrointestinal: Yes Gastroesophageal Reflux Musculoskeletal: No Endocrine: No Loss of Vision: Denies Hearing Impairment: Hard of Hearing Cancer: No Psychosocial: Yes Sleep Difficulties Integumentary: No Blood Disorders: No Adverse Reaction/Blood Tranf: No (N/A) (TAMMIE LOCK) Physical Exam Vital Signs Vital Signs - First Documented 01/09/19 05:36 Temp 37.0 Pulse 74 Resp 20 B/P (MAP) 168/55 (92) O2 Delivery Room Air (GLENN JOSÉ MD) Vital Signs Capillary Refill : (TAMMIE LOCK) Height, Weight, BMI Height: 6'6.00" Weight: 172lbs. 7.0oz. 78.182582lr; 20.4 BMI Method:Stated General Appearance: WD/WN, mild distress HEENT: PERRL/EOMI, pharynx normal Neck: full range of motion, normal inspection Cardiovascular: normal peripheral pulses, regular rate, rhythm, no edema Respiratory: lungs clear, normal breath sounds, no respiratory distress, no accessory muscle use Gastrointestinal: normal bowel sounds, soft, tenderness (suprapubic) Neurologic/Psychiatric: alert, normal mood/affect, oriented x 3, other (hard of hearing) Skin: normal color, warm/dry (TAMMIE LOCK) Procedures/Interventions Date of ETT Placement: Jun 03, 2018 Time of ETT Placement: 0643 (TAMMIE LOCK) Progress/Results/Core Measures Suspected Sepsis SIRS Temperature: Pulse: Respiratory Rate: Laboratory Tests 01/09/19 05:45: Blood Pressure / Mean: Laboratory Tests 01/09/19 05:45: (TAMMIE LOCK) Results/Orders Lab Results Laboratory Tests Test 01/09/19 05:45 01/09/19 06:00 Range/Units White Blood Count 6.7 4.3-11.0 10^3/uL Red Blood Count 4.98 4.35-5.85 10^6/uL Hemoglobin 12.8 L 13.3-17.7 G/DL Hematocrit 39 L 40-54 % Mean Corpuscular Volume 78 L 80-99 FL Mean Corpuscular Hemoglobin 26 25-34 PG Mean Corpuscular Hemoglobin Concent 33 32-36 G/DL Red Cell Distribution Width 17.9 H 10.0-14.5 % Platelet Count 322 130-400 10^3/uL Mean Platelet Volume 9.1 7.4-10.4 FL Neutrophils (%) (Auto) 47 42-75 % Lymphocytes (%) (Auto) 34 12-44 % Monocytes (%) (Auto) 10 0-12 % Eosinophils (%) (Auto) 9 0-10 % Basophils (%) (Auto) 1 0-10 % Neutrophils # (Auto) 3.1 1.8-7.8 X 10^3 Lymphocytes # (Auto) 2.3 1.0-4.0 X 10^3 Monocytes # (Auto) 0.7 0.0-1.0 X 10^3 Eosinophils # (Auto) 0.6 H 0.0-0.3 10^3/uL Basophils # (Auto) 0.1 0.0-0.1 10^3/uL Sodium Level 135 135-145 MMOL/L Potassium Level 3.9 3.6-5.0 MMOL/L Chloride Level 105 98-107 MMOL/L Carbon Dioxide Level 20 L 21-32 MMOL/L Anion Gap 10 5-14 MMOL/L Blood Urea Nitrogen 15 7-18 MG/DL Creatinine 1.23 0.60-1.30 MG/DL Estimat Glomerular Filtration Rate 58 BUN/Creatinine Ratio 12 Glucose Level 100 70-105 MG/DL Calcium Level 8.8 8.5-10.1 MG/DL Corrected Calcium 9.1 8.5-10.1 MG/DL Total Bilirubin 0.3 0.1-1.0 MG/DL Aspartate Amino Transf (AST/SGOT) 28 5-34 U/L Alanine Aminotransferase (ALT/SGPT) 17 0-55 U/L Alkaline Phosphatase 91 40-136 U/L Total Protein 6.8 6.4-8.2 GM/DL Albumin 3.6 3.2-4.5 GM/DL Serum Alcohol 131 H <10 MG/DL Urine Color YELLOW Urine Clarity SL CLOUDY Urine pH 6.0 5-9 Urine Specific [place] 1.010 L 1.016-1.022 Urine Protein NEGATIVE NEGATIVE Urine Glucose (UA) NEGATIVE NEGATIVE Urine Ketones NEGATIVE NEGATIVE Urine Nitrite NEGATIVE NEGATIVE Urine Bilirubin NEGATIVE NEGATIVE Urine Urobilinogen 0.2 < = 1.0 MG/DL Urine Leukocyte Esterase 3+ H NEGATIVE Urine RBC (Auto) TRACE-I NEGATIVE Urine RBC 2-5 H /HPF Urine WBC 50-100 H /HPF Urine Squamous Epithelial Cells RARE /HPF Urine Crystals NONE /LPF Urine Bacteria LARGE H /HPF Urine Casts NONE /LPF Urine Mucus NEGATIVE /LPF Urine Culture Indicated YES (GLENN JOSÉ MD) My Orders Orders - GLENN JOSÉ MD Alcohol (01/09/19 06:19) Albuterol/Ipra Inhalation Soln (Duoneb I (01/09/19 06:30) Svn Small Volume Nebulizer (01/09/19 06:19) Chest 1 View, Ap/Pa Only (01/09/19 06:19) Ceftriaxone For Iv Use (Rocephin For I (01/09/19 07:00) Tamsulosin Capsule (Flomax Capsule) (01/09/19 07:15) (GLENN JOSÉ MD) Medications Given in ED Current Medications Medications Dose Ordered Sig/Perla Route Start Time Stop Time Status Last Admin Dose Admin Albuterol/ Ipratropium 3 ml ONCE ONCE INH 01/09/19 06:30 01/09/19 06:31 DC 01/09/19 06:47 3 ML Ceftriaxone Sodium 1000 mg/ Sterile Water 10 ml @ 200 mls/hr ONCE ONCE IV 01/09/19 07:00 01/09/19 07:02 DC 01/09/19 06:57 200 MLS/HR Lidocaine HCl 10 ml ONCE ONCE TOP 01/09/19 06:00 01/09/19 06:01 DC 01/09/19 06:09 10 ML Tamsulosin HCl 0.4 mg ONCE ONCE PO 01/09/19 07:15 01/09/19 07:16 DC 01/09/19 07:23 0.4 MG (GLENN JOSÉ MD) Vital Signs/I&O 01/09/19 05:36 Temp 37.0 Pulse 74 Resp 20 B/P (MAP) 168/55 (92) O2 Delivery Room Air (GLENN JOSÉ MD) Vital Signs/I&O Capillary Refill : (TAMMIE LOCK) Progress Note : Time: 05:48 Progress Note Suspect prostatism possible infection. Plan to pass a catheter. Check some labs looking for kidney dysfunction. (TAMMIE LOCK) Progress Note #1: Time: 06:22 Progress Note Care of this patient was assumed from Dr. Lock at shift change. Catheter was successfully placed with a large volume of urine output. Patient feels improved. When patient dozes off his oxygen saturations drop into the upper 80s. We will obtain a chest x-ray and perform a DuoNeb treatment. Breath sounds are normal to auscultation, and respiratory rate is slightly increased. Patient does admit to drinking alcohol last night and smells of alcohol on exam. Progress Note #2: Time: 07:13 Progress Note Patient's oxygen saturation improved with DuoNeb treatment. Oxygen saturation is 96 percent on room air. He was found to have urinary tract infection and was treated with Rocephin. I discussed the critical importance of following up and taking his medications. He indicated finances were prohibitive. We will give the first dose of Flomax here in the ER. Chest x-ray appears unchanged from prior. I am awaiting report on the x-ray before dismissal. (GLENN JOSÉ MD) Diagnostic Imaging Diagonstic Imaging: Xray Plain Films/CT/US/NM/MRI: chest Comments Chest x-ray viewed by me and compared with prior. Report reviewed. See report below: NAME: HARJINDER LAWLER [facility] REC#: [id number] PT STATUS: REG ER : 1950 PHYSICIAN: GLENN JOSÉ MD ADMIT DATE: 01/09/19/ER Draft POSDate of Exam:01/09/19 CHEST 1 VIEW, AP/PA ONLY EXAM: CHEST 1 VIEW, AP/PA ONLY INDICATION: Decreased urination. COMPARISON: 06/15/2018. FINDINGS: Normal heart size. Stable prominence of interstitium. Persistent mild atelectasis or scarring in the left lung base. No pneumothorax. Calcified aorta. No acute osseous findings. IMPRESSION: Stable exam including prominence of interstitium. Although some of this is likely chronic, an interstitial edema component cannot be excluded. Stable mild atelectasis or scarring in the left lung base. Dictated on workstation # [id number] Dict: 01/09/19 0658 Trans: 01/09/19 0735 [id number] Interpreted by: ADITHYA WISE MD (GLENN JOSÉ MD) Transfer of Care Transfer of Care Time: 06:05 Care transferred to: [facility] Santos [facility] Departure Impression Primary Impression: Urinary tract infection Qualified Codes: N39.0 - Urinary tract infection, site not specified Additional Impressions: Urinary retention Acute alcohol intoxication Qualified Codes: F10.929 - Alcohol use, unspecified with intoxication, unspecified COPD (chronic obstructive pulmonary disease) Qualified Codes: J44.9 - Chronic obstructive pulmonary disease, unspecified Disposition: 01 HOME, SELF-CARE Condition: Improved Departure-Patient Inst. Decision time for Depature: 07:03 (GLENN JOSÉ MD) Referrals: JENNIFER BECK DO (PCP/Family) Primary Care Physician Patient Instructions: Jara Catheter, Male, Urinary Retention Add. Discharge Instructions: Please read the attached information regarding care of your Jara catheter. You must follow-up with your primary care provider and/or a urologist within the next week. Please call today to make arrangements. Contact information for Dr. Arzola (urologist) is below. Drain your Jara catheter often and try to keep the urine bag below the level of your bladder. Work toward quitting smoking and use your inhaler for wheezing or shortness of breath. Drink plenty of non-alcoholic and non-caffeinated clear liquids to stay well-hydrated. Complete the entire course of your antibiotic as prescribed. Also start on Flomax (tamsulosin) to help improve your urine flow and shrink your prostate. Avoid drinking alcohol in excess. Do not drink to intoxication. Return to care if you have any worsening conditions or other problems or concerns. Scripts Albuterol Sulfate (PROAIR HFA) 1 Puff Puff 2 PUFF IH Q4H PRN for SHORTNESS OF BREATH, #1 PUFF 1 PUFF = 90 MCG Prov: GLENN JOSÉ MD 01/09/19 Tamsulosin HCl (Flomax) 0.4 Mg Cap 0.4 MG PO DAILY, #30 CAP Prov: GLENN JOSÉ MD 01/09/19 Cephalexin (Keflex) 500 Mg Capsule 500 MG PO TID, #20 CAP Prov: GLENN JOSÉ MD 01/09/19 TAMMIE LOCK Jan 09, 2019 05:47 GLENN BARRIOS MD Jan 09, 2019 06:23 POS
[2019-01-09] MEDS ORDERED: LIDOCAINE UROJET 2% GEL 10 ML PKG ONE (05:50)
[2019-01-09 05:57] LABS: BASOPHILS # (AUTO) 0.1 10^3/uL (0.0-0.1); BASOPHILS % (AUTO) 1 % (0-10); EOSINOPHILS # (AUTO) 0.6 10^3/uL (0.0-0.3); EOSINOPHILS % (AUTO) 9 % (0-10); HEMATOCRIT 39 % (40-54); HEMOGLOBIN 12.8 G/DL (13.3-17.7); LYMPHOCYTES # (AUTO) 2.3 X 10^3 (1.0-4.0); LYMPHOCYTES % (AUTO) 34 % (12-44); MEAN CORPUSCULAR HEMOGLOBIN 26 PG (25-34); MEAN CORPUSCULAR HGB CONC 33 G/DL (32-36); MEAN CORPUSCULAR VOLUME 78 FL (80-99); MEAN PLATELET VOLUME 9.1 FL (7.4-10.4); MONOCYTES # (AUTO) 0.7 X 10^3 (0.0-1.0); MONOCYTES % (AUTO) 10 % (0-12); NEUTROPHILS # (AUTO) 3.1 X 10^3 (1.8-7.8); NEUTROPHILS % (AUTO) 47 % (42-75); PLATELET COUNT 322 10^3/uL (130-400); RED CELL DISTRIBUTION WIDTH 17.9 % (10.0-14.5); WHITE BLOOD COUNT 6.7 10^3/uL (4.3-11.0)
[2019-01-09] MEDS ORDERED: LIDOCAINE UROJET 2% GEL 10 ML PKG TOP ONE (06:00)
[2019-01-09 06:10] LABS: BILIRUBIN,URINE NEGATIVE (NEGATIVE); CLARITY,URINE SL CLOUDY; COLOR,URINE YELLOW; GLUCOSE, URINE (UA) NEGATIVE (NEGATIVE); KETONES,URINE NEGATIVE (NEGATIVE); LEUKOCYTE ESTERASE ,URINE 3+ (NEGATIVE); NITRITE,URINE NEGATIVE (NEGATIVE); PROTEIN,URINE NEGATIVE (NEGATIVE)
[2019-01-09 06:18] LABS: ALBUMIN 3.6 GM/DL (3.2-4.5); BILIRUBIN,TOTAL 0.3 MG/DL (0.1-1.0); CALCIUM 8.8 MG/DL (8.5-10.1); CREATININE SERUM 1.23 MG/DL (0.60-1.30); POTASSIUM 3.9 MMOL/L (3.6-5.0); TOTAL PROTEIN 6.8 GM/DL (6.4-8.2)
[2019-01-09 06:27] LABS: BACTERIA,URINE LARGE /HPF; SQUAMOUS EPITHELIAL CELL,UR RARE /HPF; WBC,URINE 50-100 /HPF
[2019-01-09] MEDS ORDERED: RT-ALBUTEROL/IPRATROPIUM 3 ML (DUONEB) VIAL INH ONE (06:30)
[2019-01-09] MEDS ORDERED: cefTRIAXone FOR IV USE 1,000 MG in WATER (STERILE) FOR INJECTION 10 ML IV ONE (07:00)
--- NOTE | 2019-01-09 07:00 | NUR ---
REPORT FROM [facility]
[2019-01-09] MEDS ORDERED: CEPH-507 PO (07:06)
[2019-01-09] MEDS ORDERED: RT-ALBUINH IH (07:06)
[2019-01-09] MEDS ORDERED: TAMS0.4C98 PO (07:06)
[2019-01-09] MEDS ORDERED: TAMSULOSIN 0.4 MG (FLOMAX) CAP PO ONE (07:15)
--- NOTE | 2019-01-09 07:35 | Diagnostic Imaging Report ---
EXAM: CHEST 1 VIEW, AP/PA ONLY INDICATION: Decreased urination. COMPARISON: 06/15/2018. FINDINGS: Normal heart size. Stable prominence of interstitium. Persistent mild atelectasis or scarring in the left lung base. No pneumothorax. Calcified aorta. No acute osseous findings. IMPRESSION: Stable exam including prominence of interstitium. Although some of this is likely chronic, an interstitial edema component cannot be excluded. Stable mild atelectasis or scarring in the left lung base. Dictated by: Dictated on workstation # [id number]
[2019-01-09 08:13] VITALS: BP 160/83
== END 2019-01-09 08:12 | disposition home or self-care (01) ==
LOC: EDUNIT# 05:34 → ER 05:36
DX: N39.0 Urinary tract infection, site not specified (principal); J44.9 Chronic obstructive pulmonary disease, unspecified; F10.129 Alcohol abuse with intoxication, unspecified; E78.00 Pure hypercholesterolemia, unspecified; K21.9 Gastro-esophageal reflux disease without esophagitis; F17.210 Nicotine dependence, cigarettes, uncomplicated; Z95.5 Presence of coronary angioplasty implant and graft; Z96.642 Presence of left artificial hip joint
CPT/HCPCS: 36415; 51702; 71045; 80053; 80320; 81000; 85025; 87077; 87088; 87186; 96374

== ENCOUNTER 2019-01-12 11:44 | Emergency (ER) | payer OTHER, MEDICARE ==
[~2019-01-12] VITALS: Ht 197 cm; Wt 80.0 kg
[~2019-01-12 11:44] MED LIST changes: +CEPH-507 PO; +RT-ALBUINH IH; +TAMS0.4C98 PO
--- NOTE | 2019-01-12 12:55 | NUR ---
pt states that he "took his prostate medication" and now needs his romo out. There are no instructions to take romo out and pt states that he did not call Dr. Mar to be seen as instructed.
--- NOTE | 2019-01-12 13:09 | ED GU-Male ---
General Chief Complaint: Catheter/Drain/Tube Problems Stated Complaint: ALMANZAR CATHETER REMOVAL Source: patient Exam Limitations: no limitations History of Present Illness Date Seen by Provider: Jan 12, 2019 Time Seen by Provider: 12:45 Initial Comments Patient presents to ER by private conveyance with chief complaint of 16 and penis. He has a Almanzar catheter placed from the ER last week for prostate hypertrophy. He was to follow-up with urology, Dr. Dial but did not make the appointment. 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 He's not having any fever chills or cloudy urine. He's been draining as per instructions. His understanding was that he only had follow-up with the urologist if he needed to help with samples for the Flomax. He tried to self extricate Almanzar catheter but was unable to. No abdominal pain, nausea, vomiting, diarrhea or fever. He is still taking the antibiotics as prescribed. Allergies and Home Medications Allergies Coded Allergies: No Known Drug Allergies (Verified , 08/16/17) Home Medications Albuterol Sulfate 18 Gm Hfa.aer.ad, 2 PUFF INH TID PRN for SHORTNESS OF BREATH, (Reported) Albuterol Sulfate 1 Puff Puff, 2 PUFF IH Q4H PRN for SHORTNESS OF BREATH 1 PUFF = 90 MCG Prescribed by: GLENN SAMSON on 01/09/19 07 Cephalexin 500 Mg Capsule, 500 MG PO TID Prescribed by: GLENN SAMSON on 01/09/19 07 Esomeprazole Magnesium 40 Mg Capsule.dr, 40 MG PO DAILY, (Reported) Tamsulosin HCl 0.4 Mg Cap, 0.4 MG PO DAILY Prescribed by: GLENN SAMSON on 01/09/19 07 Trazodone HCl 100 Mg Tablet, 100 MG PO HS, (Reported) Patient Home Medication List Home Medication List Reviewed: Yes Review of Systems Review of Systems Constitutional: No chills, No fever EENTM: No ear discharge, No ear pain Respiratory: No cough, No phlegm Cardiovascular: No chest pain, No palpitations Gastrointestinal: No abdominal pain, No constipation, No diarrhea, No nausea Genitourinary: see HPI, burning; denies discharge Musculoskeletal: No back pain, No joint pain Skin: No pruritus, No rash Past Vzsrirb-Ntauyw-Wcgbrc Hx Patient Social History Alcohol Beverage of Choice: Beer Type Used: Cigarettes 2nd Hand Smoke Exposure: Yes Recent Foreign Travel: No Contact w/Someone Who Travel: No Recent Hopitalizations: No Seasonal Allergies Seasonal Allergies: Yes Past Medical History Surgeries: Yes (L TOTAL HIP) Abdominal, Coronary Stent, Orthopedic Respiratory: Yes COPD Cardiac: Yes High Cholesterol Neurological: No Reproductive Disorders: No Sexually Transmitted Disease: Yes HIV/AIDS: No Genitourinary: No Gastrointestinal: Yes Gastroesophageal Reflux Musculoskeletal: No Endocrine: No HEENT: No Loss of Vision: Denies Hearing Impairment: Hard of Hearing Cancer: No Psychosocial: Yes Sleep Difficulties Integumentary: No Blood Disorders: No Adverse Reaction/Blood Tranf: No (N/A) Physical Exam Vital Signs Vital Signs - First Documented 01/12/19 13:03 Temp 36.8 Pulse 88 Resp 20 B/P (MAP) 134/72 (92) O2 Delivery Room Air Capillary Refill : Height, Weight, BMI Height: 6'6.00" Weight: 172lbs. 7.0oz. 78.668571dl; 20.00 BMI Method:Stated General Appearance: WD/WN, no apparent distress HEENT: PERRL/EOMI, pharynx normal Cardiovascular: normal peripheral pulses, regular rate, rhythm Respiratory: no respiratory distress, no accessory muscle use Gastrointestinal: non tender, soft Male: normal genitalia, other (fully catheter in place without erythema, discharge) Neurologic/Psychiatric: alert, normal mood/affect, oriented x 3 Procedures/Interventions Date of ETT Placement: Jun 03, 2018 Time of ETT Placement: 0643 Progress/Results/Core Measures Suspected Sepsis SIRS Temperature: Pulse: Respiratory Rate: Blood Pressure / Mean: Results/Orders Lab Results Laboratory Tests Test 01/12/19 13:18 Range/Units Urine Color YELLOW Urine Clarity SL CLOUDY Urine pH 6.5 5-9 Urine Specific [place] 1.025 H 1.016-1.022 Urine Protein 1+ H NEGATIVE Urine Glucose (UA) NEGATIVE NEGATIVE Urine Ketones NEGATIVE NEGATIVE Urine Nitrite NEGATIVE NEGATIVE Urine Bilirubin NEGATIVE NEGATIVE Urine Urobilinogen 2.0 < = 1.0 MG/DL Urine Leukocyte Esterase 2+ H NEGATIVE Urine RBC (Auto) 3+ H NEGATIVE Urine RBC 50-100 H /HPF Urine WBC >100 H /HPF Urine Squamous Epithelial Cells NONE /HPF Urine Crystals NONE /LPF Urine Bacteria FEW H /HPF Urine Casts NONE /LPF Urine Mucus NEGATIVE /LPF Urine Culture Indicated YES My Orders Orders - TAMMIE LEWIS Ua Culture If Indicated (01/12/19 13:24) Urine Culture (01/12/19 13:18) Vital Signs/I&O 01/12/19 13:03 Temp 36.8 Pulse 88 Resp 20 B/P (MAP) 134/72 (92) O2 Delivery Room Air Capillary Refill : Progress Note : Time: 13:09 Progress Note Plan to check a UA. We have encouraged him to follow-up with the urologist. We have reiterated previous instructions and he has stated them back and has the phone number for urology and says he will follow-up on Tuesday. We have instructed him not to try to pull the Almanzar catheter out on his own. We have encouraged Tylenol, ibuprofen and AZO for the discomfort. Previous urine culture was Escherichia coli pansensitive. Departure Impression Primary Impression: Almanzar catheter problem Qualified Codes: T83.9XXA - Unspecified complication of genitourinary prosthetic device, implant and graft, initial encounter Disposition: 01 HOME, SELF-CARE Condition: Stable Departure-Patient Inst. Decision time for Depature: 13:56 Referrals: JENNIFER BECK DO (PCP/Family) Primary Care Physician BUCKY DIAL MD Patient Instructions: Almanzar Catheter, Male Add. Discharge Instructions: Keep the skin clean with regular soap and water. Try not to get soap around the opening of the penis. Continue taking the antibiotics as prescribed. Tylenol 1000 mg every 8 hours as needed for pain. Ibuprofen 800 mg every 8 hours as needed for pain. 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 All discharge instructions reviewed with patient and/or family. Voiced understanding. TAMMIE LEWIS Jan 12, 2019 13:09 POS
[2019-01-12 13:32] LABS: BILIRUBIN,URINE NEGATIVE (NEGATIVE); CLARITY,URINE SL CLOUDY; COLOR,URINE YELLOW; GLUCOSE, URINE (UA) NEGATIVE (NEGATIVE); KETONES,URINE NEGATIVE (NEGATIVE); LEUKOCYTE ESTERASE ,URINE 2+ (NEGATIVE); NITRITE,URINE NEGATIVE (NEGATIVE); PH,URINE 6.5 (5-9); PROTEIN,URINE 1+ (NEGATIVE)
[2019-01-12 13:43] LABS: BACTERIA,URINE FEW /HPF; RBC,URINE 50-100 /HPF; WBC,URINE >100 /HPF
[2019-01-12] MEDS ORDERED: cefTRIAXone 1,000 MG/2.86 ml vial (IM ONLY) IM ONE (14:00)
[2019-01-12] MEDS ORDERED: LIDOCAINE 1% INJ 20 ML 20 ML VIAL INJ ONE (14:00)
[2019-01-12 14:24] VITALS: BP 134/72
== END 2019-01-12 14:25 | disposition home or self-care (01) ==
LOC: EDUNIT# 11:44 → ER 11:46
DX: T83.9XXA Unspecified complication of genitourinary prosthetic device, implant and graft, initial encounter (principal); J44.9 Chronic obstructive pulmonary disease, unspecified; E78.00 Pure hypercholesterolemia, unspecified; K21.9 Gastro-esophageal reflux disease without esophagitis; Z77.22 Contact with and (suspected) exposure to environmental tobacco smoke (acute) (chronic); Z95.5 Presence of coronary angioplasty implant and graft
CPT/HCPCS: 81000; 87088; 99284

== ENCOUNTER 2019-01-22 14:27 | Inpatient (IN) | payer MEDICARE, OTHER ==
[~2019-01-22] VITALS: Ht 197 cm; Wt 89.1 kg
[2019-01-22] MEDS ORDERED: NS IV 1000 ML 1,000 ML IV SCH ×2 (15:15→17:30)
[2019-01-22 15:17] LABS: BASOPHILS # (AUTO) 0.1 10^3/uL (0.0-0.1); BASOPHILS % (AUTO) 1 % (0-10); EOSINOPHILS # (AUTO) 0.2 10^3/uL (0.0-0.3); EOSINOPHILS % (AUTO) 4 % (0-10); HEMATOCRIT 40 % (40-54); HEMOGLOBIN 13.2 G/DL (13.3-17.7); LYMPHOCYTES # (AUTO) 1.1 X 10^3 (1.0-4.0); LYMPHOCYTES % (AUTO) 18 % (12-44); MEAN CORPUSCULAR HEMOGLOBIN 26 PG (25-34); MEAN CORPUSCULAR HGB CONC 33 G/DL (32-36); MEAN CORPUSCULAR VOLUME 78 FL (80-99); MEAN PLATELET VOLUME 9.7 FL (7.4-10.4); MONOCYTES # (AUTO) 0.5 X 10^3 (0.0-1.0); MONOCYTES % (AUTO) 8 % (0-12); NEUTROPHILS % (AUTO) 69 % (42-75); PLATELET COUNT 276 10^3/uL (130-400); RED CELL DISTRIBUTION WIDTH 16.8 % (10.0-14.5); WHITE BLOOD COUNT 5.8 10^3/uL (4.3-11.0)
[2019-01-22 15:29] LABS: BILIRUBIN,TOTAL 0.6 MG/DL (0.1-1.0); CALCIUM 9.2 MG/DL (8.5-10.1); CREATININE SERUM 1.31 MG/DL (0.60-1.30); POTASSIUM 4.3 MMOL/L (3.6-5.0); TOTAL PROTEIN 7.6 GM/DL (6.4-8.2)
[2019-01-22 15:30] LABS: SALICYLATE < 5.0 MG/DL (5.0-20.0)
[2019-01-22 15:31] LABS: ACETAMINOPHEN < 10 UG/ML (10-30)
--- NOTE | 2019-01-22 15:40 | Diagnostic Imaging Report ---
PROCEDURE: CT head without contrast. TECHNIQUE: Multiple contiguous axial images were obtained through the brain without the use of intravenous contrast. Auto Exposure Controls were utilized during the CT exam to meet ALARA standards for radiation dose reduction. DATE: January 22, 2019. COMPARISON: CT head June 08, 2018. INDICATION: 68-year-old male, seizure and altered mental status. FINDINGS: There is a focal area of CSF-like attenuation in the left cerebellum which is unchanged since comparison exam and may relate to small remote prior lacunar infarct. The ventricles and cerebral spinal fluid spaces are of normal size and configuration for the patient's age. There is no mass effect or midline shift. There is no acute intracranial hemorrhage. There is no abnormal extra-axial fluid collection. The visualized portions of the paranasal sinuses, mastoid air cells and middle ears are well aerated. IMPRESSION: 1. No identified acute intracranial abnormality. Dictated by: Dictated on workstation # [id number]
--- NOTE | 2019-01-22 16:40 | ED Neurological Problem ---
General Chief Complaint: Altered Mental Status Stated Complaint: CONFUSION Nursing Triage Note: Pt to room #3 via [facility] cart from home with c/o altered mental status. 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 Upon arrival pt noted to be alert to person and place. Pt states, "its like I woke up in a daze." Pt unable to recall time he awoke on this day. Denies pain or discomfort. Pt reports to have consumed unknown amount of ETOH on 01/21/19. Nursing Sepsis Screen: No Definite Risk Source: patient, EMS Exam Limitations: no limitations History of Present Illness Date Seen by Provider: Jan 22, 2019 Time Seen by Provider: 15:10 Initial Comments 68-year-old male who is brought to the emergency room by [facility] for reports of altered mental status at home. The patient and family reports that he woke up in a days this morning around 9 AM. The patient was alert and oriented on arrival to the emergency room but did have a tonic-clonic seizure lasting approximately 30 seconds shortly after arrival to the emergency room. Family reports that he does not have a history of seizures. Family reports that he is a daily alcohol drinker and reports to have consumed an unknown amount of alcohol yesterday. He reported to the nurse on arrival that he woke up looking for alc ohol today to drink. Timing/Duration: 4-6 hours Associated Symptoms: confusion, seizures Allergies and Home Medications Allergies Coded Allergies: No Known Drug Allergies (Verified , 08/16/17) Home Medications Albuterol Sulfate 18 Gm Hfa.aer.ad, 2 PUFF INH TID PRN for SHORTNESS OF BREATH, (Reported) Albuterol Sulfate 1 Puff Puff, 2 PUFF IH Q4H PRN for SHORTNESS OF BREATH 1 PUFF = 90 MCG Prescribed by: GLENN SAMSON on 01/09/19705 Cephalexin 500 Mg Capsule, 500 MG PO TID Prescribed by: GLENN SAMSON on 01/09/19 07 Esomeprazole Magnesium 40 Mg Capsule.dr, 40 MG PO DAILY, (Reported) Tamsulosin HCl 0.4 Mg Cap, 0.4 MG PO DAILY Prescribed by: GLENN SAMSON on 01/09/19 07 Trazodone HCl 100 Mg Tablet, 100 MG PO HS, (Reported) Patient Home Medication List Home Medication List Reviewed: Yes Review of Systems Review of Systems Constitutional: see HPI; No chills, No fever Psychiatric/Neurological: See HPI, Tonic Clonic Seizures All Other Systems Reviewed Negative Unless Noted: Yes Past Qrxusvm-Qgdbyy-Dlldra Hx Past Med/Social Hx: Reviewed Nursing Past Med/Soc Hx Patient Social History Alcohol Use: Regular Use Number of Drinks Today: 0 Alcohol Beverage of Choice: Beer Recreational Drug Use: No Smoking Status: Current Everyday Smoker Type Used: Cigarettes 2nd Hand Smoke Exposure: Yes Recent Foreign Travel: No Contact w/Someone Who Travel: No Recent Infectious Disease Expo: No Recent Hopitalizations: No Seasonal Allergies Seasonal Allergies: Yes Past Medical History Surgeries: Yes (L TOTAL HIP) Abdominal, Coronary Stent, Orthopedic Respiratory: Yes COPD Cardiac: Yes High Cholesterol Neurological: No Reproductive Disorders: No Sexually Transmitted Disease: Yes HIV/AIDS: No Genitourinary: No Gastrointestinal: Yes Gastroesophageal Reflux Musculoskeletal: No Endocrine: No HEENT: No Loss of Vision: Denies Hearing Impairment: Hard of Hearing Cancer: No Psychosocial: Yes Sleep Difficulties Integumentary: No Blood Disorders: No Adverse Reaction/Blood Tranf: No (N/A) Family Medical History Reviewed Nursing Family Hx Physical Exam Vital Signs Vital Signs - First Documented 01/22/19 14:27 Temp 36.7 Pulse 85 Resp 17 B/P (MAP) 150/85 (106) Pulse Ox 94 O2 Delivery Room Air Capillary Refill : Less Than 3 Seconds Height, Weight, BMI Height: 6'6.00" Weight: 172lbs. 7.0oz. [id number]; 27.00 BMI Method:Stated General Appearance: WD/WN, no apparent distress Respiratory: chest non-tender, lungs clear, normal breath sounds, no respirato ry distress, no accessory muscle use, respiratory distress Cardiovascular: normal peripheral pulses, regular rate, rhythm, no edema, no gallop, no JVD, no murmur Neurologic/Psychiatric: alert, normal mood/affect, oriented x 3 Crainal Nerves: normal hearing, normal speech, PERRL Coordination/Gait: normal finger to nose Motor/Sensory: no motor deficit Skin: normal color, warm/dry Procedures/Interventions Date of ETT Placement: Jun 03, 2018 Time of ETT Placement: 0643 Progress/Results/Core Measures Results/Orders Lab Results Laboratory Tests Test 01/22/19 14:25 01/22/19 16:04 Range/Units White Blood Count 5.8 4.3-11.0 10^3/uL Red Blood Count 5.14 4.35-5.85 10^6/uL Hemoglobin 13.2 L 13.3-17.7 G/DL Hematocrit 40 40-54 % Mean Corpuscular Volume 78 L 80-99 FL Mean Corpuscular Hemoglobin 26 25-34 PG Mean Corpuscular Hemoglobin Concent 33 32-36 G/DL Red Cell Distribution Width 16.8 H 10.0-14.5 % Platelet Count 276 130-400 10^3/uL Mean Platelet Volume 9.7 7.4-10.4 FL Neutrophils (%) (Auto) 69 42-75 % Lymphocytes (%) (Auto) 18 12-44 % Monocytes (%) (Auto) 8 0-12 % Eosinophils (%) (Auto) 4 0-10 % Basophils (%) (Auto) 1 0-10 % Neutrophils # (Auto) 4.0 1.8-7.8 X 10^3 Lymphocytes # (Auto) 1.1 1.0-4.0 X 10^3 Monocytes # (Auto) 0.5 0.0-1.0 X 10^3 Eosinophils # (Auto) 0.2 0.0-0.3 10^3/uL Basophils # (Auto) 0.1 0.0-0.1 10^3/uL Sodium Level 134 L 135-145 MMOL/L Potassium Level 4.3 3.6-5.0 MMOL/L Chloride Level 102 98-107 MMOL/L Carbon Dioxide Level 21 21-32 MMOL/L Anion Gap 11 5-14 MMOL/L Blood Urea Nitrogen 18 7-18 MG/DL Creatinine 1.31 H 0.60-1.30 MG/DL Estimat Glomerular Filtration Rate 54 BUN/Creatinine Ratio 14 Glucose Level 111 H 70-105 MG/DL Calcium Level 9.2 8.5-10.1 MG/DL Corrected Calcium 9.2 8.5-10.1 MG/DL Total Bilirubin 0.6 0.1-1.0 MG/DL Aspartate Amino Transf (AST/SGOT) 32 5-34 U/L Alanine Aminotransferase (ALT/SGPT) 16 0-55 U/L Alkaline Phosphatase 98 40-136 U/L Total Protein 7.6 6.4-8.2 GM/DL Albumin 4.0 3.2-4.5 GM/DL Salicylates Level < 5.0 L 5.0-20.0 MG/DL Acetaminophen Level < 10 L 10-30 UG/ML Serum Alcohol < 10 <10 MG/DL Ammonia 17 11-32 UMOL/L My Orders Orders - TRICIA COX Ct Head Wo (01/22/19 15:09) Comprehensive Metabolic Panel (01/22/19 15:09) Ua Culture If Indicated (01/22/19 15:09) Ed Iv/Invasive Line Start (01/22/19 15:09) Cbc With Automated Diff (01/22/19 15:09) Alcohol (01/22/19 15:09) Drug Screen Stat (Urine) (01/22/19 15:09) Acetaminophen (01/22/19 15:09) Salicylate (01/22/19 15:09) Ekg Tracing (01/22/19 15:09) Ed Iv/Invasive Line Start (01/22/19 15:09) Monitor-Rhythm Ecg Trace Only (01/22/19 15:09) Ns Iv 1000 Ml (Sodium Chloride 0.9%) (01/22/19 15:15) Ammonia (01/22/19 15:49) Vital Signs/I&O 01/22/19 14:27 Temp 36.7 Pulse 85 Resp 17 B/P (MAP) 150/85 (106) Pulse Ox 94 O2 Delivery Room Air Blood Pressure Mean: 106 POS Progress Progress Note : Time: 15:38 Progress Note The patient is alert and oriented at this time. I've informed him of his laboratory findings and imaging studies. 1558: I discussed the case with Dr. Beck at this time and he recommends admitting the patient for alcohol detox protocol and putting him on telemetry. Patient agrees with plan of care. Departure Communication (Admissions) Time/Spoke to Admitting Phy: 15:58 Dr. Beck Impression Primary Impression: Alcohol withdrawal seizure Disposition: ADMITTED INPATIENT Condition: Stable/Unchanged Admissions Decision to Admit Reason: Admit from ER (General) Decision to Admit/Date: Jan 22, 2019 Time/Decision to Admit Time: 16:40 Departure-Patient Inst. Referrals: JENNIFER BECK DO (PCP/Family) Primary Care Physician TRICIA COX 9, 2019 16:40 POS
[2019-01-22] MEDS ORDERED: THIAMINE INJECTION 100 MG, FOLIC ACID INJECTION 1 MG, MAGNESIUM SULFATE 2 GM, VITAMIN M... IV SCH ×5 (17:14)
[2019-01-22] MEDS ORDERED: 1/2 NS IV SOLUTION 1,000 ML IV PRN (17:14)
[2019-01-22] MEDS ORDERED: ONDANSETRON 4 MG (ZOFRAN) ORAL DISSOLVE TAB SL PRN (17:15)
[2019-01-22] MEDS ORDERED: LORazepam INJ 2 MG/ML (ATIVAN) VIAL IM/IV PRN (17:15)
[2019-01-22] MEDS ORDERED: ANTACID SUSP 30 ML UDC (MYLANTA) PO PRN (17:15)
[2019-01-22] MEDS ORDERED: D5 1/2 NS 1000 ML IV SOLUTION 1,000 ML IV PRN (17:15)
[2019-01-22] MEDS ORDERED: LORazepam 1 MG (ATIVAN) TAB PO PRN (17:15)
[2019-01-22] MEDS ORDERED: ONDANSETRON 4 MG/2 ML (SDV) Z0FRAN IV PRN (17:15)
[2019-01-22 17:23] VITALS: BP 201/90
[2019-01-22] MEDS ORDERED: CATHETER FLUSH 10 ML SYR IV PRN (17:30)
[2019-01-22] MEDS ORDERED: FLU QUADRIvalent (5+ YOA) 2019-2020 (AFLURIA) 0.5 ML IM ONE (18:15)
[2019-01-22] MEDS: meTOprolol 5 MG/5 ML (LOPRESSOR) VIAL IV SCH (18:47)
--- NOTE | 2019-01-22 19:13 | History & Physical ---
History of Present Illness History of Present Illness Reason for visit/HPI Grandson lisa patient this morning. Patient was confused and did not know we was. Patient has a history of drinking. From 60 beers a days patient down to 2 beers a day. Patient has COPD. Patient in the emergency room had a seizure. Family spoke to patient and patient states he wants his grandsons to take care of his medical decisions. Patient also talked about DO NOT RESUSCITATE with the family. behavioral services tech speak to them tomorrow Date of Admission Jan 22, 2019 at 16:00 Time Seen by a Provider: 19:08 I consulted on this patient on 01/22/19 19:08 Attending Physician Jennifer Beck DO Admitting Physician Jennifer Beck DO Consult Allergies and Home Medications Allergies Coded Allergies: No Known Drug Allergies (Verified , 08/16/17) Home Medications Albuterol Sulfate 18 Gm Hfa.aer.ad, 2 PUFF INH TID PRN for SHORTNESS OF BREATH, (Reported) Albuterol Sulfate 1 Puff Puff, 2 PUFF IH Q4H PRN for SHORTNESS OF BREATH 1 PUFF = 90 MCG Prescribed by: GLENN SAMSON on 01/09/19 0706 Cephalexin 500 Mg Capsule, 500 MG PO TID Prescribed by: GLENN SAMSON on 01/09/19 07 Esomeprazole Magnesium 40 Mg Capsule.dr, 40 MG PO DAILY, (Reported) Tamsulosin HCl 0.4 Mg Cap, 0.4 MG PO DAILY Prescribed by: GLENN SAMSON on 01/09/19 07 Trazodone HCl 100 Mg Tablet, 100 MG PO HS, (Reported) Patient Home Medication List Home Medication List Reviewed: No Past Pfxgppb-Byjtki-Tuiick Hx Past Med/Social Hx: Reviewed Nursing Past Med/Soc Hx Patient Social History Employed/Student: retired Alcohol Use: Regular Use Number of Drinks Today: 0 Alcohol Beverage of Choice: Beer Recreational Drug Use: No Drug of Choice: 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 INTO ROCK Smoking Status: Current Everyday Smoker Type Used: Cigarettes 2nd Hand Smoke Exposure: Yes Physical Abuse Screen: No Sexual Abuse: No Recent Foreign Travel: No Contact w/other who traveled: No Recent Hopitalizations: No Recent Infectious Disease Expo: No Seasonal Allergies Seasonal Allergies: Yes Past Medical History Surgeries: Abdominal, Coronary Stent, Orthopedic Respiratory: COPD Currently Using CPAP: No Currently Using BIPAP: No Cardiac: High Cholesterol Neurological: Seizure Disorder Reproductive: No Sexually Transmitted Disease: Yes HIV/AIDS: No Gastrointestinal: Gastroesophageal Reflux Loss of Vision: Denies Hearing Impairment: Hard of Hearing Psychosocial: Sleep Difficulties History of Blood Disorders: No Adverse Reaction to Blood Barnes: No (N/A) Family History Reviewed Nursing Family Hx Review of Systems Constitutional: malaise, weakness EENTM: no symptoms reported Respiratory: no symptoms reported Cardiovascular: other (Hypertension) Gastrointestinal: no symptoms reported Genitourinary: no symptoms reported Physical Exam Vital Signs Vital Signs - First Documented 01/22/19 01/22/19 14:27 17:02 Temp 36.7 Pulse 85 Resp 17 B/P (MAP) 150/85 (106) Pulse Ox 94 O2 Delivery Room Air O2 Flow Rate 6.00 Capillary Refill : Less Than 3 Seconds Height, Weight, BMI Height: 6'6.00" Weight: 172lbs. 7.0oz. [id number]; 22.95 BMI Method:Stated General Appearance: No Apparent Distress, WD/WN Eyes: Bilateral Eye Normal Inspection HEENT: Normal ENT Inspection Neck: Full Range of Motion, Normal Inspection Respiratory: No Accessory Muscle Use, No Respiratory Distress, Decreased Breath Sounds Cardiovascular: Regular Rate, Rhythm, No Murmur Gastrointestinal: Non Tender, Soft Assessment/Plan Assessment and Plan Acute mental status change. Seizure. COPD. Alcoholism doing better Admission Diagnosis Admission Status: Observation Clinical Quality Measures DVT/VTE Risk/Contraindication: Risk Factor Score Per Nursin RFS Level Per Nursing on Admit: 3=High JENNIFER BECK DO Jan 22, 2019 19:13 POS
[2019-01-22 19:51] VITALS: BP 147/71
[2019-01-22] MEDS: ENOXAPARIN 40 MG/0.4 ML (LOVENOX) SYR SC SCH (19:57)
[2019-01-22] MEDS: LORazepam INJ 2 MG/ML (ATIVAN) VIAL IV PRN (21:19)
[2019-01-22 22:44] LABS: BILIRUBIN,URINE NEGATIVE (NEGATIVE); CLARITY,URINE SL CLOUDY; COLOR,URINE YELLOW; GLUCOSE, URINE (UA) NEGATIVE (NEGATIVE); KETONES,URINE NEGATIVE (NEGATIVE); LEUKOCYTE ESTERASE ,URINE 1+ (NEGATIVE); NITRITE,URINE POSITIVE (NEGATIVE); PROTEIN,URINE TRACE (NEGATIVE)
[2019-01-22 22:59] LABS: BACTERIA,URINE MODERATE /HPF; RBC,URINE 0-2 /HPF
[2019-01-22 23:00] LABS: WBC,URINE 25-50 /HPF
[2019-01-22 23:13] LABS: AMPHETAMINE SCREEN, URINE NEGATIVE (NEGATIVE); BARBITURATE SCREEN URINE NEGATIVE (NEGATIVE); BENZODIAZEPINES SCREEN URINE NEGATIVE (NEGATIVE); CANNABINOID SCREEN, URINE NEGATIVE (NEGATIVE); COCAINE SCREEN URINE NEGATIVE (NEGATIVE); METHADONE STAT NEGATIVE (NEGATIVE); METHAMPHETAMINE SCREEN URINE S NEGATIVE (NEGATIVE); OPIATE SCREEN URINE NEGATIVE (NEGATIVE); OXYCODONE STAT NEGATIVE (NEGATIVE); PROPOXYPHENE STAT NEGATIVE (NEGATIVE); TRICYCLIC ANTIDEPRESSANTS SCRE NEGATIVE (NEGATIVE)
[2019-01-22] MEDS ORDERED: cefTRIAXone 1,000 MG IV (ROCEPHIN) VIAL ONE (23:35)
[2019-01-22] MEDS ORDERED: WATER (STERILE) FOR INJECTION 10 ML ONE (23:36)
[2019-01-22] MEDS: cefTRIAXone FOR IV USE 1,000 MG in WATER (STERILE) FOR INJECTION 10 ML IV SCH (23:44)
[2019-01-23] VITALS (7 sets, daily range): BP systolic 132–210; BP diastolic 57–90
[2019-01-23] MEDS: meTOprolol 5 MG/5 ML (LOPRESSOR) VIAL IV SCH ×4 (00:54→17:49)
[2019-01-23 06:55] LABS: BASOPHILS % (AUTO) 1 % (0-10); EOSINOPHILS # (AUTO) 0.4 10^3/uL (0.0-0.3); EOSINOPHILS % (AUTO) 6 % (0-10); HEMATOCRIT 38 % (40-54); HEMOGLOBIN 12.3 G/DL (13.3-17.7); LYMPHOCYTES # (AUTO) 1.7 X 10^3 (1.0-4.0); LYMPHOCYTES % (AUTO) 26 % (12-44); MEAN CORPUSCULAR HEMOGLOBIN 25 PG (25-34); MEAN CORPUSCULAR HGB CONC 33 G/DL (32-36); MEAN CORPUSCULAR VOLUME 78 FL (80-99); MONOCYTES # (AUTO) 0.7 X 10^3 (0.0-1.0); MONOCYTES % (AUTO) 10 % (0-12); NEUTROPHILS # (AUTO) 3.9 X 10^3 (1.8-7.8); NEUTROPHILS % (AUTO) 58 % (42-75); PLATELET COUNT 244 10^3/uL (130-400); RED CELL DISTRIBUTION WIDTH 16.9 % (10.0-14.5); WHITE BLOOD COUNT 6.8 10^3/uL (4.3-11.0)
[2019-01-23 07:11] LABS: ALANINE AMINOTRANSFERASE 16 U/L (0-55); ALBUMIN 3.5 GM/DL (3.2-4.5); ALKALINE PHOSPHATASE 89 U/L (40-136); BILIRUBIN,TOTAL 0.5 MG/DL (0.1-1.0); BUN/CREATININE RATIO 14; CALCIUM 8.8 MG/DL (8.5-10.1); CARBON DIOXIDE 20 MMOL/L (21-32); CHLORIDE 106 MMOL/L (98-107); CREATININE SERUM 1.15 MG/DL (0.60-1.30); GFR ESTIMATED > 60; GLUCOSE 92 MG/DL (70-105); POTASSIUM 3.6 MMOL/L (3.6-5.0); SODIUM 137 MMOL/L (135-145); TOTAL PROTEIN 6.7 GM/DL (6.4-8.2)
--- NOTE | 2019-01-23 07:50 | Progress Note ---
Subjective Time Seen by a Provider: 07:46 Subjective/Events-last exam Patient is more coherent today. Patient hypertensive. Patient is weak. To monitor patient to see if he can take care of himself. Patient is a 2 grandchildren that are not always home with him. Patient to be monitored how he takes care of himself Objective Exam Vital Signs Date Time Temp Pulse Resp B/P (MAP) Pulse Ox O2 Delivery O2 Flow Rate FiO2 01/23/19 07:00 62 01/23/19 03:55 36.9 66 23 174/75 (108) 96 Nasal Cannula 2.00 01/23/19 00:53 73 01/23/19 00:50 37.1 74 20 188/84 (118) 93 Nasal Cannula 2.00 01/22/19 19:55 94 Room Air 01/22/19 19:51 36.6 64 18 147/71 (96) 94 Room Air 01/22/19 18:17 99 01/22/19 17:32 OxyMask 5.00 01/22/19 17:23 36.5 84 20 201/90 (127) 97 OxyMask 3.00 01/22/19 17:23 36.5 84 20 201/90 97 OxyMask 3.00 01/22/19 17:02 36.7 96 18 189/89 (106) 96 OxyMask 6.00 01/22/19 14:27 36.7 85 17 150/85 (106) 94 Room Air I & O 01/23/19 07:00 Intake Total 1920 ml Output Total 1200 ml Balance 720 ml Capillary Refill : Less Than 3 Seconds General Appearance: No Apparent Distress HEENT: Normal ENT Inspection Neck: Full Range of Motion, Normal Inspection Respiratory: No Accessory Muscle Use, No Respiratory Distress, Decreased Breath Sounds Cardiovascular: Regular Rate, Rhythm, No Murmur Gastrointestinal: non tender, soft Results Lab Laboratory Tests 01/22/19 14:25 01/23/19 05:51 01/23/19 05:57 Laboratory Tests 01/22/19 14:25: White Blood Count 5.8, Red Blood Count 5.14, Hemoglobin 13.2L, Hematocrit 40, Mean Corpuscular Volume 78L, Mean Corpuscular Hemoglobin 26, Mean Corpuscular Hemoglobin Concent 33, Red Cell Distribution Width 16.8H, Platelet Count 276, Mean Platelet Volume 9.7, Neutrophils (%) (Auto) 69, Lymphocytes (%) (Auto) 18, Monocytes (%) (Auto) 8, Eosinophils (%) (Auto) 4, Basophils (%) (Auto) 1, Neutrophils # (Auto) 4.0, Lymphocytes # (Auto) 1.1, Monocytes # (Auto) 0.5, Eosinophils # (Auto) 0.2, Basophils # (Auto) 0.1, Sodium Level 134L, Potassium Level 4.3, Chloride Level 102, Carbon Dioxide Level 21, Anion Gap 11, Blood Urea Nitrogen 18, Creatinine 1.31H, Estimat Glomerular Filtration Rate 54, BUN/Creatinine Ratio 14, Glucose Level 111H, Calcium Level 9.2, Corrected Calcium 9.2, Total Bilirubin 0.6, Aspartate Amino Transf (AST/SGOT) 32, Alanine Aminotransferase (ALT/SGPT) 16, Alkaline Phosphatase 98, Total Protein 7.6, Albumin 4.0, Salicylates Level < 5.0L, Acetaminophen Level < 10L, Serum Alcohol < 10 01/22/19 16:04: Ammonia 17 01/22/19 22:30: Urine Color YELLOW, Urine Clarity SL CLOUDY, Urine pH 6.0, Urine Specific Mead 1.025H, Urine Protein TRACE, Urine Glucose (UA) NEGATIVE, Urine Ketones NEGATIVE, Urine Nitrite POSITIVE, Urine Bilirubin NEGATIVE, Urine Urobilinogen 1.0, Urine Leukocyte Esterase 1+H, Urine RBC (Auto) TRACE-I, Urine RBC 0-2, Urine WBC 25-50H, Urine Crystals NONE, Urine Bacteria MODERATEH, Urine Casts NONE, Urine Mucus NEGATIVE, Urine Culture Indicated YES, Urine Opiates Screen NEGATIVE, Urine Oxycodone Screen NEGATIVE, Urine Methadone Screen NEGATIVE, Urine Propoxyphene Screen NEGATIVE, Urine Barbiturates Screen NEGATIVE, Ur Tricyclic Antidepressants Screen NEGATIVE, Urine Phencyclidine Screen NEGATIVE, Urine Amphetamines Screen NEGATIVE, Urine Methamphetamines Screen NEGATIVE, Urine Benzodiazepines Screen NEGATIVE, Urine Cocaine Screen NEGATIVE, Urine Cannabinoids Screen NEGATIVE 01/23/19 05:51: White Blood Count 6.8, Red Blood Count 4.85, Hemoglobin 12.3L, Hematocrit 38L, Mean Corpuscular Volume 78L, Mean Corpuscular Hemoglobin 25, Mean Corpuscular Hemoglobin Concent 33, Red Cell Distribution Width 16.9H, Platelet Count 244, Mean Platelet Volume 10.0, Neutrophils (%) (Auto) 58, Lymphocytes (%) (Auto) 26, Monocytes (%) (Auto) 10, Eosinophils (%) (Auto) 6, Basophils (%) (Auto) 1, Neutrophils # (Auto) 3.9, Lymphocytes # (Auto) 1.7, Monocytes # (Auto) 0.7, Eosinophils # (Auto) 0.4H, Basophils # (Auto) 0.0 01/23/19 05:57: Sodium Level 137, Potassium Level 3.6, Chloride Level 106, Carbon Dioxide Level 20L, Anion Gap 11, Blood Urea Nitrogen 16, Creatinine 1.15, Estimat Glomerular Filtration Rate > 60, BUN/Creatinine Ratio 14, Glucose Level 92, Calcium Level 8.8, Corrected Calcium 9.2, Total Bilirubin 0.5, Aspartate Amino Transf (AST/SGOT) 28, Alanine Aminotransferase (ALT/SGPT) 16, Alkaline Phosphatase 89, Total Protein 6.7, Albumin 3.5 Assessment/Plan Assessment/Plan Assess & Plan/Chief Complaint Alcohol withdrawal. Seizure. Acute mental status change. Malignant hypertension. Tobaccoism Clinical Quality Measures Admission Status Admission Dx Acute mental status change. Seizure. COPD. Alcoholism doing better DVT/VTE Risk/Contraindication: Risk Factor Score Per Nursin RFS Level Per Nursing on Admit: 3=High JENNIFER BECK DO Jan 23, 2019 07:50 POS
[2019-01-23] MEDS ORDERED: lisINopril 10 MG (PRINIVIL) TABLET PO SCH (09:00)
--- NOTE | 2019-01-23 09:14 | Diagnostic Imaging Report ---
PROCEDURE: MR imaging of the brain without contrast. TECHNIQUE: Multiplanar, multisequence MR imaging of the brain was performed without contrast. INDICATION: Altered mental status. Alcohol withdrawal. COMPARISON: CT head on 01/22/2019. FINDINGS: No acute ischemia, mass, or hemorrhage. A small focal area of old infarct is seen in the inferior left cerebellar hemisphere. Chronic microvascular disease is seen in the periventricular and subcortical white matter. The ventricles and cortical sulci are diffusely prominent. The basilar cisterns are symmetric and unremarkable. The sellar and suprasellar regions have a normal appearance. The major intracranial flow voids are intact. The brainstem and posterior fossa are unremarkable. Mild mucosal thickening is seen throughout the paranasal sinuses. Bilateral mastoid effusions are present. Bilateral lens implants are noted. The scalp and calvarium have a normal appearance. IMPRESSION: 1. No acute ischemia, mass, or hemorrhage. 2. 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 3. Chronic microvascular disease with generalized parenchymal volume loss. 4. Mild mucosal thickening throughout the paranasal sinuses with bilateral mastoid effusions. Dictated by: Dictated on workstation # [id number]
[2019-01-23] MEDS ORDERED: ESOM20CA37 PO (09:17)
[2019-01-23] MEDS ORDERED: TAMS0.4C98 PO (09:17)
[2019-01-23] MEDS ORDERED: METF-397 PO (09:17)
[2019-01-23] MEDS ORDERED: TRAZ150T72 PO (09:17)
[2019-01-23] MEDS: HYDROCHLOROTHIAZIDE 12.5 MG (HCTZ) CAP PO SCH (09:26)
[2019-01-23] MEDS: MULTIVIT W/MINERALS TAB (THERAGRAN M) PO SCH (09:27)
--- NOTE | 2019-01-23 11:41 | Physical Therapy Evaluation ---
PT Evaluation-General Medical Diagnosis Admission Date Jan 22, 2019 at 16:00 Medical Diagnosis: ETOH withdrawal/seizure Onset Date: Jan 22, 2019 Therapy Diagnosis Therapy Diagnosis: debility Height/Weight Height (Feet): 6 Height (Inches): 6.00 Weight (Pounds): 172 Weight (Ounces): 7.0 Precautions Precautions/Isolations: Seizure, Fall Prevention Weight Bear Status Right Lower Extremity: Right Weight Bearing/Tolerated Left Lower Extremity: Left Weight Bearing/Tolerated Referral Physician: Moise Reason for Referral: Evaluation/Treatment Medical History Pertinent Medical History: Alcoholism, CAD, HTN, Renal Insufficiency, Smoking Current History EMS to home secondary to AMS Reviewed History: Yes Social History Home: Single Level Current Living Status: Other Family Prior Prior Level of Function SCALE: Activities may be completed with or without assistive devices. 0-Kqkqyaxbvu-oxirdpu completes the activity by him/herself with no assistance from a helper. 5-Set-up or Clean-up Assistance-helper sets up or cleans up; patient completes activity. Gonzales assists only prior to or following the activity. 4-Supervision or Touching Assistance-helper provides verbal cues and/or touching/steadying and/or contact guard assistance as patient completes activity. Assistance may be provided throughout the activity or intermittently. 3-Partial/Moderate Assistance-helper does LESS THAN HALF the effort. Gonzales lifts, holds or supports trunk or limbs, but provides less than half the effort. 2-Substantial/Maximal Assistance-helper does MORE THAN HALF the effort. Gonzales lifts or holds trunk or limbs and provides more than half the effort. 7-Hfvjylozx-dcyknw does ALL the effort. Patient does none of the effort to complete the activity. Or, the assistance of 2 or more helpers is required for the patient to complete the activity. If activity was not attempted, code reason: 7-Patient Refused. 9-Not Applicable-not attempted and the patient did not perform the activity before the current illness, exacerbation or injury. 10-Not Attempted due to Environmental Limitations-(lack of equipment, weather restraints, etc.). 88-Not Attempted due to Medical Conditions or Safety Concerns. Bed Mobility: 6 Transfers (B,C,W/C): 6 Gait: 6 Indoor Mobility (Ambulation): Independent Stairs: Independent Prior Devices Use: Other-see list below Prior Device Use: 4WW PT Evaluation-Current Subjective Patient is very agreeable to participate with PT. No c/o. Objective Patient Orientation: Confused Attachments: Jara Catheter ROM/Strength ROM Lower Extremities bilateral LE WFL Strength Lower Extremities 4-/5 grossly bilateral LE Integumentary/Posture Integumentary refer to nursing notes Bladder Incontinence: Jara Cath Posture kyphotic Neuromuscular (Tone, Coordination, Reflexes) grossly intact Sensory Vision: Functional Hearing: Functional Sensation Right Lower Extremit: Intact Sensation Left Lower Extremity: Intact Transfers Roll Left to Right (QC): 6 Sit to Lying (QC): 6 Lying to Sitting/Side of Bed(Q: 6 Sit to Stand (QC): 6 Chair/Ijr-rr-Xpdqb Xfer(QC): 6 Car Transfer (QC): 10 Gait Does the Patient Walk?: Yes Mode of Locomotion: Walk Anticipated Mode of Locomotion: Walk Walk 10 feet (QC): 6 Walk 50 ft with 2 Turns(QC): 6 Walk 150 ft (QC): 6 Walking 10ft/uneven surface-QC: 6 Distance: 325' Gait Assistive Device: FWW Comments/Gait Description safe and functional with FWW Wheelchair Training Does the Pt Use a Wheelchair?: No Wheel 50 ft with 2 turns (QC): 9 Wheel 150 ft (QC): 9 Type of Wheelchair: Manual Stairs 1 Step (curb) (QC): 88 4 Steps (QC): 9 12 Steps (QC): 9 Balance Sitting Static: Normal Sitting Dynamic: Normal Standing Static: Normal Standing Dynamic: Normal Picking up an Object (QC): 5 Assessment/Needs 78 y.o. male, will benefit from short term skilled PT to address functional strength and mobility to improve current LOF to safely return to home at maximum LOF. Rehab Potential: Guarded Post Rehab Potential-Barriers: compliance PT Senior Care Goals Senior Care Goals PT Billiard Player Goals Time Frame: Feb 03, 2019 Roll Left & Right (QC): 6 Sit to Lying (QC): 6 Lying-Sitting on Side/Bed(QC): 6 Sit to Stand (QC): 6 Chair/Pii-uv-Noxrr Xfer(QC): 6 Toilet Transfer (QC): 6 Car Transfer (QC): 6 Does the Patient Walk: Yes Walk 10 feet (QC): 6 Walk 50ft with 2 Turns (QC): 6 Walk 150 ft (QC): 6 Walking 10ft on Uneven Surface: 6 1 Step (curb) (QC): 6 4 Steps (QC): 9 12 Steps (QC): 9 Picking up an Object (QC): 6 Does the Pt use WC or Scooter?: No Type: N/A Type: N/A PT Plan Problem List Problem List: Safety Treatment/Plan Treatment Plan: Continue Plan of Care Treatment Plan: Education, Functional Activity Chriss, Functional Strength, Gait, Safety, Therapeutic Exercise, Transfers Treatment Duration: Feb 03, 2019 Frequency: 6 times per week Estimated Hrs Per Day: .25 hour per day Patient and/or Family Agrees t: Yes Safety Risks/Education Patient Education: Safety Issues Teaching Recipient: Patient Teaching Methods: Discussion Response to Teaching: Verbalize Understanding, Reinforcement Needed Time/GCodes Time In: 1030 Time Out: 1041 Total Billed Treatment Time: 11 Total Billed Treatment 1 visit EVLowC 11 min IZZY THORNTON PT Jan 23, 2019 11:41 POS
--- NOTE | 2019-01-23 13:46 | Occupational Therapy Eval ---
OT Evaluation-General/PLF Medical Diagnosis Admission Date Jan 23, 2019 at 12:30 Medical Diagnosis: ETOH withdrawal/seizure Onset Date: Jan 22, 2019 Therapy Diagnosis Therapy Diagnosis: Decreased ADL function Height/Weight Height (Feet): 6 Height (Inches): 6.00 Weight (Pounds): 172 Weight (Ounces): 7.0 Precautions Precautions/Isolations: Seizure, Fall Prevention Safety Interventions: Bed Exit Alarm Referral Physician: Moise Referral Reason: Activity Tolerance, Self Care, Evaluation/Treatment, Strengthening/ROM Medical History Pertinent Medical History: Alcoholism, CAD, HTN, Renal Insufficiency, Smoking Additional Medical History COPD, alcoholism, coronary stent, high cholesterol, [place], HTN, gastroesophageal reflux Current History Grandson saw patient within home, Patient was confused and did not know we was. Pt no pmhx of sizure disorder, had tonic-colonic seizure in ER ~30 seconds. Patient has a history of drinking. Reviewed History: Yes Social History Home: Multilevel Current Living Status: Other Family (grandson) Entry Into Home: Stairs With Railing Steps Into Home: 3 (Pt states he utilizes w/c for functional mobility; pt states to move w/c from home to driveway or driveway to home, pt holds onto handrail and pushes/ pulls w/c to other level, completes stairs and gets into w/c.) Pt's bedroom and bath on main level. ADL-Prior Level of Function SCALE: Activities may be completed with or without assistive devices. 5-Uvmmgkrfmo-omktikc completes the activity by him/herself with no assistance from a helper. 5-Set-up or Clean-up Assistance-helper sets up or cleans up; patient completes activity. [employer] assists only prior to or following the activity. 4-Supervision or Touching Assistance-helper provides verbal cues and/or touching/steadying and/or contact guard assistance as patient completes activity. Assistance may be provided throughout the activity or intermittently. 3-Partial/Moderate Assistance-helper does LESS THAN HALF the effort. [employer] li fts, holds or supports trunk or limbs, but provides less than half the effort. 2-Substantial/Maximal Assistance-helper does MORE THAN HALF the effort. [employer] lifts or holds trunk or limbs and provides more than half the effort. 7-Khoubygsx-hiadmm does ALL the effort. Patient does none of the effort to complete the activity. Or, the assistance of 2 or more helpers is required for the patient to complete the activity. If activity was not attempted, code reason: 7-Patient Refused. 9-Not Applicable-not attempted and the patient did not perform the activity before the current illness, exacerbation or injury. 10-Not Attempted due to Environmental Limitations-(lack of equipment, weather restraints, etc.). 88-Not Attempted due to Medical Conditions or Safety Concerns. Self Care: Unknown (pt states he does not know what his prior level was or if he needed help) Functional Cognition: Unknown DME/Equipment: Bath Bench, Bedside Commode, Tub/Shower DME/Equipment Comments FWW within bathroom, w/c throughout home. Occupation: retired Drive Self: Yes ("at times") OT Current Status Subjective Pt seen in bed, reclined and sitting up to eat. Pt agreeable to OT eval/ treat. Pt states no pain. Mental Status/Objective Patient Orientation: Person, Place Current Glasses/Contacts: No Hearing Aids: Yes Dentures/Partials: No Hand Dominance: Right Upper Extremity ROM WFL BUE Upper Extremity Coordination WFL BUE Upper Extremity Sensation WFL BUE Upper Extremity Strength WFL BUE 5/5 UE ADL-Treatment Eating (QC): 6 Oral Hygiene (QC): 7 Shower/Bathe Self (QC): 7 Upper Body Dressing (QC): 7 Lower Body Dressing (QC): 7 On/Off Footwear (QC): 7 Toileting Hygiene (QC): 7 Toilet Transfer (QC): 7 Other Treatments Pt states he doesn't know why he is in the hospital. Pt oriented to person and place, agreeable for OT evaluation. OT role explained. Pt completes evaluation in bed, denies out of bed activity. Pt expresses that he typically utilizes w/c for functional mobility due to hx of falls and moved in with grandson due to falls. Pt utilizes FWW to get from w/c to commode and w/c to tub bench. Pt's ROM/ MMT WFL. Pt states he is confused and would like answers on insurance, pt educated on outreach and education social worker's role and note made on board for reminder. Pt educated on safety measures and OT role/ activities while in acute. Pt continues eating, left in bed, all needs met, call light in reach. Education OT Patient Education: Correct positioning, Progress toward Goal/Update tx plan, Purpose of tx/functional activities, Safety issues Teaching Recipient: Patient Teaching Methods: Demonstration, Discussion Response to Teaching: Verbalize Understanding, Return Demonstration, Reinforcement Needed OT Short Term Goals Short Term Goals Upper body dressin Lower body dressin OT Assisted Goals Assisted Goals Time Frame: Jan 30, 2019 Eating (QC): 6 Oral Hygiene (QC): 6 Toileting Hygiene (QC): 6 Shower/Bathe Self (QC): 6 Upper Body Dressing (QC): 6 Lower Body Dressing (QC): 6 On/Off Footwear (QC): 6 Additional Goals: 1-Demonstrate ADL Tasks, 2-Verbalize Understanding, 3- ImproveStrength/Chriss 1=Demonstrate adherence to instructed precautions during ADL tasks. 2=Patient will verbalize/demonstrate understanding of assistive devices/ modifications for ADL. 3=Patient will improve strength/tolerance for activity to enable patient to perform ADL's. OT Education/Plan Problem List/Assessment Assessment: Decreased Activ Tolerance, Decreased Safety Aware, Impaired Cognition, Impaired I ADL's, Impaired Self-Care Skills Discharge Recommendations Plan/Recommendations: Continue POC Treatment Plan/Plan of Care Treatment,Training & Education: Yes Patient would benefit from OT for education, treatment and training to promote independence in ADL's, mobility, safety and/or upper extremity function for ADL's. Plan of Care: ADL Retraining, Caregiver Training, Functional Mobility, UE Funct Exercise/Act Treatment Duration: Jan 30, 2019 Frequency: 5 times per week Estimated Hrs Per Day: .25 hour per day Agreement: Yes Rehab Potential: Guarded Time/GCodes Start Time: 12:58 Stop Time: 13:13 Total Time Billed (hr/min): 15 Billed Treatment Time 1INOCENCIO (15) KIESHA DYER OTR Jan 23, 2019 13:46 POS
[2019-01-23] MEDS ORDERED: lisINopril 10 MG (PRINIVIL) TABLET PO NR (17:30)
[2019-01-23] MEDS: ENOXAPARIN 40 MG/0.4 ML (LOVENOX) SYR SC SCH (17:50)
[2019-01-23] MEDS: TAMSULOSIN 0.4 MG (FLOMAX) CAP PO SCH (17:50)
[2019-01-23] MEDS ORDERED: traZODone 150 MG (DESYREL) TABLET ONE (22:15)
[2019-01-23] MEDS: PANTOPRAZOLE 20 MG TABLET (PROTONIX) PO SCH (22:29)
[2019-01-23] MEDS: cefTRIAXone FOR IV USE 1,000 MG in WATER (STERILE) FOR INJECTION 10 ML IV SCH (22:30)
[2019-01-23] MEDS: traZODone 150 MG (DESYREL) TABLET PO SCH (22:30)
[2019-01-23] MEDS ORDERED: FLU QUADRIvalent (5+ YOA) 2019-2020 (AFLURIA) 0.5 ML IM ONE (22:39)
[2019-01-24] MEDS: meTOprolol 5 MG/5 ML (LOPRESSOR) VIAL IV SCH ×4 (00:15→17:47)
[2019-01-24 04:20] VITALS: BP 118/48
[2019-01-24 05:30] LABS: BASOPHILS % (AUTO) 1 % (0-10); EOSINOPHILS # (AUTO) 0.5 10^3/uL (0.0-0.3); EOSINOPHILS % (AUTO) 6 % (0-10); HEMATOCRIT 37 % (40-54); HEMOGLOBIN 12.4 G/DL (13.3-17.7); LYMPHOCYTES # (AUTO) 1.9 X 10^3 (1.0-4.0); LYMPHOCYTES % (AUTO) 24 % (12-44); MEAN CORPUSCULAR HEMOGLOBIN 26 PG (25-34); MEAN CORPUSCULAR HGB CONC 33 G/DL (32-36); MEAN CORPUSCULAR VOLUME 77 FL (80-99); MEAN PLATELET VOLUME 9.4 FL (7.4-10.4); MONOCYTES # (AUTO) 0.8 X 10^3 (0.0-1.0); MONOCYTES % (AUTO) 10 % (0-12); NEUTROPHILS # (AUTO) 4.8 X 10^3 (1.8-7.8); NEUTROPHILS % (AUTO) 60 % (42-75); PLATELET COUNT 237 10^3/uL (130-400); RED CELL DISTRIBUTION WIDTH 17.1 % (10.0-14.5)
[2019-01-24 05:48] LABS: ALBUMIN 3.3 GM/DL (3.2-4.5); BILIRUBIN,TOTAL 0.3 MG/DL (0.1-1.0); CALCIUM 8.8 MG/DL (8.5-10.1); CREATININE SERUM 1.45 MG/DL (0.60-1.30); POTASSIUM 3.8 MMOL/L (3.6-5.0); TOTAL PROTEIN 6.3 GM/DL (6.4-8.2)
[2019-01-24] MEDS: SENNA W/DOCUSATE (SENOKOT S) TABLET PO PRN (06:46)
[2019-01-24] MEDS: MULTIVIT W/MINERALS TAB (THERAGRAN M) PO SCH (06:46)
[2019-01-24 08:00] VITALS: BP 134/59
--- NOTE | 2019-01-24 08:22 | Progress Note ---
Subjective Time Seen by a Provider: 08:19 Subjective/Events-last exam Patient alert this morning. Patient complains of some chest congestion. Patient to have cystoscopy done by urology this Tuesday. Patient alert today. Patient has Jara catheter in Objective Exam Vital Signs Date Time Temp Pulse Resp B/P (MAP) Pulse Ox O2 Delivery O2 Flow Rate FiO2 01/24/19 07:00 55 01/24/19 04:20 36.3 54 20 118/48 (71) 90 Nasal Cannula 2.00 01/24/19 00:36 58 01/23/19 23:45 36.4 58 20 161/73 (102) 90 Nasal Cannula 2.00 01/23/19 20:00 Room Air 01/23/19 19:50 36.9 64 20 132/57 (82) 93 Room Air 01/23/19 18:45 64 01/23/19 16:24 36.8 61 20 184/90 (121) 96 Nasal Cannula 2.00 01/23/19 12:30 61 01/23/19 12:00 36.7 61 20 210/82 (124) 96 Nasal Cannula 2.00 I & O 01/24/19 07:00 Intake Total 4220 ml Output Total 3275 ml Balance 945 ml Capillary Refill : Less Than 3 Seconds General Appearance: No Apparent Distress, WD/WN HEENT: Normal ENT Inspection Neck: Full Range of Motion, Normal Inspection Respiratory: No Accessory Muscle Use, No Respiratory Distress, Decreased Breath Sounds, Other (Congestion) Cardiovascular: Regular Rate, Rhythm Gastrointestinal: non tender, soft Results Lab Laboratory Tests 01/24/19 04:45 Laboratory Tests 01/24/19 04:45: White Blood Count 8.0, Red Blood Count 4.83, Hemoglobin 12.4L, Hematocrit 37L, Mean Corpuscular Volume 77L, Mean Corpuscular Hemoglobin 26, Mean Corpuscular Hemoglobin Concent 33, Red Cell Distribution Width 17.1H, Platelet Count 237, Mean Platelet Volume 9.4, Neutrophils (%) (Auto) 60, Lymphocytes (%) (Auto) 24, Monocytes (%) (Auto) 10, Eosinophils (%) (Auto) 6, Basophils (%) (Auto) 1, Neutrophils # (Auto) 4.8, Lymphocytes # (Auto) 1.9, Monocytes # (Auto) 0.8, Eosi nophils # (Auto) 0.5H, Basophils # (Auto) 0.0, Sodium Level 135, Potassium Level 3.8, Chloride Level 103, Carbon Dioxide Level 22, Anion Gap 10, Blood Urea Nitrogen 17, Creatinine 1.45H, Estimat Glomerular Filtration Rate 48, BUN/Creatinine Ratio 12, Glucose Level 103, Calcium Level 8.8, Corrected Calcium 9.4, Total Bilirubin 0.3, Aspartate Amino Transf (AST/SGOT) 20, Alanine Aminotransferase (ALT/SGPT) 11, Alkaline Phosphatase 85, Total Protein 6.3L, Albumin 3.3 Microbiology 01/22/19 Urine Culture - Preliminary, Resulted Citrobacter Freundii Enterococcus faecalis Assessment/Plan Assessment/Plan Assess & Plan/Chief Complaint Alcohol withdrawal. Seizure. Acute mental status change. Malignant hypertension. Tobaccoism. . 01/24/19. Alcohol withdrawal. Seizure. Acute mental status change resolved. Malignant hypertension resolved. Tobaccoism. Jara catheter to be taken out Tuesday. Patient knows the day. Patient more alert Clinical Quality Measures Admission Status Admission Dx Acute mental status change. Seizure. COPD. Alcoholism doing better DVT/VTE Risk/Contraindication: Risk Factor Score Per Nursin RFS Level Per Nursing on Admit: 3=High JENNIFER BECK DO Jan 24, 2019 08:22 POS
[2019-01-24] MEDS: HYDROCHLOROTHIAZIDE 12.5 MG (HCTZ) CAP PO SCH (08:32)
[2019-01-24] MEDS: lisINopril 10 MG (PRINIVIL) TABLET PO SCH (08:33)
--- NOTE | 2019-01-24 11:31 | Occupational Ther Daily Note ---
OT Current Status-Daily Note Subjective Pt seen supine in bed, pt denies pain. Pt alert and states, "I guess it's time to get up." Mental Status/Objective Attachments: Jara Catheter, Oxygen (3L), Telemetry ADL-Treatment Therapy Code Descriptions/Definitions Functional [place] Measure: 0=Not Assessed/NA 4=Minimal Assistance 1=Total Assistance 5=Supervision or Setup 2=Maximal Assistance 6=Modified [place] 3=Moderate Assistance 7=Complete IndependenceSCALE: Activities may be completed with or without assistive devices. 7-Jttfspdpcn-raythbo completes the activity by him/herself with no assistance from a helper. 5-Set-up or Clean-up Assistance-helper sets up or cleans up; patient completes activity. [place] assists only prior to or following the activity. 4-Supervision or Touching Assistance-helper provides verbal cues and/or touching/steadying and/or contact guard assistance as patient completes activity. Assistance may be provided throughout the activity or intermittently. 3-Partial/Moderate Assistance-helper does LESS THAN HALF the effort. [place] lifts, holds or supports trunk or limbs, but provides less than half the effort. 2-Substantial/Maximal Assistance-helper does MORE THAN HALF the effort. [place] lifts or holds trunk or limbs and provides more than half the effort. 3-Mwpqgdlrf-usghzc does ALL the effort. Patient does none of the effort to complete the activity. Or, the assistance of 2 or more helpers is required for the patient to complete the activity. If activity was not attempted, code reason: 7-Patient Refused. 9-Not Applicable-not attempted and the patient did not perform the activity before the current illness, exacerbation or injury. 10-Not Attempted due to Environmental Limitations-(lack of equipment, weather restraints, etc.). 88-Not Attempted due to Medical Conditions or Safety Concerns. Eating (QC): 6 Upper Body Dressing (QC): 5 (s/u for gown donning.) Other Treatment Pt states desire for coffee, drinks with IND. Pt completes bed mob with IND to EOB, completes face and UB washing with warm wipes. Pt changes gown and preps for x-ray. Pt sit to stand from EOB with CGA, turns and sits in w/c with SBA. Pt left with xray with all needs met. Education OT Patient Education: Correct positioning, Safety issues, Transfer techniques Teaching Recipient: Patient Teaching Methods: Demonstration, Discussion Response to Teaching: Verbalize Understanding, Return Demonstration, Reinforcement Needed OT Short Term Goals Short Term Goals Upper body dressin (met) Lower body dressin OT Mcfp Goals Mcfp Goals Time Frame: Jan 30, 2019 Eating (QC): 6 Oral Hygiene (QC): 6 Toileting Hygiene (QC): 6 Shower/Bathe Self (QC): 6 Upper Body Dressing (QC): 6 Lower Body Dressing (QC): 6 On/Off Footwear (QC): 6 Additional Goals: 1-Demonstrate ADL Tasks, 2-Verbalize Understanding, 3- ImproveStrength/Chriss 1=Demonstrate adherence to instructed precautions during ADL tasks. 2=Patient will verbalize/demonstrate understanding of assistive devices/modifications for ADL. 3=Patient will improve strength/tolerance for activity to enable patient to perform ADL's. OT Education/Plan Problem List/Assessment Assessment: Decreased Activ Tolerance, Decreased Safety Aware, Impaired Funct Balance, Impaired I ADL's, Impaired Self-Care Skills Discharge Recommendations Plan/Recommendations: Continue POC Treatment Plan/Plan of Care Treatment,Training & Education: Yes Patient would benefit from OT for education, treatment and training to promote independence in ADL's, mobility, safety and/or upper extremity function for ADL's. Plan of Care: ADL Retraining, Caregiver Training, Functional Mobility, UE Funct Exercise/Act Treatment Duration: Jan 30, 2019 Frequency: 5 times per week Estimated Hrs Per Day: .25 hour per day Agreement: Yes Rehab Potential: Guarded Time/GCodes Start Time: 11:10 Stop Time: 11:23 Total Time Billed (hr/min): 13 Billed Treatment Time 1, ADL (13) KIESHA DYER OTR Jan 24, 2019 11:31 POS
[2019-01-24 12:00] VITALS: BP 152/71
--- NOTE | 2019-01-24 12:56 | Diagnostic Imaging Report ---
INDICATION: Cough COMPARISON: 01/09/2019 FINDINGS: Frontal and lateral radiograph views of the chest were obtained and demonstrate normal heart size and pulmonary vascularity. The lungs are well aerated and clear. Background moderate emphysematous changes are noted. No large pleural effusion or pneumothorax is seen. The visualized osseous structures show no acute abnormalities. IMPRESSION: 1. No acute cardiopulmonary process. 2. Background moderate emphysematous changes. Dictated by: Dictated on workstation # [id number]
--- NOTE | 2019-01-24 15:01 | Physical Therapy Daily Note ---
PT Daily Note-Current Subjective Upon initial visit in AM pt. declined Rx stating he really needs to sleep. In pm pt. needed much persuasion and encouragement to participate Pain Location: No Pain Reported Mental Status Attachments: Jara Catheter pt. resistive of walking and activity, states he just wants to eat some sandwiches, drink coffee then have someone bring him a wheelchair " and you dont need to know what Im gonna do with it" Transfers SCALE: Activities may be completed with or without assistive devices. 1-Ooniqkrbjl-upbzcbj completes the activity by him/herself with no assistance from a helper. 5-Set-up or Clean-up Assistance-helper sets up or cleans up; patient completes activity. [place] assists only prior to or following the activity. 4-Supervision or Touching Assistance-helper provides verbal cues and/or touching/steadying and/or contact guard assistance as patient completes activity. Assistance may be provided throughout the activity or intermittently. 3-Partial/Moderate Assistance-helper does LESS THAN HALF the effort. [place] lifts, holds or supports trunk or limbs, but provides less than half the effort. 2-Substantial/Maximal Assistance-helper does MORE THAN HALF the effort. [place] lifts or holds trunk or limbs and provides more than half the effort. 2-Osmsfjvte-suryos does ALL the effort. Patient does none of the effort to complete the activity. Or, the assistance of 2 or more helpers is required for the patient to complete the activity. If activity was not attempted, code reason: 7-Patient Refused. 9-Not Applicable-not attempted and the patient did not perform the activity befo re the current illness, exacerbation or injury. 10-Not Attempted due to Environmental Limitations-(lack of equipment, weather re straints, etc.). 88-Not Attempted due to Medical Conditions or Safety Concerns. Weight Bearing Right Lower Extremity: Right Weight Bearing/Tolerated Left Lower Extremity: Left Weight Bearing/Tolerated Gait Training Does the Patient Walk?: Yes Walk 10 feet (QC): 4 Walk 50 ft with 2 Turns(QC): 4 Walk 150 ft (QC): 4 Gait Persons Needed: 1 Gait Assistive Device: FWW 500ft plus CGA to SBA heavy wt bearing on FWW, no nate LOB Exercises Seated Therapy Exercises: Ankle pumps, Long arc quads, Hip flexion Seated Reps: 10 Assessment Current Status: Good Progress PT Longterm Goals Longterm Goals PT Longterm Goals Time Frame: Feb 03, 2019 Roll Left & Right (QC): 6 Sit to Lying (QC): 6 Lying-Sitting on Side/Bed(QC): 6 Sit to Stand (QC): 6 Chair/Soa-bh-Qzbqa Xfer(QC): 6 Toilet Transfer (QC): 6 Car Transfer (QC): 6 Does the Patient Walk: Yes Walk 10 feet (QC): 6 Walk 50ft with 2 Turns (QC): 6 Walk 150 ft (QC): 6 Walking 10ft on Uneven Surface: 6 1 Step (curb) (QC): 6 4 Steps (QC): 9 12 Steps (QC): 9 Picking up an Object (QC): 6 Does the Pt use WC or Scooter?: No Type: N/A Type: N/A PT Plan Treatment/Plan Treatment Plan: Continue Plan of Care Treatment Plan: Education, Functional Activity Chriss, Functional Strength, Gai t, Safety, Therapeutic Exercise, Transfers Treatment Duration: Feb 03, 2019 Frequency: 6 times per week Estimated Hrs Per Day: .25 hour per day Patient and/or Family Agrees t: Yes Safety Risks/Education Patient Education: Gait Training, Correct Positioning, Safety Issues Teaching Recipient: Patient Response to Teaching: Reinforcement Needed Time/GCodes Time In: 1445 Time Out: 1500 Total Billed Treatment Time: 15 Total Billed Treatment 1,GT15m DREW BLUE PERSONAL SECURITY SPECIALIST Jan 24, 2019 15:01 POS
--- NOTE | 2019-01-24 15:40 | CONSULTATION REPORT ---
DATE OF SERVICE: 01/24/2019 ATTENDING PHYSICIAN: Bradford Phipps DO. SUMMARY: A 68-year-old white man, admitted by Dr. Phipps with acute mental status change, seizures, COPD and alcoholism. The patient back in the end of December, had a catheter put in for retention. He failed to follow up with Dr. Phipps or a urologist. He presented with the catheter in and was admitted subsequently. He is not on any medicine. He is on Flomax 0.4 mg daily that was prescribed by Dr. Reis on 01/09/2019 from the emergency room, but apparently the patient has not been taking it or not we are on that. I started him on it yesterday. He also has no known allergies. He takes also albuterol and some trazodone. He has seasonal allergies. Previously, he had coronary stent, abdominal surgery and bone surgery. He admits to COPD, high cholesterol, seizure disorders, gastroesophageal reflux disease. FAMILY HISTORY: Noncontributory. History and physical was reviewed. Physical examination was deferred at the time of cystoscopy. IMPRESSION: Urinary retention, benign prostatic hyperplasia and/or neurogenic bladder. PLAN: Tomorrow at bedside, we will perform flexible cystoscopy under local. This was fully explained to the patient with indication, risk and complication they will give him after that trial of voiding and manage accordingly. Job ID: [id number] DocumentID: [id number] Dictated Date: 01/24/2019 09:14:33 Shipping Hand Date: 01/24/2019 15:39:48 Dictated By: BUCKY DIAL MD
[2019-01-24 15:55] VITALS: BP 130/65
[2019-01-24] MEDS: TAMSULOSIN 0.4 MG (FLOMAX) CAP PO SCH (18:01)
[2019-01-24 20:00] VITALS: BP 164/71
[2019-01-24] MEDS ORDERED: NICOTINE 21 MG (NICODERM) PATCH ONE (20:15)
[2019-01-24] MEDS: NICOTINE 21 MG (NICODERM) PATCH TD SCH (20:29)
[2019-01-24] MEDS: PANTOPRAZOLE 20 MG TABLET (PROTONIX) PO SCH (20:29)
[2019-01-24] MEDS: traZODone 150 MG (DESYREL) TABLET PO SCH (20:29)
[2019-01-24] MEDS: ENOXAPARIN 40 MG/0.4 ML (LOVENOX) SYR SC SCH (20:29)
[2019-01-24] MEDS ORDERED: NON-FORMULARY MEDICATION 1 EA EA (Esomeprazole Magnesium 20 MG) PO SCH (21:00)
[2019-01-24] MEDS: cefTRIAXone FOR IV USE 1,000 MG in WATER (STERILE) FOR INJECTION 10 ML IV SCH (23:15)
[2019-01-24] MEDS: LORazepam INJ 2 MG/ML (ATIVAN) VIAL IV PRN (23:18)
[2019-01-25] VITALS: BP 141/66
[2019-01-25] MEDS: meTOprolol 5 MG/5 ML (LOPRESSOR) VIAL IV SCH ×5 (00:02→23:34)
[2019-01-25 04:00] VITALS: BP 165/80
[2019-01-25] MEDS: MULTIVIT W/MINERALS TAB (THERAGRAN M) PO SCH (05:28)
[2019-01-25] MEDS: SENNA W/DOCUSATE (SENOKOT S) TABLET PO PRN (05:29)
[2019-01-25 07:20] LABS: HEMOGLOBIN 12.8 G/DL (13.3-17.7); MEAN PLATELET VOLUME 9.8 FL (7.4-10.4); RED CELL DISTRIBUTION WIDTH 16.9 % (10.0-14.5); WHITE BLOOD COUNT 6.7 10^3/uL (4.3-11.0)
[2019-01-25 07:46] LABS: ALBUMIN 3.7 GM/DL (3.2-4.5); BILIRUBIN,TOTAL 0.3 MG/DL (0.1-1.0); CALCIUM 9.9 MG/DL (8.5-10.1); CREATININE SERUM 1.51 MG/DL (0.60-1.30); POTASSIUM 4.3 MMOL/L (3.6-5.0); TOTAL PROTEIN 7.2 GM/DL (6.4-8.2)
[2019-01-25 08:00] VITALS: BP 176/81
[2019-01-25] MEDS: HYDROCHLOROTHIAZIDE 12.5 MG (HCTZ) CAP PO SCH (08:06)
[2019-01-25] MEDS: lisINopril 10 MG (PRINIVIL) TABLET PO SCH (08:06)
[2019-01-25] MEDS: NICOTINE 21 MG (NICODERM) PATCH TD SCH (08:06)
[2019-01-25] MEDS: NICOTINE PATCH REMOVAL TP SCH (08:07)
--- NOTE | 2019-01-25 08:15 | Progress Note ---
Subjective Time Seen by a Provider: 08:13 Subjective/Events-last exam Patient continues to improve. Patient has been to the emergency room a few times due to Jara catheter problems. Urology to do cystoscopy on patient tomorrow. Patient alert and coherent Objective Exam Vital Signs Date Time Temp Pulse Resp B/P (MAP) Pulse Ox O2 Delivery O2 Flow Rate FiO2 01/25/19 04:00 36.4 66 20 165/80 (108) 98 Nasal Cannula 2.00 01/25/19 01:00 61 01/25/19 00:00 36.5 67 18 141/66 (91) 95 Nasal Cannula 2.00 01/24/19 20:30 Room Air 01/24/19 20:00 37.0 61 17 164/71 (102) 95 Room Air 01/24/19 19:00 69 01/24/19 15:55 36.6 65 18 130/65 (86) 95 Room Air 01/24/19 13:00 66 01/24/19 12:00 36.0 68 20 152/71 (98) 95 Nasal Cannula 2.00 I & O 01/25/19 07:00 Intake Total 3930 ml Output Total 3500 ml Balance 430 ml Capillary Refill : Less Than 3 Seconds General Appearance: No Apparent Distress, WD/WN HEENT: Normal ENT Inspection Neck: Full Range of Motion, Normal Inspection Respiratory: No Accessory Muscle Use, No Respiratory Distress, Decreased Breath Sounds Cardiovascular: Regular Rate, Rhythm Gastrointestinal: non tender, soft Results Lab Laboratory Tests 01/25/19 06:33 Laboratory Tests 01/25/19 06:33: White Blood Count 6.7, Red Blood Count 4.93, Hemoglobin 12.8L, Hematocrit 39L, Mean Corpuscular Volume 79L, Mean Corpuscular Hemoglobin 26, Mean Corpuscular Hemoglobin Concent 33, Red Cell Distribution Width 16.9H, Platelet Count 219, Mean Platelet Volume 9.8, Sodium Level 136, Potassium Level 4.3, Chloride Level 102, Carbon Dioxide Level 22, Anion Gap 12, Blood Urea Nitrogen 19H, Creatinine 1.51H, Estimat Glomerular Filtration Rate 46, BUN/Creatinine Ratio 13, Glucose Level 105, Calcium Level 9.9, Corrected Calcium 10.1, Total Bilirubin 0.3, Aspartate Amino Transf (AST/SGOT) 24, Alanine Aminotransferase (ALT/SGPT) 14, Alkaline Phosphatase 88, Total Protein 7.2, Albumin 3.7 Microbiology 01/22/19 Urine Culture - Preliminary, Resulted Mixed Bacterial Jayleen Citrobacter Freundii Assessment/Plan Assessment/Plan Assess & Plan/Chief Complaint Alcohol withdrawal. Seizure. Acute mental status change. Malignant hypertension. Tobaccoism. . 01/24/19. Alcohol withdrawal. Seizure. Acute mental status change resolved. Malignant hypertension resolved. Tobaccoism. Jara catheter to be taken out Tuesday. Patient knows the day. Patient more alert. . 01/25/19. Alcohol withdrawal. New-onset seizure. Acute mental status change resolved. Malignant hypertension resolved. Tobaccoism. Clinical Quality Measures Admission Status Admission Dx Acute mental status change. Seizure. COPD. Alcoholism doing better DVT/VTE Risk/Contraindication: Risk Factor Score Per Nursin RFS Level Per Nursing on Admit: 3=High JENNIFER BECK DO Jan 25, 2019 08:15 POS
--- NOTE | 2019-01-25 10:32 | Physical Therapy Daily Note ---
PT Daily Note-Current Subjective Patient reports he has been up in hallway ambulating on this date. Nursing confirms. Mental Status Patient Orientation: Person, Time, Situation Attachments: Jara Catheter Transfers SCALE: Activities may be completed with or without assistive devices. 8-Yxnxhzufwi-vohnjss completes the activity by him/herself with no assistance from a helper. 5-Set-up or Clean-up Assistance-helper sets up or cleans up; patient completes activity. [place] assists only prior to or following the activity. 4-Supervision or Touching Assistance-helper provides verbal cues and/or touching/steadying and/or contact guard assistance as patient completes activity. Assistance may be provided throughout the activity or intermittently. 3-Partial/Moderate Assistance-helper does LESS THAN HALF the effort. [place] lifts, holds or supports trunk or limbs, but provides less than half the effort. 2-Substantial/Maximal Assistance-helper does MORE THAN HALF the effort. [place] lifts or holds trunk or limbs and provides more than half the effort. 4-Cbgwbbgcz-hixasb does ALL the effort. Patient does none of the effort to complete the activity. Or, the assistance of 2 or more helpers is required for the patient to complete the activity. If activity was not attempted, code reason: 7-Patient Refused. 9-Not Applicable-not attempted and the patient did not perform the activity before the current illness, exacerbation or injury. 10-Not Attempted due to Environmental Limitations-(lack of equipment, weather restraints, etc.). 88-Not Attempted due to Medical Conditions or Safety Concerns. Sit to Stand (QC): 6 Weight Bearing Right Lower Extremity: Right Weight Bearing/Tolerated Left Lower Extremity: Left Weight Bearing/Tolerated Gait Training Does the Patient Walk?: Yes Distance: 400' Walk 10 feet (QC): 6 Walk 50 ft with 2 Turns(QC): 6 Walk 150 ft (QC): 6 Gait Assistive Device: FWW safe and functional with FWW Assessment Patient tolerated treatment well and remains up in recliner with needs met. Plan dismissal in a.m. PT Merchant Mariner Goals Merchant Mariner Goals PT Merchant Mariner Goals Time Frame: Feb 03, 2019 Roll Left & Right (QC): 6 Sit to Lying (QC): 6 Lying-Sitting on Side/Bed(QC): 6 Sit to Stand (QC): 6 Chair/Ixq-vj-Etiwh Xfer(QC): 6 Toilet Transfer (QC): 6 Car Transfer (QC): 6 Does the Patient Walk: Yes Walk 10 feet (QC): 6 Walk 50ft with 2 Turns (QC): 6 Walk 150 ft (QC): 6 Walking 10ft on Uneven Surface: 6 1 Step (curb) (QC): 6 4 Steps (QC): 9 12 Steps (QC): 9 Picking up an Object (QC): 6 Does the Pt use WC or Scooter?: No Type: N/A Type: N/A PT Plan Treatment/Plan Treatment Plan: Continue Plan of Care Treatment Plan: Education, Functional Activity Chriss, Functional Strength, Gait, Safety, Therapeutic Exercise, Transfers Treatment Duration: Feb 03, 2019 Frequency: 6 times per week Estimated Hrs Per Day: .25 hour per day Patient and/or Family Agrees t: Yes Time/GCodes Time In: 950 Time Out: 958 Total Billed Treatment Time: 8 Total Billed Treatment 1 visit FA 8 min IZZY THORNTON PT Jan 25, 2019 10:32 POS
[2019-01-25] MEDS ORDERED: LIDOCAINE UROJET 2% GEL 10 ML PKG ONE (10:50)
[2019-01-25 12:00] VITALS: BP 128/67
--- NOTE | 2019-01-25 14:53 | Occupational Ther Daily Note ---
OT Current Status-Daily Note Subjective Pt seen in recliner chair, alert/ oriented. Pt agreeable to OT tx session, denies pain. Mental Status/Objective Patient Orientation: Normal For Age ADL-Treatment Therapy Code Descriptions/Definitions Functional [place] Measure: 0=Not Assessed/NA 4=Minimal Assistance 1=Total Assistance 5=Supervision or Setup 2=Maximal Assistance 6=Modified [place] 3=Moderate Assistance 7=Complete IndependenceSCALE: Activities may be completed with or without assistive devices. 7-Dgdlctdiqn-vvyflbf completes the activity by him/herself with no assistance from a helper. 5-Set-up or Clean-up Assistance-helper sets up or cleans up; patient completes activity. [place] assists only prior to or following the activity. 4-Supervision or Touching Assistance-helper provides verbal cues and/or touching/steadying and/or contact guard assistance as patient completes activity. Assistance may be provided throughout the activity or intermittently. 3-Partial/Moderate Assistance-helper does LESS THAN HALF the effort. [place] lifts, holds or supports trunk or limbs, but provides less than half the effort. 2-Substantial/Maximal Assistance-helper does MORE THAN HALF the effort. [place] lifts or holds trunk or limbs and provides more than half the effort. 0-Eucwbybou-vdecic does ALL the effort. Patient does none of the effort to complete the activity. Or, the assistance of 2 or more helpers is required for the patient to complete the activity. If activity was not attempted, code reason: 7-Patient Refused. 9-Not Applicable-not attempted and the patient did not perform the activity before the current illness, exacerbation or injury. 10-Not Attempted due to Environmental Limitations-(lack of equipment, weather restraints, etc.). 88-Not Attempted due to Medical Conditions or Safety Concerns. Eating (QC): 6 Oral Hygiene (QC): 7 Shower/Bathe Self (QC): 4 (based on clinical judgement, pt would be able to complete sit to stand and tub transfer bench into tub with SUP or IND which is provided at home.) Upper Body Dressing (QC): 6 Lower Body Dressing (QC): 6 Toileting Hygiene (QC): 6 Toilet Transfer (QC): 6 on/ off footwear per pt: 6 Other Treatment Pt agreeable to tx session, denies need for toileting. Pt completes sit to stand with SBA to FWW, ambulates to sink, toilet tx with SUP/ would be IND. Pt states UE/ LE dressing with IND on this date. Pt states main complaint is lowered endurance while walking. Pt and OT walk through halls, pt walks from one end of [place] to other and back, slight SOB when return to recliner chair. Pt's UE strength tested on this date= 5/5 BUE with stiff leg operator strength symetrical and strong bilaterally. Pt educated on diaphragmatic breathing techniques. Pt has met goals for therapy session. Pt left with call light in reach, chair alarm on, all needs met. Education OT Patient Education: Correct positioning, Exercise program, Modified ADL techniques, Safety issues Teaching Recipient: Patient Teaching Methods: Demonstration, Discussion Response to Teaching: Verbalize Understanding, Return Demonstration OT Short Term Goals Short Term Goals Upper body dressin (met) Lower body dressin (met) OT Correction Goals Supervisor Stitching Department Goals Time Frame: Jan 30, 2019 Eating (QC): 6 (met) Oral Hygiene (QC): 6 (declined ) Toileting Hygiene (QC): 6 (met) Shower/Bathe Self (QC): 6 (based on clinical judgement, pt would be able to complete sit to stand and tub transfer bench into tub with SUP or IND which is provided at home.) Upper Body Dressing (QC): 6 (met) Lower Body Dressing (QC): 6 (met) On/Off Footwear (QC): 6 (met) Additional Goals: 1-Demonstrate ADL Tasks, 2-Verbalize Understanding, 3- ImproveStrength/Chriss 1=Demonstrate adherence to instructed precautions during ADL tasks. 2=Patient will verbalize/demonstrate understanding of assistive devices/modifications for ADL. 3=Patient will improve strength/tolerance for activity to enable patient to perform ADL's. OT Education/Plan Problem List/Assessment Assessment: No Skilled OT Needs ID'd, Decreased Activ Tolerance (PT to address during functional mobility) Discharge Recommendations Plan/Recommendations: Discharge/Goals Met Therapy Discharge Recommendati: Home & Family Equpiment Recommendations-D/C: Rails on Toilet Treatment Plan/Plan of Care Treatment,Training & Education: Yes Patient would benefit from OT for education, treatment and training to promote independence in ADL's, mobility, safety and/or upper extremity function for ADL's. Plan of Care: ADL Retraining, Caregiver Training, Functional Mobility, UE Funct Exercise/Act Treatment Duration: Jan 30, 2019 Frequency: 5 times per week Estimated Hrs Per Day: .25 hour per day Agreement: Yes Rehab Potential: Guarded Time/GCodes Start Time: 14:30 Stop Time: 14:45 Total Time Billed (hr/min): 15 Billed Treatment Time 1, FA (15) KIESHA DYER OTR Jan 25, 2019 14:53 POS
[2019-01-25 16:00] VITALS: BP 162/75
[2019-01-25] MEDS: TAMSULOSIN 0.4 MG (FLOMAX) CAP PO SCH (17:28)
[2019-01-25] MEDS: ENOXAPARIN 40 MG/0.4 ML (LOVENOX) SYR SC SCH (17:28)
[2019-01-25 20:00] VITALS: BP 148/73
[2019-01-25] MEDS: PANTOPRAZOLE 20 MG TABLET (PROTONIX) PO SCH (20:52)
[2019-01-25] MEDS: traZODone 150 MG (DESYREL) TABLET PO SCH (20:52)
[2019-01-25] MEDS: cefTRIAXone FOR IV USE 1,000 MG in WATER (STERILE) FOR INJECTION 10 ML IV SCH (22:35)
[2019-01-26] VITALS: BP 162/72
[2019-01-26 04:00] VITALS: BP 163/78
[2019-01-26] MEDS: meTOprolol 5 MG/5 ML (LOPRESSOR) VIAL IV SCH (05:30)
[2019-01-26] MEDS: MULTIVIT W/MINERALS TAB (THERAGRAN M) PO SCH (05:31)
--- NOTE | 2019-01-26 07:31 | Progress Note ---
Subjective Time Seen by a Provider: 07:29 Subjective/Events-last exam Patient doing better and wants to go home. Patient is urinating by himself. Bladder scan shows 200 mL. Patient's blood pressure better. Patient be followed up in the office Objective Exam Vital Signs Date Time Temp Pulse Resp B/P (MAP) Pulse Ox O2 Delivery O2 Flow Rate FiO2 01/26/19 04:00 36.3 58 22 163/78 (106) 94 Room Air 01/26/19 01:00 62 01/26/19 01:00 76 01/26/19 00:00 36.6 62 16 162/72 (102) 96 Room Air 01/25/19 20:00 36.6 77 18 148/73 (98) 95 Room Air 01/25/19 19:40 Room Air 01/25/19 19:00 76 01/25/19 16:00 36.6 72 20 162/75 (104) 96 Room Air 01/25/19 13:00 67 01/25/19 12:00 36.4 72 20 128/67 (87) 93 Nasal Cannula 2.00 01/25/19 08:00 Room Air 01/25/19 08:00 36.8 75 20 176/81 (112) 93 Nasal Cannula 2.00 I & O 01/26/19 07:00 Intake Total 3930 ml Output Total 3475 ml Balance 455 ml Capillary Refill : Less Than 3 Seconds General Appearance: No Apparent Distress, WD/WN HEENT: Normal ENT Inspection Neck: Full Range of Motion, Normal Inspection Respiratory: No Accessory Muscle Use, No Respiratory Distress, Decreased Breath Sounds Cardiovascular: Regular Rate, Rhythm, No Murmur Gastrointestinal: non tender, soft Results Lab Microbiology 01/22/19 Urine Culture - Final, Complete Mixed Bacterial Jayleen Citrobacter Freundii Assessment/Plan Assessment/Plan Assess & Plan/Chief Complaint Alcohol withdrawal. Seizure. Acute mental status change. Malignant hypertension. Tobaccoism. . 01/24/19. Alcohol withdrawal. Seizure. Acute mental status change resolved. Malignant hypertension resolved. Tobaccoism. Jara catheter to be taken out Tuesday. Patient knows the day. Patient more alert. . 01/25/19. Alcohol withdrawal. New-onset seizure. Acute mental status change resolved. Malignant hypertension resolved. Tobaccoism.. . 01/26/19. Alcohol withdrawal. New-onset seizure. Acute mental status change resolved. Malignant hypertension resolved. Urinary obstruction resolved. Tobaccoism. Patient states he won't stop smoking. 2 office next week Clinical Quality Measures Admission Status Admission Dx Acute mental status change. Seizure. COPD. Alcoholism doing better DVT/VTE Risk/Contraindication: Risk Factor Score Per Nursin RFS Level Per Nursing on Admit: 3=High JENNIFER BECK DO Jan 26, 2019 07:31 POS
[2019-01-26 08:00] VITALS: BP 119/80
[2019-01-26] MEDS: NICOTINE PATCH REMOVAL TP SCH (08:27)
[2019-01-26] MEDS: HYDROCHLOROTHIAZIDE 12.5 MG (HCTZ) CAP PO SCH (08:27)
[2019-01-26] MEDS: SENNA W/DOCUSATE (SENOKOT S) TABLET PO PRN (08:27)
[2019-01-26] MEDS: NICOTINE 21 MG (NICODERM) PATCH TD SCH (08:27)
[2019-01-26] MEDS: lisINopril 10 MG (PRINIVIL) TABLET PO SCH (08:27)
[2019-01-26] MEDS ORDERED: HYDR12.5 PO (09:31)
[2019-01-26] MEDS ORDERED: TAMS0.4C98 PO (09:31)
[2019-01-26] MEDS ORDERED: LISI10TA2 PO (09:31)
[2019-01-26 11:01] VITALS: BP 119/80
--- NOTE | 2019-01-29 07:41 | Discharge Summary ---
Diagnosis/Chief Complaint Date of Admission Jan 23, 2019 at 12:30 Date of Discharge Jan 26, 2019 at 11:09 Discharge Time: 07:38 Discharge Diagnosis Alcohol dependence. Benign prostatic hyperplasia with lower urinary tract symptoms. Chronic obstructive pulmonary disease. Essential hypertension. GERD. Neuromuscular dysfunctional bladder. Seizure. Hyperlipidemia. Insomnia Reason Hospital Visit Gabriel gonzalez patient this morning. Patient was confused and did not know we was. Patient has a history of drinking. From 60 beers a days patient down to 2 beers a day. Patient has COPD. Patient in the emergency room had a seizure. Family spoke to patient and patient states he wants his grandsons to take care of his medical decisions. Patient also talked about DO NOT RESUSCITATE with the family. ground services instructor speak to them tomorrow Discharge Summary Procedures Cystoscopy Consultations Urology Discharge Physical Examination Allergies: Coded Allergies: No Known Drug Allergies (Verified , 08/16/17) Vitals & I&Os Vital Signs Date Time Temp Pulse Resp B/P (MAP) Pulse Ox O2 Delivery O2 Flow Rate FiO2 01/26/19 11:01 35.4 81 20 119/80 94 Room Air 2.00 Hospital Course Patient discharged home. Patient to be followed up in the office next week Labs (last 24 hrs) Laboratory Tests 01/22/19 14:25: White Blood Count 5.8, Red Blood Count 5.14, Hemoglobin 13.2L, Hematocrit 40, Mean Corpuscular Volume 78L, Mean Corpuscular Hemoglobin 26, Mean Corpuscular Hemoglobin Concent 33, Red Cell Distribution Width 16.8H, Platelet Count 276, Mean Platelet Volume 9.7, Neutrophils (%) (Auto) 69, Lymphocytes (%) (Auto) 18, Monocytes (%) (Auto) 8, Eosinophils (%) (Auto) 4, Basophils (%) (Auto) 1, Neutrophils # (Auto) 4.0, Lymphocytes # (Auto) 1.1, Monocytes # (Auto) 0.5, Eosinophils # (Auto) 0.2, Basophils # (Auto) 0.1, Sodium Level 134L, Potassium Level 4.3, Chloride Level 102, Carbon Dioxide Level 21, Anion Gap 11, Blood Urea Nitrogen 18, Creatinine 1.31H, Estimat Glomerular Filtration Rate 54, BUN/Creatinine Ratio 14, Glucose Level 111H, Calcium Level 9.2, Corrected Calcium 9.2, Total Bilirubin 0.6, Aspartate Amino Transf (AST/SGOT) 32, Alanine Aminotransferase (ALT/SGPT) 16, Alkaline Phosphatase 98, Total Protein 7.6, Albumin 4.0, Salicylates Level < 5.0L, Acetaminophen Level < 10L, Serum Alcohol < 10 01/22/19 16:04: Ammonia 17 01/22/19 22:30: Urine Color YELLOW, Urine Clarity SL CLOUDY, Urine pH 6.0, Urine Specific [place] 1.025H, Urine Protein TRACE, Urine Glucose (UA) NEGATIVE, Urine Ketones NEGATIVE, Urine Nitrite POSITIVE, Urine Bilirubin NEGATIVE, Urine Urobilinogen 1.0, Urine Leukocyte Esterase 1+H, Urine RBC (Auto) TRACE-I, Urine RBC 0-2, Urine WBC 25-50H, Urine Crystals NONE, Urine Bacteria MODERATEH, Urine Casts NONE, Urine Mucus NEGATIVE, Urine Culture Indicated YES, Urine Opiates Screen NEGATIVE, Urine Oxycodone Screen NEGATIVE, Urine Methadone Screen NEGATIVE, Urine Propoxyphene Screen NEGATIVE, Urine Barbiturates Screen NEGATIVE, Ur Tricyclic Antidepressants Screen NEGATIVE, Urine Phencyclidine Screen NEGATIVE, Urine Amphetamines Screen NEGATIVE, Urine Methamphetamines Screen NEGATIVE, Uri ne Benzodiazepines Screen NEGATIVE, Urine Cocaine Screen NEGATIVE, Urine Cannabinoids Screen NEGATIVE 01/23/19 05:22: Thyroid Stimulating Hormone (TSH) 0.92 01/23/19 05:51: White Blood Count 6.8, Red Blood Count 4.85, Hemoglobin 12.3L, Hematocrit 38L, Mean Corpuscular Volume 78L, Mean Corpuscular Hemoglobin 25, Mean Corpuscular Hemoglobin Concent 33, Red Cell Distribution Width 16.9H, Platelet Count 244, Mean Platelet Volume 10.0, Neutrophils (%) (Auto) 58, Lymphocytes (%) (Auto) 26, Monocytes (%) (Auto) 10, Eosinophils (%) (Auto) 6, Basophils (%) (Auto) 1, Neutrophils # (Auto) 3.9, Lymphocytes # (Auto) 1.7, Monocytes # (Auto) 0.7, Eosinophils # (Auto) 0.4H, Basophils # (Auto) 0.0, Prostate Specific Antigen 3.93 01/23/19 05:57: Sodium Level 137, Potassium Level 3.6, Chloride Level 106, Carbon Dioxide Level 20L, Anion Gap 11, Blood Urea Nitrogen 16, Creatinine 1.15, Estimat Glomerular Filtration Rate > 60, BUN/Creatinine Ratio 14, Glucose Level 92, Calcium Level 8.8, Corrected Calcium 9.2, Total Bilirubin 0.5, Aspartate Amino Transf (AST/SGOT) 28, Alanine Aminotransferase (ALT/SGPT) 16, Alkaline Phosphatase 89, Total Protein 6.7, Albumin 3.5 01/24/19 04:45: White Blood Count 8.0, Red Blood Count 4.83, Hemoglobin 12.4L, Hematocrit 37L, Mean Corpuscular Volume 77L, Mean Corpuscular Hemoglobin 26, Mean Corpuscular Hemoglobin Concent 33, Red Cell Distribution Width 17.1H, Platelet Count 237, Mean Platelet Volume 9.4, Neutrophils (%) (Auto) 60, Lymphocytes (%) (Auto) 24, Monocytes (%) (Auto) 10, Eosinophils (%) (Auto) 6, Basophils (%) (Auto) 1, Neutrophils # (Auto) 4.8, Lymphocytes # (Auto) 1.9, Monocytes # (Auto) 0.8, Eosinophils # (Auto) 0.5H, Basophils # (Auto) 0.0, Sodium Level 135, Potassium Level 3.8, Chloride Level 103, Carbon Dioxide Level 22, Anion Gap 10, Blood Urea Nitrogen 17, Creatinine 1.45H, Estimat Glomerular Filtration Rate 48, BUN/Creatinine Ratio 12, Glucose Level 103, Calcium Level 8.8, Corrected Calcium 9.4, Total Bilirubin 0.3, Aspartate Amino Transf (AST/SGOT) 20, Alanine Aminotransferase (ALT/SGPT) 11, Alkaline Phosphatase 85, Total Protein 6.3L, Albumin 3.3 01/25/19 06:33: White Blood Count 6.7, Red Blood Count 4.93, Hemoglobin 12.8L, Hematocrit 39L, Mean Corpuscular Volume 79L, Mean Corpuscular Hemoglobin 26, Mean Corpuscular Hemoglobin Concent 33, Red Cell Distribution Width 16.9H, Platelet Count 219, Mean Platelet Volume 9.8, Sodium Level 136, Potassium Level 4.3, Chloride Level 102, Carbon Dioxide Level 22, Anion Gap 12, Blood Urea Nitrogen 19H, Creatinine 1.51H, Estimat Glomerular Filtration Rate 46, BUN/Creatinine Ratio 13, Glucose Level 105, Calcium Level 9.9, Corrected Calcium 10.1, Total Bilirubin 0.3, Aspartate Amino Transf (AST/SGOT) 24, Alanine Aminotransferase (ALT/SGPT) 14, Alkaline Phosphatase 88, Total Protein 7.2, Albumin 3.7 Microbiology 01/24/19 MRSA Screen - Final, Complete MRSA not isolated 01/22/19 Urine Culture - Final, Complete Mixed Bacterial Jayleen Citrobacter Freundii Laboratory Tests 01/22/19 14:25 01/23/19 05:51 01/23/19 05:57 01/24/19 04:45 01/25/19 06:33 Pending Labs Microbiology Date/Time Source Procedure Growth Status 01/24/19 18:43 Nasal MRSA Screen - Final MRSA not isolated Complete 01/22/19 22:30 Urine Jara Cath Urine Culture - Final Mixed Bacterial Jayleen Citrobacter Freundii Complete Laboratory Tests 01/22/19 14:25: White Blood Count 5.8, Red Blood Count 5.14, Hemoglobin 13.2, Hematocrit 40, Mean Corpuscular Volume 78, Mean Corpuscular Hemoglobin 26, Mean Corpuscular Hemoglobin Concent 33, Red Cell Distribution Width 16.8, Platelet Count 276, Mean Platelet Volume 9.7, Neutrophils (%) (Auto) 69, Lymphocytes (%) (Auto) 18, Monocytes (%) (Auto) 8, Eosinophils (%) (Auto) 4, Basophils (%) (Auto) 1, Neutrophils # (Auto) 4.0, Lymphocytes # (Auto) 1.1, Monocytes # (Auto) 0.5, Eosinophils # (Auto) 0.2, Basophils # (Auto) 0.1, Sodium Level 134, Potassium Level 4.3, Chloride Level 102, Carbon Dioxide Level 21, Anion Gap 11, Blood Urea Nitrogen 18, Creatinine 1.31, Estimat Glomerular Filtration Rate 54, BUN/Creatinine Ratio 14, Glucose Level 111, Calcium Level 9.2, Corrected Calcium 9.2, Total Bilirubin 0.6, Aspartate Amino Transf (AST/SGOT) 32, Alanine Aminotransferase (ALT/SGPT) 16, Alkaline Phosphatase 98, Total Protein 7.6, Albumin 4.0, Salicylates Level < 5.0, Acetaminophen Level < 10, Serum Alcohol < 10 01/22/19 16:04: Ammonia 17 01/22/19 22:30: Urine Color YELLOW, Urine Clarity SL CLOUDY, Urine pH 6.0, Urine Specific [place] 1.025, Urine Protein TRACE, Urine Glucose (UA) NEGATIVE, Urine Ketones NEGATIVE, Urine Nitrite POSITIVE, Urine Bilirubin NEGATIVE, Urine Urobilinogen 1.0, Urine Leukocyte Esterase 1+, Urine RBC (Auto) TRACE-I, Urine RBC 0-2, Urine WBC 25-50, Urine Crystals NONE, Urine Bacteria MODERATE, Urine Casts NONE, Urine Mucus NEGATIVE, Urine Culture Indicated YES, Urine Opiates Screen NEGATIVE, Urine Oxycodone Screen NEGATIVE, Urine Methadone Screen NEGATIVE, Urine Propoxyphene Screen NEGATIVE, Urine Barbiturates Screen NEGATIVE, Ur Tricyclic Antidepressants Screen NEGATIVE, Urine Phencyclidine Screen NEGATIVE, Urine Amphetamines Screen NEGATIVE, Urine Methamphetamines Screen NEGATIVE, Urine Benzodiazepines Screen NEGATIVE, Urine Cocaine Screen NEGATIVE, Urine Cannabinoids Screen NEGATIVE 01/23/19 05:22: Thyroid Stimulating Hormone (TSH) 0.92 01/23/19 05:51: White Blood Count 6.8, Red Blood Count 4.85, Hemoglobin 12.3, Hematocrit 38, Mean Corpuscular Volume 78, Mean Corpuscular Hemoglobin 25, Mean Corpuscular Hemoglobin Concent 33, Red Cell Distribution Width 16.9, Platelet Count 244, Mean Platelet Volume 10.0, Neutrophils (%) (Auto) 58, Lymphocytes (%) (Auto) 26, Monocytes (%) (Auto) 10, Eosinophils (%) (Auto) 6, Basophils (%) (Auto) 1, Neutrophils # (Auto) 3.9, Lymphocytes # (Auto) 1.7, Monocytes # (Auto) 0.7, Eosinophils # (Auto) 0.4, Basophils # (Auto) 0.0, Prostate Specific Antigen 3.93 01/23/19 05:57: Sodium Level 137, Potassium Level 3.6, Chloride Level 106, Carbon Dioxide Level 20, Anion Gap 11, Blood Urea Nitrogen 16, Creatinine 1.15, Estimat Glomerular Filtration Rate > 60, BUN/Creatinine Ratio 14, Glucose Level 92, Calcium Level 8.8, Corrected Calcium 9.2, Total Bilirubin 0.5, Aspartate Amino Transf (AST/SGOT) 28, Alanine Aminotransferase (ALT/SGPT) 16, Alkaline Phosphatase 89, Total Protein 6.7, Albumin 3.5 01/24/19 04:45: White Blood Count 8.0, Red Blood Count 4.83, Hemoglobin 12.4, Hematocrit 37, Mean Corpuscular Volume 77, Mean Corpuscular Hemoglobin 26, Mean Corpuscular Hemoglobin Concent 33, Red Cell Distribution Width 17.1, Platelet Count 237, Mean Platelet Volume 9.4, Neutrophils (%) (Auto) 60, Lymphocytes (%) (Auto) 24, Monocytes (%) (Auto) 10, Eosinophils (%) (Auto) 6, Basophils (%) (Auto) 1, Neutrophils # (Auto) 4.8, Lymphocytes # (Auto) 1.9, Monocytes # (Auto) 0.8, Eosinophils # (Auto) 0.5, Basophils # (Auto) 0.0, Sodium Level 135, Potassium Level 3.8, Chloride Level 103, Carbon Dioxide Level 22, Anion Gap 10, Blood Urea Nitrogen 17, Creatinine 1.45, Estimat Glomerular Filtration Rate 48, BUN/Creatinine Ratio 12, Glucose Level 103, Calcium Level 8.8, Corrected Calcium 9.4, Total Bilirubin 0.3, Aspartate Amino Transf (AST/SGOT) 20, Alanine Aminotransferase (ALT/SGPT) 11, Alkaline Phosphatase 85, Total Protein 6.3, Albumin 3.3 01/25/19 06:33: White Blood Count 6.7, Red Blood Count 4.93, Hemoglobin 12.8, Hematocrit 39, Mean Corpuscular Volume 79, Mean Corpuscular Hemoglobin 26, Mean Corpuscular Hemoglobin Concent 33, Red Cell Distribution Width 16.9, Platelet Count 219, Mean Platelet Volume 9.8, Sodium Level 136, Potassium Level 4.3, Chloride Level 102, Carbon Dioxide Level 22, Anion Gap 12, Blood Urea Nitrogen 19, Creatinine 1.51, Estimat Glomerular Filtration Rate 46, BUN/Creatinine Ratio 13, Glucose Level 105, Calcium Level 9.9, Corrected Calcium 10.1, Total Bilirubin 0.3, A spartate Amino Transf (AST/SGOT) 24, Alanine Aminotransferase (ALT/SGPT) 14, Alkaline Phosphatase 88, Total Protein 7.2, Albumin 3.7 Discussion & Recommendations Patient from 60 beers a day down to 2 beers a day Discharge Home Medications: Active Scripts Active Hydrochlorothiazide 12.5 Mg Capsule 12.5 Mg PO DAILY@0900 60 Days Lisinopril 10 Mg Tablet 20 Mg PO DAILY 60 Days Flomax (Tamsulosin HCl) 0.4 Mg Cap 0.4 Mg PO HS 60 Days Reported Metformin HCl 500 Mg Tablet 1,000 Mg PO BID WITH MEALS LAST FILLED #120 10-19-18 TAKES 2 (500MG) TABLETS Esomeprazole Magnesium 20 Mg Capsule.dr 20 Mg PO HS LAST FILLED #30 10-19-18 Trazodone HCl 150 Mg Tablet 150 Mg PO HS LAST FILLED #30 10-19-18 Instructions to patient/family Please see electronic discharge instructions given to patient. Clinical Quality Measures DVT/VTE Risk/Contraindication: Risk Factor Score Per Nursin RFS Level Per Nursing on Admit: 3=High JENNIFER BECK DO Jan 29, 2019 07:41 POS
== END 2019-01-26 11:09 | disposition home or self-care (01) | DRG 897 ==
LOC: EDUNIT# 14:27 → ER 14:28 → 4TH 16:00 → OBSVTOIN 01-23 12:30
PROVIDERS: ADMIT Family Medicine; ATTEND Family Medicine
PROC: 0TJB8ZZ Inspection of Bladder, Via Natural or Artificial Opening Endoscopic (ICD-10-PCS; principal; 2019-01-25 12:00)
DX: F10.239 Alcohol dependence with withdrawal, unspecified (principal); G40.89 Other seizures; J44.9 Chronic obstructive pulmonary disease, unspecified; N40.1 Benign prostatic hyperplasia with lower urinary tract symptoms; R33.8 Other retention of urine; N31.9 Neuromuscular dysfunction of bladder, unspecified; E78.00 Pure hypercholesterolemia, unspecified; J30.2 Other seasonal allergic rhinitis; K21.9 Gastro-esophageal reflux disease without esophagitis; I10 Essential (primary) hypertension; G47.9 Sleep disorder, unspecified; Z95.5 Presence of coronary angioplasty implant and graft; Z96.642 Presence of left artificial hip joint
CPT/HCPCS: 36415; 70450; 70551; 71046; 80053; 80306; 80320; 80329; 81000; 82140; 84153; 84443; 85025; 85027; 87077; 87081; 87088; 87186; 93005; 93041; 96360; G0378

== ENCOUNTER 2019-10-27 20:33 | Emergency (ER) | payer MEDICARE, OTHER ==
[~2019-10-27] VITALS: Ht 195 cm; Wt 98.0 kg
[~2019-10-27 20:33] MED LIST changes: +ACHD5005 PO; +ESOM20CA37 PO; -HYDR-3812 PO; +HYDR12.5 PO; +LISI10TA2 PO; +METF-397 PO; -TAMS0.4C98 PO; +TMSL.4C PO; -TRAZ-190 PO; +TRAZ-227 PO; +TRAZ150T72 PO
--- NOTE | 2019-10-27 20:56 | ED General ---
General Stated Complaint: SOB,SHAKY,FATIGUE History of Present Illness Date Seen by Provider: Oct 27, 2019 Time Seen by Provider: 20:54 Initial Comments 69-year-old male presents with some shortness of breath, wheezing, fatigue and being shaky. Patient reports that after he laid down for his nap he woke up short of breath. He has known severe COPD and emphysema. He reports he took a nebulizer at home around 5 PM however his son reports she has not taken any of his medications this afternoon. He denies any fevers or chills. He denies any chest pain. He denies any nausea vomiting or other systemic complaints. Allergies and Home Medications Allergies Coded Allergies: No Known Drug Allergies (Verified , 08/16/17) Home Medications Esomeprazole Magnesium 20 Mg Capsule.dr, 20 MG PO HS, (Reported) LAST FILLED #30 10-19-18 Hydrochlorothiazide 12.5 Mg Capsule, 12.5 MG PO DAILY@0900 Prescribed by: RIZWANA CHUNG on 01/26/19930 Lisinopril 10 Mg Tablet, 20 MG PO DAILY Prescribed by: RIZWANA CHUNG on 01/26/19 0931 Metformin HCl 500 Mg Tablet, 1,000 MG PO BID WITH MEALS, (Reported) LAST FILLED #120 10-19-18 TAKES 2 (500MG) TABLETS Tamsulosin HCl 0.4 Mg Cap, 0.4 MG PO HS Prescribed by: RIZWANA CHUNG on 01/26/19 09 Trazodone HCl 150 Mg Tablet, 150 MG PO HS, (Reported) LAST FILLED #30 10-19-18 Patient Home Medication List Home Medication List Reviewed: Yes Review of Systems Review of Systems Constitutional: No chills, No diaphoresis, No dizziness, No fever; malaise, weakness Respiratory: cough, short of breath, wheezing Cardiovascular: No chest pain, No palpitations Gastrointestinal: no symptoms reported Genitourinary: no symptoms reported Musculoskeletal: see HPI Skin: no symptoms reported Psychiatric/Neurological: See HPI Past Pwybnuz-Qfzlaf-Hykhsk Hx Past Med/Social Hx: Reviewed Nursing Past Med/Soc Hx Patient Social History Alcohol Beverage of Choice: Beer Drug of Choice: 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 [employer] [place] Type Used: Cigarettes 2nd Hand Smoke Exposure: Yes Recent Hopitalizations: No Immunizations Up To Date Date of Influenza Vaccine: Jan 23, 2019 Seasonal Allergies Seasonal Allergies: Yes Past Medical History Surgeries: Yes (L TOTAL HIP) Abdominal, Coronary Stent, Orthopedic Respiratory: Yes COPD Currently Using CPAP: No Currently Using BIPAP: No Cardiac: Yes High Cholesterol Neurological: No Seizure Disorder Reproductive Disorders: No Sexually Transmitted Disease: Yes HIV/AIDS: No Genitourinary: No Gastrointestinal: Yes Gastroesophageal Reflux Musculoskeletal: No Endocrine: No HEENT: No Loss of Vision: Denies Hearing Impairment: Hard of Hearing Cancer: No Psychosocial: Yes Sleep Difficulties Integumentary: No Blood Disorders: No Adverse Reaction/Blood Tranf: No (N/A) Physical Exam Vital Signs Vital Signs - First Documented 10/27/19 21:39 Temp 36.9 Pulse 78 Resp 24 B/P (MAP) 171/95 (120) Pulse Ox 92 O2 Delivery Room Air Capillary Refill : Height, Weight, BMI Height: 6'6.00" Weight: 172lbs. 7.0oz. 78.160057pd; 22.95 BMI Method:Stated General Appearance: No Apparent Distress, WD/WN HEENT: PERRL/EOMI, Other (decreased hearing) Respiratory: Decreased Breath Sounds (diffuse), Wheezing (diffuse) Cardiovascular: Regular Rate, Rhythm, No Edema Gastrointestinal: Non Tender, Soft Extremity: Normal Capillary Refill, Normal Range of Motion Neurologic/Psychiatric: Alert, Oriented x3, medical certification specialist II-XII Norm as Tested, Other (coarse tremor) Skin: Warm/Dry Procedures/Interventions Date of ETT Placement: Jun 03, 2018 Time of ETT Placement: 0643 Progress/Results/Core Measures Suspected Sepsis SIRS Temperature: Pulse: Respiratory Rate: Laboratory Tests 10/27/19 21:00: White Blood Count 6.5 Blood Pressure / Mean: Laboratory Tests 10/27/19 21:00: Creatinine 1.22, Platelet Count 211, Total Bilirubin 0.5 Results/Orders Lab Results Laboratory Tests Test 10/27/19 21:00 Range/Units White Blood Count 6.5 4.3-11.0 10^3/uL Red Blood Count 4.91 4.35-5.85 10^6/uL Hemoglobin 14.0 13.3-17.7 G/DL Hematocrit 41 40-54 % Mean Corpuscular Volume 83 80-99 FL Mean Corpuscular Hemoglobin 29 25-34 PG Mean Corpuscular Hemoglobin Concent 34 32-36 G/DL Red Cell Distribution Width 16.8 H 10.0-14.5 % Platelet Count 211 130-400 10^3/uL Mean Platelet Volume 9.2 7.4-10.4 FL Sodium Level 136 135-145 MMOL/L Potassium Level 4.2 3.6-5.0 MMOL/L Chloride Level 104 98-107 MMOL/L Carbon Dioxide Level 21 21-32 MMOL/L Anion Gap 11 5-14 MMOL/L Blood Urea Nitrogen 13 7-18 MG/DL Creatinine 1.22 0.60-1.30 MG/DL Estimat Glomerular Filtration Rate 59 BUN/Creatinine Ratio 11 Glucose Level 96 70-105 MG/DL Calcium Level 8.6 8.5-10.1 MG/DL Corrected Calcium 8.9 8.5-10.1 MG/DL Total Bilirubin 0.5 0.1-1.0 MG/DL Aspartate Amino Transf (AST/SGOT) 46 H 5-34 U/L Alanine Aminotransferase (ALT/SGPT) 29 0-55 U/L Alkaline Phosphatase 77 40-136 U/L Troponin I < 0.028 <0.028 NG/ML B-Type Natriuretic Peptide 219.9 H <100.0 PG/ML Total Protein 7.2 6.4-8.2 GM/DL Albumin 3.6 3.2-4.5 GM/DL My Orders Orders - ALCIDES SANCHEZ DO Albuterol/Ipra Inhalation Soln (Duoneb I (10/27/19 21:15) Chest 1 View, Ap/Pa Only (10/27/19 21:02) Dexamethasone Injection (Decadron Inje (10/27/19 21:15) Svn Small Volume Nebulizer (10/27/19 21:02) BNP (10/27/19 21:02) Cbc No Diff (10/27/19 21:02) Comprehensive Metabolic Panel (10/27/19 21:02) Troponin I (10/27/19 21:02) Ekg Tracing (10/27/19 21:02) Azithromycin Tablet (Zithromax Tablet) (10/27/19 22:03) Ketorolac Injection (Toradol Injection) (10/27/19 22:26) Medications Given in ED Current Medications Medications Dose Ordered Sig/Perla Route Start Time Stop Time Status Last Admin Dose Admin Albuterol/ Ipratropium 3 ml ONCE ONCE INH 10/27/19 21:15 10/27/19 21:16 DC 10/27/19 21:22 3 ML Dexamethasone Sodium Phosphate 10 mg ONCE ONCE IV 10/27/19 21:15 10/27/19 21:16 DC 10/27/19 21:23 10 MG Vital Signs/I&O 10/27/19 21:39 Temp 36.9 Pulse 78 Resp 24 B/P (MAP) 171/95 (120) Pulse Ox 92 O2 Delivery Room Air Capillary Refill : Progress Note : Time: 22:27 Progress Note Patient with known hypertension. Patient is supposed to be taking hydrochlorothiazide and lisinopril but refuses to take him home. I did discuss with him the need to restart those due to his elevated blood pressure being in chronic. Patient has a COPD exacerbation. He will be discharged with azithromycin and steroids. Patient also reports he doesn't sleep and he stopped taking his trazodone a couple months ago. Patient reports only medication he now takes is a reflux medication he buys [id number]. He should follow with his primary care provider in 2-3 days for general medical checkup, re restart his blood pressure medication and discuss with him his insomnia.. Patient is stable upon discharge ECG Initial ECG Impression Date: Oct 27, 2019 Initial ECG Impression Time: 21:30 Initial ECG Rhythm: Normal Sinus Initial ECG Intervals: Normal Initial ECG Impression: Normal Diagnostic Imaging Diagonstic Imaging: Xray Plain Films/CT/US/NM/MRI: chest Comments [facility], [place] NAME: BUCKYHARJINDER [place] [facility] REC#: [id number] PT STATUS: REG ER : 1950 PHYSICIAN: ALCIDES SANCHEZ DO ADMIT DATE: 10/27/19/ER Draft Date of Exam:10/27/19 CHEST 1 VIEW, AP/PA ONLY INDICATION: Shortness of breath. EXAMINATION: Portable erect AP chest at 9:54 p.m. FINDINGS: The heart size is within normal limits and stable when compared to 01/24/2019. The chronic pulmonary changes, seen previously, are again evident and essentially no different. There is no sign of failure, pneumonia or a pleural effusion to indicate an acute abnormality. The mediastinum is not widened. The osseous structures are intact. IMPRESSION: There is chronic pulmonary disease but there is no sign of an acute cardiopulmonary abnormality. Departure Impression Primary Impression: COPD (chronic obstructive pulmonary disease) with acute bronchitis Additional Impression: Severe uncontrolled hypertension Disposition: 01 HOME, SELF-CARE Condition: Stable Departure-Patient Inst. Referrals: JENNIFER BECK DO (PCP/Family) Primary Care Physician Patient Instructions: Chronic Obstructive Pulmonary Disease (COPD), Including Emphysema, Medicines for High Blood Pressure, Exacerbation of COPD Add. Discharge Instructions: Follow-up with your primary care provider this week for recheck of today symptoms, continuation of care Scripts Hydrochlorothiazide (Hydrochlorothiazide) 25 Mg Tablet 25 MG PO DAILY, #14 TAB Prov: ALCIDES SANCHEZ DO 10/27/19 Lisinopril (Lisinopril) 10 Mg Tablet 10 MG PO DAILY, #14 TAB Prov: ALCIDES SANCHEZ DO 10/27/19 Prednisone (Prednisone) 20 Mg Tab 40 MG PO DAILY, #6 TAB 0 Refills Prov: ALCIDES SANCHEZ DO 10/27/19 Azithromycin (Azithromycin) 250 Mg Tablet 250 MG PO DAILY, #4 TAB 0 Refills Prov: ALCIDES SANCHEZ DO 10/27/19 ALCIDES SANCHEZ DO Oct 27, 2019 20:56
[2019-10-27] MEDS ORDERED: RT-ALBUTEROL/IPRATROPIUM 3 ML (DUONEB) VIAL INH ONE (21:15)
[2019-10-27 21:18] LABS: MEAN PLATELET VOLUME 9.2 FL (7.4-10.4); WHITE BLOOD COUNT 6.5 10^3/uL (4.3-11.0)
[2019-10-27 21:27] LABS: ALBUMIN 3.6 GM/DL (3.2-4.5); CHLORIDE 104 MMOL/L (98-107); POTASSIUM 4.2 MMOL/L (3.6-5.0); SODIUM 136 MMOL/L (135-145)
[2019-10-27 21:28] LABS: CALCIUM 8.6 MG/DL (8.5-10.1)
[2019-10-27 21:29] LABS: GLUCOSE 96 MG/DL (70-105); TOTAL PROTEIN 7.2 GM/DL (6.4-8.2)
[2019-10-27 21:30] LABS: CARBON DIOXIDE 21 MMOL/L (21-32)
[2019-10-27 21:31] LABS: BILIRUBIN,TOTAL 0.5 MG/DL (0.1-1.0)
[2019-10-27 21:32] LABS: ALKALINE PHOSPHATASE 77 U/L (40-136)
[2019-10-27 21:33] LABS: CREATININE SERUM 1.22 MG/DL (0.60-1.30); GFR ESTIMATED 59
[2019-10-27 21:34] LABS: BUN/CREATININE RATIO 11
--- NOTE | 2019-10-27 21:35 | NUR ---
Pt reports that he woke from a nap with sudden onset of worsening of his sob. Pt is normally sob due to copd. Pt denies fever, worsening cough, or n/v/d. Pt grandson stated he did not use any of his inhalers or nebs today. Pt is a heavy smoker. sp02 is 92% on RA. Pt room and IV and labs sent; Dr. Gonzalez to room for eval and orders. Pt noted to have insp/exp wheezes. Will continue to monitor.
[2019-10-27 21:36] LABS: ALANINE AMINOTRANSFERASE 29 U/L (0-55)
[2019-10-27] MEDS ORDERED: AZITHROMYCIN 250 MG TAB (ZITHROMAX) PO STA (22:03)
--- NOTE | 2019-10-27 22:13 | Diagnostic Imaging Report ---
INDICATION: Shortness of breath. EXAMINATION: Portable erect AP chest at 9:54 p.m. FINDINGS: The heart size is within normal limits and stable when compared to 01/24/2019. The chronic pulmonary changes, seen previously, are again evident and essentially no different. There is no sign of failure, pneumonia or a pleural effusion to indicate an acute abnormality. The mediastinum is not widened. The osseous structures are intact. IMPRESSION: There is chronic pulmonary disease but there is no sign of an acute cardiopulmonary abnormality. Dictated by: Dictated on workstation # [id number]
[2019-10-27] MEDS ORDERED: KETOROLAC 30 MG/ML VIAL IVP STA (22:26)
--- NOTE | 2019-10-27 22:29 | NUR ---
Pt c/o right side midclavicular rib pain. Reports onset as sudden while in the ED; rates pain 8/10 with worsening on inspiration. Dr. Gonzalez notified.
[2019-10-27] MEDS ORDERED: LISI10TA2 PO (22:40)
[2019-10-27] MEDS ORDERED: PRD20T PO (22:40)
[2019-10-27] MEDS ORDERED: AZIT250T12 PO (22:40)
[2019-10-27] MEDS ORDERED: HYDR25TA4 PO (22:40)
[2019-10-27] MEDS ORDERED: lisINopril 10 MG (PRINIVIL) TABLET PO ONE (22:45)
[2019-10-27] MEDS ORDERED: HYDROCHLOROTHIAZIDE 25 MG (HCTZ) TAB PO ONE (22:45)
--- NOTE | 2019-10-28 00:15 | NUR ---
Pt reports feeling better.
[2019-10-28 00:20] VITALS: BP 224/100
== END 2019-10-28 00:22 | disposition home or self-care (01) ==
LOC: EDUNIT# 20:33 → ER 20:35
DX: J44.0 Chronic obstructive pulmonary disease with (acute) lower respiratory infection (principal); J20.9 Acute bronchitis, unspecified; I10 Essential (primary) hypertension; K21.9 Gastro-esophageal reflux disease without esophagitis; Z95.5 Presence of coronary angioplasty implant and graft; Z77.22 Contact with and (suspected) exposure to environmental tobacco smoke (acute) (chronic)
CPT/HCPCS: 36415; 71045; 80053; 83880; 84484; 85027

== ENCOUNTER 2019-11-21 19:40 | Inpatient (IN) | payer MEDICARE, OTHER ==
[~2019-11-21] VITALS: Ht 198.1 cm; Wt 93.3 kg
[~2019-11-21 19:40] MED LIST changes: +AZIT250T12 PO; +HYDR25TA4 PO; +PRD20T PO
--- NOTE | 2019-11-21 20:21 | ED General ---
General Stated Complaint: AMS Source of Information: Old Records, Other ([facility] VIA PHONE) Exam Limitations: Other (PT IS CONFUSED) History of Present Illness Date Seen by Provider: Nov 21, 2019 Time Seen by Provider: 20:15 Initial Comments PT ARRIVES VIA POV FROM HOME--LIVES WITH GRANDTORRES, WHO BROUGHT HIM HERE PT IS EXTREMELY POOR HISTORIAN, WITH EXTREMELY POOR MEMORY, BUT SPEECH IS CLEAR ONLY INFORMATION THAT PT CAN PROVIDE, IS THAT HE DIDN'T KNOW THAT HIS MOTHER HAD --APPARENTLY HAD A LONG TIME AGO [facility] REPORTS THAT AROUND 1929 TONIGHT, HE NOTICED PT WAS CONFUSED--THOUGHT IT WAS 2005, DID NOT REMEMBER ANYTHING--NOT NORMAL FOR PT PT KNOWS HIS NAME, WHERE HE IS, BUT HAS NO IDEA WHY HE IS HERE, DOES NOT KNOW ANY OF HIS MEDICAL HISTORY OR ANYTHING ABOUT HIMSELF AT ALL. [facility]ANDSON DENIES ANY FALLS FOR SEVERAL MONTHS NO FEVER OR RECENT ILLNESS NO NAUSEA/VOMITING/DIARRHEA AND [facility] REPORTS THAT PT HAS BEEN EATING AND DRINKING NORMALLY PT DRINKS HEAVILY EVERY DAY--12-18 "TALL BOYS" A DAY GRANDSON STATES THAT PT HAS NOT HAD ANY ALCOHOL TODAY, AND LAST ETOH WAS SOMETIME YESTERDAY. PT WAS ADMITTED HERE 01/2019 WITH ALCOHOL WITHDRAWL SEIZURE AND WAS ADMITTED 05/2018 FOR ACUTE PSYCHOSIS/ALTERED MENTAL STATUS DUE TO ALCOHOL WITHDRAWL WAS HERE 10/27/19 FOR COPD EXACERBATION PT STATES "HE FEELS FINE" AND "THERE'S NOTHING WRONG" AND PT WANTING TO LEAVE FROM TIME OF ARRIVAL ON DIRECT QUESTIONING ABOUT SYMPTOMS, SUCH HEADACHE, PAIN ANYWHERE, NAUSEA/VOMITING/DIARRHEA, VISION CHANGES, SHORTNESS OF BREATH, NUMBNESS/TINGLING--PT DENIES ALL OF THESE [facility] REPORTS THAT PT HAD ROUTINE EXAM WITH DR. BECK 2 WEEKS AGO. NO MEDICATION CHANGES GRANDSON STATES THE ONLY MEDICATIONS THAT PT TAKES ARE TRAZADONE FOR SLEEP AND A MEDICATION FOR ACID REFLUX. PT HAS BEEN PRESCRIBED LISINOPRIL, METFORMIN, HCTZ IN PAST, BUT [facility] STATES THAT PT HAS NOT TAKEN THOSE FOR A LONG TIME Timing/Duration: 3-4 Days PCP: DR. BECK, ALSO HAS GONE TO PA IN SOOD Allergies and Home Medications Allergies Coded Allergies: No Known Drug Allergies (Verified , 08/16/17) Home Medications Azithromycin 250 Mg Tablet, 250 MG PO DAILY Prescribed by: ALCIDES SANCHEZ on 10/27/192239 Esomeprazole Magnesium 20 Mg Capsule.dr, 20 MG PO HS, (Reported) LAST FILLED #30 10-19-18 Hydrochlorothiazide 12.5 Mg Capsule, 12.5 MG PO DAILY@0900 Prescribed by: RIZWANA CHUNG on 01/26/19930 Hydrochlorothiazide 25 Mg Tablet, 25 MG PO DAILY Prescribed by: ALCIDES SANCHEZ on 10/27/192239 Lisinopril 10 Mg Tablet, 20 MG PO DAILY Prescribed by: RIZWANA CHUNG on 01/26/19930 Lisinopril 10 Mg Tablet, 10 MG PO DAILY Prescribed by: ALCIDES SANCHEZ on 10/27/192239 Metformin HCl 500 Mg Tablet, 1,000 MG PO BID WITH MEALS, (Reported) LAST FILLED #120 10-19-18 TAKES 2 (500MG) TABLETS Prednisone 20 Mg Tab, 40 MG PO DAILY Prescribed by: ALCIDES SANCHEZ on 10/27/192239 Tamsulosin HCl 0.4 Mg Cap, 0.4 MG PO HS Prescribed by: RIZWANA CHUNG on 01/26/19930 Trazodone HCl 150 Mg Tablet, 150 MG PO HS, (Reported) LAST FILLED #30 10-19-18 Patient Home Medication List Home Medication List Reviewed: Yes Review of Systems Review of Systems Constitutional: no symptoms reported; No fever EENTM: no symptoms reported Respiratory: no symptoms reported; No short of breath Cardiovascular: no symptoms reported; No chest pain Gastrointestinal: no symptoms reported; No abdominal pain, No loss of appetite, No nausea, No vomiting Genitourinary: No dysuria Musculoskeletal: no symptoms reported Psychiatric/Neurological: See HPI; Denies Headache Past Ypmrkkv-Rpjhgb-Jljnzt Hx Past Med/Social Hx: Reviewed and Corrections made Patient Social History Alcohol Use: Regular Use Alcohol Beverage of Choice: Beer Recreational Drug Use: Yes Drug of Choice: 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 INTO [employer] Smoking Status: Current Everyday Smoker Type Used: Cigarettes 2nd Hand Smoke Exposure: Yes Recent Foreign Travel: No Contact w/Someone Who Travel: No Recent Hopitalizations: No Immunizations Up To Date Date of Influenza Vaccine: Jan 23, 2019 Seasonal Allergies Seasonal Allergies: Yes Past Medical History Surgeries: Yes (L TOTAL HIP) Abdominal, Cardiac, Coronary Stent, Orthopedic Respiratory: Yes COPD Currently Using CPAP: No Currently Using BIPAP: No Cardiac: Yes (STENT) Coronary Artery Disease, High Cholesterol Neurological: Yes (ALCOHOL WITHDRAWL SEIZURE) Seizure Disorder Reproductive Disorders: No Sexually Transmitted Disease: Yes HIV/AIDS: No Genitourinary: Yes (URINARY RETENTION) Prostate Problems, Bladder Infection Gastrointestinal: Yes Gastroesophageal Reflux, Polyps Musculoskeletal: Yes (MULTIPLE FALLS; LEFT HIP REPLACEMENT) Endocrine: No HEENT: No Loss of Vision: Denies Hearing Impairment: Hard of Hearing, Hearing Aide Right Cancer: No Psychosocial: Yes (POLYSUBSTANCE ABUSE) Sleep Difficulties Integumentary: No Blood Disorders: No Adverse Reaction/Blood Tranf: No (N/A) Family Medical History SOCIAL HISTORY: -ETOH--LONGSTANDING, DAILY USE--12-18 "TALL BOYS" A DAY -DRUGS--HX OF CRACK COCAINE, THC USE -SMOKES 1 PPD PAST SURGICAL HISTORY: -EGD + COLONOSCOPY WITH POLYPECTOMY X 5 08/2017 -CYSTOSCOPY 01/2019 -CARDIAC CATH WITH STENT -LEFT HIP REPLACEMENT Physical Exam Vital Signs Vital Signs - First Documented 11/21/19 23:56 Temp 35.7 Pulse 75 Resp 18 B/P (MAP) 212/93 Pulse Ox 94 O2 Delivery Room Air Capillary Refill : Height, Weight, BMI Height: 6'6.00" Weight: 172lbs. 7.0oz. [id number]; 25.00 BMI Method:Stated General Appearance: No Apparent Distress, WD/WN, Other (UNKEMPT, REEKS OF CIGARETTES, PT TALKS NON-STOP VERY LOUDLY. SPEECH IS CLEAR. PT VERY GRUFF, SOMEWHAT AGITATED, SOMEWHAT ARGUMENTATIVE, AND DOES NOT WANT TO BE HERE) HEENT: PERRL/EOMI Neck: Full Range of Motion, Normal Inspection, Non Tender, Supple Respiratory: Normal Breath Sounds, No Accessory Muscle Use, No Respiratory Distress Cardiovascular: Regular Rate, Rhythm, No Edema, No JVD, No Murmur, Normal Peripheral Pulses Gastrointestinal: Normal Bowel Sounds, No Organomegaly, No Pulsatile Mass, Non Tender, Soft Back: Normal Inspection, No CVA Tenderness Extremity: Normal Capillary Refill, Normal Inspection, Normal Range of Motion, Non Tender, No Calf Tenderness, No Pedal Edema, Other (LARGE SURGICAL WOUNDS TO LEFT HIP AND ILIAC CREST AREA) Neurologic/Psychiatric: Alert, No Motor/Sensory Deficits, behavioral science chair II-XII Norm as Tested, Other (ORIENTED TO PERSON, AND PLACE, BUT NOT TIME OR SITUATION, AND HAS VERY POOR MEMORY. BEHAVIOR NOTED ABOVE) Skin: Normal Color, Warm/Dry, Tattoos/Piercings, Other (NO EXTERNAL EVIDENCE OF TRAUMA ANYWHERE) Focused Exam Lactate Level 11/21/19 20:25: Lactic Acid Level 0.92 Lactic Acid Level Procedures/Interventions Date of ETT Placement: Jun 03, 2018 Time of ETT Placement: 0643 Progress/Results/Core Measures Suspected Sepsis SIRS Temperature: Pulse: Respiratory Rate: Laboratory Tests 11/21/19 20:25: White Blood Count 6.2 Blood Pressure / Mean: 11/21/19 20:25: Lactic Acid Level 0.92 Laboratory Tests 11/21/19 20:25: Creatinine 1.54H, INR Comment 1.0, Platelet Count 275, Total Bilirubin 0.7 Results/Orders Lab Results Laboratory Tests Test 11/21/19 19:52 11/21/19 20:25 11/21/19 20:29 Range/Units Urine Color YELLOW Urine Clarity CLEAR Urine pH 6.0 5-9 Urine Specific [place] 1.020 1.016-1.022 Urine Protein NEGATIVE NEGATIVE Urine Glucose (UA) NEGATIVE NEGATIVE Urine Ketones NEGATIVE NEGATIVE Urine Nitrite NEGATIVE NEGATIVE Urine Bilirubin NEGATIVE NEGATIVE Urine Urobilinogen 1.0 < = 1.0 MG/DL Urine Leukocyte Esterase NEGATIVE NEGATIVE Urine RBC (Auto) NEGATIVE NEGATIVE Urine RBC NONE /HPF Urine WBC 0-2 /HPF Urine Squamous Epithelial Cells RARE /HPF Urine Crystals NONE /LPF Urine Bacteria TRACE /HPF Urine Casts PRESENT /LPF Urine Hyaline Casts 0-2 H /LPF Urine Mucus NEGATIVE /LPF Urine Culture Indicated NO Urine Opiates Screen NEGATIVE NEGATIVE Urine Oxycodone Screen NEGATIVE NEGATIVE Urine Methadone Screen NEGATIVE NEGATIVE Urine Propoxyphene Screen NEGATIVE NEGATIVE Urine Barbiturates Screen NEGATIVE NEGATIVE Ur Tricyclic Antidepressants Screen NEGATIVE NEGATIVE Urine Phencyclidine Screen NEGATIVE NEGATIVE Urine Amphetamines Screen NEGATIVE NEGATIVE Urine Methamphetamines Screen NEGATIVE NEGATIVE Urine Benzodiazepines Screen NEGATIVE NEGATIVE Urine Cocaine Screen NEGATIVE NEGATIVE Urine Cannabinoids Screen NEGATIVE NEGATIVE White Blood Count 6.2 4.3-11.0 10^3/uL Red Blood Count 4.80 4.30-5.52 10^6/uL Hemoglobin 13.7 13.3-17.7 g/dL Hematocrit 40 40-54 % Mean Corpuscular Volume 84 80-99 fL Mean Corpuscular Hemoglobin 29 25-34 pg Mean Corpuscular Hemoglobin Concent 34 32-36 g/dL Red Cell Distribution Width 14.7 H 10.0-14.5 % Platelet Count 275 130-400 10^3/uL Mean Platelet Volume 9.1 9.0-12.2 fL Immature Granulocyte % (Auto) 0 % Neutrophils (%) (Auto) 77 H 42-75 % Lymphocytes (%) (Auto) 13 12-44 % Monocytes (%) (Auto) 6 0-12 % Eosinophils (%) (Auto) 2 0-10 % Basophils (%) (Auto) 1 0-10 % Neutrophils # (Auto) 4.7 1.8-7.8 10^3/uL Lymphocytes # (Auto) 0.8 L 1.0-4.0 10^3/uL Monocytes # (Auto) 0.4 0.0-1.0 10^3/uL Eosinophils # (Auto) 0.2 0.0-0.3 10^3/uL Basophils # (Auto) 0.1 0.0-0.1 10^3/uL Immature Granulocyte # (Auto) 0.0 0.0-0.1 10^3/uL Prothrombin Time 13.1 12.2-14.7 SEC INR Comment 1.0 0.8-1.4 Activated Partial Thromboplast Time 28 24-35 SEC Sodium Level 130 L 135-145 MMOL/L Potassium Level 4.1 3.6-5.0 MMOL/L Chloride Level 94 L 98-107 MMOL/L Carbon Dioxide Level 22 21-32 MMOL/L Anion Gap 14 5-14 MMOL/L Blood Urea Nitrogen 16 7-18 MG/DL Creatinine 1.54 H 0.60-1.30 MG/DL Estimat Glomerular Filtration Rate 45 BUN/Creatinine Ratio 10 Glucose Level 108 H 70-105 MG/DL Lactic Acid Level 0.92 0.50-2.00 MMOL/L Calcium Level 8.7 8.5-10.1 MG/DL Corrected Calcium 9.0 8.5-10.1 MG/DL Magnesium Level 1.4 L 1.6-2.4 MG/DL Total Bilirubin 0.7 0.1-1.0 MG/DL Aspartate Amino Transf (AST/SGOT) 20 5-34 U/L Alanine Aminotransferase (ALT/SGPT) 15 0-55 U/L Alkaline Phosphatase 88 40-136 U/L Ammonia 36 H 11-32 UMOL/L Total Creatine Kinase 45 30-200 U/L Creatine Kinase MB 1.6 <6.6 NG/ML Myoglobin 60.9 10.0-92.0 NG/ML Troponin I < 0.028 <0.028 NG/ML B-Type Natriuretic Peptide 167.2 H <100.0 PG/ML Total Protein 6.9 6.4-8.2 GM/DL Albumin 3.6 3.2-4.5 GM/DL Amylase Level 31 25-125 U/L Lipase 27 8-78 U/L Procalcitonin 0.05 <0.10 NG/ML TSH Brooks Testing 1.62 0.35-4.94 UIU/ML Salicylates Level < 5.0 L 5.0-20.0 MG/DL Acetaminophen Level < 10 L 10-30 UG/ML Serum Alcohol < 10 <10 MG/DL Glucometer 109 70-110 MG/DL My Orders Orders - MECHE MOORE DO Accucheck Stat ONCE (11/21/19 20:17) Ed Iv/Invasive Line Start (11/21/19 20:17) Ekg Tracing (11/21/19 20:17) Monitor-Rhythm Ecg Trace Only (11/21/19 20:17) Ct Head Wo-R/O Stroke (11/21/19 20:17) Chest 1 View, Ap/Pa Only (11/21/19 20:17) Acetaminophen (11/21/19 20:17) Alcohol (11/21/19 20:17) Amylase (11/21/19 20:17) Cbc With Automated Diff (11/21/19 20:17) Comprehensive Metabolic Panel (11/21/19 20:17) Drug Screen Stat (Urine) (11/21/19 20:17) Lipase (11/21/19 20:17) Magnesium (11/21/19 20:17) Protime With Inr (11/21/19 20:17) Partial Thromboplastin Time (11/21/19 20:17) Salicylate (11/21/19 20:17) Thyroid Analyzer (11/21/19 20:17) Ua Culture If Indicated (11/21/19 20:17) Troponin I (11/21/19 20:17) Ammonia (11/21/19 20:33) BNP (11/21/19 20:33) Creatine Kinase (11/21/19 20:33) Creatine Kinase Mb (11/21/19 20:33) Lactic Acid Analyzer (11/21/19 20:33) Blood Culture (11/21/19 20:33) Myoglobin Serum (11/21/19 20:33) Procalcitonin (Pct) (11/21/19 20:33) Ct Angio Head/Neck (11/21/19 21:23) Ed Iv/Invasive Line Start (11/21/19:23) Ns Iv 1000 Ml (Sodium Chloride 0.9%) (11/21/19:23) Ed Iv/Invasive Line Start (11/21/19:) Ns Iv 1000 Ml (Sodium Chloride 0.9%) (11/21/19:23) Iohexol Injection (Omnipaque 350 Mg/Ml 1 (11/21/19 22:00) Received Contrast (Hold Metformin- Contr (11/21/19 22:00) Ns (Ivpb) (Sodium Chloride 0.9% Ivpb Bag (11/21/19 22:00) Lorazepam Injection (Ativan Injection) (11/21/19 22:30) Lorazepam Injection (Ativan Injection) (11/21/19 22:45) Ziprasidone Injection (Geodon Injection) (11/21/19 23:15) Medications Given in ED Current Medications Medications Dose Ordered Sig/Perla Route Start Time Stop Time Status Last Admin Dose Admin Iohexol 75 ml ONCE ONCE IV 11/21/19 22:00 11/21/19 22:01 DC 11/21/19 21:49 75 ML Sodium Chloride 100 ml ONCE ONCE IV 11/21/19 22:00 11/21/19 22:01 DC 11/21/19 21:49 80 ML Vital Signs/I&O 11/21/19 11/22/19 11/22/19 11/22/19 23:56 00:00 00:00 00:00 Temp 35.7 35.7 Pulse 75 75 Resp 18 18 B/P (MAP) 212/93 212/93 (132) 174/92 (119) Pulse Ox 94 94 O2 Delivery Room Air Room Air Room Air 11/22/19 11/22/19 00:40 01:46 Pulse 73 B/P (MAP) 174/92 Capillary Refill : Progress Note : Progress Note 2029--PT WITH INCREASING AGITATION, BELLIGERENCE, YELLING, CURSING, TRYING TO GET OUT OF BED--PT REPEATELY STATES HE JUST WANTS TO LEAVE, AND "JUST GET ME THE HELL OUT OF HERE" AND LATER STATES HE NEEDS A BEER GIVEN ATIVAN AND GEODON ECG Initial ECG Impression Date: Nov 21, 2019 Initial ECG Impression Time: 20:27 Initial ECG Rate: 81 Initial ECG Rhythm: Normal Sinus (INFERIOR Q WAVES) Diagnostic Imaging Comments CT HEAD--NO ACUTE PROCESS, PER RADIOLOGIST REPORT AT 2050 CXR--BIBASILAR ATELECTASIS, OTHERWISE NO ACUTE PROCESS, PER RADIOLOGIST REPORT AT 2099 CT ANGIOGRAM HEAD/NECK--PER RADIOLOGIST REPORT AT 2220 IMPRESSION: 1. Approximately 50% stenosis in the proximal left ICA and right ICA just proximal to the skull base secondary to atherosclerotic plaque. 2. Widely patent bilateral vertebral arteries. 3. No evidence of stenosis or aneurysm in the [place]. No evidence of large vessel occlusion. 4. Centrilobular emphysema in the lung apices. Reviewed: Reviewed by Me Departure Communication (Admissions) 2221--SPOKE WITH DR. ALMARAZ, HOSPITALIST, ACCEPTS PT FOR ADMIT Impression Primary Impression: Altered mental status Additional Impressions: Hyponatremia Renal insufficiency Alcoholism Disposition: ADMITTED INPATIENT Condition: Stable Admissions Decision to Admit Reason: Admit from ER (General) Decision to Admit/Date: Nov 22, 2019 Time/Decision to Admit Time: 22:20 Departure-Patient Inst. Referrals: JENNIFER BECK DO (PCP/Family) Primary Care Physician MECHE MOORE DO Nov 21, 2019 20:21
[2019-11-21 20:34] LABS: BILIRUBIN,URINE NEGATIVE (NEGATIVE); CLARITY,URINE CLEAR; COLOR,URINE YELLOW; GLUCOSE, URINE (UA) NEGATIVE (NEGATIVE); KETONES,URINE NEGATIVE (NEGATIVE); LEUKOCYTE ESTERASE ,URINE NEGATIVE (NEGATIVE); NITRITE,URINE NEGATIVE (NEGATIVE); PROTEIN,URINE NEGATIVE (NEGATIVE)
--- NOTE | 2019-11-21 20:37 | NUR ---
MIKEL, PT [facility]AND[facility], CALLED AT THIS TIME FOR INFORMATION REGARDING PT HE IS A POOR HISTORIAN.
[2019-11-21 20:44] LABS: BASOPHILS # (AUTO) 0.1 10^3/uL (0.0-0.1); BASOPHILS % (AUTO) 1 % (0-10); EOSINOPHILS # (AUTO) 0.2 10^3/uL (0.0-0.3); EOSINOPHILS % (AUTO) 2 % (0-10); HEMATOCRIT 40 % (40-54); HEMOGLOBIN 13.7 g/dL (13.3-17.7); LYMPHOCYTES # (AUTO) 0.8 10^3/uL (1.0-4.0); LYMPHOCYTES % (AUTO) 13 % (12-44); MEAN CORPUSCULAR HEMOGLOBIN 29 pg (25-34); MEAN CORPUSCULAR HGB CONC 34 g/dL (32-36); MEAN CORPUSCULAR VOLUME 84 fL (80-99); MEAN PLATELET VOLUME 9.1 fL (9.0-12.2); MONOCYTES # (AUTO) 0.4 10^3/uL (0.0-1.0); MONOCYTES % (AUTO) 6 % (0-12); NEUTROPHILS # (AUTO) 4.7 10^3/uL (1.8-7.8); NEUTROPHILS % (AUTO) 77 % (42-75); PLATELET COUNT 275 10^3/uL (130-400); WHITE BLOOD COUNT 6.2 10^3/uL (4.3-11.0)
[2019-11-21 20:44] LABS: BACTERIA,URINE TRACE /HPF; HYALINE CASTS, URINE 0-2 /LPF; SQUAMOUS EPITHELIAL CELL,UR RARE /HPF; WBC,URINE 0-2 /HPF
--- NOTE | 2019-11-21 20:48 | Diagnostic Imaging Report ---
EXAMINATION: CT head without contrast. TECHNIQUE: Multiple contiguous axial images were obtained through the brain without the use of intravenous contrast. All CT scans use one or more of the following dose optimizing techniques: automated exposure control, MA and/or KvP adjustment based on patient size and exam type or iterative reconstruction. HISTORY: Altered mental status. COMPARISON: 01/22/2019. FINDINGS: No large acute territorial ischemia, mass, or hemorrhage. Old focal infarct is seen in the inferior left cerebellum. No midline shift or mass effect. Decreased attenuation is seen in the periventricular and subcortical white matter. The ventricles and cortical sulci are prominent. The basilar cisterns are patent and unremarkable. The orbits are normal. Paranasal sinuses are normal. Small bilateral mastoid effusions are noted. No soft tissue abnormality is seen. No osseus lesions or fractures are seen. IMPRESSION: 1. No large acute territorial ischemia, mass, or hemorrhage. 2. 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 3. Generalized parenchymal volume loss with chronic microvascular disease. 4. Small bilateral mastoid effusions. Dictated by: Dictated on workstation # [id number]
[2019-11-21 20:50] LABS: AMPHETAMINE SCREEN, URINE NEGATIVE (NEGATIVE); BARBITURATE SCREEN URINE NEGATIVE (NEGATIVE); BENZODIAZEPINES SCREEN URINE NEGATIVE (NEGATIVE); CANNABINOID SCREEN, URINE NEGATIVE (NEGATIVE); COCAINE SCREEN URINE NEGATIVE (NEGATIVE); METHADONE STAT NEGATIVE (NEGATIVE); METHAMPHETAMINE SCREEN URINE S NEGATIVE (NEGATIVE); OPIATE SCREEN URINE NEGATIVE (NEGATIVE); OXYCODONE STAT NEGATIVE (NEGATIVE); PROPOXYPHENE STAT NEGATIVE (NEGATIVE); TRICYCLIC ANTIDEPRESSANTS SCRE NEGATIVE (NEGATIVE)
[2019-11-21 20:55] LABS: PROTHROMBIN TIME PATIENT 13.1 SEC (12.2-14.7)
--- NOTE | 2019-11-21 20:58 | Diagnostic Imaging Report ---
EXAMINATION: Chest 1 view. HISTORY: Altered mental status. COMPARISON: 10/27/2019. FINDINGS: The lung volumes are normal. Plate like atelectasis is seen in the lung bases. No focal consolidation is seen. No large pleural effusion or pneumothorax is seen. The cardiomediastinal silhouette is normal in size and contour. No acute osseous abnormality is seen. IMPRESSION: Bibasilar atelectasis. No focal consolidation. Dictated by: Dictated on workstation # [id number]
[2019-11-21 21:22] LABS: ALANINE AMINOTRANSFERASE 15 U/L (0-55); ALBUMIN 3.6 GM/DL (3.2-4.5); ALKALINE PHOSPHATASE 88 U/L (40-136); AMMONIA 36 UMOL/L (11-32); AMYLASE 31 U/L (25-125); BILIRUBIN,TOTAL 0.7 MG/DL (0.1-1.0); BUN/CREATININE RATIO 10; CALCIUM 8.7 MG/DL (8.5-10.1); CARBON DIOXIDE 22 MMOL/L (21-32); CHLORIDE 94 MMOL/L (98-107); CREATINE KINASE 45 U/L (30-200); CREATININE SERUM 1.54 MG/DL (0.60-1.30); GFR ESTIMATED 45; GLUCOSE 108 MG/DL (70-105); LIPASE 27 U/L (8-78); MAGNESIUM 1.4 MG/DL (1.6-2.4); POTASSIUM 4.1 MMOL/L (3.6-5.0); SALICYLATE < 5.0 MG/DL (5.0-20.0); SODIUM 130 MMOL/L (135-145); TOTAL PROTEIN 6.9 GM/DL (6.4-8.2)
[2019-11-21] MEDS ORDERED: NS IV 1000 ML 1,000 ML IV SCH ×2 (21:23)
[2019-11-21 21:31] LABS: CREATINE KINASE MB 1.6 NG/ML (<6.6); TSH (THYROID ANALYZER) 1.62 UIU/ML (0.35-4.94)
[2019-11-21 21:53] LABS: ACETAMINOPHEN < 10 UG/ML (10-30)
[2019-11-21] MEDS ORDERED: HOLD METFORMIN - RECEIVED CONTRAST 20 ML VIAL IV SCH (22:00)
[2019-11-21] MEDS ORDERED: IOHEXOL 350 MG/ML 100 ML (OMNIPAQUE 350) VIAL IV ONE (22:00)
[2019-11-21] MEDS ORDERED: NS 100 ML (IVPB) BAG IV ONE (22:00)
--- NOTE | 2019-11-21 22:03 | Diagnostic Imaging Report ---
PROCEDURE: CT angiography of the head and CT angiography of the neck with and without contrast. TECHNIQUE: After intravenous contrast administration, helical CT angiography of the neck was performed. Source data was reformatted into 3D MIP projections. Delayed post contrast acquisition was also obtained. Auto Exposure Controls were utilized during the CT exam to meet ALARA standards for radiation dose reduction. INDICATION: Altered mental status. COMPARISON: CT head performed earlier the same date.. FINDINGS: CTA neck: The aortic arch was not included on this exam. The common carotid arteries and internal carotid arteries demonstrate a tortuous course. There is calcified atherosclerotic plaque in the bilateral carotid bulbs and proximal internal carotid arteries. There is approximately 50% stenosis in the proximal left ICA with diminutive caliber of the remainder of the left ICA relative to the right. There is 50% stenosis in the right ICA just proximal to the skull base. No evidence of dissection in the carotid systems. The external carotid arteries are patent and unremarkable. The vertebral arteries are codominant. The origin of the right vertebral artery is seen and is unremarkable. The origin of the left vertebral artery is seen and is unremarkable. There is no focal stenosis seen within the neck. There is no dissection. The vertebral arteries are well visualized up to the level of the basilar artery. The osseous structures of the cervical spine demonstrate degenerative changes without acute fracture or dislocation. Included views through the lung apices demonstrate centrilobular emphysema. CTA brain: Atherosclerotic plaque is seen in the [place] of the bilateral terminal internal carotid arteries without significant stenosis. No stenosis is seen in the bilateral anterior, middle and posterior cerebral arteries. Hypoplastic left A1 segment is noted. No evidence of aneurysm in the [place]. In the posterior circulation, both of the vertebral arteries demonstrate normal opacification. The vertebral arteries are codominant. Both the right and left PICA arteries are identified. The basilar artery is normal in course and caliber. The terminal branch vessels, including the superior cerebellar arteries, are unremarkable. IMPRESSION: 1. Approximately 50% stenosis in the proximal left ICA and right ICA just proximal to the skull base secondary to atherosclerotic plaque. 2. Widely patent bilateral vertebral arteries. 3. No evidence of stenosis or aneurysm in the [place]. No evidence of large vessel occlusion. 4. Centrilobular emphysema in the lung apices. Dictated by: Dictated on workstation # [id number]
[2019-11-21] MEDS ORDERED: LORazepam INJ 2 MG/ML (ATIVAN) VIAL IVP ONE ×2 (22:30→22:45)
--- NOTE | 2019-11-21 22:35 | NUR ---
PT MIKEL TEMPLE, UPDATED ON PT CONDITION AND WILL BE ADMITTED TO MEDICAL UNIT. PASSWORD SET UP AT THIS TIME: [id number]. WILL REPORT TO MEDICAL UNIT RN.
[2019-11-21] MEDS ORDERED: ZIPRASIDONE INJECTION 20 MG in WATER (STERILE) FOR INJECTION 1.2 ML IM PRN (23:15)
--- NOTE | 2019-11-21 23:45 | NUR ---
HARJINDER LAWLER admitted to room 417-1, with an admitting diagnosis of , on 11/21/19 from ER via , accompanied by STAFF. HARJINDER LAWLER introduced to surroundings, call light, bed controls, phone, TV, temperature control, lights, meal times, smoking policy, visitor policy, side rail policy, bathrooms and showers. Patient Rights given to patient in the handbook. Patient and/or family were informed about the Rapid Response Team and its purpose.
[2019-11-21 23:56] VITALS: BP 212/93
[2019-11-22] VITALS: BP_SYST 174; BP_SYST 212; BP_DIAS 92; BP_DIAS 93
[2019-11-22] MEDS ORDERED: 1/2 NS IV SOLUTION 1,000 ML IV PRN (00:21)
[2019-11-22] MEDS ORDERED: LORazepam INJ 2 MG/ML (ATIVAN) VIAL IV PRN ×2 (00:30→00:45)
[2019-11-22] MEDS ORDERED: ONDANSETRON 4 MG (ZOFRAN) ORAL DISSOLVE TAB SL PRN (00:30)
[2019-11-22] MEDS ORDERED: LORazepam INJ 2 MG/ML (ATIVAN) VIAL IM/IV PRN (00:30)
[2019-11-22] MEDS ORDERED: ONDANSETRON 4 MG/2 ML (SDV) Z0FRAN IV PRN (00:30)
[2019-11-22] MEDS ORDERED: ANTACID SUSP 30 ML UDC (MYLANTA) PO PRN (00:30)
[2019-11-22] MEDS ORDERED: LORazepam 1 MG (ATIVAN) TAB PO PRN (00:30)
[2019-11-22] MEDS ORDERED: SENNA W/DOCUSATE (SENOKOT S) TABLET PO PRN (00:30)
[2019-11-22] MEDS ORDERED: D5 1/2 NS 1000 ML IV SOLUTION 1,000 ML IV PRN (00:30)
[2019-11-22 00:40] VITALS: BP 174/92
[2019-11-22] MEDS: D5 1/2 NS W/KCL 20 MEQ/L 1,000 ML IV SCH ×2 (00:55→07:32)
[2019-11-22 04:00] VITALS: BP 212/90
--- NOTE | 2019-11-22 04:30 | NUR ---
PT BLOOD PRESSURE 212/90, OTHER VITALS WITHIN NORMAL LIMITS. DR ALMARAZ NOTIFIED A NEW ORDERS RECEIVED FRO AMLODIPINE
[2019-11-22] MEDS ORDERED: amLODIPine 10 MG (NORVASC) TAB ONE (04:33)
[2019-11-22] MEDS ORDERED: amLODIPine 5 MG (NORVASC) TAB ONE (04:40)
[2019-11-22] MEDS ORDERED: amLODIPine 5 MG (NORVASC) TAB PO PRN (04:45)
[2019-11-22] MEDS ORDERED: amLODIPine 10 MG (NORVASC) TAB PO PRN (04:45)
[2019-11-22 05:08] LABS: BASOPHILS % (AUTO) 1 % (0-10); EOSINOPHILS # (AUTO) 0.2 10^3/uL (0.0-0.3); EOSINOPHILS % (AUTO) 4 % (0-10); HEMATOCRIT 37 % (40-54); HEMOGLOBIN 12.4 g/dL (13.3-17.7); LYMPHOCYTES # (AUTO) 1.5 10^3/uL (1.0-4.0); LYMPHOCYTES % (AUTO) 27 % (12-44); MEAN CORPUSCULAR HEMOGLOBIN 28 pg (25-34); MEAN CORPUSCULAR HGB CONC 34 g/dL (32-36); MEAN CORPUSCULAR VOLUME 85 fL (80-99); MONOCYTES # (AUTO) 0.5 10^3/uL (0.0-1.0); MONOCYTES % (AUTO) 9 % (0-12); NEUTROPHILS # (AUTO) 3.2 10^3/uL (1.8-7.8); NEUTROPHILS % (AUTO) 59 % (42-75); PLATELET COUNT 203 10^3/uL (130-400); WHITE BLOOD COUNT 5.4 10^3/uL (4.3-11.0)
[2019-11-22 05:40] LABS: ALBUMIN 3.1 GM/DL (3.2-4.5); POTASSIUM 3.7 MMOL/L (3.6-5.0)
[2019-11-22 05:43] LABS: TOTAL PROTEIN 5.9 GM/DL (6.4-8.2)
[2019-11-22 05:44] LABS: BILIRUBIN,TOTAL 0.5 MG/DL (0.1-1.0)
[2019-11-22 05:46] LABS: CREATININE SERUM 1.35 MG/DL (0.60-1.30)
[2019-11-22 08:00] VITALS: BP 181/73
[2019-11-22] MEDS ORDERED: THIAMINE INJECTION 100 MG, FOLIC ACID INJECTION 1 MG, MAGNESIUM SULFATE 2 GM, VITAMIN M... IV SCH ×5 (09:00)
--- NOTE | 2019-11-22 10:00 | NUR ---
TRYING TO SMOKE IN ROOM, NURSE TRYING TO TAKE WINDING INSPECTOR AWAY, PATIENT YELLING, AT STAFF, DR ERICKSON HERE, PATIENT WANTING TO GO HOME, ORDERS GIVEN TO DISCHARGE
--- NOTE | 2019-11-22 12:25 | Short Stay Summary-Hospitalist ---
History of Present Illness Date Seen 11/22/19 Attending Physician Javy Martinez MD PCP Bradford Phipps DO Referring Physician Date of Admission Nov 21, 2019 at 22:20 Home Medications & Allergies Home Medications Reviewed patient Home Medication Reconciliation performed by pharmacy medication reconciliations soil conservation technician and/or nursing. Patients Allergies have been reviewed. Allergies Allergies Coded Allergies No Known Drug Allergies (Verified08/16/17) Past Zfmqyjd-Llifvl-Iysbvp Hx Past Med/Social Hx: Reviewed and Corrections made Patient Social History Alcohol Use: Regular Use Alcohol Beverage of Choice: Beer Recreational Drug Use: Yes Drug of Choice: 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 INTO [place] Smoking Status: Current Everyday Smoker Type Used: Cigarettes 2nd Hand Smoke Exposure: Yes Recent Foreign Travel: No Contact w/other who traveled: No Recent Hopitalizations: No Recent Infectious Disease Expo: No Immunizations Up To Date Date of Influenza Vaccine: Jan 23, 2019 Seasonal Allergies Seasonal Allergies: Yes Past Medical History Surgeries: Abdominal, Cardiac, Coronary Stent, Orthopedic Respiratory: COPD Currently Using CPAP: No Currently Using BIPAP: No Cardiac: Coronary Artery Disease, High Cholesterol Neurological: Seizure Disorder Reproductive: No Sexually Transmitted Disease: Yes HIV/AIDS: No Genitourinary: Prostate Problems, Bladder Infection Gastrointestinal: Gastroesophageal Reflux, Polyps Loss of Vision: Denies Hearing Impairment: Hard of Hearing, Hearing Aide Right Psychosocial: Sleep Difficulties History of Blood Disorders: No Adverse Reaction to Blood Barnes: No (N/A) Family History SOCIAL HISTORY: -ETOH--LONGSTANDING, DAILY USE--12-18 "TALL BOYS" A DAY -DRUGS--HX OF CRACK COCAINE, THC USE -SMOKES 1 PPD PAST SURGICAL HISTORY: -EGD + COLONOSCOPY WITH POLYPECTOMY X 5 08/2017 -CYSTOSCOPY 01/2019 -CARDIAC CATH WITH STENT -LEFT HIP REPLACEMENT Physical Exam Physical Exam Vital Signs Vital Signs - First Documented 11/21/19 11/21/19 20:08 23:40 Temp 36.6 Pulse 82 Resp 20 B/P (MAP) 148/79 (102) Pulse Ox 98 O2 Delivery Room Air Capillary Refill : Less Than 3 Seconds Height, Weight, BMI Height: 6'6.00" Weight: 172lbs. 7.0oz. 78.465159eb; 23.77 BMI Method:Stated General Appearance: No Apparent Distress, WD/WN, Other (UNKEMPT, REEKS OF CIGARETTES, PT TALKS NON-STOP VERY LOUDLY. SPEECH IS CLEAR. PT VERY GRUFF, SOMEWHAT AGITATED, SOMEWHAT ARGUMENTATIVE, AND DOES NOT WANT TO BE HERE) HEENT: PERRL/EOMI Neck: Full Range of Motion, Normal Inspection, Non Tender, Supple Respiratory: Normal Breath Sounds, No Accessory Muscle Use, No Respiratory Distress Cardiovascular: Regular Rate, Rhythm, No Edema, No JVD, No Murmur, Normal Peripheral Pulses Gastrointestinal: Normal Bowel Sounds, No Organomegaly, No Pulsatile Mass, Non Tender, Soft Back: Normal Inspection, No CVA Tenderness Extremity: Normal Capillary Refill, Normal Inspection, Normal Range of Motion, Non Tender, No Calf Tenderness, No Pedal Edema, Other (LARGE SURGICAL WOUNDS TO LEFT HIP AND ILIAC CREST AREA) Neurologic/Psychiatric: Alert, No Motor/Sensory Deficits, fitness center attendant II-XII Norm as Tested, Other (ORIENTED TO PERSON, AND PLACE, BUT NOT TIME OR SITUATION, AND HAS VERY POOR MEMORY. BEHAVIOR NOTED ABOVE) Skin: Normal Color, Warm/Dry, Tattoos/Piercings, Other (NO EXTERNAL EVIDENCE OF TRAUMA ANYWHERE) Results Results/Procedures Labs Laboratory Tests 11/21/19 20:25 11/22/19 04:50 Patient resulted labs reviewed. Clinical Quality Measures DVT/VTE Risk/Contraindication: Risk Factor Score Per Nursin RFS Level Per Nursing on Admit: 4+=Very High AI ERICKSON DO Nov 22, 2019 12:25
--- NOTE | 2019-11-22 12:41 | Short Stay Summary-Hospitalist ---
MATTHEW SLOAN MED STUDENT 11/22/19 1241: History of Present Illness HPI/Chief Complaint CC: Confusion HPI: 69 y/o male with hx of COPD, CAD and significant alcoholism presents from home to [facility] ER for confusion onset yesterday. Patient is a poor historian with poor memory, hard of hearing and exceptionally agitated. Per grandson: patient was confused and exhibiting altered mentation, stating it was 2005 and was unaware his mother many years ago. Grandson denies being aware of any falls and states he has been eating/drinking/mentating normally prior to this episode. Per patient he has 16-18 "tall boys" a day but had not had any EtOH since 1 day prior. While in the ER, patient denied any symptoms and states he felt fine, was given Lorazepam for agitation and put on EtOH withdrawl protocol. Patient was worked up with normal EKG, normal Head CT, Cxr with bibasilar atelectasis otherwise normal, CT angiogram of head and neck showing bilateral ICA stenosis and bilateral apical emphysema. He was admitted for monitoring. Today patient appearing agitated again but mentating more clearly, states he wants to be discharged home. Patient began smoking in the bathroom and refused to surrender his coordinator of health services, [facility] was called and facilitated patient surrendering his coordinator of health services. Patient to be D/C with [facility] education materials. Source: patient, family Exam Limitations: other (altered mentation) Date Seen 11/22/19 Time Seen by a Provider: 10:10 Attending Physician Javy Martinez MD PCP Bradford Phipps DO Referring Physician Date of Admission Nov 21, 2019 at 22:20 Home Medications & Allergies Home Medications Reviewed patient Home Medication Reconciliation performed by pharmacy medication reconciliations missile and missile checkout technician and/or nursing. Patients Allergies have been reviewed. Allergies Allergies Coded Allergies No Known Drug Allergies (Verified08/16/17) Past Rfslboh-Cijyai-Ntjmid Hx Past Med/Social Hx: Reviewed and Corrections made Patient Social History Alcohol Use: Regular Use Alcohol Beverage of Choice: Beer Recreational Drug Use: Yes Drug of Choice: 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 INTO ROCK Smoking Status: Current Everyday Smoker Type Used: Cigarettes 2nd Hand Smoke Exposure: Yes Recent Foreign Travel: No Contact w/other who traveled: No Recent Hopitalizations: No Recent Infectious Disease Expo: No Immunizations Up To Date Date of Influenza Vaccine: Jan 23, 2019 Seasonal Allergies Seasonal Allergies: Yes Past Medical History Surgeries: Abdominal, Cardiac, Coronary Stent, Orthopedic Respiratory: COPD Currently Using CPAP: No Currently Using BIPAP: No Cardiac: Coronary Artery Disease, High Cholesterol Neurological: Seizure Disorder Reproductive: No Sexually Transmitted Disease: Yes HIV/AIDS: No Genitourinary: Prostate Problems, Bladder Infection Gastrointestinal: Gastroesophageal Reflux, Polyps Loss of Vision: Denies Hearing Impairment: Hard of Hearing, Hearing Aide Right Psychosocial: Sleep Difficulties History of Blood Disorders: No Adverse Reaction to Blood Barnes: No (N/A) Family History SOCIAL HISTORY: -ETOH--LONGSTANDING, DAILY USE--12-18 "TALL BOYS" A DAY -DRUGS--HX OF CRACK COCAINE, THC USE -SMOKES 1 PPD PAST SURGICAL HISTORY: -EGD + COLONOSCOPY WITH POLYPECTOMY X 5 08/2017 -CYSTOSCOPY 01/2019 -CARDIAC CATH WITH STENT -LEFT HIP REPLACEMENT Review of Systems ROS-Unable to Obtain: limited secondary to patient cooperation Constitutional: No diaphoresis EENTM: hearing loss Respiratory: No short of breath Cardiovascular: No syncope Skin: No rash Psychiatric/Neurological: Emotional Problems Physical Exam Physical Exam Vital Signs Vital Signs - First Documented 11/21/19 11/21/19 20:08 23:40 Temp 36.6 Pulse 82 Resp 20 B/P (MAP) 148/79 (102) Pulse Ox 98 O2 Delivery Room Air Capillary Refill : Less Than 3 Seconds Height, Weight, BMI Height: 6'6.00" Weight: 172lbs. 7.0oz. 78.886624ww; 23.77 BMI Method:Stated General Appearance: WD/WN, Other (patient exceptionally agitated, highly uncooperative) HEENT: No Scleral Icterus (L), No Scleral Icterus (R) Neck: Full Range of Motion, Normal Inspection Respiratory: No Accessory Muscle Use, No Respiratory Distress Cardiovascular: No Edema; No Tachycardia Gastrointestinal: Non Tender; No Guarding Back: No CVA Tenderness Extremity: Normal Inspection, Normal Range of Motion, Non Tender, No Calf Tenderness, No Pedal Edema, Other (LARGE SURGICAL WOUNDS TO LEFT HIP AND ILIAC CREST AREA) Neurologic/Psychiatric: Alert; No Normal Mood/Affect; Other (poor memory and behavior as stated) Skin: Normal Color, Warm/Dry, Tattoos/Piercings, Other (NO EXTERNAL EVIDENCE OF TRAUMA ANYWHERE) Results Results/Procedures Labs Laboratory Tests 11/21/19 20:25 11/22/19 04:50 Patient resulted labs reviewed. 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 -Continue taking home medications -Advise to fill any prescribed medication -Follow up with with PCP for referrals regarding CKD and CAD Clinical Quality Measures DVT/VTE Risk/Contraindication: Risk Factor Score Per Nursin RFS Level Per Nursing on Admit: 4+=Very High LAMAR ERICKSON DO 11/22/19 2235: Past Tufjpgo-Sogztn-Xvwjaz Hx Past Med/Social Hx: Reviewed Nursing Past Med/Soc Hx, Reviewed and Corrections made Patient Social History Marrital Status: single Employed/Student: retired Past Medical History Cardiac: Hypertension Review of Systems Constitutional: see HPI Physical Exam Physical Exam General Appearance: No Apparent Distress, WD/WN, Chronically ill Respiratory: Lungs Clear Cardiovascular: Regular Rate, Rhythm Short Stay Diagnosis Discharge Diagnosis-Short Stay Final Discharge Diagnosis See above Conclusion Plan DC home Diagnosis/Problems Diagnosis/Problems (1) Altered mental status Status: Acute (2) Alcoholism (3) Hyponatremia (4) Renal insufficiency Supervisory-Addendum Brief Verification & Attestation Participated in pt care: history, MDM, physical Personally performed: exam, history, MDM, supervision of care Care discussed with: Medical Student Procedures: n/a Results interpretation: Verified all documentation Verification and Attestation of Medical Student E/M Service A medical student performed and documented this service in my presence. I reviewed and verified all information documented by the medical student and made modifications to such information, when appropriate. I personally performed the physical exam and medical decision making. Lamar Erickson, Nov 22, 2019,22:35 MATTHEW SLOAN MED STUDENT Nov 22, 2019 12:41 LAMAR ERICKSON DO Nov 22, 2019 22:35
[2019-11-22 13:00] VITALS: BP 181/73
--- NOTE | 2019-11-22 13:00 | NUR ---
DISCHARGE INSTRUCTIONS GIVEN, VERBALIZED UNDERSTANDING, IV DC, SITE WITHOUT REDNESS OR SWELLING,
--- NOTE | 2019-11-22 13:05 | NUR ---
DISMISSED PER W/C, ACCOMPANIED BY STAFF
--- NOTE | 2019-11-23 09:21 | Physician Query Clarification ---
PQ-Further Specificity Admission/Discharge Admission Date: Nov 21, 2019 at 22:20 Discharge Date: Nov 22, 2019 at 13:05 Dr. Schofield, The medical record reflects the following clinical scenario: History/Risk Factors: alcoholism, emphysema, diabetes, HTN Clinical Findings: AMS, agitated, belligerence, alcohol <10 Treatment: IVP Ativan, IV thiamine Question: Can you further specify the etiology of the altered mental status per the clinical indicators above? Please document a response in the Progress Notes or Discharge Summary. 1. alcohol withdrawal with delirium 2. AMS undetermined etiology 3. Other, with explanation of the clinical findings. 4. Clinically undetermined, no explanation for the clinical findings. PHYSICIAN RESPONSE Can you specify per above: 2 Please remember a lack of response to the above will prompt a phone page by CDI/Coding staff. In responding to this query, please exercise your independent professional judgment. The purpose of this communication is to more accurately reflect the complexity of your patients condition. The fact that a question is asked does not imply that any particular answer is desired or expected. Thank you for your timely response to this clarification. Requestors name: Pranay THIS PHYSICIAN QUERY FORM IS A PERMANENT PART OF THE MEDICAL RECORD PRANAY MORALES Nov 23, 2019 09:21 AI SCHOFIELD DO Nov 23, 2019 10:49
== END 2019-11-22 13:05 | disposition home or self-care (01) | DRG 948 ==
LOC: EDUNIT# 19:40 → ER 19:41 → 4TH 22:20
PROVIDERS: ADMIT Internal Medicine; ATTEND Internal Medicine
DX: R41.82 Altered mental status, unspecified (principal); E87.1 Hypo-osmolality and hyponatremia; J98.11 Atelectasis; F10.20 Alcohol dependence, uncomplicated; J43.9 Emphysema, unspecified; E11.22 Type 2 diabetes mellitus with diabetic chronic kidney disease; I12.9 Hypertensive chronic kidney disease with stage 1 through stage 4 chronic kidney disease, or unspecified chronic kidney disease; N18.9 Chronic kidney disease, unspecified; E11.65 Type 2 diabetes mellitus with hyperglycemia; K21.9 Gastro-esophageal reflux disease without esophagitis; F17.210 Nicotine dependence, cigarettes, uncomplicated; J30.2 Other seasonal allergic rhinitis; I25.10 Atherosclerotic heart disease of native coronary artery without angina pectoris; I65.23 Occlusion and stenosis of bilateral carotid arteries; E78.5 Hyperlipidemia, unspecified; E78.00 Pure hypercholesterolemia, unspecified; G40.909 Epilepsy, unspecified, not intractable, without status epilepticus; G47.9 Sleep disorder, unspecified; N42.9 Disorder of prostate, unspecified; H91.91 Unspecified hearing loss, right ear; Z97.4 Presence of external hearing-aid; Z95.5 Presence of coronary angioplasty implant and graft; Z86.010 Personal history of colon polyps; Z91.81 History of falling; Z96.642 Presence of left artificial hip joint
CPT/HCPCS: 36415; 70450; 70496; 70498; 71045; 80053; 80306; 80320; 80329; 81000; 82140; 82150; 82550; 82553; 82962; 83605; 83690; 83735; 83874; 83880; 84145; 84443; 84484; 85025; 85610; 85730; 87040; 93005; 93041

== ENCOUNTER 2019-11-29 08:12 | Emergency (ER) | payer MEDICARE, OTHER ==
[~2019-11-29] VITALS: Ht 195 cm; Wt 104.0 kg
[2019-11-29] MEDS ORDERED: HYDROcodone/APAP 5 MG/325 MG (LORTAB) TAB PO ONE (08:30)
--- NOTE | 2019-11-29 08:41 | Diagnostic Imaging Report ---
INDICATION: Right hand and wrist pain. TIME OF EXAM: 8:38 AM The metacarpals appear intact. Phalanges appear intact. No fracture or dislocation is seen. There is a punctate opacity in the soft tissues of the index finger distally, radial side. IMPRESSION: No acute bony abnormality is detected. There is a tiny punctate opacity soft tissues of the index finger distally, which may represent foreign body. Dictated by: Dictated on workstation # [id number]
--- NOTE | 2019-11-29 08:41 | Diagnostic Imaging Report ---
INDICATION: Right wrist pain. TIME OF EXAM: 8:36 AM 3 views right wrist were obtained. Distal radius and ulna are intact. There are degenerative changes at the triscaphe and 1st CMC joints. No fractures are seen. Carpal bones are intact. IMPRESSION: Degenerative changes. No acute bony abnormality is detected. Dictated by: Dictated on workstation # [id number]
--- NOTE | 2019-11-29 08:50 | NUR ---
PT WAS GIVEN BLANKET.
[2019-11-29] MEDS ORDERED: KETOROLAC 30 MG/ML VIAL IVP ONE (09:15)
[2019-11-29 09:29] LABS: BASOPHILS # (AUTO) 0.1 10^3/uL (0.0-0.1); BASOPHILS % (AUTO) 0 % (0-10); EOSINOPHILS # (AUTO) 0.1 10^3/uL (0.0-0.3); EOSINOPHILS % (AUTO) 1 % (0-10); HEMATOCRIT 41 % (40-54); HEMOGLOBIN 14.5 g/dL (13.3-17.7); LYMPHOCYTES # (AUTO) 0.9 10^3/uL (1.0-4.0); LYMPHOCYTES % (AUTO) 8 % (12-44); MEAN CORPUSCULAR HEMOGLOBIN 29 pg (25-34); MEAN CORPUSCULAR HGB CONC 35 g/dL (32-36); MEAN CORPUSCULAR VOLUME 82 fL (80-99); MEAN PLATELET VOLUME 9.1 fL (9.0-12.2); MONOCYTES # (AUTO) 1.3 10^3/uL (0.0-1.0); MONOCYTES % (AUTO) 11 % (0-12); NEUTROPHILS # (AUTO) 9.5 10^3/uL (1.8-7.8); NEUTROPHILS % (AUTO) 80 % (42-75); PLATELET COUNT 246 10^3/uL (130-400); WHITE BLOOD COUNT 11.9 10^3/uL (4.3-11.0)
[2019-11-29 09:40] LABS: POTASSIUM 4.6 MMOL/L (3.6-5.0)
[2019-11-29 09:41] LABS: CALCIUM 8.5 MG/DL (8.5-10.1)
[2019-11-29 09:46] LABS: CREATININE SERUM 1.95 MG/DL (0.60-1.30)
[2019-11-29 09:48] LABS: URIC ACID 9.1 MG/DL (2.6-7.2)
[2019-11-29] MEDS ORDERED: NS IV 1000 ML 1,000 ML IV SCH (10:01)
[2019-11-29] MEDS ORDERED: NS IV 500 ML 500 ML IV ONE (10:01)
--- NOTE | 2019-11-29 10:03 | ED Upper Extremity ---
General Chief Complaint: Upper Extremity Stated Complaint: R WRIST PAIN Nursing Triage Note: PT BROUGHT IN BY EMS. RIGHT WRIST PAIN, NO KNOWN INJURY. Nursing Sepsis Screen: No Definite Risk Source: patient Exam Limitations: no limitations History of Present Illness Date Seen by Provider: Nov 29, 2019 Time Seen by Provider: 08:15 Initial Comments This 69-year-old gentleman presents to the emergency room with complaints of right wrist pain, erythema, and swelling. He arrives via EMS. He woke with this severe pain this morning. He cannot recall any injury or trauma of any kind. He denies any history of gout. He denies fevers. Allergies and Home Medications Allergies Coded Allergies: No Known Drug Allergies (Verified , 08/16/17) Home Medications Esomeprazole Magnesium 20 Mg Capsule.dr, 20 MG PO HS, (Reported) LAST FILLED #30 9-5-19 Hydrochlorothiazide 12.5 Mg Capsule, 12.5 MG PO DAILY@0900 Prescribed by: RIZWANA CHUNG on 01/26/19 0931 Lisinopril 10 Mg Tablet, 10 MG PO DAILY Prescribed by: ALCIDES SANCHEZ on 10/27/19 2240 Patient Home Medication List Home Medication List Reviewed: Yes Review of Systems Constitutional: no symptoms reported EENTM: hearing loss Respiratory: wheezing Cardiovascular: no symptoms reported Gastrointestinal: no symptoms reported Genitourinary: no symptoms reported Musculoskeletal: see HPI Skin: see HPI Psychiatric/Neurological: No Symptoms Reported Past Ilcyjgt-Bpjeyc-Umbuqq Hx Past Med/Social Hx: Reviewed Nursing Past Med/Soc Hx Patient Social History Alcohol Use: Occasionally Uses Alcohol Beverage of Choice: Beer Recreational Drug Use: No Drug of Choice: 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 INTO ROCK Smoking Status: Current Everyday Smoker Type Used: Cigarettes 2nd Hand Smoke Exposure: Yes Recent Foreign Travel: No Contact w/Someone Who Travel: No Recent Infectious Disease Expo: No Recent Hopitalizations: No Immunizations Up To Date Date of Influenza Vaccine: Jan 23, 2019 Seasonal Allergies Seasonal Allergies: Yes Past Medical History Surgeries: Yes (L TOTAL HIP) Abdominal, Cardiac, Coronary Stent, Orthopedic Respiratory: Yes COPD Currently Using CPAP: No Currently Using BIPAP: No Cardiac: Yes (STENT) Hypertension Neurological: Yes (ALCOHOL WITHDRAWL SEIZURE) Seizure Disorder Reproductive Disorders: No Sexually Transmitted Disease: Yes HIV/AIDS: No Genitourinary: Yes (URINARY RETENTION) Prostate Problems, Bladder Infection, Renal Failure (chronic renal insufficiency) Gastrointestinal: Yes Gastroesophageal Reflux, Polyps Musculoskeletal: Yes (MULTIPLE FALLS; LEFT HIP REPLACEMENT) Endocrine: No HEENT: No Loss of Vision: Denies Hearing Impairment: Hard of Hearing, Hearing Aide Right Cancer: No Psychosocial: Yes (POLYSUBSTANCE ABUSE) Sleep Difficulties Integumentary: No Blood Disorders: No Adverse Reaction/Blood Tranf: No (N/A) Family Medical History SOCIAL HISTORY: -ETOH--LONGSTANDING, DAILY USE--12-18 "TALL BOYS" A DAY -DRUGS--HX OF CRACK COCAINE, THC USE -SMOKES 1 PPD PAST SURGICAL HISTORY: -EGD + COLONOSCOPY WITH POLYPECTOMY X 5 08/2017 -CYSTOSCOPY 01/2019 -CARDIAC CATH WITH STENT -LEFT HIP REPLACEMENT Physical Exam Vital Signs Vital Signs - First Documented 11/29/19 08:15 Temp 37.2 Pulse 92 Resp 20 B/P (MAP) 150/89 (109) Pulse Ox 95 O2 Delivery Room Air Capillary Refill : Less Than 3 Seconds Height, Weight, BMI Height: 6'6.00" Weight: 172lbs. 7.0oz. 78.129278kt; 27.00 BMI Method:Stated General Appearance: WD/WN, no apparent distress HEENT: PERRL/EOMI, normal ENT inspection Neck: normal inspection Cardiovascular: regular rate, rhythm, no edema, no murmur Respiratory: wheezing Gastrointestinal: normal bowel sounds, non tender, soft Shoulder: normal inspection, non-tender, no evidence of injury, normal ROM Elbow/Forearm: normal inspection, non-tender, no evidence of injury, normal ROM Wrist: Yes bone tenderness, Yes limited ROM, Yes pain, Yes swelling Hand: Right, bone tenderness, limited ROM, swelling Neurologic/Tendon: normal sensation, normal motor functions, normal tendon functions Neurologic/Psychiatric: 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 II-XII nml as tested, no motor/sensory deficits, alert, normal mood/affect, oriented x 3 Skin: warm/dry, other (erythema of the skin about the right wrist and proximal hand) Procedures/Interventions Date of ETT Placement: Jun 03, 2018 Time of ETT Placement: 642 Progress/Results/Core Measures Results/Orders Lab Results Laboratory Tests Test 11/29/19 09:21 Range/Units White Blood Count 11.9 H 4.3-11.0 10^3/uL Red Blood Count 5.01 4.30-5.52 10^6/uL Hemoglobin 14.5 13.3-17.7 g/dL Hematocrit 41 40-54 % Mean Corpuscular Volume 82 80-99 fL Mean Corpuscular Hemoglobin 29 25-34 pg Mean Corpuscular Hemoglobin Concent 35 32-36 g/dL Red Cell Distribution Width 15.4 H 10.0-14.5 % Platelet Count 246 130-400 10^3/uL Mean Platelet Volume 9.1 9.0-12.2 fL Immature Granulocyte % (Auto) 1 % Neutrophils (%) (Auto) 80 H 42-75 % Lymphocytes (%) (Auto) 8 L 12-44 % Monocytes (%) (Auto) 11 0-12 % Eosinophils (%) (Auto) 1 0-10 % Basophils (%) (Auto) 0 0-10 % Neutrophils # (Auto) 9.5 H 1.8-7.8 10^3/uL Lymphocytes # (Auto) 0.9 L 1.0-4.0 10^3/uL Monocytes # (Auto) 1.3 H 0.0-1.0 10^3/uL Eosinophils # (Auto) 0.1 0.0-0.3 10^3/uL Basophils # (Auto) 0.1 0.0-0.1 10^3/uL Immature Granulocyte # (Auto) 0.1 0.0-0.1 10^3/uL Erythrocyte Sedimentation Rate 11 0-30 MM/HR Sodium Level 123 *L 135-145 MMOL/L Potassium Level 4.6 3.6-5.0 MMOL/L Chloride Level 90 L 98-107 MMOL/L Carbon Dioxide Level 19 L 21-32 MMOL/L Anion Gap 14 5-14 MMOL/L Blood Urea Nitrogen 20 H 7-18 MG/DL Creatinine 1.95 H 0.60-1.30 MG/DL Estimat Glomerular Filtration Rate 34 BUN/Creatinine Ratio 10 Glucose Level 135 H 70-105 MG/DL Uric Acid 9.1 H 2.6-7.2 MG/DL Calcium Level 8.5 8.5-10.1 MG/DL C-Reactive Protein High Sensitivity 3.79 H 0.00-0.50 MG/DL My Orders Orders - GLENN JOSÉ MD Hydrocodone/Apap 5/325 Tablet (Lortab 5 (11/29/19 08:30) Wrist, Right, 3 Views Or More (11/29/19 08:20) Hand, Right, 3 Views (11/29/19 08:20) Cbc With Automated Diff (11/29/19 09:01) Hs C Reactive Protein (11/29/19 09:01) Erythrocyte Sedimentation Rate (11/29/19 09:01) Uric Acid (11/29/19 09:01) Ketorolac Injection (Toradol Injection) (11/29/19 09:15) Ed Iv/Invasive Line Start (11/29/19 09:01) Basic Metabolic Panel (11/29/19 09:01) Ns Iv 1000 Ml (Sodium Chloride 0.9%) (11/29/19 10:01) Ns Iv 500 Ml (Sodium Chloride 0.9%) (11/29/19 10:01) Colchicine Tablet (Colcrys Tablet) (11/29/19 10:15) Colchicine Tablet (Colcrys Tablet) (11/29/19 10:15) Medications Given in ED Current Medications Medications Dose Ordered Sig/Perla Route Start Time Stop Time Status Last Admin Dose Admin Acetaminophen/ Hydrocodone Bitart 1 tab ONCE ONCE PO 11/29/19 08:30 11/29/19 08:31 DC 11/29/19 08:39 1 TAB Colchicine 0.6 mg ONCE ONCE PO 11/29/19 10:15 11/29/19 10:16 DC 11/29/19 11:42 0.6 MG Colchicine 1.2 mg ONCE ONCE PO 11/29/19 10:15 11/29/19 10:16 DC 11/29/19 10:37 1.2 MG Ketorolac Tromethamine 15 mg ONCE ONCE IVP 11/29/19 09:15 11/29/19 09:16 DC 11/29/19 09:41 15 MG Sodium Chloride 500 ml @ 0 mls/hr Q0M ONCE IV 11/29/19 10:01 11/29/19 10:02 DC 11/29/19 11:32 500 MLS/HR Vital Signs/I&O 11/29/19 11/29/19 08:15 12:24 Temp 37.2 36.6 Pulse 92 77 Resp 20 16 B/P (MAP) 150/89 (109) 149/93 Pulse Ox 95 97 O2 Delivery Room Air Room Air Blood Pressure Mean: 109 Progress Progress Note #1: Time: 11:15 Progress Note X-rays of the right wrist and hand demonstrated no acute injury. Patient was treated with hydrocodone. Labs were then obtained and IV established. Toradol was given for pain. Labs revealed renal insufficiency, hyponatremia, and elevated uric acid. Patient was then treated with colchicine, first dose 1.2 mg and second dose here 0.6 mg. 1.5 L normal saline bolus was also administered. Medications were reviewed. Patient should stop hydrochlorothiazide until follow-up with his primary care provider due to the hyponatremia. He should also reduce his alcohol consumption and drink more water. Progress Note #2: Time: 12:25 Progress Note Patient had much improvement in his pain, erythema, and swelling prior to discharge. He was instructed to stop hydrochlorothiazide as this may be contributing to his hyponatremia. He was also advised to decrease his alcohol consumption and increase his water intake. He was encouraged to follow-up with Dr. Beck as soon as possible regarding gout prophylaxis such as allopurinol or medication of Dr. Beck's choice. Diagnostic Imaging Diagonstic Imaging: Xray Plain Films/CT/US/NM/MRI: other (right wrist) Comments Right wrist x-ray viewed by me and report reviewed. See report below: NAME: HARJINDER LAWLER [facility] REC#: [id number] PT STATUS: REG ER : 1950 PHYSICIAN: GLENN JOSÉ MD ADMIT DATE: 11/29/19/ER Draft Date of Exam:11/29/19 WRIST, RIGHT, 3 VIEWS OR MORE INDICATION: Right wrist pain. TIME OF EXAM: 8:36 AM 3 views right wrist were obtained. Distal radius and ulna are intact. There are degenerative changes at the triscaphe and 1st CMC joints. No fractures are seen. Carpal bones are intact. IMPRESSION: Degenerative changes. No acute bony abnormality is detected. Dictated on workstation # [id number] Dict: 11/29/1942 Trans: 11/29/19840 CV [id number] Interpreted by: WANDA FELDER MD Departure Impression Primary Impression: Acute gouty arthritis Additional Impressions: Acute kidney insufficiency Hyponatremia Disposition: 01 HOME, SELF-CARE Condition: Improved Departure-Patient Inst. Decision time for Depature: 11:16 Referrals: JENNIFER BECK DO (PCP/Family) Primary Care Physician Patient Instructions: Gout, Lifestyle Changes to Manage Gout Add. Discharge Instructions: Stop hydrochlorothiazide until you can discuss further with Dr. Beck. Drink more water and less alcohol. For pain you may take Tylenol (acetaminophen) up to 1000 mg every 6 hours as needed as well as ibuprofen up to 400 mg 3 times daily. Follow-up with Dr. BECK as soon as possible to discuss long-term treatment for gout. Also read the handouts provided to learn how to manage gout with lifestyle changes. Return to the emergency room if you have worsening symptoms that are not controlled by axok-bgn-esbvrxx medications. All discharge instructions reviewed with patient and/or family. Voiced understanding. Copy Copies To 1: JENNIFER BECK JOSHUA T MD Nov 29, 2019 10:03
--- NOTE | 2019-11-29 10:05 | NUR ---
. IN WITH PT AT THIS TIME.
[2019-11-29 10:08] LABS: ERYTHROCYTE SEDIMENTATION RATE 11 MM/HR (0-30)
--- NOTE | 2019-11-29 10:10 | NUR ---
PT ASSISSTED TO CHAIR FROM BED WITH 2 PERSON ASSIST.
[2019-11-29] MEDS ORDERED: COLCHICINE 0.6 MG (COLCRYS) TABLET PO ONE ×2 (10:15)
--- NOTE | 2019-11-29 10:28 | NUR ---
PHARMACY NOTIFIED OF NEEDING MEDS.
--- NOTE | 2019-11-29 11:15 | NUR ---
PT WAS ASSISSTED INTO PERSONAL SHIRT.
--- NOTE | 2019-11-29 11:32 | NUR ---
VERBAL CONSENT TO SPEAK TO GRANDSON MIKEL. GRANDSON INFORMED OF STATUS AND PT REQUEST FOR WHEELCHAIR UPON DC.
--- NOTE | 2019-11-29 12:05 | NUR ---
IN WITH PT.
--- NOTE | 2019-11-29 12:19 | NUR ---
Jorge Luis cade in EDM - 11/29/19 at 1349 by [id number] [facility].
--- NOTE | 2019-11-29 12:19 | NUR ---
LEFT VOICE MESSAGE FOR GRANDSON TO RETURN CALL.
[2019-11-29 12:24] VITALS: BP 149/93
== END 2019-11-29 12:24 | disposition home or self-care (01) ==
LOC: EDUNIT# 08:12 → ER 08:15
DX: M10.9 Gout, unspecified (principal); N28.9 Disorder of kidney and ureter, unspecified; E87.1 Hypo-osmolality and hyponatremia; I10 Essential (primary) hypertension; K21.9 Gastro-esophageal reflux disease without esophagitis; F17.210 Nicotine dependence, cigarettes, uncomplicated; Z95.5 Presence of coronary angioplasty implant and graft
CPT/HCPCS: 36415; 73110; 73130; 80048; 84550; 85025; 85652; 86141

== ENCOUNTER → 2019-12-12 | Outpatient (CLI) | payer MEDICARE, OTHER ==
[2019-12-12 12:21] LABS: ALBUMIN 3.7 GM/DL (3.2-4.5); BILIRUBIN,TOTAL 0.6 MG/DL (0.1-1.0); CALCIUM 8.7 MG/DL (8.5-10.1); CREATININE SERUM 1.44 MG/DL (0.60-1.30); POTASSIUM 3.5 MMOL/L (3.6-5.0); TOTAL PROTEIN 6.9 GM/DL (6.4-8.2); URIC ACID 5.7 MG/DL (2.6-7.2)
== END ==
LOC: LAB 11:45
PROVIDERS: ATTEND Family Medicine
DX: J44.9 Chronic obstructive pulmonary disease, unspecified (principal); M10.9 Gout, unspecified; N28.9 Disorder of kidney and ureter, unspecified; E87.1 Hypo-osmolality and hyponatremia
CPT/HCPCS: 36415; 80053; 84550

== ENCOUNTER 2020-03-08 12:45 | Emergency (ER) | payer MEDICARE, OTHER ==
[~2020-03-08] VITALS: Ht 190 cm; Wt 113.0 kg
--- NOTE | 2020-03-08 12:55 | ED Upper Extremity ---
General Stated Complaint: R SHOULDER PAIN Source: patient, EMS Exam Limitations: other (Hard of hearing) History of Present Illness Date Seen by Provider: Mar 08, 2020 Time Seen by Provider: 12:38 Initial Comments Patient presents ER from home by EMS with chief complaint that this morning he woke up with right shoulder pain. He feels like is dislocated and is painful to move at the head of the humerus. He has never had a shoulder dislocation. He does not recall any falls or trauma. He says he drinks 10-15 tall boys a day on average. He smokes about 1/2 pack cigarettes. He has a history of gout and is followed by Dr. Beck for primary care. Allergies and Home Medications Allergies Coded Allergies: No Known Drug Allergies (Verified , 08/16/17) Home Medications Colchicine 0.6 Mg Capsule, 0.6 MG PO BID Prescribed by: TAMMIE LEWIS on 03/08/20 1359 Esomeprazole Magnesium 20 Mg Capsule.dr, 20 MG PO HS, (Reported) LAST FILLED #30 19 Hydrochlorothiazide 12.5 Mg Capsule, 12.5 MG PO DAILY@0900 Prescribed by: RIZWANA CHUNG on 01/26/19 0931 Hydrocodone/Acetaminophen 1 Each Tablet, 1 EACH PO Q6H PRN for PAIN-BREAKTHROUGH Prescribed by: TAMMIE LEWIS on 03/08/20 1344 Lisinopril 10 Mg Tablet, 10 MG PO DAILY Prescribed by: ALCIDES SANCHEZ on 10/27/19 2240 Prednisone 20 Mg Tab, 40 MG PO DAILY Prescribed by: TAMMIE LEWIS on 03/08/20 1343 Patient Home Medication List Home Medication List Reviewed: Yes Review of Systems Constitutional: No chills, No diaphoresis EENTM: No ear discharge, No ear pain Respiratory: No cough, No short of breath Cardiovascular: No chest pain, No edema, No palpitations Gastrointestinal: No abdominal pain, No constipation, No diarrhea Genitourinary: No discharge, No dysuria Musculoskeletal: see HPI; No back pain; joint pain All Other Systems Reviewed Negative Unless Noted: Yes Past Ondgkol-Qdrape-Glsufu Hx Patient Social History Alcohol Use: Regular Use Alcohol Beverage of Choice: Beer Drug of Choice: 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 INTO ROCK Type Used: Cigarettes 2nd Hand Smoke Exposure: Yes Recent Hopitalizations: No Immunizations Up To Date Date of Influenza Vaccine: Jan 23, 2019 Seasonal Allergies Seasonal Allergies: Yes Past Medical History Surgeries: Yes (L TOTAL HIP) Abdominal, Cardiac, Coronary Stent, Orthopedic Respiratory: Yes COPD Currently Using CPAP: No Currently Using BIPAP: No Cardiac: Yes (STENT) Hypertension Neurological: Yes (ALCOHOL WITHDRAWL SEIZURE) Seizure Disorder Reproductive Disorders: No Sexually Transmitted Disease: Yes HIV/AIDS: No Genitourinary: Yes (URINARY RETENTION) Prostate Problems, Bladder Infection, Renal Failure Gastrointestinal: Yes Gastroesophageal Reflux, Polyps Musculoskeletal: Yes (MULTIPLE FALLS; LEFT HIP REPLACEMENT) Endocrine: No HEENT: No Loss of Vision: Denies Hearing Impairment: Hard of Hearing, Hearing Aide Right Cancer: No Psychosocial: Yes (POLYSUBSTANCE ABUSE) Sleep Difficulties Integumentary: No Blood Disorders: No Adverse Reaction/Blood Tranf: No (N/A) Family Medical History SOCIAL HISTORY: -ETOH--LONGSTANDING, DAILY USE--12-18 "TALL BOYS" A DAY -DRUGS--HX OF CRACK COCAINE, THC USE -SMOKES 1 PPD PAST SURGICAL HISTORY: -EGD + COLONOSCOPY WITH POLYPECTOMY X 5 08/2017 -CYSTOSCOPY 01/2019 -CARDIAC CATH WITH STENT -LEFT HIP REPLACEMENT Physical Exam Vital Signs Vital Signs - First Documented 03/08/20 12:45 Temp 36.3 Pulse 91 Resp 18 B/P (MAP) 120/54 (76) Pulse Ox 94 O2 Delivery Room Air Capillary Refill : Height, Weight, BMI Height: 6'6.00" Weight: 172lbs. 7.0oz. 78.015292gk; 27.00 BMI Method:Stated General Appearance: moderate distress, other (Chronic illness, thin) HEENT: PERRL/EOMI, normal ENT inspection; No pharynx normal (Oropharynx is quite dry) Neck: non-tender, full range of motion, supple, normal inspection Cardiovascular: normal peripheral pulses, regular rate, rhythm Respiratory: lungs clear, normal breath sounds, no respiratory distress, no ac cessory muscle use Gastrointestinal: normal bowel sounds, non tender Shoulder: limited ROM (Right shoulder), pain; No swelling Elbow/Forearm: normal inspection, non-tender, no evidence of injury, normal ROM, Right Neurologic/Tendon: normal sensation, normal motor functions, normal tendon functions, responds to pain, no evidence tendon injury Neurologic/Psychiatric: alert, normal mood/affect, oriented x 3 Skin: normal color, warm/dry Procedures/Interventions Date of ETT Placement: Jun 03, 2018 Time of ETT Placement: 0643 Progress Joint injection, right shoulder glenohumeral joint. Skin was prepped with alcohol and allowed to dry then with iodine and allowed to dry. Using an anterior medial approach and a 25-gauge 1-1/2 inch needle we aspirated a small amount of serous fluid and then injected 4 cc bupivacaine half percent without epinephrine. Patient tolerated procedure well. Z track method was used and no hemorrhage. Band-Aid was applied sterilely. Sterile gloves. Progress/Results/Core Measures Results/Orders Lab Results Laboratory Tests Test 03/08/20 12:52 Range/Units White Blood Count 15.6 H 4.3-11.0 10^3/uL Red Blood Count 4.81 4.30-5.52 10^6/uL Hemoglobin 13.7 13.3-17.7 g/dL Hematocrit 40 40-54 % Mean Corpuscular Volume 83 80-99 fL Mean Corpuscular Hemoglobin 29 25-34 pg Mean Corpuscular Hemoglobin Concent 34 32-36 g/dL Red Cell Distribution Width 15.3 H 10.0-14.5 % Platelet Count 285 130-400 10^3/uL Mean Platelet Volume 9.1 9.0-12.2 fL Immature Granulocyte % (Auto) 0 % Neutrophils (%) (Auto) 80 H 42-75 % Lymphocytes (%) (Auto) 9 L 12-44 % Monocytes (%) (Auto) 8 0-12 % Eosinophils (%) (Auto) 2 0-10 % Basophils (%) (Auto) 1 0-10 % Neutrophils # (Auto) 12.5 H 1.8-7.8 10^3/uL Lymphocytes # (Auto) 1.4 1.0-4.0 10^3/uL Monocytes # (Auto) 1.3 H 0.0-1.0 10^3/uL Eosinophils # (Auto) 0.3 0.0-0.3 10^3/uL Basophils # (Auto) 0.1 0.0-0.1 10^3/uL Immature Granulocyte # (Auto) 0.1 0.0-0.1 10^3/uL Neutrophils % (Manual) 81 % Lymphocytes % (Manual) 9 % Monocytes % (Manual) 7 % Eosinophils % (Manual) 1 % Basophils % (Manual) 0 % Band Neutrophils 2 % Blood Morphology Comment NORMAL Sodium Level 124 *L 135-145 MMOL/L Potassium Level 5.0 3.6-5.0 MMOL/L Chloride Level 90 L 98-107 MMOL/L Carbon Dioxide Level 20 L 21-32 MMOL/L Anion Gap 14 5-14 MMOL/L Blood Urea Nitrogen 21 H 7-18 MG/DL Creatinine 1.56 H 0.60-1.30 MG/DL Estimat Glomerular Filtration Rate 44 BUN/Creatinine Ratio 13 Glucose Level 128 H 70-105 MG/DL Calcium Level 9.1 8.5-10.1 MG/DL Corrected Calcium 9.3 8.5-10.1 MG/DL Total Bilirubin 0.7 0.1-1.0 MG/DL Aspartate Amino Transf (AST/SGOT) 20 5-34 U/L Alanine Aminotransferase (ALT/SGPT) 15 0-55 U/L Alkaline Phosphatase 88 40-136 U/L Total Creatine Kinase 52 30-200 U/L Total Protein 7.2 6.4-8.2 GM/DL Albumin 3.7 3.2-4.5 GM/DL Serum Alcohol < 10 <10 MG/DL My Orders Orders - TAMMIE LEWIS Ed Iv/Invasive Line Start (03/08/20 12:48) Lactated Ringers (Lr 1000 Ml Iv Solution (03/08/20 13:00) Thiamine Tablet (Vitamin B-1 Tablet) (03/08/20 13:00) Folic Acid Tablet (Folic Acid Tablet) (03/08/20 13:00) Fentanyl Injection (Sublimaze Injection (03/08/20 13:00) Cbc With Automated Diff (03/08/20 12:48) Comprehensive Metabolic Panel (03/08/20 12:48) Alcohol (03/08/20 12:48) Ua Culture If Indicated (03/08/20 12:48) Drug Screen Stat (Urine) (03/08/20 12:48) Shoulder, Right, 3 Views (03/08/20 12:48) Creatine Kinase (03/08/20 12:50) Manual Differential (03/08/20 12:52) Hydrocodone/Apap 5/325 Tablet (Lortab 5 (03/08/20 13:45) Colchicine Tablet (Colcrys Tablet) (03/08/20 14:00) Medications Given in ED Current Medications Medications Dose Ordered Sig/Perla Route Start Time Stop Time Status Last Admin Dose Admin Acetaminophen/ Hydrocodone Bitart 2 tab ONCE ONCE PO 03/08/20 13:45 03/08/20 13:46 DC 03/08/20 13:48 2 TAB Fentanyl Citrate 50 mcg ONCE ONCE IVP 03/08/20 13:00 03/08/20 13:01 DC 03/08/20 12:58 50 MCG Folic Acid 1 mg ONCE ONCE PO 03/08/20 13:00 03/08/20 13:01 DC 03/08/20 13:02 1 MG Lactated Ringer's 1,000 ml @ 0 mls/hr Q0M ONCE IV 03/08/20 13:00 03/08/20 13:01 DC 03/08/20 12:59 1,000 MLS/HR Thiamine HCl 100 mg ONCE ONCE PO 03/08/20 13:00 03/08/20 13:01 DC 03/08/20 13:02 100 MG Vital Signs/I&O 03/08/20 12:45 Temp 36.3 Pulse 91 Resp 18 B/P (MAP) 120/54 (76) Pulse Ox 94 O2 Delivery Room Air Progress Progress Note #1: Time: 12:54 Progress Note Suspect occult trauma that because of the patient's alcohol intake he may not remember. He has previous visits for similar situations. Plan to give 50 mcg of fentanyl so he can get his pain under control and get some x-rays of his right shoulder. We will check some basic labs as he has a history of significant hyponatremia which can also contribute to falls. Urine to rule out infection or other intoxication. Alcohol level. We will give him a liter of lactated Ringer's, thiamine and folate. Progress Note #2: Time: 13:36 Progress Note No evidence of fracture. Patient's pain was improved with fentanyl but that is wearing off cervical to give him some hydrocodone. Alcohol is negative. Suspect he either slept on it wrong or had some fall and cause injury to his arm. No external evidence of trauma. He is not tender in his cervical spine so it is possible he has a cervical radiculopathy. Prednisone. We're going to refer him onto physical therapy and have him follow-up with Dr. BECK in 1 to 2 weeks for reexamination. We have put a sling on him. We will provide him with an ice pack. Encourage NSAIDs, Tylenol, topical creams and hydrocodone. Diagnostic Imaging Diagonstic Imaging: Xray Plain Films/CT/US/NM/MRI: other (Right shoulder) Comments NAME: HARJINDER LAWLER [facility] REC#: [id number] PT STATUS: REG ER : 1950 PHYSICIAN: TAMMIE LEWIS MD ADMIT DATE: 03/08/20/ER Draft Date of Exam:03/08/20 SHOULDER, RIGHT, 3 VIEWS INDICATION: Shoulder pain. FINDINGS: There is some arthrosis of the acromioclavicular joint. No fracture or dislocation. Right lung is clear. Soft tissues are unremarkable. IMPRESSION: Arthrosis of the acromioclavicular joint otherwise unremarkable. Dictated on workstation # [id number] Dict: 03/08/20 1325 Trans: 03/08/20 1327 [facility] [id number] Interpreted by: COMFORT GOINS MD Electronically signed by: Reviewed: Reviewed by Me Departure Impression Primary Impression: Right shoulder strain Qualified Codes: S46.911A - Strain of unspecified muscle, fascia and tendon at shoulder and upper arm level, right arm, initial encounter Additional Impressions: Hyponatremia Suspect gout Disposition: HOME, SELF-CARE Condition: Stable Departure-Patient Inst. Decision time for Depature: 13:37 Referrals: JENNIFER BECK DO (PCP/Family) Primary Care Physician Patient Instructions: How to Use a Shoulder Sling, Passive Range of Motion Exe rcises, Neck and Shoulders, Shoulder Pain (DC) Add. Discharge Instructions: Wear the sling except to sleep and to bathe. Take your arm out of the sling and move it around as much as you can using your good arm 4 times a day or more. Apply ice directly to the shoulder for 20 minutes every 2 hours for the first 2 to 3 days. Heating pads can be helpful for the pain. Topical creams such as icy hot, Biofreeze, Blue emu etc. Prednisone 2 tablets daily for the next 5 days to reduce swelling and pain in your shoulder. Stop using the hydrochlorothiazide, HCTZ as this may be causing your low sodium. Follow-up with your primary care doctor to discuss appropriate blood pressure medicines for you. Plan to follow-up with your primary care doctor in the next 2 weeks for reexamination. Alternatively you may call and follow-up with an orthopedic surgeon for your shoulder pain. If you have colchicine start taking it twice a day. I will send a refill to the pharmacy. If you wish to speak to physical therapy and set up a know upfront cost consultation call [facility] physical [facility] at [phone]. Scripts Colchicine (Colchicine) 0.6 Mg Capsule 0.6 MG PO BID for 7 Days, #14 CAP 0 Refills Prov: TAMMIE LEWIS 03/08/20 Hydrocodone/Acetaminophen (Hydrocodone-Acetamin 5-325 mg) 1 Each Tablet 1 EACH PO Q6H PRN for PAIN-BREAKTHROUGH, #15 TAB 0 Refills Prov: TAMMIE LEWIS 03/08/20 Prednisone (Prednisone) 20 Mg Tab 40 MG PO DAILY for 5 Days, #10 TAB 0 Refills Prov: TAMMIE LEWIS 03/08/20 Copy Copies To 1: JENNIFER BECK DO TAMMIE LEWIS Mar 08, 2020 12:55
[2020-03-08 13:00] LABS: BASOPHILS # (AUTO) 0.1 10^3/uL (0.0-0.1); BASOPHILS % (AUTO) 1 % (0-10); EOSINOPHILS # (AUTO) 0.3 10^3/uL (0.0-0.3); EOSINOPHILS % (AUTO) 2 % (0-10); HEMATOCRIT 40 % (40-54); HEMOGLOBIN 13.7 g/dL (13.3-17.7); LYMPHOCYTES # (AUTO) 1.4 10^3/uL (1.0-4.0); LYMPHOCYTES % (AUTO) 9 % (12-44); MEAN CORPUSCULAR HEMOGLOBIN 29 pg (25-34); MEAN CORPUSCULAR HGB CONC 34 g/dL (32-36); MEAN CORPUSCULAR VOLUME 83 fL (80-99); MEAN PLATELET VOLUME 9.1 fL (9.0-12.2); MONOCYTES # (AUTO) 1.3 10^3/uL (0.0-1.0); MONOCYTES % (AUTO) 8 % (0-12); NEUTROPHILS # (AUTO) 12.5 10^3/uL (1.8-7.8); NEUTROPHILS % (AUTO) 80 % (42-75); PLATELET COUNT 285 10^3/uL (130-400); WHITE BLOOD COUNT 15.6 10^3/uL (4.3-11.0)
[2020-03-08] MEDS ORDERED: fentaNYL INJECTION 100 MCG/2 ML AMP IVP ONE (13:00)
[2020-03-08] MEDS ORDERED: THIAMINE 100 MG (VITAMIN B-1) TAB PO ONE (13:00)
[2020-03-08] MEDS ORDERED: LACTATED RINGERS 1,000 ML IV ONE (13:00)
[2020-03-08] MEDS ORDERED: FOLIC ACID 1 MG TAB PO ONE (13:00)
[2020-03-08 13:10] LABS: ALBUMIN 3.7 GM/DL (3.2-4.5); CHLORIDE 90 MMOL/L (98-107)
[2020-03-08 13:11] LABS: CALCIUM 9.1 MG/DL (8.5-10.1)
[2020-03-08 13:12] LABS: GLUCOSE 128 MG/DL (70-105); TOTAL PROTEIN 7.2 GM/DL (6.4-8.2)
[2020-03-08 13:13] LABS: CARBON DIOXIDE 20 MMOL/L (21-32)
[2020-03-08 13:14] LABS: BILIRUBIN,TOTAL 0.7 MG/DL (0.1-1.0)
[2020-03-08 13:16] LABS: ALKALINE PHOSPHATASE 88 U/L (40-136); CREATININE SERUM 1.56 MG/DL (0.60-1.30); GFR ESTIMATED 44
[2020-03-08 13:17] LABS: BUN/CREATININE RATIO 13
[2020-03-08 13:19] LABS: ALANINE AMINOTRANSFERASE 15 U/L (0-55); CREATINE KINASE 52 U/L (30-200)
[2020-03-08 13:22] LABS: SODIUM 124 MMOL/L (135-145)
--- NOTE | 2020-03-08 13:27 | Diagnostic Imaging Report ---
INDICATION: Shoulder pain. FINDINGS: There is some arthrosis of the acromioclavicular joint. No fracture or dislocation. Right lung is clear. Soft tissues are unremarkable. IMPRESSION: Arthrosis of the acromioclavicular joint otherwise unremarkable. Dictated by: Dictated on workstation # [id number]
[2020-03-08 13:30] LABS: BAND NEUTROPHILS 2 %; BASOPHILS % (MANUAL) 0 %; EOSINOPHILS % (MANUAL) 1 %; LYMPHOCYTES % (MANUAL) 9 %; MONOCYTES % (MANUAL) 7 %; NEUTROPHILS % (MANUAL) 81 %
[2020-03-08 13:31] LABS: RBC MORPH NORMAL
[2020-03-08] MEDS ORDERED: PRD20T PO (13:43)
[2020-03-08] MEDS ORDERED: ACHD5005 PO (13:43)
[2020-03-08] MEDS ORDERED: HYDROcodone/APAP 5 MG/325 MG (LORTAB) TAB PO ONE (13:45)
[2020-03-08] MEDS ORDERED: COLC0.6C3 PO (13:59)
[2020-03-08] MEDS ORDERED: COLCHICINE 0.6 MG (COLCRYS) TABLET PO ONE (14:00)
[2020-03-08 14:09] VITALS: BP 116/54
== END 2020-03-08 14:08 | disposition home or self-care (01) ==
LOC: EDUNIT# 12:46 → ER 12:47
DX: S46.911A Strain of unspecified muscle, fascia and tendon at shoulder and upper arm level, right arm, initial encounter (principal); E87.1 Hypo-osmolality and hyponatremia; J44.9 Chronic obstructive pulmonary disease, unspecified; I10 Essential (primary) hypertension; K21.9 Gastro-esophageal reflux disease without esophagitis; F17.210 Nicotine dependence, cigarettes, uncomplicated; Z95.5 Presence of coronary angioplasty implant and graft; Z79.52 Long term (current) use of systemic steroids; X58.XXXA Exposure to other specified factors, initial encounter
CPT/HCPCS: 73030; 80053; 82550; 85007; 99284; G0480; 80320

== ENCOUNTER 2020-03-25 13:56 | Emergency (ER) | payer OTHER ==
[~2020-03-25] VITALS: Ht 185 cm; Wt 79.5 kg
[~2020-03-25 13:56] MED LIST changes: +COLC0.6C3 PO
[2020-03-25] MEDS ORDERED: HYDROcodone/APAP 7.5 MG/325 MG (LORTAB, LORCET PLUS) TABLET PO ONE (14:45)
--- NOTE | 2020-03-25 14:49 | ED Lower Extremity ---
General Stated Complaint: R FOOT PAIN Source: patient Exam Limitations: no limitations History of Present Illness Date Seen by Provider: Mar 25, 2020 Time Seen by Provider: 14:47 Initial Comments To ER with right foot pain for about 1 month. No known injury. Pain is worse over the right great toe. He drinks about 6 to 8 12 ounce beers per day. He smokes 1/2 pack of cigarettes per day. He has had some intermittent shooting pain up the right leg. No fevers or chills. Onset: other Severity: moderate Pain/Injury Location: right leg Modifying Factors: Worse With Movement Allergies and Home Medications Allergies Coded Allergies: No Known Drug Allergies (Verified , 08/16/17) Home Medications Colchicine 0.6 Mg Capsule, 0.6 MG PO BID Prescribed by: TAMMIE LEWIS on 03/08/20 1359 Esomeprazole Magnesium 20 Mg Capsule.dr, 20 MG PO HS, (Reported) LAST FILLED #30 10-19-19 Hydrochlorothiazide 12.5 Mg Capsule, 12.5 MG PO DAILY@0900 Prescribed by: RIZWANA CHUNG on 01/26/19 0931 Hydrocodone/Acetaminophen 1 Each Tablet, 1 EACH PO Q6H PRN for PAIN-BREAKTHROUGH Prescribed by: TAMMIE LEWIS on 03/08/20 1344 Lisinopril 10 Mg Tablet, 10 MG PO DAILY Prescribed by: ALCIDES SANCHEZ on 10/27/19 2240 Prednisone 20 Mg Tab, 40 MG PO DAILY Prescribed by: TAMMIE LEWIS on 03/08/20 1343 Patient Home Medication List Home Medication List Reviewed: Yes Review of Systems Constitutional: see HPI EENTM: see HPI Respiratory: no symptoms reported Cardiovascular: no symptoms reported Genitourinary: no symptoms reported Skin: no symptoms reported Psychiatric/Neurological: No Symptoms Reported Past Hfrxyys-Lzpsrk-Rhysnw Hx Patient Social History Alcohol Beverage of Choice: Beer Drug of Choice: 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 INTO ROCK Type Used: Cigarettes 2nd Hand Smoke Exposure: Yes Recent Hopitalizations: No Immunizations Up To Date Date of Influenza Vaccine: Jan 23, 2019 Seasonal Allergies Seasonal Allergies: Yes Past Medical History Surgeries: Yes (L TOTAL HIP) Abdominal, Cardiac, Coronary Stent, Orthopedic Respiratory: Yes COPD Currently Using CPAP: No Currently Using BIPAP: No Cardiac: Yes (STENT) Hypertension Neurological: Yes (ALCOHOL WITHDRAWL SEIZURE) Seizure Disorder Reproductive Disorders: No Sexually Transmitted Disease: Yes HIV/AIDS: No Genitourinary: Yes (URINARY RETENTION) Prostate Problems, Bladder Infection, Renal Failure Gastrointestinal: Yes Gastroesophageal Reflux, Polyps Musculoskeletal: Yes (MULTIPLE FALLS; LEFT HIP REPLACEMENT) Endocrine: No HEENT: No Loss of Vision: Denies Hearing Impairment: Hard of Hearing, Hearing Aide Right Cancer: No Psychosocial: Yes (POLYSUBSTANCE ABUSE) Sleep Difficulties Integumentary: No Blood Disorders: No Adverse Reaction/Blood Tranf: No (N/A) Family Medical History SOCIAL HISTORY: -ETOH--LONGSTANDING, DAILY USE--12-18 "TALL BOYS" A DAY -DRUGS--HX OF CRACK COCAINE, THC USE -SMOKES 1 PPD PAST SURGICAL HISTORY: -EGD + COLONOSCOPY WITH POLYPECTOMY X 5 08/2017 -CYSTOSCOPY 01/2019 -CARDIAC CATH WITH STENT -LEFT HIP REPLACEMENT Physical Exam Vital Signs Vital Signs - First Documented 03/25/20 14:30 Temp 36.0 Pulse 65 Resp 18 B/P (MAP) 117/83 (94) Pulse Ox 98 O2 Delivery Room Air Capillary Refill : Height, Weight, BMI Height: 6'6.00" Weight: 172lbs. 7.0oz. 78.440355fc; 31.00 BMI Method:Stated General Appearance: WD/WN, no apparent distress Neck: non-tender, full range of motion Respiratory: no respiratory distress, no accessory muscle use Hips: bilateral hip non-tender, bilateral hip normal inspection, bilateral hip normal range of motion Legs: bilateral leg non-tender, bilateral leg normal inspection, bilateral leg normal range of motion Knees: bilateral knee non-tender, bilateral knee normal inspection, bilateral knee normal range of motion Ankles: bilateral ankle non-tender, bilateral ankle normal inspection, bilateral ankle normal range of motion Feet: right foot other (The right great toe is tender to touch. All toes have unkempt overgrown toenails. Both lower extremities show a delayed capillary refill nonpalpable posterior tibial or dorsalis pedis pulse and both lower extremities are cool to touch. The right great toe is cyanotic.) Neurologic/Psychiatric: alert, normal mood/affect, oriented x 3 Skin: normal color, warm/dry Procedures/Interventions Date of ETT Placement: Jun 03, 2018 Time of ETT Placement: 0643 Progress/Results/Core Measures Results/Orders Lab Results Laboratory Tests Test 03/25/20 14:59 Range/Units White Blood Count 9.2 4.3-11.0 10^3/uL Red Blood Count 4.63 4.30-5.52 10^6/uL Hemoglobin 13.3 13.3-17.7 g/dL Hematocrit 38 L 40-54 % Mean Corpuscular Volume 83 80-99 fL Mean Corpuscular Hemoglobin 29 25-34 pg Mean Corpuscular Hemoglobin Concent 35 32-36 g/dL Red Cell Distribution Width 15.2 H 10.0-14.5 % Platelet Count 223 130-400 10^3/uL Mean Platelet Volume 9.6 9.0-12.2 fL Immature Granulocyte % (Auto) 1 % Neutrophils (%) (Auto) 65 42-75 % Lymphocytes (%) (Auto) 20 12-44 % Monocytes (%) (Auto) 10 0-12 % Eosinophils (%) (Auto) 4 0-10 % Basophils (%) (Auto) 1 0-10 % Neutrophils # (Auto) 6.0 1.8-7.8 10^3/uL Lymphocytes # (Auto) 1.8 1.0-4.0 10^3/uL Monocytes # (Auto) 1.0 0.0-1.0 10^3/uL Eosinophils # (Auto) 0.4 H 0.0-0.3 10^3/uL Basophils # (Auto) 0.1 0.0-0.1 10^3/uL Immature Granulocyte # (Auto) 0.1 0.0-0.1 10^3/uL Prothrombin Time 13.1 12.2-14.7 SEC INR Comment 1.0 0.8-1.4 Activated Partial Thromboplast Time 28 24-35 SEC Sodium Level 128 L 135-145 MMOL/L Potassium Level 4.1 3.6-5.0 MMOL/L Chloride Level 93 L 98-107 MMOL/L Carbon Dioxide Level 24 21-32 MMOL/L Anion Gap 11 5-14 MMOL/L Blood Urea Nitrogen 24 H 7-18 MG/DL Creatinine 1.25 0.60-1.30 MG/DL Estimat Glomerular Filtration Rate 57 BUN/Creatinine Ratio 19 Glucose Level 69 L 70-105 MG/DL Calcium Level 8.7 8.5-10.1 MG/DL Corrected Calcium 8.9 8.5-10.1 MG/DL Total Bilirubin 0.5 0.1-1.0 MG/DL Aspartate Amino Transf (AST/SGOT) 19 5-34 U/L Alanine Aminotransferase (ALT/SGPT) 15 0-55 U/L Alkaline Phosphatase 70 40-136 U/L Total Protein 6.5 6.4-8.2 GM/DL Albumin 3.7 3.2-4.5 GM/DL Serum Alcohol < 10 <10 MG/DL My Orders Orders - DEYA BLEVINS APRN Us Right Low Ext [id number] (03/25/20 14:45) Foot, Right, 3 View (03/25/20 14:45) Cbc With Automated Diff (03/25/20 14:45) Comprehensive Metabolic Panel (03/25/20 14:45) Ed Iv/Invasive Line Start (03/25/20 14:45) Hydrocodone/Apap 7.5/325 Tab (Lortab 7. (03/25/20 14:45) Alcohol (03/25/20 14:56) Partial Thromboplastin Time (03/25/20 14:56) Protime With Inr (03/25/20 14:56) Heparin Drip 14329 Unit/500ml (Heparin (03/25/20 16:00) Heparin (Bolus Per Protocol) (Heparin (B (03/25/20 16:00) Nicotine Lozenge (Commit Lozenge) (03/25/20 16:30) Medications Given in ED Current Medications Medications Dose Ordered Sig/Perla Route Start Time Stop Time Status Last Admin Dose Admin Acetaminophen/ Hydrocodone Bitart 1 ea ONCE ONCE PO 03/25/20 14:45 03/25/20 14:46 DC 03/25/20 14:54 1 EA Heparin Sodium (Porcine) HEPARIN FULL PROTOC... ONCE ONCE IV 03/25/20 16:00 03/25/20 16:01 DC 03/25/20 16:12 5,000 UNIT Heparin Sodium/ Dextrose 500 ml @ 0 mls/hr Q0M ONCE IV 03/25/20 16:00 03/25/20 16:01 DC 03/25/20 16:22 24 MLS/HR Vital Signs/I&O 03/25/20 14:30 Temp 36.0 Pulse 65 Resp 18 B/P (MAP) 117/83 (94) Pulse Ox 98 O2 Delivery Room Air Diagnostic Imaging Diagonstic Imaging: Ultrasound Comments NAME: HARJINDER LAWLER [facility] REC#: [id number] PT STATUS: REG ER : 1950 PHYSICIAN: DEYA BLEVINS APRN ADMIT DATE: 03/25/20/ER Draft Date of Exam:03/25/20 FOOT, RIGHT, 3 VIEW INDICATION: Foot pain. COMPARISON: None. FINDINGS: Three views of the right foot demonstrate no acute fracture or dislocation. There are no focal osseous lesions. There is no soft tissue swelling. Joint spaces are well maintained. No radiopaque foreign bodies are seen. IMPRESSION: No acute fractures or dislocations of the right foot. Dictated on workstation # [id number] Dict: 03/25/20 1554 Trans: 03/25/20 1556 [facility] [id number] Interpreted by: SHER COLÓN MD Electronically signed by: NAME: HARJINDER LAWLER [facility] REC#: [id number] PT STATUS: REG ER : 1950 PHYSICIAN: DEYA BLEVINS APRN ADMIT DATE: 03/25/20/ER Draft Date of Exam:03/25/20 US RIGHT LOW EXT [id number] INDICATION: Right foot pain. Right leg arterial Doppler study performed in a routine fashion with color flow Doppler and waveform analysis. There is abnormal monophasic flow in the common femoral artery and profunda femoris artery, the presence of monophasic flow in these vessels suggests the possibility of stenosis of more proximal than can be seen. The [place] SFA is chronically occluded. There is a femoral popliteal bypass which is also occluded. A few small collaterals are visualized near the popliteal fossa. IMPRESSION: Abnormal monophasic flow in the common femoral artery and profunda, suggesting inflow disease. Occlusion of [place] SFA and a right femoral popliteal bypass. No apparent flow in the tibial vessels, there are some collaterals seen in the popliteal fossa. Consider angiography for further evaluation if clinically warranted. Dictated on workstation # [id number] Dict: 03/25/20 1619 Trans: 03/25/20 1624 [facility] [id number] Interpreted by: BRISA STEINBERG MD Electronically signed by: Departure Communication (Admissions) 1613-aircraft technician reports only monophasic flow in the right superficial femoral. No flow distal to that. Radiologist report pending. I went ahead and called [facility] and spoke with Dr. Jones for peripheral intervention. I given him a 5000 unit bolus of heparin as well as a heparin drip. He had hydrocodone 7.5 mg. That did not adequately control his pain so we will give him some fentanyl as well. Gabriel Cerrato states that all of the patient's records are at [facility] in [place]. it support technician thought she saw a femoral-popliteal bypass but the patient states he is never had any surgery on leg vessels that he knows of. Impression Primary Impression: Arterial occlusion right lower extremity Disposition: 02 XFER SHT-TRM HOSP Condition: Stable Transfer Transfer Reason: Exceeds level of care Time Spoke to Accepting Phy: 16:27 Departure-Patient Inst. Referrals: JENNIFER BECK DO (PCP/Family) Primary Care Physician DEYA BLEVINS APRN Mar 25, 2020 14:49
[2020-03-25 15:07] LABS: BASOPHILS # (AUTO) 0.1 10^3/uL (0.0-0.1); BASOPHILS % (AUTO) 1 % (0-10); EOSINOPHILS # (AUTO) 0.4 10^3/uL (0.0-0.3); EOSINOPHILS % (AUTO) 4 % (0-10); HEMATOCRIT 38 % (40-54); HEMOGLOBIN 13.3 g/dL (13.3-17.7); LYMPHOCYTES # (AUTO) 1.8 10^3/uL (1.0-4.0); LYMPHOCYTES % (AUTO) 20 % (12-44); MEAN CORPUSCULAR HEMOGLOBIN 29 pg (25-34); MEAN CORPUSCULAR HGB CONC 35 g/dL (32-36); MEAN CORPUSCULAR VOLUME 83 fL (80-99); MEAN PLATELET VOLUME 9.6 fL (9.0-12.2); MONOCYTES % (AUTO) 10 % (0-12); NEUTROPHILS % (AUTO) 65 % (42-75); PLATELET COUNT 223 10^3/uL (130-400); WHITE BLOOD COUNT 9.2 10^3/uL (4.3-11.0)
[2020-03-25 15:17] LABS: PROTHROMBIN TIME PATIENT 13.1 SEC (12.2-14.7)
[2020-03-25 15:18] LABS: ALBUMIN 3.7 GM/DL (3.2-4.5); CHLORIDE 93 MMOL/L (98-107); POTASSIUM 4.1 MMOL/L (3.6-5.0); SODIUM 128 MMOL/L (135-145)
[2020-03-25 15:19] LABS: CALCIUM 8.7 MG/DL (8.5-10.1)
[2020-03-25 15:20] LABS: GLUCOSE 69 MG/DL (70-105); TOTAL PROTEIN 6.5 GM/DL (6.4-8.2)
[2020-03-25 15:21] LABS: CARBON DIOXIDE 24 MMOL/L (21-32)
[2020-03-25 15:22] LABS: BILIRUBIN,TOTAL 0.5 MG/DL (0.1-1.0)
[2020-03-25 15:24] LABS: ALKALINE PHOSPHATASE 70 U/L (40-136); CREATININE SERUM 1.25 MG/DL (0.60-1.30); GFR ESTIMATED 57
[2020-03-25 15:25] LABS: BUN/CREATININE RATIO 19
[2020-03-25 15:27] LABS: ALANINE AMINOTRANSFERASE 15 U/L (0-55)
--- NOTE | 2020-03-25 15:56 | Diagnostic Imaging Report ---
INDICATION: Foot pain. COMPARISON: None. FINDINGS: Three views of the right foot demonstrate no acute fracture or dislocation. There are no focal osseous lesions. There is no soft tissue swelling. Joint spaces are well maintained. No radiopaque foreign bodies are seen. IMPRESSION: No acute fractures or dislocations of the right foot. Dictated by: Dictated on workstation # [id number]
[2020-03-25] MEDS ORDERED: HEParin DRIP 25000 UNIT/500ML 500 ML IV ONE (16:00)
[2020-03-25] MEDS ORDERED: HEParin 1000 UNIT/ML (10ML VIAL) FOR BOLUS IV ONE (16:00)
--- NOTE | 2020-03-25 16:06 | NUR ---
Millie BLEVINS APRN TALKING WITH PATIENT SONO REPORT AND NEED FOR TRANSFER.
--- NOTE | 2020-03-25 16:25 | Diagnostic Imaging Report ---
INDICATION: Right foot pain. Right leg arterial Doppler study performed in a routine fashion with color flow Doppler and waveform analysis. There is abnormal monophasic flow in the common femoral artery and profunda femoris artery, the presence of monophasic flow in these vessels suggests the possibility of stenosis of more proximal than can be seen. 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 There is a femoral popliteal bypass which is also occluded. A few small collaterals are visualized near the popliteal fossa. IMPRESSION: Abnormal monophasic flow in the common femoral artery and profunda, suggesting inflow disease. Occlusion of [place] SFA and a right femoral popliteal bypass. No apparent flow in the tibial vessels, there are some collaterals seen in the popliteal fossa. Consider angiography for further evaluation if clinically warranted. Dictated by: Dictated on workstation # [id number]
[2020-03-25] MEDS ORDERED: NICOTINE 2 MG LOZENGE (COMMIT) MM PRN (16:30)
--- NOTE | 2020-03-25 16:41 | NUR ---
PATIENT YELLING IN ROOM WANTS MORE PAIN MEDS.
--- NOTE | 2020-03-25 16:41 | NUR ---
WAITING FOR ROOM AT [facility]
[2020-03-25] MEDS ORDERED: fentaNYL INJECTION 100 MCG/2 ML AMP IVP ONE (16:45)
--- NOTE | 2020-03-25 17:15 | NUR ---
CON'T TO WAIT FOR [facility] TO CALL WITH ROOM.
--- NOTE | 2020-03-25 17:27 | NUR ---
CALLED AND GAVE UPDATE TO M[facility]ER[facility] ON [facility] POLICY FOR VISIATION. Addendum: 03/25/20 at 1730 by PMCCLURE SCOTT CALLED FOR TRANSFR
--- NOTE | 2020-03-25 18:07 | NUR ---
[facility] HERE FOR TRANSFER
[2020-03-25 18:08] VITALS: BP 109/70
== END 2020-03-25 18:08 | disposition short-term general hospital (02) ==
LOC: EDUNIT# 13:56 → ER 13:57
DX: I77.1 Stricture of artery (principal); J44.9 Chronic obstructive pulmonary disease, unspecified; K21.9 Gastro-esophageal reflux disease without esophagitis; I10 Essential (primary) hypertension; F17.210 Nicotine dependence, cigarettes, uncomplicated; Z79.52 Long term (current) use of systemic steroids
CPT/HCPCS: 36415; 73630; 80053; 80320; 85025; 85610; 85730; 93926

== ENCOUNTER 2020-03-31 20:00 | Emergency (ER) | payer OTHER ==
[~2020-03-31] VITALS: Ht 196 cm; Wt 82.0 kg
[~2020-03-31 20:00] MED LIST changes: -LISI10TA2 PO; +LISI10TA25 PO
--- NOTE | 2020-03-31 20:23 | ED Fall/Injury ---
General Stated Complaint: FALL/L HIP PAIN Source: patient Exam Limitations: no limitations History of Present Illness Date Seen by Provider: Mar 31, 2020 Time Seen by Provider: 20:20 Initial Comments To ER by private vehicle from home with reports of left hip pain after he fell. He was on the toilet when he passed out. He landed on his left hip and now has pain. He did hit his head. I saw him last week for an arterial occlusion of the right lower extremity. Started him on heparin and sent him to [place]. He states they put him on medicine to dissolve the clot but did not put any stents in. Access was through the left groin where there are stitches. This area remains clean dry and intact without any firmness nodules or pulsatile masses. Occurred: this evening Severity: moderate Injuries/Pain Location: lower extremity Context: fainted Loss of Consciousness: no loss of consciousness Associated Symptoms (Fall): Denies Symptoms Allergies and Home Medications Allergies Coded Allergies: No Known Drug Allergies (Verified , 08/16/17) Home Medications Colchicine 0.6 Mg Capsule, 0.6 MG PO BID Prescribed by: TAMMIE LEWIS on 03/08/20 1359 Esomeprazole Magnesium 20 Mg Capsule.dr, 20 MG PO HS, (Reported) LAST FILLED #30 9-5-19 Hydrochlorothiazide 12.5 Mg Capsule, 12.5 MG PO DAILY@0900 Prescribed by: RIZWANA CHUNG on 01/26/19 0931 Hydrocodone/Acetaminophen 1 Each Tablet, 1 EACH PO Q6H PRN for PAIN-BREAKTHROUGH Prescribed by: TAMMIE LEWIS on 03/08/20 1344 Lisinopril 10 Mg Tablet, 10 MG PO DAILY Prescribed by: ALCIDES SANCHEZ on 10/27/19 2240 Prednisone 20 Mg Tab, 40 MG PO DAILY Prescribed by: TAMMIE LEWIS on 03/08/20 1343 Patient Home Medication List Home Medication List Reviewed: Yes Review of Systems Review of Systems Constitutional: see HPI Eyes: No Symptoms Reported Ears, Nose, Mouth, Throat: no symptoms reported Respiratory: no symptoms reported Cardiovascular: no symptoms reported Genitourinary: no symptoms reported Musculoskeletal: see HPI, joint pain Skin: no symptoms reported Psychiatric/Neurological: No Symptoms Reported Past Bpmzsju-Awvndo-Cyczii Hx Patient Social History Alcohol Beverage of Choice: Beer Drug of Choice: 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 [place] Type Used: Cigarettes 2nd Hand Smoke Exposure: Yes Recent Hopitalizations: No Immunizations Up To Date Date of Influenza Vaccine: Jan 23, 2019 Seasonal Allergies Seasonal Allergies: Yes Past Medical History Surgeries: Yes (L TOTAL HIP) Abdominal, Cardiac, Coronary Stent, Orthopedic Respiratory: Yes COPD Currently Using CPAP: No Currently Using BIPAP: No Cardiac: Yes (STENT) Hypertension Neurological: Yes (ALCOHOL WITHDRAWL SEIZURE) Seizure Disorder Reproductive Disorders: No Sexually Transmitted Disease: Yes HIV/AIDS: No Genitourinary: Yes (URINARY RETENTION) Prostate Problems, Bladder Infection, Renal Failure Gastrointestinal: Yes Gastroesophageal Reflux, Polyps Musculoskeletal: Yes (MULTIPLE FALLS; LEFT HIP REPLACEMENT) Endocrine: No HEENT: No Loss of Vision: Denies Hearing Impairment: Hard of Hearing, Hearing Aide Right Cancer: No Psychosocial: Yes (POLYSUBSTANCE ABUSE) Sleep Difficulties Integumentary: No Blood Disorders: No Adverse Reaction/Blood Tranf: No (N/A) Family Medical History SOCIAL HISTORY: -ETOH--LONGSTANDING, DAILY USE--12-18 "[employer]" A DAY -DRUGS--HX OF CRACK COCAINE, THC USE -SMOKES 1 PPD PAST SURGICAL HISTORY: -EGD + COLONOSCOPY WITH POLYPECTOMY X 5 08/2017 -CYSTOSCOPY 01/2019 -CARDIAC CATH WITH STENT -LEFT HIP REPLACEMENT Physical Exam Vital Signs Vital Signs - First Documented 03/31/20 20:15 Temp 36.5 Pulse 102 Resp 18 B/P (MAP) 123/71 (88) Pulse Ox 95 O2 Delivery Room Air Capillary Refill : Height, Weight, BMI Height: 6'6.00" Weight: 172lbs. 7.0oz. [id number]; 23.00 BMI Method:Stated General Appearance: WD/WN, no apparent distress HEENT: PERRL/EOMI, normal ENT inspection Neck: non-tender, full range of motion Respiratory: no respiratory distress, no accessory muscle use Gastrointestinal: normal bowel sounds, soft Extremities: other (Left hip is tender unable to put weight on it. Pain with flexion of the hip. Incision to the left anterior groin is clean dry and intact without pulsatile mass or firmness to suggest hematoma. No abdominal tenderness to palpation to suggest retroperitoneal hematoma.) Neurologic/Psychiatric: alert, normal mood/affect, oriented x 3 Skin: normal color Cady Coma Score Best Eye Response: (4) Open Spontaneously Best Verbal Response: (5) Oriented Best Motor Response: (6) Obeys Commands [place] Total: 15 Procedures/Interventions Date of ETT Placement: Jun 03, 2018 Time of ETT Placement: 642 Progress/Results/Core Measures Results/Orders Lab Results Laboratory Tests Test 03/31/20 20:19 03/31/20 20:50 Range/Units Sodium Level 133 L 135-145 MMOL/L Potassium Level 5.3 H 3.6-5.0 MMOL/L Chloride Level 101 98-107 MMOL/L Carbon Dioxide Level 18 L 21-32 MMOL/L Anion Gap 14 5-14 MMOL/L Blood Urea Nitrogen 37 H 7-18 MG/DL Creatinine 1.87 H 0.60-1.30 MG/DL Estimat Glomerular Filtration Rate 36 BUN/Creatinine Ratio 20 Glucose Level 119 H 70-105 MG/DL Calcium Level 8.6 8.5-10.1 MG/DL Corrected Calcium 8.8 8.5-10.1 MG/DL Total Bilirubin 0.8 0.1-1.0 MG/DL Aspartate Amino Transf (AST/SGOT) 34 5-34 U/L Alanine Aminotransferase (ALT/SGPT) 21 0-55 U/L Alkaline Phosphatase 76 40-136 U/L Total Protein 7.4 6.4-8.2 GM/DL Albumin 3.7 3.2-4.5 GM/DL White Blood Count 9.1 4.3-11.0 10^3/uL Red Blood Count 4.36 4.30-5.52 10^6/uL Hemoglobin 12.3 L 13.3-17.7 g/dL Hematocrit 36 L 40-54 % Mean Corpuscular Volume 83 80-99 fL Mean Corpuscular Hemoglobin 28 25-34 pg Mean Corpuscular Hemoglobin Concent 34 32-36 g/dL Red Cell Distribution Width 15.5 H 10.0-14.5 % Platelet Count 234 130-400 10^3/uL Mean Platelet Volume 9.7 9.0-12.2 fL Immature Granulocyte % (Auto) 1 % Neutrophils (%) (Auto) 74 42-75 % Lymphocytes (%) (Auto) 13 12-44 % Monocytes (%) (Auto) 9 0-12 % Eosinophils (%) (Auto) 4 0-10 % Basophils (%) (Auto) 0 0-10 % Neutrophils # (Auto) 6.7 1.8-7.8 10^3/uL Lymphocytes # (Auto) 1.2 1.0-4.0 10^3/uL Monocytes # (Auto) 0.8 0.0-1.0 10^3/uL Eosinophils # (Auto) 0.3 0.0-0.3 10^3/uL Basophils # (Auto) 0.0 0.0-0.1 10^3/uL Immature Granulocyte # (Auto) 0.1 0.0-0.1 10^3/uL Prothrombin Time 13.9 12.2-14.7 SEC INR Comment 1.0 0.8-1.4 My Orders Orders - DEYA BLEVINS APRN Pelvis With Left Hip 2-3 Views (03/31/20 20:19) Ct Head/Cervical Spine Wo (03/31/20 20:19) Cbc With Automated Diff (03/31/20 20:19) Comprehensive Metabolic Panel (03/31/20 20:19) Protime With Inr (03/31/20 20:19) Ekg Tracing (03/31/20 20:19) Hydrocodone/Apap 5/325 Tablet (Lortab 5 (03/31/20 21:00) Medications Given in ED Current Medications Medications Dose Ordered Sig/Perla Route Start Time Stop Time Status Last Admin Dose Admin Acetaminophen/ Hydrocodone Bitart 1 tab ONCE ONCE PO 03/31/20 21:00 03/31/20 21:01 DC 03/31/20 21:16 1 TAB Vital Signs/I&O 03/31/20 20:15 Temp 36.5 Pulse 102 Resp 18 B/P (MAP) 123/71 (88) Pulse Ox 95 O2 Delivery Room Air Departure Impression Primary Impression: Left hip pain Additional Impressions: Contusion Syncope Disposition: HOME, SELF-CARE Condition: Stable Departure-Patient Inst. Decision time for Depature: 21:27 Referrals: JENNIFER BECK DO (PCP/Family) Primary Care Physician Patient Instructions: Contusion (DC), Syncope (Fainting) Add. Discharge Instructions: 1. return to Er for any concerns. Call your doctor tmorrow to make an appointment to be seen later this week . Scripts Hydrocodone/Acetaminophen (Hydrocodone-Acetamin 7.5-325) 1 Each Tablet 1 EACH PO Q6H PRN for PAIN-MODERATE (5-7), #10 TAB Prov: DEYA BLEVINS APRN 03/31/20 DEYA BLEVINS APRN Mar 31, 2020 20:23
[2020-03-31] MEDS ORDERED: HYDROcodone/APAP 5 MG/325 MG (LORTAB) TAB PO ONE (21:00)
[2020-03-31 21:07] LABS: BASOPHILS % (AUTO) 0 % (0-10); EOSINOPHILS # (AUTO) 0.3 10^3/uL (0.0-0.3); EOSINOPHILS % (AUTO) 4 % (0-10); HEMATOCRIT 36 % (40-54); HEMOGLOBIN 12.3 g/dL (13.3-17.7); LYMPHOCYTES # (AUTO) 1.2 10^3/uL (1.0-4.0); LYMPHOCYTES % (AUTO) 13 % (12-44); MEAN CORPUSCULAR HEMOGLOBIN 28 pg (25-34); MEAN CORPUSCULAR HGB CONC 34 g/dL (32-36); MEAN CORPUSCULAR VOLUME 83 fL (80-99); MEAN PLATELET VOLUME 9.7 fL (9.0-12.2); MONOCYTES # (AUTO) 0.8 10^3/uL (0.0-1.0); MONOCYTES % (AUTO) 9 % (0-12); NEUTROPHILS # (AUTO) 6.7 10^3/uL (1.8-7.8); NEUTROPHILS % (AUTO) 74 % (42-75); PLATELET COUNT 234 10^3/uL (130-400); WHITE BLOOD COUNT 9.1 10^3/uL (4.3-11.0)
[2020-03-31 21:08] LABS: ALBUMIN 3.7 GM/DL (3.2-4.5)
--- NOTE | 2020-03-31 21:08 | Diagnostic Imaging Report ---
CLINICAL INDICATIONS: Patient with hip pain after a fall. EXAM: X-ray of the pelvis, AP view and x-ray of the left hip, AP and frog-leg views. COMPARISON: X-ray of the left hip dated 11/03/2018. FINDINGS: Left total hip arthroplasty with left acetabular cup and reconstructive changes are again seen and have not significantly changed in appearance compared to the prior x-ray. There is no periprosthetic fracture or gross hardware complication seen as visualized. Right hip is unremarkable as visualized. There are vascular calcifications. There are surgical clips overlying the right hip region. There is lower lumbar spine degenerative disease. Screws affixing the healed left iliac crest again noted. IMPRESSION: 1: Stable x-ray of the pelvis and left hip with no acute fracture or dislocation. 2: Left hip arthroplasty, left acetabular reconstruction changes and open reduction internal fixation of the left iliac crest appearance are stable. There are no gross hardware complications. Dictated by: Dictated on workstation # [id number]
[2020-03-31 21:09] LABS: POTASSIUM 5.3 MMOL/L (3.6-5.0)
[2020-03-31 21:10] LABS: CALCIUM 8.6 MG/DL (8.5-10.1)
--- NOTE | 2020-03-31 21:10 | Diagnostic Imaging Report ---
Clinical Indications: Patient fell and complains of hip pain. Exam: Head CT without IV contrast with sagittal and coronal reformations. Axial CT scan of the cervical spine with sagittal and coronal reformations. Auto Exposure Controls were utilized during the CT exam to meet ALARA standards for radiation dose reduction. Comparison: Head CT without contrast and CT angiogram of the head/neck dated 11/21/2019. Findings: Head CT: There is no evidence of acute cerebral infarct, intracranial hemorrhage, or gross mass effect. Brain parenchymal volume loss is seen. There are subtle patchy areas of low-attenuation white matter changes involving both cerebral hemispheres, likely representing chronic small vessel ischemic disease. 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 There is normal riley-white matter distinction. There is no significant midline shift or herniation. There is no evidence of hydrocephalus. The basal cisterns are unremarkable. Again noted are postop changes to the maxillofacial structures which may be from chronic posttraumatic changes. Skull, extracranial soft tissue, and orbits are unremarkable. The paranasal sinuses are unremarkable. There is small to moderate amount of consolidation/fluid in the left mastoid air cells. Cervical spine: There is no acute cervical spine fracture. Stable straightening of the cervical spine posture. There is no significant change to the hypertrophic spurs and severe loss of disk space height seen at the C3-C7 levels. Cervical spine degenerative disease is not significantly changed in interim. Visualized neck soft tissue structures show no significant abnormality. Emphysematous lung disease is seen. Impression: 1: Stable CT scan of the brain with no evidence of interval acute intracranial process. 2: Stable cervical spine degenerative disease with no acute fracture or dislocation. Dictated by: Dictated on workstation # [id number]
[2020-03-31 21:11] LABS: TOTAL PROTEIN 7.4 GM/DL (6.4-8.2)
[2020-03-31 21:11] LABS: PROTHROMBIN TIME PATIENT 13.9 SEC (12.2-14.7)
[2020-03-31 21:13] LABS: BILIRUBIN,TOTAL 0.8 MG/DL (0.1-1.0)
[2020-03-31 21:15] LABS: CREATININE SERUM 1.87 MG/DL (0.60-1.30)
[2020-03-31] MEDS ORDERED: HYDR-3817 PO (21:33)
[2020-03-31] MEDS ORDERED: RX-HYDROCODONE/APAP 5/325 MG #4 TAB PK PO PRN (21:45)
[2020-03-31 22:31] VITALS: BP 139/91
== END 2020-03-31 22:31 | disposition home or self-care (01) ==
LOC: EDUNIT# 20:00 → ER 20:01
DX: M25.552 Pain in left hip (principal); R55 Syncope and collapse; K21.9 Gastro-esophageal reflux disease without esophagitis; I10 Essential (primary) hypertension; Z77.22 Contact with and (suspected) exposure to environmental tobacco smoke (acute) (chronic); Z95.5 Presence of coronary angioplasty implant and graft; Z79.52 Long term (current) use of systemic steroids
CPT/HCPCS: 36415; 70450; 72125; 80053; 85025; 85610; 93005